=== PATIENT | male | born 1935 | race Caucasian/White ===

== ENCOUNTER 2016-07-05 09:30 | Inpatient (IN) | payer MEDICARE, OTHER ==
[~2016-07-05] VITALS: Ht 162.6 cm; Wt 71.4 kg
[~2016-07-05 09:30] MED LIST: ACET325T9 PO; ALBU2.5V5 NEB; ALLO300T PO; ASPI325T4 PO; BISA10SU2 RC; CARV3.12 PO; CHOL100017 PO; EZET10TA3 PO; FAMO-63 PO; FERR-26 PO; FINA5TAB4 PO; FURO20TA3 PO; GABA600T2 PO; HYDR-2666 PO; MAG360OR24 PO; MAGN2400 PO; MULT1TAB77 PO; OMEP40CA5 PO; PHEN14.52 MM; SENN1TAB21 PO; SENN8.6C2 PO; SPIR25TA3 PO; TAMS0.4C97 PO; THIA100T22 PO; TRAN1TBM4 PO; TRAZ50TA15 PO; WARF2TAB7 PO; WARF3TAB PO
--- NOTE | 2016-07-05 09:41 | PHYS DOC ---
Past Medical History Past Medical History: High Cholesterol, Hypertension, Other Additional Past Medical Histor: Cirrhosis, PAD Past Surgical History: Coronary Bypass Surgery, Other Additional Past Surgical Histo: stent placement Alcohol Use: Heavy Drug Use: None Adult General Chief Complaint Chief Complaint: lower extremity edema HPI HPI Patient is a 81 year old 81-year-old male who [facility] with worsening lower show any edema and pain. According to report has a history of congestive heart failure and is on Demadex and has bilateral heel ulcers and over the last several days his legs are becoming increasingly swollen. He denies any chest pain, shortness of breath, fevers chills nausea or vomiting. Review of Systems Review of Systems Constitutional: Denies fever or chills [] Eyes: Denies change in visual acuity, redness, or eye pain [] HENT: Denies nasal congestion or sore throat [] Respiratory: Denies cough or shortness of breath [] Cardiovascular: No additional information not addressed in HPI [] GI: Denies abdominal pain, nausea, vomiting, bloody stools or diarrhea [] : Denies dysuria or hematuria [] Musculoskeletal: Denies back pain or joint pain, complains of lower show any swelling in discomfort [] Integument: Denies rash or skin lesions [] Neurologic: Denies headache, focal weakness or sensory changes [] Endocrine: Denies polyuria or polydipsia [] Current Medications Current Medications Current Medications Medications (Trade) Dose Ordered Sig/Farhad Start Time Stop Time Status Last Admin Dose Admin Furosemide (Lasix) 40 mg 1X ONCE 07/05/16 13:15 07/05/16 13:16 DC 07/05/16 13:20 40 MG Morphine Sulfate 2 mg 1X ONCE 07/05/16 12:00 07/05/16 12:02 DC 07/05/16 12:08 2 MG Morphine Sulfate 2 mg 2 mg 1X ONCE 07/05/16 10:45 07/05/16 10:46 DC 07/05/16 10:38 2 MG Sodium Chloride (Iv Sodium Chloride 0.9% 1000ml Bag) 1,000 ml @ 250 mls/hr 1X ONCE 07/05/16 12:00 07/05/16 15:59 07/05/16 12:07 250 MLS/HR Allergies Allergies Allergies Coded Allergies Type Severity Reaction Last Updated Verified No Known Drug Allergies 7/9/14 No Physical Exam Physical Exam Constitutional: Well developed, well nourished, no acute distress, non-toxic appearance. [] HENT: Normocephalic, atraumatic, bilateral external ears normal, oropharynx moist, no oral exudates, nose normal. [] Eyes: PERRLA, EOMI, conjunctiva normal, no discharge. [] Neck: Normal range of motion, no tenderness, supple, no stridor. [] Cardiovascular:Heart rate regular rhythm, no murmur [] Lungs & Thorax: Bilateral breath sounds clear to auscultation [] Abdomen: Bowel sounds normal, soft, no tenderness, no masses, no pulsatile masses. [] Skin: Was on bilateral heels the left heel having a 1 cm with necrotic ulcer of appearance, right heel with black-appearing lesion, no erythema surrounding either wounds. [] Back: No tenderness, no CVA tenderness. [] Extremities: No tenderness, no cyanosis, no clubbing, 3+ bilateral lower extremity edema with bandages on right great toe and bilateral heels. [] Neurologic: Alert and oriented X 3, normal motor function, normal sensory function, no focal deficits noted. [] Psychologic: Affect normal, judgement normal, mood normal. [] Current Patient Data Vital Signs Vital Signs Date Time Temp Pulse Resp B/P Pulse Ox O2 Delivery O2 Flow Rate FiO2 07/05/16 12:08 26 99 Room Air 07/05/16 11:04 120 117/62 07/05/16 09:35 98 98.0 Lab Values Laboratory Tests Test 07/05/16 11:10 White Blood Count 10.8x10^3/uL (4.0-11.0) Red Blood Count 3.23x10^6/uL (4.30-5.70) L Hemoglobin 10.3g/dL (13.0-17.5) L Hematocrit 31.1% (39.0-53.0) L Mean Corpuscular Volume 96fL (79-100) Mean Corpuscular Hemoglobin 32pg (25-35) Mean Corpuscular Hemoglobin Concent 33g/dL (31-37) Red Cell Distribution Width 14.3% (11.5-14.5) Platelet Count 389x10^3/uL (140-400) Neutrophils (%) (Auto) 81% (31-73) H Lymphocytes (%) (Auto) 9% (24-48) L Monocytes (%) (Auto) 7% (0-9) Eosinophils (%) (Auto) 2% (0-3) Basophils (%) (Auto) 1% (0-3) Neutrophils # (Auto) 8.7x10^3uL (1.8-7.7) H Lymphocytes # (Auto) 1.0x10^3/uL (1.0-4.8) Monocytes # (Auto) 0.8x10^3/uL (0.0-1.1) Eosinophils # (Auto) 0.2x10^3/uL (0.0-0.7) Basophils # (Auto) 0.1x10^3/uL (0.0-0.2) Prothrombin Time 14.8SEC (11.7-14.0) H Prothrombin Time INR 1.2 (0.8-1.1) H Sodium Level 137mmol/L (136-145) Potassium Level 4.0mmol/L (3.5-5.1) Chloride Level 99mmol/L (98-107) Carbon Dioxide Level 27mmol/L (21-32) Anion Gap 11 (6-14) Blood Urea Nitrogen 46mg/dL (8-26) H Creatinine 2.3mg/dL (0.7-1.3) H Estimated GFR (Cockcroft-Gault) 27.4 Glucose Level 109mg/dL (70-99) H Lactic Acid Level 2.5mmol/L (0.4-2.0) H Calcium Level 9.0mg/dL (8.5-10.1) Magnesium Level 2.3mg/dL (1.8-2.4) Total Bilirubin 0.5mg/dL (0.2-1.0) Direct Bilirubin 0.1mg/dL (0.0-0.2) Aspartate Amino Transferase (AST) 28U/L (15-37) Alanine Aminotransferase (ALT) 25U/L (16-63) Alkaline Phosphatase 96U/L (46-116) Creatine Kinase 135U/L (39-308) Creatine Kinase MB (Mass) 1.8ng/mL (0.0-3.6) Creatine Kinase MB Relative Index 1.3% (0-4) Troponin I Quantitative 0.033ng/mL (0.000-0.055) JF-Vrn-U-Type Natriuretic Peptide 1107pg/mL (0-449) H Total Protein 7.0g/dL (6.4-8.2) Albumin 2.0g/dL (3.4-5.0) L Thyroid Stimulating Hormone (TSH) 1.711uIU/mL (0.358-3.74) Laboratory Tests 07/05/16 11:10 Laboratory Tests 07/05/16 11:10 EKG EKG EKG shows sinus tach with a rate of [address] elevations or T-wave inversions appreciated[] Radiology/Procedures Radiology/Procedures [facility] [address] [place] [address] IMAGING REPORT Signed PATIENT: ROGER PANG ACCOUNT: [id number] : 1935 LOCATION: ER AGE: 81 SEX: M EXAM STATUS: REG ER ORD. PHYSICIAN: SAMANTHA CHAO MD REASON: chf PROCEDURE: PORTABLE CHEST 1V EXAM: Chest, single view. HISTORY: Shortness of breath. COMPARISON: 05/25/2016. FINDINGS: A frontal view of the chest is obtained. There is stable peripheral predominant increased interstitial opacity throughout both lungs. There is no consolidation, effusion or pneumothorax. There is stable enlargement of the cardiac silhouette and evidence of prior CABG. IMPRESSION: 1. Stable peripheral predominant increased interstitial opacity likely due to chronic interstitial lung disease. There is suspected superimposed trace congestion. 2. Stable enlargement of the cardiac silhouette. DICTATED and SIGNED BY: ELEANOR FELIPE MD DATE: 07/05/16 1036 CC: SAMANTHA CHAO MD; DB REAL MD ~ Impressions: Congestive heart failure Lower extremity edema Chronic renal insufficiency Bilateral heel ulcers Course & Med Decision Making Course & Med Decision Making Pertinent Labs and Imaging studies reviewed. (See chart for details) Patient presented with worsening bilateral lower extremity edema and worsening renal insufficiency. Her to tell if he is dehydrated or volume overloaded by his appearance, He was tachycardic at 115 and was given 250 mL of normal saline , his heart rate increased to 120s. His heart rate is increased and has not decreased I ordered 40 mg IV Lasix and he will be admitted to the hospitalist with cardiology consultation. Patient family is agreeable plan in stable condition at this time. Dragon Disclaimer Dragon Disclaimer This electronic medical record was generated, in whole or in part, using a voice recognition dictation system. Departure Departure Referrals: DB REAL MD (PCP) SAMANTHA CHAO MD Jul 05, 2016 09:41
--- NOTE | 2016-07-05 10:39 | RAD ---
EXAM: Chest, single view. HISTORY: Shortness of breath. COMPARISON: 05/25/2016. FINDINGS: A frontal view of the chest is obtained. There is stable peripheral predominant increased interstitial opacity throughout both lungs. There is no consolidation, effusion or pneumothorax. There is stable enlargement of the cardiac silhouette and evidence of prior CABG. IMPRESSION: 1. Stable peripheral predominant increased interstitial opacity likely due to chronic interstitial lung disease. There is suspected superimposed trace congestion. 2. Stable enlargement of the cardiac silhouette.
[2016-07-05] MEDS ORDERED: MORPHINE SULFATE 2 MG/ML DISP.SYRIN. IM ONE (10:45)
[2016-07-05 11:27] LABS: BASO # 0.1 x10^3/uL (0.0-0.2); BASO % 1 % (0-3); EOS % 2 % (0-3); HEMATOCRIT 31.1 % (39.0-53.0); HEMOGLOBIN 10.3 g/dL (13.0-17.5); LYMPH % 9 % (24-48); MEAN CORPUSCULAR HEMOGLOBIN 32 pg (25-35); MEAN CORPUSCULAR HGB CONC 33 g/dL (31-37); MEAN CORPUSCULAR VOLUME 96 fL (79-100); MONO % 7 % (0-9); NEUT % 81 % (31-73); PLATELET COUNT 389 x10^3/uL (140-400); RED BLOOD COUNT 3.23 x10^6/uL (4.30-5.70); RED CELL DISTRIBUTION WIDTH 14.3 % (11.5-14.5); WHITE BLOOD COUNT 10.8 x10^3/uL (4.0-11.0)
[2016-07-05 11:37] LABS: INR 1.2 (0.8-1.1); PROTHROMBIN TIME PATIENT 14.8 SEC (11.7-14.0)
[2016-07-05 11:40] LABS: CREATININE 2.3 mg/dL (0.7-1.3); GFR 27.4
[2016-07-05 11:46] LABS: DIRECT BILIRUBIN 0.1 mg/dL (0.0-0.2); MAGNESIUM 2.3 mg/dL (1.8-2.4); TOTAL BILIRUBIN 0.5 mg/dL (0.2-1.0)
--- NOTE | 2016-07-05 11:51 | ACF ---
Admission Forms Criteria HEART FAILURE: COMMON COMPLICATIONS Clinical Indications for Inpatient Care (Place 'X' for any and all applicable criteria): Ongoing inpatient care may be indicated for heart failure with ANY ONE of the following (1)(2)(3)(4)(5): [ ]I. Ongoing need for care for primary condition requiring frequent therapy adjustments because of changes in cardiac function (eg, drug dosage changes for drugs that are renally metabolized) [ ]II. New-onset heart failure [ ]III. Heart failure with decreased urine output not responsive to attempts to optimize volume status [ ]IV. Acute cardiac ischemia causing or associated with failure [X]V. Complications of heart failure, including ANY ONE of the following: [ ]a) Pericardial effusion [ ]b) Symptomatic pleural effusion [ ]c) O2 saturation <90% or PO2 < 60 mm Hg (8.0 kPa) on room air or require baseline supplemental O2 [ ]d) Tachypnea [ ]e) Dyspnea [ ]f) Syncope [ ]g) Change in mental status [ ]h) Acute renal insufficiency that is severe (reduction of more than 50% in estimated glomerular filtration rate from baseline) or progressive reduction of more than 25% in estimated glomerular filtration rate from baseline, with creatinine continuing to rise) [X]i) Hemodynamic instability [ ]j) Anasarca [ ]k) Clinically significant metabolic abnormalities due to heart failure (eg, new-onset metabolic acidosis) Extended stay beyond goal length of stay for primary condition may be needed until ALL of the following are present(1)(3): [ ]a) Stable and effective diuretic regimen established (or patient on stable dialysis regimen if in chronic renal failure) [ ]b) Breathing comfortably at rest [ ]c) Saturation of arterial oxygen greater than 90% or at acceptable baseline [ ]d) Pulmonary edema absent or improved [ ]e) Hemodynamic stability [ ]f) Volume status acceptable on oral medication [ ]g) Peripheral or sacral edema absent or improved [ ]h) Renal function stable and manageable at a lower level of care [ ]i) Complications (eg, pleural effusion) resolved or manageable at a lower level of care [ ]j) Patient or caregiver has received written discharge instructions or educational material addressing activity level, diet, discharge medications, follow-up appointment, weight monitoring, and what to do if symptoms worsen The original [employer] content created by [employer] has been revised. The portions of the content which have been revised are identified through the use of italic text or in bold, and [facility] has neither reviewed nor approved the modified material.All other unmodified content is copyright [email or web address]. Please see references footnoted in the original [email or web address] edition 2016 Admission Criteria Met?: Yes YULISSA REYEZ Jul 05, 2016 11:51
[2016-07-05] MEDS ORDERED: IV NORMAL SALINE 1000ML BAG 1,000 ML IV ONE (12:00)
[2016-07-05] MEDS ORDERED: MORPHINE SULFATE 2 MG/ML DISP.SYRIN. IV ONE (12:00)
[2016-07-05 12:13] LABS: CKMB INDEX 1.3 % (0-4); CKMB MASS 1.8 ng/mL (0.0-3.6)
[2016-07-05] MEDS ORDERED: FUROSEMIDE 40 MG/4 ML VIAL IVP ONE (13:15)
--- NOTE | 2016-07-05 13:43 | EKG ---
[facility] [address] [place] [address] Test Date: 2016-07-05 Test Time: 09:48:04 Pat Name: ROGER PANG Department: Room: Gender: Space Operations: : 1935 Requested By: SAMANTHA CHAO Order Number: [id number] Reading MD: Jameel Zelaya Measurements Intervals [place] Rate: 115 P: 26 ID: 120 QRS: 8 QRSD: 102 T: -12 QT: 324 QTc: 450 Interpretive Statements SINUS TACHYCARDIA BASELINE ARTIFACT Electronically Signed On 07-10-2016 10:10:08 ENFORCEMENT SAFETY OFFICER by Jameel Zelaya
--- NOTE | 2016-07-05 15:16 | EKG ---
[facility] [address] [place] [address] Test Date: 2016-07-05 Test Time: 12:34:42 Pat Name: ROGER PANG Department: Room: 258 1 Gender: M Meat Hostess: : 1935 Requested By: DB REAL Order Number: [id number] Reading MD: Jameel Zelaya Measurements Intervals [place] Rate: 122 P: AK: QRS: -21 QRSD: 94 T: 47 QT: 320 QTc: 457 Interpretive Statements SINUS TACHYCARDIA Electronically Signed On 07-10-2016 10:15:52 GLUE JOINTER FEEDER by Jameel Zelaya
--- NOTE | 2016-07-05 15:30 | PDOC2 ---
CARDIAC CONSULT DATE OF CONSULT Date of Consult DATE: 07/05/16 TIME: 15:15 REASON FOR CONSULT Reason for Consult: CHF REFERRING PHYSICIAN Referring Physician: Dr. Deep Rodriguez SOURCE Source: Chart review, Patient (who is an unreliable historian and profoundly hard of hearing) HISTORY OF PRESENT ILLNESS HISTORY OF PRESENT ILLNESS 81 year old male reportedly from [facility] with LE edema that started this a.m. Denies associated chest pain, pressure, palpitations, or dyspnea. EKG with ST and no acute changes. NT-proBNP 1107. Reason for Visit: CHF PAST MEDICAL HISTORY Past Medical History Cardiovascular: CAD, HTN, Hyperlipidemia, CHF - ? Pulmonary: Pneumonia CENTRAL NERVOUS SYSTEM: Other (denies) GI: No pertinent hx Heme/Onc: No pertinent hx Hepatobiliary: Cirrhosis Psych: Addictions (alcoholism) Musculoskeletal: Osteoarthritis Rheumatologic: Gout Infectious disease: No pertinent hx ENT: No pertinent hx Renal/: Prostate Ca. (treated with radiation) Endocrine: No pertinent hx Dermatology: No pertinent hx PAST SURGICAL HISTORY Past Surgical History CABG (with aortic valve replacement (bioprosthetic), Hernia Repair (inguinal), Other (cardiac cath 2012, s/p bladder irrigation) FAMILY HISTORY Family History: Stroke (brother) SOCIAL HISTORY ALCOHOL: other (history of ETOH abuse) CURRENT MEDICATIONS CURRENT MEDICATIONS Current Medications Medications (Trade) Dose Ordered Sig/Farhad Route PRN Reason Start Time Stop Time Status Last Admin Dose Admin Morphine Sulfate 2 mg 2 mg 1X ONCE IM 07/05/16 10:45 07/05/16 10:46 DC 07/05/16 10:38 Sodium Chloride (Iv Sodium Chloride 0.9% 1000ml Bag) 1,000 ml @ 250 mls/hr 1X ONCE IV 07/05/16 12:00 07/05/16 15:59 07/05/16 12:07 Morphine Sulfate 2 mg 1X ONCE IV 07/05/16 12:00 07/05/16 12:02 DC 07/05/16 12:08 Furosemide (Lasix) 40 mg 1X ONCE IVP 07/05/16 13:15 07/05/16 13:16 DC 07/05/16 13:20 ALLERGIES ALLERGIES: Coded Allergies: No Known Drug Allergies (Unverified , 12/30/13) ROS Review of System see HPI; attempted 14 point review - pt profoundly heard of hearing PHYSICAL EXAM General: Alert, Cooperative, No acute distress HEENT: Atraumatic, PERRLA, Other (bilateral hearing aids) Lungs: Other (decreased in bases - ? crackles - pt talked through physical exam ) Heart: Regular rate, Normal S1, Normal S2, Other (tachycardic) Abdomen: Normal bowel sounds, Soft Extremities: Normal pulses, Other (2+ pedal edema) Neuro: Normal speech Psych/Mental Status: Mental status NL, Mood NL MUSCULOSKELETAL: Osteoarthritic changes both hands VITALS VITALS Vital Signs Date Time Temp Pulse Resp B/P Pulse Ox O2 Delivery O2 Flow Rate FiO2 07/05/16 12:08 26 99 Room Air 07/05/16 11:04 120 117/62 07/05/16 09:35 98 98.0 LABS Lab: Laboratory Tests Test 07/05/16 11:10 White Blood Count 10.8x10^3/uL (4.0-11.0) Red Blood Count 3.23x10^6/uL (4.30-5.70) Hemoglobin 10.3g/dL (13.0-17.5) Hematocrit 31.1% (39.0-53.0) Mean Corpuscular Volume 96fL (79-100) Mean Corpuscular Hemoglobin 32pg (25-35) Mean Corpuscular Hemoglobin Concent 33g/dL (31-37) Red Cell Distribution Width 14.3% (11.5-14.5) Platelet Count 389x10^3/uL (140-400) Neutrophils (%) (Auto) 81% (31-73) Lymphocytes (%) (Auto) 9% (24-48) Monocytes (%) (Auto) 7% (0-9) Eosinophils (%) (Auto) 2% (0-3) Basophils (%) (Auto) 1% (0-3) Neutrophils # (Auto) 8.7x10^3uL (1.8-7.7) Lymphocytes # (Auto) 1.0x10^3/uL (1.0-4.8) Monocytes # (Auto) 0.8x10^3/uL (0.0-1.1) Eosinophils # (Auto) 0.2x10^3/uL (0.0-0.7) Basophils # (Auto) 0.1x10^3/uL (0.0-0.2) Prothrombin Time 14.8SEC (11.7-14.0) Prothromb Time International Ratio 1.2 (0.8-1.1) Sodium Level 137mmol/L (136-145) Potassium Level 4.0mmol/L (3.5-5.1) Chloride Level 99mmol/L (98-107) Carbon Dioxide Level 27mmol/L (21-32) Anion Gap 11 (6-14) Blood Urea Nitrogen 46mg/dL (8-26) Creatinine 2.3mg/dL (0.7-1.3) Estimated GFR (Cockcroft-Gault) 27.4 Glucose Level 109mg/dL (70-99) Lactic Acid Level 2.5mmol/L (0.4-2.0) Calcium Level 9.0mg/dL (8.5-10.1) Magnesium Level 2.3mg/dL (1.8-2.4) Total Bilirubin 0.5mg/dL (0.2-1.0) Direct Bilirubin 0.1mg/dL (0.0-0.2) Aspartate Amino Transf (AST/SGOT) 28U/L (15-37) Alanine Aminotransferase (ALT/SGPT) 25U/L (16-63) Alkaline Phosphatase 96U/L (46-116) Creatine Kinase 135U/L (39-308) Creatine Kinase MB (Mass) 1.8ng/mL (0.0-3.6) Creatine Kinase MB Relative Index 1.3% (0-4) Troponin I Quantitative 0.033ng/mL (0.000-0.055) XC-Iuu-P-Type Natriuretic Peptide 1107pg/mL (0-449) Total Protein 7.0g/dL (6.4-8.2) Albumin 2.0g/dL (3.4-5.0) Thyroid Stimulating Hormone (TSH) 1.711uIU/mL (0.358-3.74) IMAGES IMAGES CXR: FINDINGS: A frontal view of the chest is obtained. There is stable peripheral predominant increased interstitial opacity throughout both lungs. There is no consolidation, effusion or pneumothorax. There is stable enlargement of the cardiac silhouette and evidence of prior CABG. IMPRESSION: 1. Stable peripheral predominant increased interstitial opacity likely due to chronic interstitial lung disease. There is suspected superimposed trace congestion. 2. Stable enlargement of the cardiac silhouette. EKG EKG ST; no acute changes ECHOCARDIOGRAM ECHOCARDIOGRAM 12/24/2013: EYAD: The left ventricle is normal size. The systolic function is moderately decreased. LV ejection fraction is 30-35%. The aortic valve is heavily calcified with decreased opening. There is severe valvular aortic stenosis. Doppler and Color-flow revealed mild to moderate mitral regurgitation. Doppler and Color Flow revealed trace to mild tricuspid regurgitation. 07/2014: TTE: Mild global left ventricle systolic dysfunction. The Ejection Fraction is estimated at 40-45%. Tissue Doppler imaging reveals abnormal left ventricular diastolic dysfunction. The left atrium is mildly dilated. Bioprosthetic aortic valve appears well seated with normal function. Doppler and Color-flow revealed mild mitral regurgitation. Doppler and Color Flow revealed mild tricuspid regurgitation. The PA pressure was estimated at 38 mmHg. There is no evidence of significant pericardial effusion. HEART CATH HEART CATH 11/2013: cardiac cath Left main. The left main had no lesions. Left anterior descending. The LAD had diffuse severe disease with mid lesions in the 80-90% range and a distal 80-85% lesion. Left Circumflex. The left circumflex is a moderate size vessel. It has a proximal 70% lesion and 2 mid lesions of 90% or greater. Right coronary artery. The right coronary was a large dominant vessel with a proximal 80% lesion and diffuse distal disease of 80%. ASSESSMENT/PLAN ASSESSMENT/PLAN 1. acute on chronic systolic and diastolic CHF concur with IV diuretics echo to evaluate LVEF 2. CAD with previous CABG and bioprosthetic AVR 3. HTN control 4. HLD check FLP Problems: LAKIA MANN APRN Jul 05, 2016 15:30
[2016-07-05] MEDS ORDERED: ALBUTEROL SULFATE 2.5 MG/3 ML NEBU. NEB PRN (16:30)
[2016-07-05] MEDS ORDERED: ACETAMINOPHEN 325 MG TABLET. PO PRN (16:30)
[2016-07-05] MEDS ORDERED: MAGNESIUM HYDROXIDE 2,400 MG/30 ML ORAL.SUSP. PO PRN (16:30)
[2016-07-05] MEDS: CARVEDILOL 3.125 MG TABLET PO SCH (17:31)
[2016-07-05] MEDS: FUROSEMIDE 20 MG/2 ML VIAL IVP SCH (17:32)
[2016-07-05] MEDS: ENOXAPARIN 30 MG/0.3 ML DISP.SYRIN. SQ SCH (17:32)
[2016-07-05] MEDS: PIPERACILLIN/TAZOBACTAM 2.25 GM in IV NORMAL SALINE 50ML 50 ML IV SCH (18:52)
[2016-07-05 19:33] VITALS: BP 110/52
[2016-07-05] MEDS: TAMSULOSIN 0.4 MG CAP.ER.24H. PO SCH (21:00)
[2016-07-05] MEDS ORDERED: CARVEDILOL 3.125 MG TABLET PO SCH (21:00)
[2016-07-05] MEDS: FAMOTIDINE 20 MG TABLET. PO SCH (21:00)
[2016-07-05] MEDS: HYDROCODONE/APAP 5/325MG TABLET. PO PRN (21:01)
[2016-07-05] MEDS: GABAPENTIN 300 MG CAPSULE. PO SCH (21:01)
[2016-07-05 23:04] VITALS: BP 91/49
[2016-07-06] VITALS (7 sets, daily range): BP systolic 88–127; BP diastolic 49–65
[2016-07-06] MEDS: PIPERACILLIN/TAZOBACTAM 2.25 GM in IV NORMAL SALINE 50ML 50 ML IV SCH ×5 (00:13→23:34)
[2016-07-06 03:46] LABS: CALCIUM 9.5 mg/dL (8.5-10.1); CREATININE 2.2 mg/dL (0.7-1.3); GFR 28.9
[2016-07-06 04:11] LABS: CHOLESTEROL/HDL RATIO 2.9
[2016-07-06 04:19] LABS: BASO # 0.1 x10^3/uL (0.0-0.2); BASO % 1 % (0-3); EOS % 2 % (0-3); HEMATOCRIT 31.9 % (39.0-53.0); HEMOGLOBIN 10.2 g/dL (13.0-17.5); LYMPH # 1.1 x10^3/uL (1.0-4.8); LYMPH % 10 % (24-48); MEAN CORPUSCULAR HEMOGLOBIN 31 pg (25-35); MEAN CORPUSCULAR HGB CONC 32 g/dL (31-37); MEAN CORPUSCULAR VOLUME 99 fL (79-100); MONO % 7 % (0-9); NEUT % 80 % (31-73); PLATELET COUNT 368 x10^3/uL (140-400); RED BLOOD COUNT 3.24 x10^6/uL (4.30-5.70); RED CELL DISTRIBUTION WIDTH 14.6 % (11.5-14.5); WHITE BLOOD COUNT 11.7 x10^3/uL (4.0-11.0)
[2016-07-06] MEDS ORDERED: FUROSEMIDE 20 MG TABLET PO SCH (09:00)
[2016-07-06] MEDS: SPIRONOLACTONE 25 MG TABLET PO SCH (09:04)
[2016-07-06] MEDS: FINASTERIDE 5 MG TABLET PO SCH (09:04)
[2016-07-06] MEDS: TAMSULOSIN 0.4 MG CAP.ER.24H. PO SCH ×2 (09:04→20:22)
[2016-07-06] MEDS: ALLOPURINOL 300 MG TABLET. PO SCH (09:04)
[2016-07-06] MEDS: CARVEDILOL 3.125 MG TABLET PO SCH ×2 (09:04→17:28)
[2016-07-06] MEDS: FUROSEMIDE 20 MG/2 ML VIAL IVP SCH ×2 (09:05→16:24)
--- NOTE | 2016-07-06 10:20 | PDOC ---
OBJECTIVE Vital Signs Vital Signs Date Time Temp Pulse Resp B/P Pulse Ox O2 Delivery O2 Flow Rate FiO2 07/06/16 09:04 114 105/60 07/06/16 07:00 98.5 114 18 105/60 100 Room Air 98.5 07/06/16 03:16 98.3 104 18 103/62 98 Room Air 98.3 07/06/16 01:17 127/65 07/05/16 23:04 97.3 20 91/49 96 Room Air 97.3 07/05/16 21:01 18 07/05/16 20:00 Room Air 07/05/16 19:33 98.7 101 18 110/52 97 Room Air 98.7 07/05/16 17:31 128 07/05/16 16:56 Room Air 07/05/16 15:34 126 32 112/61 97 Room Air 07/05/16 14:34 126 30 130/60 Room Air 07/05/16 14:04 118 16 119/56 97 Room Air 07/05/16 13:34 126 30 113/58 Room Air 07/05/16 13:04 122 27 120/63 97 Room Air 07/05/16 12:34 124 33 142/77 97 Room Air 07/05/16 12:08 26 99 Room Air 07/05/16 12:04 124 31 144/71 85 Room Air 07/05/16 11:34 126 26 107/74 98 Room Air 07/05/16 11:10 24 96 Room Air 07/05/16 11:04 120 24 117/62 96 07/05/16 10:53 112 119/58 07/05/16 10:38 24 95 Room Air 07/05/16 10:34 126 36 146/63 93 Room Air I & O Intake and Output 07/06/16 07:00 Intake Total 300 ml Output Total 900 ml Balance -600 ml Intake Oral 50 ml IV Total 250 ml Output Urine Total 900 ml # Voids 3 ASSESSMENT/PLAN Assessment/Plan 193956 H&P dictated Problems: COMMENT Lab Laboratory Tests Test 07/05/16 11:10 07/05/16 17:29 07/05/16 19:00 07/06/16 01:45 White Blood Count 10.8x10^3/uL (4.0-11.0) 11.7x10^3/uL (4.0-11.0) Red Blood Count 3.23x10^6/uL (4.30-5.70) 3.24x10^6/uL (4.30-5.70) Hemoglobin 10.3g/dL (13.0-17.5) 10.2g/dL (13.0-17.5) Hematocrit 31.1% (39.0-53.0) 31.9% (39.0-53.0) Mean Corpuscular Volume 96fL (79-100) 99fL (79-100) Mean Corpuscular Hemoglobin 32pg (25-35) 31pg (25-35) Mean Corpuscular Hemoglobin Concent 33g/dL (31-37) 32g/dL (31-37) Red Cell Distribution Width 14.3% (11.5-14.5) 14.6% (11.5-14.5) Platelet Count 389x10^3/uL (140-400) 368x10^3/uL (140-400) Neutrophils (%) (Auto) 81% (31-73) 80% (31-73) Lymphocytes (%) (Auto) 9% (24-48) 10% (24-48) Monocytes (%) (Auto) 7% (0-9) 7% (0-9) Eosinophils (%) (Auto) 2% (0-3) 2% (0-3) Basophils (%) (Auto) 1% (0-3) 1% (0-3) Neutrophils # (Auto) 8.7x10^3uL (1.8-7.7) 9.4x10^3uL (1.8-7.7) Lymphocytes # (Auto) 1.0x10^3/uL (1.0-4.8) 1.1x10^3/uL (1.0-4.8) Monocytes # (Auto) 0.8x10^3/uL (0.0-1.1) 0.8x10^3/uL (0.0-1.1) Eosinophils # (Auto) 0.2x10^3/uL (0.0-0.7) 0.2x10^3/uL (0.0-0.7) Basophils # (Auto) 0.1x10^3/uL (0.0-0.2) 0.1x10^3/uL (0.0-0.2) Prothrombin Time 14.8SEC (11.7-14.0) Prothromb Time International Ratio 1.2 (0.8-1.1) Sodium Level 137mmol/L (136-145) 137mmol/L (136-145) Potassium Level 4.0mmol/L (3.5-5.1) 4.0mmol/L (3.5-5.1) Chloride Level 99mmol/L (98-107) 101mmol/L (98-107) Carbon Dioxide Level 27mmol/L (21-32) 21mmol/L (21-32) Anion Gap 11 (6-14) 15 (6-14) Blood Urea Nitrogen 46mg/dL (8-26) 49mg/dL (8-26) Creatinine 2.3mg/dL (0.7-1.3) 2.2mg/dL (0.7-1.3) Estimated GFR (Cockcroft-Gault) 27.4 28.9 Glucose Level 109mg/dL (70-99) 116mg/dL (70-99) Lactic Acid Level 2.5mmol/L (0.4-2.0) 1.9mmol/L (0.4-2.0) Calcium Level 9.0mg/dL (8.5-10.1) 9.5mg/dL (8.5-10.1) Magnesium Level 2.3mg/dL (1.8-2.4) Total Bilirubin 0.5mg/dL (0.2-1.0) Direct Bilirubin 0.1mg/dL (0.0-0.2) Aspartate Amino Transf (AST/SGOT) 28U/L (15-37) Alanine Aminotransferase (ALT/SGPT) 25U/L (16-63) Alkaline Phosphatase 96U/L (46-116) Creatine Kinase 135U/L (39-308) Creatine Kinase MB (Mass) 1.8ng/mL (0.0-3.6) Creatine Kinase MB Relative Index 1.3% (0-4) Troponin I Quantitative 0.033ng/mL (0.000-0.055) 0.033ng/mL (0.000-0.055) 0.029ng/mL (0.000-0.055) LD-Rsp-X-Type Natriuretic Peptide 1107pg/mL (0-449) Total Protein 7.0g/dL (6.4-8.2) Albumin 2.0g/dL (3.4-5.0) Thyroid Stimulating Hormone (TSH) 1.711uIU/mL (0.358-3.74) Nasal Screen MRSA (PCR) Negative (Negative) Test 07/06/16 02:00 Magnesium Level 2.5mg/dL (1.8-2.4) Triglycerides Level 81mg/dL (0-150) Cholesterol Level 171mg/dL (0-200) LDL Cholesterol, Calculated 96mg/dL (0-100) VLDL Cholesterol, Calculated 16mg/dL (0-40) HDL Cholesterol 59mg/dL (40-60) Cholesterol/HDL Ratio 2.9 DB REAL MD Jul 06, 2016 10:20
--- NOTE | 2016-07-06 11:01 | CARD ---
APPROVED REPORT EXAM: Two-dimensional and M-mode echocardiogram with Doppler and color Doppler. Other Information Quality : technically Difficult Technically limited study due to poor subcostal, and apical images. INDICATION Congestive Heart Failure AVR 2D DIMENSIONS RVDd2.8 (2.9-3.5cm)Left Atrium(2D)4.0 (1.6-4.0cm) IVSd1.0 (0.7-1.1cm)Aortic Root(2D)3.1 (2.0-3.7cm) LVDd4.3 (3.9-5.9cm)LVOT Diameter2.0 (1.8-2.4cm) PWd1.1 (0.7-1.1cm)LVDs2.7 (2.5-4.0cm) FS (%) 23.7 %SV57.1 ml LVEF(%)45.1 (>50%) Aortic Valve AoV Peak Samir.172.2cm/sAoV VTI36.3cm AO Peak GR.11.9mmHgLVOT VTI 23.15cm MARCIANO (VTI)2.00cm2 Mitral Valve MV E Mmjdjjhh920.7cm/sMV E Peak Gr.9mmHg MV DECEL [id number] A Luaaboym375.6cm/s MV E Mean Gr.4mmHgMV [id number] E/A Ratio0.8MV A Aqmcblup77es MVA (PHT)6.11cm2 TDI Lateral E' P. V11.97cm/sMedial E' P. V9.33cm/s E/Lateral E'9.5E/Medial E'12.2 Tricuspid Valve TR P. Rripjmgt373zd/sRAP [id number] TR Peak Gr.94fiUjPFFN32woDl LEFT VENTRICLE The left ventricle is normal size. There is borderline concentric left ventricular hypertrophy. Left ventricle systolic function is mildly impaired. The Ejection Fraction is 40-45%. The septal motion is consistent with postoperative state. Mild global hypokinesis. Transmitral Doppler flow pattern is Gr aicha I-abnormal relaxation pattern. RIGHT VENTRICLE The right ventricle is normal size. The right ventricular systolic function is normal. ATRIA The left atrium is borderline dilated. The right atrium size is normal. Interatrial septal thickening is noted. AORTIC VALVE Bioprosthetic Aortic Valve. Doppler and Color Flow revealed mild aortic regurgitation. There is no si gnificant aortic valvular stenosis. There are normal prosthetic aortic valve gradients. MITRAL VALVE The mitral valve is thickened and calcified and displays mild decreased opening. 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 There is no evidence of mitral valve prolapse. There is no mitral roselia ve stenosis. Doppler and Color Flow revealed mild mitral regurgitation. TRICUSPID VALVE The tricuspid valve is normal in structure. Doppler and Color Flow revealed mild tricuspid regurgitat ion. There is mild-moderate pulmonary hypertension. The PA pressure was estimated at 41 mmHg. There i s no tricuspid valve stenosis. PULMONIC VALVE The pulmonary valve is normal in structure and function. Doppler and Color Flow revealed mild pulmoni c valvular regurgitation. There is no pulmonic valvular stenosis. GREAT VESSELS The aortic root is normal in size. Due to poor image quality, the IVC could not be assessed. PERICARDIAL EFFUSION There is no evidence of significant pericardial effusion. Critical Notification Critical Value: No <Conclusion> Left ventricle systolic function is mildly impaired. The Ejection Fraction is 40-45%. The septal motion is consistent with postoperative state. Mild global hypokinesis. Doppler and Color Flow revealed mild aortic regurgitation. The mitral valve is thickened and calcified and displays mild decreased opening. 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 Doppler and Color Flow revealed mild mitral regurgitation. Doppler and Color Flow revealed mild tricuspid regurgitation. There is mild-moderate pulmonary hypert ension. The PA pressure was estimated at 41 mmHg.
[2016-07-06 11:29] LABS: BILIRUBIN,URINE NEGATIVE (NEG); GLUCOSE,URINE NEGATIVE (NEG); NITRITE,URINE NEGATIVE (NEG); PH,URINE 6.5; PROTEIN,URINE NEGATIVE (NEG-TRACE); UROBILINOGEN,URINE 0.2 mg/dL (0.2 mg/dL)
--- NOTE | 2016-07-06 11:30 | PDOC ---
CARDIO Progress Notes Date and Time Date of Service 07/06/16 Time of Evaluation 1129 Vitals Vitals Vital Signs Date Time Temp Pulse Resp B/P Pulse Ox O2 Delivery O2 Flow Rate FiO2 07/06/16 09:04 114 105/60 07/06/16 07:00 98.5 18 100 Room Air 98.5 Weight Weight [ ] Input and Output Intake and Output Intake and Output 07/06/16 07:00 Intake Total 300 ml Output Total 900 ml Balance -600 ml Intake Oral 50 ml IV Total 250 ml Output Urine Total 900 ml # Voids 3 Laboratory Labs Laboratory Tests Test 07/05/16 17:29 07/05/16 19:00 07/06/16 01:45 07/06/16 02:00 Nasal Screen MRSA (PCR) Negative (Negative) Lactic Acid Level 1.9mmol/L (0.4-2.0) Troponin I Quantitative 0.033ng/mL (0.000-0.055) 0.029ng/mL (0.000-0.055) White Blood Count 11.7x10^3/uL (4.0-11.0) Red Blood Count 3.24x10^6/uL (4.30-5.70) Hemoglobin 10.2g/dL (13.0-17.5) Hematocrit 31.9% (39.0-53.0) Mean Corpuscular Volume 99fL (79-100) Mean Corpuscular Hemoglobin 31pg (25-35) Mean Corpuscular Hemoglobin Concent 32g/dL (31-37) Red Cell Distribution Width 14.6% (11.5-14.5) Platelet Count 368x10^3/uL (140-400) Neutrophils (%) (Auto) 80% (31-73) Lymphocytes (%) (Auto) 10% (24-48) Monocytes (%) (Auto) 7% (0-9) Eosinophils (%) (Auto) 2% (0-3) Basophils (%) (Auto) 1% (0-3) Neutrophils # (Auto) 9.4x10^3uL (1.8-7.7) Lymphocytes # (Auto) 1.1x10^3/uL (1.0-4.8) Monocytes # (Auto) 0.8x10^3/uL (0.0-1.1) Eosinophils # (Auto) 0.2x10^3/uL (0.0-0.7) Basophils # (Auto) 0.1x10^3/uL (0.0-0.2) Sodium Level 137mmol/L (136-145) Potassium Level 4.0mmol/L (3.5-5.1) Chloride Level 101mmol/L (98-107) Carbon Dioxide Level 21mmol/L (21-32) Anion Gap 15 (6-14) Blood Urea Nitrogen 49mg/dL (8-26) Creatinine 2.2mg/dL (0.7-1.3) Estimated GFR (Cockcroft-Gault) 28.9 Glucose Level 116mg/dL (70-99) Calcium Level 9.5mg/dL (8.5-10.1) Magnesium Level 2.5mg/dL (1.8-2.4) Triglycerides Level 81mg/dL (0-150) Cholesterol Level 171mg/dL (0-200) LDL Cholesterol, Calculated 96mg/dL (0-100) VLDL Cholesterol, Calculated 16mg/dL (0-40) HDL Cholesterol 59mg/dL (40-60) Cholesterol/HDL Ratio 2.9 Physical Exam HEENT: Neck Supple W Full Motion Chest: Symmetric LUNGS: Other (decreased in bases - talked through physical exam) Abdomen: Other (obese abdomen) Extremities: Other (3+ LE edema) Neurology: alert, follow commands Diagnostic Tests Echocardiogram: Other (LVEf 40-45% with mild global hypokinesis; mild AR/MR/TR ; severe MAC; moderate pulm HTN with PA of 41 mm Hg) Assessment Assessment 1. acute on chronic systolic and diastolic CHF concur with IV diuretics echo with mildly depressed LV function and mild global hypokinesis also with moderate pulm HTN - PA = 41 mm hg 2. CAD with previous CABG and bioprosthetic AVR continue medical management - start aspirin 81 mg daily as anti-platelet 3. HTN BP controlled with meds 4. HLD LDLs = 96 CAD/CABG history - start statin therapy LAKIA MANN APRN Jul 06, 2016 11:30
[2016-07-06 11:46] LABS: BACTERIA,URINE FEW /HPF (0-FEW); RBC,URINE RARE /HPF (0-2); SQUAMOUS EPITHELIAL CELL,UR FEW /LPF; WBC,URINE RARE /HPF (0-4)
[2016-07-06] MEDS: HYDROCODONE/APAP 5/325MG TABLET. PO PRN ×2 (12:15→22:53)
[2016-07-06] MEDS: COLCHICINE 0.6 MG TABLET PO SCH ×2 (12:15→20:22)
[2016-07-06] MEDS: ENOXAPARIN 30 MG/0.3 ML DISP.SYRIN. SQ SCH (16:24)
--- NOTE | 2016-07-06 19:18 | PREOP HP ---
DATE OF SERVICE: HISTORY OF PRESENT ILLNESS: The patient is an 81-year-old gentleman who is currently at the [facility] for senior care facility after he had hospitalization due to severe pain in the lower extremities. At that time, he was diagnosed with neuropathy. He was evaluated by Neurology, also was evaluated by Vascular Surgery due to peripheral vascular disease. He is known to have gout as well and then has had a gout attack during his last admission. His gout is severe and persistent recurrent gout. He was advised long time ago to stay on Colcrys twice a day for a year due to the recurrent episodes of gout. He comes back to the Emergency Room again with worsening lower extremity pain. He also has been having more swelling in the lower extremities and some shortness of breath and a question of exacerbation of his congestive heart failure. He has denied any chest pain or fever, chills, nausea, or vomiting. Denied more dyspnea than usual. Denied orthopnea or PND. He does, however, have significant swelling in the lower extremities, significant pain in the lower extremities. He did have swelling and erythema basically more on his left knee and he had cracking in his skin and cellulitis in the lower extremities. PAST MEDICAL HISTORY: Significant for coronary artery disease, congestive heart failure, cardiomyopathy. He has had a CABG surgery in the past. He had a valve replacement in the past. He also has had stent placements in the past. He has hypertension, hyperlipidemia, previous history of pneumonia, prostate cancer status post radiation, history of prostate problems, inguinal hernia, hematuria after his prostate surgery and osteoarthritis, gouty arthritis. He does have history of using alcohol regularly. SOCIAL HISTORY: He quit smoking. He does normally live with his , but is currently to the [facility]. FAMILY HISTORY: Positive for hypertension, cardiac disease and cancer. REVIEW OF SYSTEMS: CONSTITUTIONAL: He denies fever or chills. He does look like he has lost some weight. EYES: Denies visual changes. HENT: Denies nasal congestion or sore throat. RESPIRATORY: He denies increasing shortness of breath, but he does have some baseline dyspnea on exertion. CARDIOVASCULAR: Denies current chest pain. He does have edema in the lower extremities. GASTROINTESTINAL: Denies abdominal pain, nausea, vomiting, bloody stool or diarrhea. GENITOURINARY: Denies dysuria or hematuria at present time. MUSCULOSKELETAL: He does have arthritis and mostly gouty arthritis with acute inflammation in joints that has affected his ankle, his knees and his hands in the past. He currently does have pain in his left knee that is also erythematous and looks inflamed. He also does have pain and swelling in the lower extremities. NEUROLOGY: Denies headache or focal weakness, but he does have significant neuropathic symptoms and neuropathic pain in the lower extremities. DERMATOLOGY: He does not have rash, but he does have a skin breakdown and ulcers on both his lower extremities associated with cellulitis more on the left lower extremity ALLERGIES: He has no known drug allergies. PHYSICAL EXAMINATION: GENERAL: He is alert and oriented at the time I saw him, cooperative. HEENT: Tympanic membranes clear. Pharynx clear. Mucous membranes are moist. NECK: Supple. HEART: Regular rate and rhythm. LUNGS: He had decreased breath sounds in the bases. ABDOMEN: Soft, nontender, no organomegaly, no masses, no bruits, no ascites. SKIN: He has bilateral heel ulcers about 1 cm each associated with cellulitis, dry skin, cracking of the skin. He does have also erythema in the left knee basically with inflammatory changes in the left knee. Clinically, he also does have evidence of mild cellulitis in both lower extremities. His edema is about upon his presentation bilaterally and slightly worse on the left side. NEUROLOGIC: He is alert and oriented and has no focal deficit. IMPRESSION: 1. Severe lower extremity edema. 2. Bilateral lower extremity ulcers and cellulitis, started on antibiotics. 3. Acute on chronic congestive heart failure. He is started on diuretic and Cardiology was consulted. 4. Chronic kidney disease stage 3 with acute kidney injury. 5. Anemia of chronic disease. 6. Coronary artery disease. 7. Hypertension, hypertensive cardiovascular disease. 8. Hyperlipidemia. 9. History of prostate cancer. 10. Gouty arthritis with evidence of acute gout in his left knee. He is restarted on Colcrys and recommendation is for him to stay on Colcrys for the next year. The patient has had recurrent multiple flareups of acute inflammatory gout. Physical Therapy was consulted as well. The patient's family has not been completely satisfied with his stay at the [facility] and would like for him to return home with home health if he was felt safe after this admission. DB REAL MD DR: JUAN/miguel JOB#: [id number] / [id number]
[2016-07-06] MEDS: GABAPENTIN 300 MG CAPSULE. PO SCH (20:22)
[2016-07-06] MEDS: ATORVASTATIN CALCIUM 10 MG TABLET. PO SCH (20:22)
[2016-07-06] MEDS: FAMOTIDINE 20 MG TABLET. PO SCH (20:22)
[2016-07-07] MEDS: HYDROCODONE/APAP 5/325MG TABLET. PO PRN ×3 (02:33→20:49)
[2016-07-07 02:40] VITALS: BP 135/61
[2016-07-07 05:27] LABS: HEMATOCRIT 26.5 % (39.0-53.0); HEMOGLOBIN 8.8 g/dL (13.0-17.5); RED BLOOD COUNT 2.72 x10^6/uL (4.30-5.70); WHITE BLOOD COUNT 10.6 x10^3/uL (4.0-11.0)
[2016-07-07] MEDS: PIPERACILLIN/TAZOBACTAM 2.25 GM in IV NORMAL SALINE 50ML 50 ML IV SCH ×3 (05:28→18:13)
[2016-07-07 05:43] LABS: INR 1.4 (0.8-1.1); PROTHROMBIN TIME PATIENT 16.4 SEC (11.7-14.0)
[2016-07-07 06:05] LABS: ALBUMIN 2.4 g/dL (3.4-5.0); ALBUMIN/GLOBULIN RATIO 0.6 (1.0-1.7); CREATININE 2.5 mg/dL (0.7-1.3); GFR 24.9; POTASSIUM 3.8 mmol/L (3.5-5.1); TOTAL BILIRUBIN 0.5 mg/dL (0.2-1.0); TOTAL PROTEIN 6.2 g/dL (6.4-8.2)
[2016-07-07 07:00] VITALS: BP 104/52
[2016-07-07] MEDS: COLCHICINE 0.6 MG TABLET PO SCH (08:59)
[2016-07-07] MEDS: ALLOPURINOL 300 MG TABLET. PO SCH (08:59)
[2016-07-07] MEDS: TAMSULOSIN 0.4 MG CAP.ER.24H. PO SCH ×2 (08:59→20:48)
[2016-07-07] MEDS: CARVEDILOL 3.125 MG TABLET PO SCH ×2 (08:59→17:00)
[2016-07-07] MEDS: SPIRONOLACTONE 25 MG TABLET PO SCH (08:59)
[2016-07-07] MEDS: FUROSEMIDE 20 MG/2 ML VIAL IVP SCH (09:00)
[2016-07-07] MEDS: FINASTERIDE 5 MG TABLET PO SCH (09:21)
[2016-07-07 10:47] VITALS: BP 102/58
--- NOTE | 2016-07-07 10:54 | PDOC ---
GENERAL General: vss and afebrile. complains bitterly of joint pain primarily in legs. denies significant sob. esr is 138 and with history of gout will start on prednisone and ask for rheumatology help. help consultants appreciated. O>I. continue diuresis. Problems: VITAL SIGNS Vital Signs: Vital Signs Date Time Temp Pulse Resp B/P Pulse Ox O2 Delivery O2 Flow Rate FiO2 07/07/16 10:47 97.5 90 20 102/58 100 Room Air 97.5 I & O I & O Intake and Output 07/07/16 07:00 Intake Total 900 ml Output Total 900 ml Balance 0 ml Intake Oral 900 ml Output Urine Total 900 ml ALLERGIES Allergies: Allergies Coded Allergies Type Severity Reaction Last Updated Verified No Known Drug Allergies 12/30/13 No MEDS Medications: Current Medications Medications (Trade) Dose Ordered Sig/Farhad Start Time Stop Time Status Last Admin Dose Admin Acetaminophen (Tylenol) 650 mg PRN Q4HRS PRN 07/05/16 16:30 Acetaminophen/ Hydrocodone Bitart (Lortab 5/325) 1 tab PRN Q4HRS PRN 07/05/16 16:30 07/07/16 02:33 1 TAB Albuterol Sulfate (Ventolin Neb Soln) 2.5 mg PRN Q4HRS PRN 07/05/16 16:30 Allopurinol (Zyloprim) 300 mg DAILY 07/06/16 09:00 07/07/16 08:59 300 MG Atorvastatin Calcium (Lipitor) 20 mg QHS 07/06/16 21:00 07/06/16 20:22 20 MG Carvedilol (Coreg) 3.125 mg BIDWMEALS 07/05/16 21:00 Cancel Carvedilol 3.125 mg 3.125 mg BIDWMEALS 07/05/16 17:00 07/07/16 08:59 3.125 MG Colchicine (Colcrys) 0.6 mg BID 07/06/16 11:00 07/07/16 08:59 0.6 MG Enoxaparin Sodium (Lovenox 30mg Syringe) 30 mg DAILY16 07/05/16 16:17 07/06/16 16:24 30 MG Famotidine (Pepcid) 20 mg HS 07/05/16 21:00 07/06/16 20:22 20 MG Finasteride (Proscar) 5 mg DAILY 07/06/16 09:00 07/07/16 09:21 5 MG Furosemide (Lasix) 20 mg DAILY 07/06/16 09:00 07/06/16 09:00 DC Gabapentin (Neurontin) 600 mg HS 07/05/16 21:00 07/06/16 20:22 600 MG Magnesium Hydroxide (Milk Of Magnesia) 2,400 mg PRN DAILY PRN 07/05/16 16:30 Morphine Sulfate 2 mg 1X ONCE 07/05/16 12:00 07/05/16 12:02 DC 07/05/16 12:08 2 MG Morphine Sulfate 2 mg 2 mg 1X ONCE 07/05/16 10:45 07/05/16 10:46 DC 07/05/16 10:38 2 MG Piperacillin Sod/ Tazobactam Sod/ Sodium Chloride (Zosyn/Iv Sodium Chloride 0.9% 50ml) 50 ml @ 100 mls/hr Q6HRS 07/05/16 18:00 07/07/16 05:28 100 MLS/HR Sodium Chloride (Iv Sodium Chloride 0.9% 1000ml Bag) 1,000 ml @ 250 mls/hr 1X ONCE 07/05/16 12:00 07/05/16 15:59 DC 07/05/16 12:07 250 MLS/HR Spironolactone (Aldactone) 25 mg DAILY 07/06/16 09:00 07/07/16 08:59 25 MG Tamsulosin HCl (Flomax) 0.4 mg BID 07/05/16 21:00 07/07/16 08:59 0.4 MG LAB Lab: Laboratory Tests Test 07/07/16 04:34 White Blood Count 10.6x10^3/uL (4.0-11.0) Red Blood Count 2.72x10^6/uL (4.30-5.70) Hemoglobin 8.8g/dL (13.0-17.5) Hematocrit 26.5% (39.0-53.0) Mean Corpuscular Volume 98fL (79-100) Mean Corpuscular Hemoglobin 32pg (25-35) Mean Corpuscular Hemoglobin Concent 33g/dL (31-37) Red Cell Distribution Width 14.0% (11.5-14.5) Platelet Count 368x10^3/uL (140-400) Erythrocyte Sedimentation Rate 138 (0-15) Prothrombin Time 16.4SEC (11.7-14.0) Prothromb Time International Ratio 1.4 (0.8-1.1) Sodium Level 142mmol/L (136-145) Potassium Level 3.8mmol/L (3.5-5.1) Chloride Level 102mmol/L (98-107) Carbon Dioxide Level 27mmol/L (21-32) Anion Gap 13 (6-14) Blood Urea Nitrogen 53mg/dL (8-26) Creatinine 2.5mg/dL (0.7-1.3) Estimated GFR (Cockcroft-Gault) 24.9 BUN/Creatinine Ratio 21 (6-20) Glucose Level 114mg/dL (70-99) Calcium Level 9.0mg/dL (8.5-10.1) Magnesium Level 2.2mg/dL (1.8-2.4) Total Bilirubin 0.5mg/dL (0.2-1.0) Aspartate Amino Transf (AST/SGOT) 19U/L (15-37) Alanine Aminotransferase (ALT/SGPT) 17U/L (16-63) Alkaline Phosphatase 72U/L (46-116) Total Protein 6.2g/dL (6.4-8.2) Albumin 2.4g/dL (3.4-5.0) Albumin/Globulin Ratio 0.6 (1.0-1.7) DOREEN CONTRERAS MD Jul 07, 2016 10:53
--- NOTE | 2016-07-07 11:36 | PDOC ---
CARDIOLOGY PROGRESS NOTE SUBJECTIVE: No acute events. Continues to suffer from joint pain. Denies any dyspnea. Laying flat in bed Overall, slow to respond. OBJECTIVE: Vital SIgns: Vital Signs Date Time Temp Pulse Resp B/P Pulse Ox O2 Delivery O2 Flow Rate FiO2 07/07/16 10:47 97.5 90 20 102/58 100 Room Air 97.5 I & O -600 ml Objective: a/o to self CVS: RRR, no m/r/g PULM: Mild decreased breath sounds at the bases. abd soft, joint pain bilaterally non-focal neuro exam. CURRENT MEDICATIONS: Current Medications Medications (Trade) Dose Ordered Sig/Farhad Start Time Stop Time Status Last Admin Dose Admin Acetaminophen (Tylenol) 650 mg PRN Q4HRS PRN 07/05/16 16:30 Acetaminophen/ Hydrocodone Bitart (Lortab 5/325) 1 tab PRN Q4HRS PRN 07/05/16 16:30 07/07/16 02:33 1 TAB Albuterol Sulfate (Ventolin Neb Soln) 2.5 mg PRN Q4HRS PRN 07/05/16 16:30 Allopurinol (Zyloprim) 300 mg DAILY 07/06/16 09:00 07/07/16 08:59 300 MG Atorvastatin Calcium (Lipitor) 20 mg QHS 07/06/16 21:00 07/06/16 20:22 20 MG Carvedilol (Coreg) 3.125 mg BIDWMEALS 07/05/16 21:00 Cancel Carvedilol 3.125 mg 3.125 mg BIDWMEALS 07/05/16 17:00 07/07/16 08:59 3.125 MG Colchicine (Colcrys) 0.6 mg DAILY 07/08/16 09:00 Enoxaparin Sodium (Lovenox 30mg Syringe) 30 mg DAILY16 07/05/16 16:17 07/06/16 16:24 30 MG Famotidine (Pepcid) 20 mg HS 07/05/16 21:00 07/06/16 20:22 20 MG Finasteride (Proscar) 5 mg DAILY 07/06/16 09:00 07/07/16 09:21 5 MG Furosemide (Lasix) 20 mg DAILY 07/06/16 09:00 07/06/16 09:00 DC Gabapentin (Neurontin) 600 mg HS 07/05/16 21:00 07/06/16 20:22 600 MG Magnesium Hydroxide (Milk Of Magnesia) 2,400 mg PRN DAILY PRN 07/05/16 16:30 Morphine Sulfate 2 mg 1X ONCE 07/05/16 12:00 07/05/16 12:02 DC 07/05/16 12:08 2 MG Morphine Sulfate 2 mg 2 mg 1X ONCE 07/05/16 10:45 07/05/16 10:46 DC 07/05/16 10:38 2 MG Piperacillin Sod/ Tazobactam Sod/ Sodium Chloride (Zosyn/Iv Sodium Chloride 0.9% 50ml) 50 ml @ 100 mls/hr Q6HRS 07/05/16 18:00 07/07/16 05:28 100 MLS/HR Prednisone (Prednisone) 20 mg DAILY 07/07/16 11:30 Sodium Chloride (Iv Sodium Chloride 0.9% 1000ml Bag) 1,000 ml @ 250 mls/hr 1X ONCE 07/05/16 12:00 07/05/16 15:59 DC 07/05/16 12:07 250 MLS/HR Spironolactone (Aldactone) 25 mg DAILY 07/06/16 09:00 07/07/16 08:59 25 MG Tamsulosin HCl (Flomax) 0.4 mg BID 07/05/16 21:00 07/07/16 08:59 0.4 MG DIAGNOSTIC TESTING: cr 2.5, anemic with hgb of 8 ASSESSMENT: 1. Chronic diastolic HF. 2. Anemia 3. Joint pain 4. suspect chronic interstitial lung disease. Problems: PLAN: 1. Do not suspect any significant HF at this time. His lung exam is consistent with interstitial disease rather than acute congestive HF. 2. Stop aggressive diuresis in light of no significant edema on CXR, w/o changes since last month. Start lasix 40mg daily. continue other meds. 3. monitor renal function closely 4. Treatment of joint pain per PCP. Will follow peripherally. ANDRE CLEMENS MD Jul 07, 2016 11:36
[2016-07-07] MEDS: PREDNISONE 20 MG TABLET PO SCH (12:07)
[2016-07-07 15:00] VITALS: BP 93/52
[2016-07-07] MEDS: ENOXAPARIN 30 MG/0.3 ML DISP.SYRIN. SQ SCH (16:37)
[2016-07-07 19:41] VITALS: BP 89/48
[2016-07-07] MEDS: ATORVASTATIN CALCIUM 10 MG TABLET. PO SCH (20:48)
[2016-07-07] MEDS: GABAPENTIN 300 MG CAPSULE. PO SCH (20:49)
[2016-07-07] MEDS: FAMOTIDINE 20 MG TABLET. PO SCH (20:49)
[2016-07-07 23:11] VITALS: BP 82/50
[2016-07-08] MEDS: PIPERACILLIN/TAZOBACTAM 2.25 GM in IV NORMAL SALINE 50ML 50 ML IV SCH ×4 (00:32→17:26)
[2016-07-08] MEDS: HYDROCODONE/APAP 5/325MG TABLET. PO PRN ×2 (02:05→21:28)
[2016-07-08 03:31] VITALS: BP 114/64
[2016-07-08 07:31] VITALS: BP 116/67
[2016-07-08] MEDS: CARVEDILOL 3.125 MG TABLET PO SCH ×2 (08:44→16:19)
[2016-07-08] MEDS: ALLOPURINOL 300 MG TABLET. PO SCH (08:44)
[2016-07-08] MEDS: COLCHICINE 0.6 MG TABLET PO SCH (08:44)
[2016-07-08] MEDS: TAMSULOSIN 0.4 MG CAP.ER.24H. PO SCH ×2 (08:44→21:27)
[2016-07-08] MEDS: PREDNISONE 20 MG TABLET PO SCH (08:45)
[2016-07-08] MEDS: FUROSEMIDE 40 MG TABLET PO SCH (08:45)
[2016-07-08] MEDS: SPIRONOLACTONE 25 MG TABLET PO SCH (08:45)
[2016-07-08] MEDS: FINASTERIDE 5 MG TABLET PO SCH (09:49)
[2016-07-08 10:47] VITALS: BP 109/57
[2016-07-08] MEDS: ASPIRIN 81 MG TAB.CHEW PO SCH (12:22)
--- NOTE | 2016-07-08 12:27 | PDOC ---
GENERAL General: vss and afebrile. awake and alert and legs feel best have in over one month likely due to prednisone. will check uric acid level this am and ask rheumatology for any thoughts they might have. can extend legs to almost full this and and looked like had flexion contractures yesterday. otherwise same. Problems: VITAL SIGNS Vital Signs: Vital Signs Date Time Temp Pulse Resp B/P Pulse Ox O2 Delivery O2 Flow Rate FiO2 07/08/16 10:47 97.4 92 18 109/57 100 Room Air 97.4 I & O I & O Intake and Output 07/08/16 07:00 Intake Total 1600 ml Output Total 500 ml Balance 1100 ml Intake Oral 1600 ml Output Urine Total 500 ml ALLERGIES Allergies: Allergies Coded Allergies Type Severity Reaction Last Updated Verified No Known Drug Allergies 12/30/13 No MEDS Medications: Current Medications Medications (Trade) Dose Ordered Sig/Farhad Start Time Stop Time Status Last Admin Dose Admin Acetaminophen (Tylenol) 650 mg PRN Q4HRS PRN 07/05/16 16:30 Acetaminophen/ Hydrocodone Bitart (Lortab 5/325) 1 tab PRN Q4HRS PRN 07/05/16 16:30 07/08/16 02:05 1 TAB Albuterol Sulfate (Ventolin Neb Soln) 2.5 mg PRN Q4HRS PRN 07/05/16 16:30 Allopurinol (Zyloprim) 300 mg DAILY 07/06/16 09:00 07/08/16 08:44 300 MG Aspirin (Children'S Aspirin) 81 mg [id number] 07/08/16 12:00 07/08/16 12:22 81 MG Atorvastatin Calcium (Lipitor) 20 mg QHS 07/06/16 21:00 07/07/16 20:48 20 MG Carvedilol (Coreg) 3.125 mg BIDWMEALS 07/05/16 21:00 Cancel Carvedilol 3.125 mg 3.125 mg BIDWMEALS 07/05/16 17:00 07/08/16 08:44 3.125 MG Colchicine (Colcrys) 0.6 mg DAILY 07/08/16 09:00 07/08/16 08:44 0.6 MG Enoxaparin Sodium (Lovenox 30mg Syringe) 30 mg DAILY16 07/05/16 16:17 07/07/16 16:37 30 MG Famotidine (Pepcid) 20 mg HS 07/05/16 21:00 07/07/16 20:49 20 MG Finasteride (Proscar) 5 mg DAILY 07/06/16 09:00 07/08/16 09:49 5 MG Furosemide (Lasix) 40 mg DAILY 07/08/16 09:00 07/08/16 08:45 40 MG Gabapentin (Neurontin) 600 mg HS 07/05/16 21:00 07/07/16 20:49 600 MG Magnesium Hydroxide (Milk Of Magnesia) 2,400 mg PRN DAILY PRN 07/05/16 16:30 Morphine Sulfate 2 mg 1X ONCE 07/05/16 12:00 07/05/16 12:02 DC 07/05/16 12:08 2 MG Morphine Sulfate 2 mg 2 mg 1X ONCE 07/05/16 10:45 07/05/16 10:46 DC 07/05/16 10:38 2 MG Piperacillin Sod/ Tazobactam Sod/ Sodium Chloride (Zosyn/Iv Sodium Chloride 0.9% 50ml) 50 ml @ 100 mls/hr Q6HRS 07/05/16 18:00 07/08/16 12:22 100 MLS/HR Prednisone (Prednisone) 20 mg DAILY 07/07/16 11:30 07/08/16 08:45 20 MG Sodium Chloride (Iv Sodium Chloride 0.9% 1000ml Bag) 1,000 ml @ 250 mls/hr 1X ONCE 07/05/16 12:00 07/05/16 15:59 DC 07/05/16 12:07 250 MLS/HR Spironolactone (Aldactone) 25 mg DAILY 07/06/16 09:00 07/08/16 08:45 25 MG Tamsulosin HCl (Flomax) 0.4 mg BID 07/05/16 21:00 07/08/16 08:44 0.4 MG DOREEN CONTRERAS MD Jul 08, 2016 12:27
[2016-07-08 15:38] VITALS: BP 97/58
[2016-07-08] MEDS: ENOXAPARIN 30 MG/0.3 ML DISP.SYRIN. SQ SCH (15:58)
[2016-07-08 19:20] VITALS: BP 94/57
[2016-07-08] MEDS: GABAPENTIN 300 MG CAPSULE. PO SCH (21:27)
[2016-07-08] MEDS: FAMOTIDINE 20 MG TABLET. PO SCH (21:27)
[2016-07-08] MEDS: ATORVASTATIN CALCIUM 10 MG TABLET. PO SCH (21:27)
[2016-07-08 22:55] VITALS: BP 100/57
[2016-07-09 02:57] VITALS: BP 98/62
[2016-07-09] MEDS: PIPERACILLIN/TAZOBACTAM 2.25 GM in IV NORMAL SALINE 50ML 50 ML IV SCH ×4 (04:43→23:14)
[2016-07-09 07:42] VITALS: BP 86/51
[2016-07-09] MEDS: ASPIRIN 81 MG TAB.CHEW PO SCH (10:18)
[2016-07-09] MEDS: FUROSEMIDE 40 MG TABLET PO SCH (10:19)
[2016-07-09] MEDS: PREDNISONE 20 MG TABLET PO SCH (10:19)
[2016-07-09] MEDS: FAMOTIDINE 20 MG TABLET. PO SCH (10:19)
[2016-07-09] MEDS: SPIRONOLACTONE 25 MG TABLET PO SCH (10:19)
[2016-07-09] MEDS: ALLOPURINOL 300 MG TABLET. PO SCH (10:19)
[2016-07-09] MEDS: TAMSULOSIN 0.4 MG CAP.ER.24H. PO SCH ×2 (10:20→20:48)
[2016-07-09] MEDS: FINASTERIDE 5 MG TABLET PO SCH (10:21)
[2016-07-09] MEDS: COLCHICINE 0.6 MG TABLET PO SCH (10:21)
[2016-07-09 11:30] VITALS: BP 120/58
--- NOTE | 2016-07-09 13:02 | PDOC ---
PROGRESS NOTES Subjective Subjective Pt awake and pleasant this am. States legs do feel better this am. Pt states he did ambulate to chair from bed with PT this am. Pt states he has been eating and drinking well with normal output. Objective Objective Pt awake and alert. NAD. VSS. Afebrile. Lungs CTA bilat. Resp even and unlabored. Pt on RA, maintaining sats greater than 90%. Heart with RRR. No murmurs. Pedal edema down to 1+ at ankles. Left knee with mild erythema. Pt with bilat heel stable eschar, surrounding tissue CDI. Vital Signs Date Time Temp Pulse Resp B/P Pulse Ox O2 Delivery O2 Flow Rate FiO2 07/09/16 11:30 97.8 90 20 120/58 98 Room Air 97.8 Intake and Output 07/09/16 07:00 Intake Total 150 ml Output Total 350 ml Balance -200 ml Intake Oral 150 ml Output Urine Total 350 ml # Voids 3 Assessment Assessment Problems Medical Problems: (1) CHF (congestive heart failure) Status: Acute (2) CHF (congestive heart failure) Status: Acute Plan Plan of Care 1. Bilat leg pain -Hx of gout, Colcrys Dc'd upon previous Dc from hospital, restarted. -Allopurinol -Prednisone started on 07/08, pt with increased ROM secondary to -Rheumatology consulted -PT eval and treat 2. CHF -Cardiology consulted -IV diuresis dc'd and PO Lasix initiated. 3. Cellulitis of Left knee -Pt on Zosyn 4. Anemia -Hgb 8.8 on 07/09 -Recheck CBC tomorrow am 5. ARF -Creat 2.3 on admission, 2.5 this am -Recheck BMP in am -Renal consulted Comment Review of Relevant I have reviewed the following items osiris (where applicable) has been applied. Labs Laboratory Tests Test 07/08/16 14:20 Uric Acid 4.3mg/dL (3.5-7.2) Laboratory Tests Test 07/08/16 14:20 Uric Acid 4.3mg/dL (3.5-7.2) Microbiology 07/05/16 Blood Culture - Preliminary, Resulted NO GROWTH AFTER 3 DAYS Medications Current Medications Morphine Sulfate 2 mg 2 mg 1X ONCE IM Last administered on 07/05/16t 10:38; Start 07/05/16 at 10:45; Stop 07/05/16 at 10:46; Status DC Sodium Chloride (Iv Sodium Chloride 0.9% 1000ml Bag) 1,000 ml @ 250 mls/hr 1X ONCE IV Last administered on 07/05/16 12:07; Start 07/05/16 at 12:00; Stop 06/09 at 15:59; Status DC Morphine Sulfate 2 mg 1X ONCE IV Last administered on 07/05/16 12:08; Start 07/05/16 at 12:00; Stop 07/05/16 at 12:02; Status DC Furosemide (Lasix) 40 mg 1X ONCE IVP Last administered on 07/05/16 13:20; Start 07/05/16 at 13:15; Stop 07/05/16 at 13:16; Status DC Furosemide (Lasix) 40 mg BID94 IVP Last administered on 07/07/16 09:00; Start 07/05/16 at 16:00; Stop 07/07/16 at 11:36; Status DC Carvedilol 3.125 mg 3.125 mg BIDWMEALS PO Last administered on 07/08/16 08:44 ; Start 07/05/16 at 17:00 Piperacillin Sod/ Tazobactam Sod/ Sodium Chloride (Zosyn/Iv Sodium Chloride 0.9 % 50ml) 50 ml @ 100 mls/hr Q6HRS IV Last administered on 07/09/16 04:43; Start 07/05/16 at 18:00 Enoxaparin Sodium (Lovenox 30mg Syringe) 30 mg DAILY16 SQ Last administered on 07/08/16 15:58; Start 07/05/16 at 16:17 Acetaminophen (Tylenol) 650 mg PRN Q4HRS PRN PO MILD PAIN / TEMP; Start at 16:30 Albuterol Sulfate (Ventolin Neb Soln) 2.5 mg PRN Q4HRS PRN NEB SHORTNESS OF BREATH; Start 07/05/16 at 16:30 Allopurinol (Zyloprim) 300 mg DAILY PO Last administered on 07/09/16 10:19; Start 07/06/16 at 09:00 Carvedilol (Coreg) 3.125 mg BIDWMEALS PO ; Start 07/05/16 at 21:00; Status Cancel Famotidine (Pepcid) 20 mg HS PO Last administered on 07/09/16 10:19; Start 06/09 at 21:00 Finasteride (Proscar) 5 mg DAILY PO Last administered on 07/09/16 10:21; Start 07/06/16 at 09:00 Furosemide (Lasix) 20 mg DAILY PO ; Start 07/06/16 at 09:00; Stop 07/06/16 at 09 :00; Status DC Acetaminophen/ Hydrocodone Bitart (Lortab 5/325) 1 tab PRN Q4HRS PRN PO PAIN Last administered on 07/08/16 21:28; Start 07/05/16 at 16:30 Spironolactone (Aldactone) 25 mg DAILY PO Last administered on 07/09/16 10:19 ; Start 07/06/16 at 09:00 Tamsulosin HCl (Flomax) 0.4 mg BID PO Last administered on 07/09/16 10:20; Start 07/05/16 at 21:00 Gabapentin (Neurontin) 600 mg HS PO Last administered on 07/08/16 21:27; Start 07/05/16 at 21:00 Magnesium Hydroxide (Milk Of Magnesia) 2,400 mg PRN DAILY PRN PO CONSTIPATION; Start 07/05/16 at 16:30 Colchicine (Colcrys) 0.6 mg BID PO Last administered on 07/07/16 08:59; Start 07/06/16 at 11:00; Stop 07/07/16 at 11:11; Status DC Atorvastatin Calcium (Lipitor) 20 mg QHS PO Last administered on 07/08/16 21: 27; Start 07/06/16 at 21:00 Prednisone (Prednisone) 20 mg DAILY PO Last administered on 07/09/16 10:19; Start 07/07/16 at 11:30 Colchicine (Colcrys) 0.6 mg DAILY PO Last administered on 07/09/16 10:21; Start 07/08/16 at 09:00 Furosemide (Lasix) 40 mg DAILY PO Last administered on 07/09/16 10:19; Start 07/08/16 at 09:00 Aspirin (Children'S Aspirin) 81 mg DAILYWBKFT PO Last administered on 10:18; Start 07/08/16 at 12:00 Active Scripts Active Reported Spironolactone 25 Mg Tablet 1 Tab PO DAILY Finasteride 5 Mg Tablet 1 Tab PO DAILY Furosemide 20 Mg Tablet 1 Tab PO DAILY Gabapentin 600 Mg Tablet 600 Mg PO HS Allopurinol 300 Mg Tablet 1 Tab PO DAILY Albuterol Sulfate Neb Soln (Albuterol Sulfate) 2.5 Mg/3 Ml Vial.neb 2.5 Mg NEB PRN Q4HRS PRN Tylenol (Acetaminophen) 325 Mg Tablet 650 Mg PO PRN Q4HRS PRN Pepcid (Famotidine) 20 Mg Tablet 20 Mg PO BID Milk Of Magnesia (Magnesium Hydroxide) 2,400 Mg/10 Ml Oral.susp 2,400 Mg PO PRN DAILY PRN Hydrocodone-Apap 5-325 (Hydrocodone Bit/Acetaminophen) 1 Each Tablet 1 Tab PO PRN Q4HRS PRN Flomax (Tamsulosin Hcl) 0.4 Mg Cap.er.24h 0.4 Mg PO BID Coreg (Carvedilol) 3.125 Mg Tablet 3.125 Mg PO BID Vitals/I & O Vital Sign - Last 24 Hours 07/08/16 07/08/16 07/08/16 07/08/16 15:38 19:20 20:00 22:55 Temp 97.7 97.9 97.9 97.7 97.9 97.9 Pulse 88 99 89 Resp 18 18 18 B/P 97/58 94/57 100/57 Pulse Ox 96 98 97 O2 Delivery Room Air Room Air Room Air Room Air 07/09/16 07/09/16 07/09/16 02:57 07:42 11:30 Temp 97.0 97.3 97.8 97.0 97.3 97.8 Pulse 86 97 90 Resp 18 20 20 B/P 98/62 86/51 120/58 Pulse Ox 99 99 98 O2 Delivery Room Air Room Air Room Air Intake and Output 07/08/16 07/08/16 07/09/16 15:00 23:00 07:00 Intake Total 150 ml Output Total 350 ml Balance -350 ml 150 ml DOREEN CONTRERAS MD Jul 09, 2016 13:02
[2016-07-09] MEDS: CARVEDILOL 3.125 MG TABLET PO SCH ×2 (13:03→17:13)
[2016-07-09] MEDS ORDERED: MAGNESIUM SULFATE 2GM 50 ML IV PRN (13:45)
--- NOTE | 2016-07-09 13:50 | PDOC2 ---
CONSULT Date of Consult Date of Consult DATE: 07/09/16 TIME: 13:42 Reason for Consult Reason for Consult: ^ Creat - CKD III as documented Referring Physician Referring Physician: Dr Haywood Identification/Chief Complaint Chief Complaint swelling in lower ext Problems: Source Source: Chart review, Patient History of Present Illness Reason for Visit: as dictated Past Medical History Cardiovascular: CAD, CHF, HTN, Aortic stenosis Pulmonary: Pneumonia CENTRAL NERVOUS SYSTEM: Other GI: No pertinent hx Heme/Onc: No pertinent hx Hepatobiliary: Cirrhosis Psych: Addictions Musculoskeletal: Osteoarthritis Rheumatologic: No pertinent hx Infectious disease: No pertinent hx Renal/: Chronic renal insuff, Prostate Ca. Endocrine: No pertinent hx Past Surgical History Past Surgical History: CABG, Hernia Repair, Other Family History Family History: Stroke (brother) Social History ALCOHOL: other (history of ETOH abuse) Drugs: None Lives: Retirement Domestic Violence: Neg Current Problem List Problem List Problems Medical Problems: (1) CHF (congestive heart failure) Status: Acute (2) CHF (congestive heart failure) Status: Acute Current Medications Current Medications Current Medications Morphine Sulfate 2 mg 2 mg 1X ONCE IM Last administered on 07/05/16 10:38; Start 07/05/16 at 10:45; Stop 07/05/16 at 10:46; Status DC Sodium Chloride (Iv Sodium Chloride 0.9% 1000ml Bag) 1,000 ml @ 250 mls/hr 1X ONCE IV Last administered on 07/05/16 12:07; Start 07/05/16 at 12:00; Stop 06/09 at 15:59; Status DC Morphine Sulfate 2 mg 1X ONCE IV Last administered on 07/05/16 12:08; Start 07/05/16 at 12:00; Stop 07/05/16 at 12:02; Status DC Furosemide (Lasix) 40 mg 1X ONCE IVP Last administered on 07/05/16 13:20; Start 07/05/16 at 13:15; Stop 07/05/16 at 13:16; Status DC Furosemide (Lasix) 40 mg BID94 IVP Last administered on 07/07/16 09:00; Start 07/05/16 at 16:00; Stop 07/07/16 at 11:36; Status DC Carvedilol 3.125 mg 3.125 mg BIDWMEALS PO Last administered on 07/09/16 13:03 ; Start 07/05/16 at 17:00 Piperacillin Sod/ Tazobactam Sod/ Sodium Chloride (Zosyn/Iv Sodium Chloride 0.9 % 50ml) 50 ml @ 100 mls/hr Q6HRS IV Last administered on 07/09/16 13:02; Start 07/05/16 at 18:00 Enoxaparin Sodium (Lovenox 30mg Syringe) 30 mg DAILY16 SQ Last administered on 07/08/16 15:58; Start 07/05/16 at 16:17 Acetaminophen (Tylenol) 650 mg PRN Q4HRS PRN PO MILD PAIN / TEMP; Start at 16:30 Albuterol Sulfate (Ventolin Neb Soln) 2.5 mg PRN Q4HRS PRN NEB SHORTNESS OF BREATH; Start 07/05/16 at 16:30 Allopurinol (Zyloprim) 300 mg DAILY PO Last administered on 07/09/16 10:19; Start 07/06/16 at 09:00 Carvedilol (Coreg) 3.125 mg BIDWMEALS PO ; Start 07/05/16 at 21:00; Status Cancel Famotidine (Pepcid) 20 mg HS PO Last administered on 07/09/16 10:19; Start 06/09 at 21:00 Finasteride (Proscar) 5 mg DAILY PO Last administered on 07/09/16 10:21; Start 07/06/16 at 09:00 Furosemide (Lasix) 20 mg DAILY PO ; Start 07/06/16 at 09:00; Stop 07/06/16 at 09 :00; Status DC Acetaminophen/ Hydrocodone Bitart (Lortab 5/325) 1 tab PRN Q4HRS PRN PO PAIN Last administered on 07/08/16 21:28; Start 07/05/16 at 16:30 Spironolactone (Aldactone) 25 mg DAILY PO Last administered on 07/09/16 10:19 ; Start 07/06/16 at 09:00 Tamsulosin HCl (Flomax) 0.4 mg BID PO Last administered on 07/09/16 10:20; Start 07/05/16 at 21:00 Gabapentin (Neurontin) 600 mg HS PO Last administered on 07/08/16 21:27; Start 07/05/16 at 21:00 Magnesium Hydroxide (Milk Of Magnesia) 2,400 mg PRN DAILY PRN PO CONSTIPATION; Start 07/05/16 at 16:30 Colchicine (Colcrys) 0.6 mg BID PO Last administered on 07/07/16 08:59; Start 07/06/16 at 11:00; Stop 07/07/16 at 11:11; Status DC Atorvastatin Calcium (Lipitor) 20 mg QHS PO Last administered on 07/08/16 21: 27; Start 07/06/16 at 21:00 Prednisone (Prednisone) 20 mg DAILY PO Last administered on 07/09/16 10:19; Start 07/07/16 at 11:30 Colchicine (Colcrys) 0.6 mg DAILY PO Last administered on 07/09/16 10:21; Start 07/08/16 at 09:00 Furosemide (Lasix) 40 mg DAILY PO Last administered on 07/09/16 10:19; Start 07/08/16 at 09:00 Aspirin (Children'S Aspirin) 81 mg DAILYWBKFT PO Last administered on 10:18; Start 07/08/16 at 12:00 Active Scripts Active Reported Spironolactone 25 Mg Tablet 1 Tab PO DAILY Finasteride 5 Mg Tablet 1 Tab PO DAILY Furosemide 20 Mg Tablet 1 Tab PO DAILY Gabapentin 600 Mg Tablet 600 Mg PO HS Allopurinol 300 Mg Tablet 1 Tab PO DAILY Albuterol Sulfate Neb Soln (Albuterol Sulfate) 2.5 Mg/3 Ml Vial.neb 2.5 Mg NEB PRN Q4HRS PRN Tylenol (Acetaminophen) 325 Mg Tablet 650 Mg PO PRN Q4HRS PRN Pepcid (Famotidine) 20 Mg Tablet 20 Mg PO BID Milk Of Magnesia (Magnesium Hydroxide) 2,400 Mg/10 Ml Oral.susp 2,400 Mg PO PRN DAILY PRN Hydrocodone-Apap 5-325 (Hydrocodone Bit/Acetaminophen) 1 Each Tablet 1 Tab PO PRN Q4HRS PRN Flomax (Tamsulosin Hcl) 0.4 Mg Cap.er.24h 0.4 Mg PO BID Coreg (Carvedilol) 3.125 Mg Tablet 3.125 Mg PO BID Allergies Allergies: Coded Allergies: No Known Drug Allergies (Unverified , 12/30/13) ROS Review of System GEN: no Fevers no Chills EYES: no new Visual Complaints ENT: no EN Drainage no new Hearing deficits CVS: no Orthopnea no CP + Edema RESP: no SOB no CARRILLO GI: no Nausea no Vomiting : no Dysuria no Urgency HEME: no easy bruising no Palp Ly Nodes NEURO no Focal Weakness no Sz PSYCH: no Suicidal Ideation no Depression SKIN: no Rashes ENDO: no Polyuria or Polydipsia no Hot/Cold Intolerance MU SK: occ Arthraigia no Myalgia Physical Exam Physical Exam General Appearance: Awake Alert Oriented x 3 In no Distress Eyes: VIsion Unchanged Conjunctiva Normal EN: No EN Drainage Mucous Memb. moist Hearing Aides aayush Neck: no JVD + JVP Supple no Thyromegaly CVS: S1 S2 + Murmur No Gallop No Rub + Edema Left Lwoer ext only Resp: rare basal Rales no Rhonchi no Acc. Muscle use GI: BS +ve NO Bruit Non Tender Non Distended : no CVA tenderness; no Suprapubic Tenderness SKIN: no visdible Rashes Breast Exam deferred Mu.Sk: Adequate ROM min age related Muscle Atrophy Heme: Unable to palpate Obvious LAD no palp Splenomegaly NEURO: Good Strength and Tone Cranial Nerves II - XII grossly intact x for hearing Psych: ? Depressed no Active hallucination Vital Signs Vital Signs Date Time Temp Pulse Resp B/P Pulse Ox O2 Delivery O2 Flow Rate FiO2 07/09/16 13:03 90 120/58 07/09/16 11:30 97.8 20 98 Room Air 97.8 Assessment & Plan CKD IV - suspect asso with HTNSvie /NS (ASVDz) - ? post Op from CABG and ? Liver associated.: Current FLuid and E-lyte status does not necessitate emergent need for Dialysis. Will re-evaluate for Dialysis in am - Doubt Ac Gouty Nephroaphty with Normal UAcid - ? Lillian o of ^^ ESR - UA is benign Anemia: w/up as ordered; may need Epogen; Transfuse as needed. HTN: Current BP meds reviewed. Occ Low BP noted. See orders for changes. Edema - ? due to Liver Dysfunction/ Low Alb or Cardiac - No proteinuria noted. CHF OA - now clinically better - ? Pulm Fibrosis on CXR Discussed Plan of Care and prognosis etc. at length with pt. Labs Labs Laboratory Tests Test 07/08/16 14:20 Uric Acid 4.3mg/dL (3.5-7.2) Laboratory Tests Test 07/08/16 14:20 Uric Acid 4.3mg/dL (3.5-7.2) CHANELL ALTMAN MD Jul 09, 2016 13:49
[2016-07-09 15:30] VITALS: BP 144/66
[2016-07-09 15:37] LABS: % SAT IRON 34 % (15-34); IRON,SERUM 54 ug/dL (65-175)
--- NOTE | 2016-07-09 16:22 | RAD ---
Renal ultrasound, 07/09/2016: History: Acute renal insufficiency, prostate cancer The right kidney measures 10.7 cm in length while the left kidney measures 11.7 cm. There is mild bilateral renal cortical scarring. There is no evidence of hydronephrosis. Several small left renal calcifications may be vascular. Limited views of urinary bladder are unremarkable. Post voiding views demonstrate a moderate volume of post voiding residual urine estimated at 190 cc. Incidental note is made of cholelithiasis. IMPRESSION: 1. Mild bilateral renal cortical scarring. 2. No evidence of renal obstruction. 3. Moderate volume of post voiding residual urine in the bladder. 4. Incidental note is made of cholelithiasis.
[2016-07-09] MEDS: ENOXAPARIN 30 MG/0.3 ML DISP.SYRIN. SQ SCH (17:10)
[2016-07-09 19:39] VITALS: BP 104/52
[2016-07-09] MEDS: GABAPENTIN 300 MG CAPSULE. PO SCH (20:49)
[2016-07-09] MEDS: ATORVASTATIN CALCIUM 10 MG TABLET. PO SCH (20:49)
[2016-07-09] MEDS: HYDROCODONE/APAP 5/325MG TABLET. PO PRN (20:54)
[2016-07-09 23:13] VITALS: BP 96/51
--- NOTE | 2016-07-09 23:58 | CONS ---
DATE OF CONSULTATION: 07/09/2016 PRIMARY CARE PHYSICIAN: Lauro Haywood MD REASON FOR CONSULTATION: Elevated creatinine. HISTORY OF PRESENT ILLNESS: The patient is an 81-year-old gentleman who was transferred from [facility] with suspected gouty arthropathy. He is also found to have CHF exacerbation and admitted to the hospital, whereby he has been diuresed and respiratory tinajero appears to be doing pretty well. His creatinine is about 2.5 from previous baseline at 2.2 and we were asked to see him for the same. Echocardiogram revealed EF of 40-45% with mild global hypokinesis, calcified mitral valve without significant insufficiency per se. UA done on admission was relatively benign. Current creatinine is about 2.5 today and we were asked to see him. Albumin remains low at 2.4. For rest of the details, please see electronic renal consult note. CHANELL ALTMAN MD DR: DHAVAL/miguel JOB#: [id number] / [id number]
--- NOTE | 2016-07-10 00:38 | CONS ---
DATE OF CONSULTATION: 07/09/2016 REFERRING PHYSICIAN: Dr. Sims. REASON FOR CONSULTATION: Gout and joint pain. HISTORY OF PRESENT ILLNESS: The patient is an 81-year-old male with gout, arthritis, residing at [facility], has been admitted to the hospital because of severe pain in both lower extremities from last few days. He complains the pain is achy, constant, exacerbates with activity and associated with swelling. The patient is a very poor historian. The patient is known to have gout, arthritis and he is not sure whether he is taking allopurinol regularly or not. The patient was admitted 3 days ago. Two days ago he was started on prednisone 20 mg every morning and today his pain is improving. He still has difficulty to walk because of the pain in the bottom of the feet, otherwise while sitting position the pain is almost resolved. So for further evaluation and management, rheumatology consultation has been requested. PAST MEDICAL HISTORY: Coronary artery disease, congestive heart failure, cardiomyopathy, pneumonia, hypertension, hyperlipidemia, prostate cancer, status post radiation treatment, hematuria, osteoarthritis, gout, arthritis and alcoholism. PAST SURGICAL HISTORY: CABG surgery, mitral valve replacement, inguinal hernia repair. SOCIAL HISTORY: He denies current active smoking. Currently, he is residing at the [facility]. FAMILY HISTORY: Negative for any autoimmune disease in the family. ALLERGIES: No known drug allergies. MEDICATIONS: I have reviewed the list of medication as per chart. REVIEW OF SYSTEMS: All other systems are reviewed and negative except HPI. PHYSICAL EXAMINATION: GENERAL: He is awake, alert and oriented, not in acute distress. VITAL SIGNS: Reveal temperature 97.8, pulse 90, respirations 20 and blood pressure 120/58. SKIN: He does not have any rash. HEENT: Normocephalic, atraumatic head. No oral ulcerations. NECK: Supple. CARDIOVASCULAR: S1, S2 regular. LUNGS: Clear to auscultation. EXTREMITIES: He has 3-4+ pitting edema on the dorsal aspect of both feet with only mild tenderness on the MTP area of the feet. He does not have any other joint tenderness or active synovitis. I have reviewed his laboratory test results: His sed rate is 138, hemoglobin is 8.8, creatinine is 2.5, uric acid is 4.3. ASSESSMENT: 1. Polyarthralgia. 2. Acute gout flare up of multiple joints of the feet. 3. 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 4. Chronic kidney disease stage IV. 5. Elevated sed rate. 6. Anemia. His current clinical presentation is quite suggestive of acute flareup of the gouty arthritis. He is already on prednisone and received for 2 days and he is already improving. So, I will recommend to continue prednisone for 2-3 more days. I also recommend to continue colchicine and continue his allopurinol. His uric acid is already less than 6, which is at target for the gouty arthritis, so I would not recommend to changing hypouricemia agent, but just to continue with allopurinol. He has frequent flare up of the gouty arthritis could be due to the poor noncompliance with the medications also. Continue the colchicine up until he becomes stable without any flare up of the gout arthritis. I am not making any changes in his medications or requesting any further tests at this time. His elevated sed rate could be due to acute flare up of gout plus the anemia and age. Thank you for allowing me to participate in his care. If you have any questions, please do not hesitate to contact me. GIBSON GOLDSTEIN MD DR: LAMINE/miguel JOB#: [id number] / [id number]
[2016-07-10 02:21] VITALS: BP 113/61
[2016-07-10] MEDS: PIPERACILLIN/TAZOBACTAM 2.25 GM in IV NORMAL SALINE 50ML 50 ML IV SCH ×3 (05:41→18:31)
[2016-07-10] MEDS: HYDROCODONE/APAP 5/325MG TABLET. PO PRN ×2 (05:44→21:56)
[2016-07-10 06:38] LABS: HEMOGLOBIN 8.3 g/dL (13.0-17.5); RED BLOOD COUNT 2.62 x10^6/uL (4.30-5.70); RED CELL DISTRIBUTION WIDTH 14.2 % (11.5-14.5)
[2016-07-10 07:00] VITALS: BP 86/50
[2016-07-10 07:02] LABS: ALBUMIN 2.2 g/dL (3.4-5.0); CALCIUM 8.8 mg/dL (8.5-10.1); CREATININE 2.4 mg/dL (0.7-1.3); GFR 26.1; MAGNESIUM 2.2 mg/dL (1.8-2.4); PHOSPHORUS 3.4 mg/dL (2.6-4.7); POTASSIUM 3.9 mmol/L (3.5-5.1)
[2016-07-10] MEDS: CARVEDILOL 3.125 MG TABLET PO SCH ×2 (08:00→18:30)
[2016-07-10] MEDS: ASPIRIN 81 MG TAB.CHEW PO SCH (08:56)
[2016-07-10] MEDS: PREDNISONE 20 MG TABLET PO SCH (08:56)
[2016-07-10] MEDS: FINASTERIDE 5 MG TABLET PO SCH (08:57)
[2016-07-10] MEDS: TAMSULOSIN 0.4 MG CAP.ER.24H. PO SCH (08:57)
[2016-07-10] MEDS: COLCHICINE 0.6 MG TABLET PO SCH (08:57)
[2016-07-10] MEDS: ALLOPURINOL 300 MG TABLET. PO SCH (08:57)
[2016-07-10] MEDS: SPIRONOLACTONE 25 MG TABLET PO SCH (09:00)
[2016-07-10] MEDS: FUROSEMIDE 40 MG TABLET PO SCH (09:00)
--- NOTE | 2016-07-10 09:10 | PDOC ---
SUBJECTIVE Subjective looks much better, feels better OBJECTIVE Objective Bp lower than desired will hold lasix and decrease flomax Vital Signs Vital Signs Date Time Temp Pulse Resp B/P Pulse Ox O2 Delivery O2 Flow Rate FiO2 07/10/16 07:00 97.8 90 18 86/50 96 Room Air 97.8 07/10/16 05:44 Room Air 07/10/16 02:21 97.0 85 18 113/61 99 Room Air 97.0 07/09/16 23:13 97.8 82 18 96/51 96 Room Air 97.8 07/09/16 20:54 Room Air 07/09/16 20:00 Room Air 07/09/16 19:39 97.8 93 20 104/52 95 Room Air 97.8 07/09/16 17:13 99 144/66 07/09/16 15:30 97.3 99 20 144/66 100 Room Air 97.3 07/09/16 13:03 90 120/58 07/09/16 11:30 97.8 90 20 120/58 98 Room Air 97.8 I & O Intake and Output 07/10/16 07:00 Intake Total 699.92 ml Output Total 2350 ml Balance -1650.08 ml Intake Oral 420 ml IV Total 279.92 ml Output Urine Total 2350 ml # Voids 3 # Bowel Movements 5 PHYSICAL EXAM Physical Exam lungs clear heart RRR abd soft ext decrease swelling and erythema much better ASSESSMENT/PLAN Assessment/Plan 1. Bilat leg pain improving, continue PT , colcrys and allupurinol 2. CHF -stable now slightly dry , hold lasix today 3. Cellulitis of Lower ext -much better 4. Anemia -likely due to CKD ? procrit 5. ARF -hold lasix today, Bp low also decrease flomax to once daily, continue to monitor kdney function 6- high sed rate due to gout flare up planning home with home health Problems: COMMENT Lab Laboratory Tests Test 07/09/16 15:00 07/10/16 06:10 Reticulocyte Count (auto) 1.7% (0.5-2.5) Iron Level 54ug/dL (65-175) Total Iron Binding Capacity 161ug/dL (250-450) Iron Saturation 34% (15-34) Ferritin 2290ng/mL (26-388) White Blood Count 13.0x10^3/uL (4.0-11.0) Red Blood Count 2.62x10^6/uL (4.30-5.70) Hemoglobin 8.3g/dL (13.0-17.5) Hematocrit 25.0% (39.0-53.0) Mean Corpuscular Volume 96fL (79-100) Mean Corpuscular Hemoglobin 32pg (25-35) Mean Corpuscular Hemoglobin Concent 33g/dL (31-37) Red Cell Distribution Width 14.2% (11.5-14.5) Platelet Count 372x10^3/uL (140-400) Sodium Level 141mmol/L (136-145) Potassium Level 3.9mmol/L (3.5-5.1) Chloride Level 105mmol/L (98-107) Carbon Dioxide Level 27mmol/L (21-32) Anion Gap 9 (6-14) Blood Urea Nitrogen 53mg/dL (8-26) Creatinine 2.4mg/dL (0.7-1.3) Estimated GFR (Cockcroft-Gault) 26.1 Glucose Level 108mg/dL (70-99) Calcium Level 8.8mg/dL (8.5-10.1) Phosphorus Level 3.4mg/dL (2.6-4.7) Magnesium Level 2.2mg/dL (1.8-2.4) Albumin 2.2g/dL (3.4-5.0) DB REAL MD Jul 10, 2016 09:10
[2016-07-10 11:00] VITALS: BP 130/58
--- NOTE | 2016-07-10 13:02 | PDOC2 ---
CONSULT Date of Consult Date of Consult DATE: 07/10/16 TIME: 12:46 Reason for Consult Reason for Consult: wounds right hallux status post I&D x 2 weeks and decubitus heel ulcers. Referring Physician Referring Physician: Dr. Haywood Identification/Chief Complaint Chief Complaint ulcer right hallux status post I&D/avulsion of hallux nail and decubitus ulcers bilateral heel Source Source: Caregiver, Patient History of Present Illness Reason for Visit: 81 year old Arabic male seen bedside with his present admitted to [facility] for exacerbation of congestive heart failure, history of gouty arthritis with contractures of bilateral lower extremity, bilateral decubitus heel ulcers and status post I&D/avulsion of right hallux nail x 2 week in my office. he had scheduled appointment today but was admitted in the interim. Patient relates he has surgical shoes for transfers and weightbearing but did not receive PRAFO offload boots and prescribed. I was consulted for evaluation of bilateral feet. He denies pain to feet at this time. Past Medical History Cardiovascular: CAD, CHF, HTN, Aortic stenosis Pulmonary: Pneumonia CENTRAL NERVOUS SYSTEM: Other GI: No pertinent hx Heme/Onc: No pertinent hx Hepatobiliary: Cirrhosis Psych: Addictions Musculoskeletal: Osteoarthritis, Stiffness, Other (Lower extremity contractions and gout arthritis) Rheumatologic: No pertinent hx Infectious disease: No pertinent hx Renal/: Chronic renal insuff, Prostate Ca. Endocrine: No pertinent hx Past Surgical History Past Surgical History: CABG, Hernia Repair, Other Family History Family History: Stroke (brother) Social History Quit ALCOHOL: other (history of ETOH abuse) Drugs: None Lives: Prison Domestic Violence: Neg Current Problem List Problem List Problems Medical Problems: (1) CHF (congestive heart failure) Status: Acute (2) CHF (congestive heart failure) Status: Acute Current Medications Current Medications Current Medications Morphine Sulfate 2 mg 2 mg 1X ONCE IM Last administered on 07/05/16 10:38; Start 07/05/16 at 10:45; Stop 07/05/16 at 10:46; Status DC Sodium Chloride (Iv Sodium Chloride 0.9% 1000ml Bag) 1,000 ml @ 250 mls/hr 1X ONCE IV Last administered on 07/05/16 12:07; Start 07/05/16 at 12:00; Stop 06/09 at 15:59; Status DC Morphine Sulfate 2 mg 1X ONCE IV Last administered on 07/05/16 12:08; Start 07/05/16 at 12:00; Stop 07/05/16 at 12:02; Status DC Furosemide (Lasix) 40 mg 1X ONCE IVP Last administered on 07/05/16 13:20; Start 07/05/16 at 13:15; Stop 07/05/16 at 13:16; Status DC Furosemide (Lasix) 40 mg BID94 IVP Last administered on 07/07/16 09:00; Start 07/05/16 at 16:00; Stop 07/07/16 at 11:36; Status DC Carvedilol 3.125 mg 3.125 mg BIDWMEALS PO Last administered on 07/09/16 17:13 ; Start 07/05/16 at 17:00 Piperacillin Sod/ Tazobactam Sod/ Sodium Chloride (Zosyn/Iv Sodium Chloride 0.9 % 50ml) 50 ml @ 100 mls/hr Q6HRS IV Last administered on 07/10/16 05:41; Start 07/05/16 at 18:00 Enoxaparin Sodium (Lovenox 30mg Syringe) 30 mg DAILY16 SQ Last administered on 07/09/16 17:10; Start 07/05/16 at 16:17 Acetaminophen (Tylenol) 650 mg PRN Q4HRS PRN PO MILD PAIN / TEMP; Start at 16:30 Albuterol Sulfate (Ventolin Neb Soln) 2.5 mg PRN Q4HRS PRN NEB SHORTNESS OF BREATH; Start 07/05/16 at 16:30 Allopurinol (Zyloprim) 300 mg DAILY PO Last administered on 07/10/16 08:57; Start 07/06/16 at 09:00 Carvedilol (Coreg) 3.125 mg BIDWMEALS PO ; Start 07/05/16 at 21:00; Status Cancel Famotidine (Pepcid) 20 mg HS PO Last administered on 07/09/16 10:19; Start 06/09 at 21:00 Finasteride (Proscar) 5 mg DAILY PO Last administered on 07/10/16 08:57; Start 07/06/16 at 09:00 Furosemide (Lasix) 20 mg DAILY PO ; Start 07/06/16 at 09:00; Stop 07/06/16 at 09 :00; Status DC Acetaminophen/ Hydrocodone Bitart (Lortab 5/325) 1 tab PRN Q4HRS PRN PO PAIN Last administered on 07/10/16 05:44; Start 07/05/16 at 16:30 Spironolactone (Aldactone) 25 mg DAILY PO Last administered on 07/09/16 10:19 ; Start 07/06/16 at 09:00 Tamsulosin HCl (Flomax) 0.4 mg BID PO Last administered on 07/10/16 08:57; Start 07/05/16 at 21:00; Stop 07/10/16 at 09:13; Status DC Gabapentin (Neurontin) 600 mg HS PO Last administered on 07/09/16 20:49; Start 07/05/16 at 21:00 Magnesium Hydroxide (Milk Of Magnesia) 2,400 mg PRN DAILY PRN PO CONSTIPATION; Start 07/05/16 at 16:30 Colchicine (Colcrys) 0.6 mg BID PO Last administered on 07/07/16 08:59; Start 07/06/16 at 11:00; Stop 07/07/16 at 11:11; Status DC Atorvastatin Calcium (Lipitor) 20 mg QHS PO Last administered on 07/09/16 20: 49; Start 07/06/16 at 21:00 Prednisone (Prednisone) 20 mg DAILY PO Last administered on 07/10/16 08:56; Start 07/07/16 at 11:30 Colchicine (Colcrys) 0.6 mg DAILY PO Last administered on 07/10/16 08:57; Start 07/08/16 at 09:00 Furosemide (Lasix) 40 mg DAILY PO Last administered on 07/09/16 10:19; Start 07/08/16 at 09:00; Stop 07/10/16 at 09:13; Status DC Aspirin 81 mg 81 mg [id number] PO Last administered on 07/10/16 08:56; Start 07/08/16 at 12:00 Magnesium Sulfate/ Dextrose (Magnesium Sulfate PREMIX 2GM) 50 ml @ 25 mls/hr PRN DAILY PRN IV for Mag < 1.7 on am labs; Start 07/09/16 at 13:45 Tamsulosin HCl (Flomax) 0.4 mg HS PO ; Start 07/10/16 at 21:00 Active Scripts Active Reported Spironolactone 25 Mg Tablet 1 Tab PO DAILY Finasteride 5 Mg Tablet 1 Tab PO DAILY Furosemide 20 Mg Tablet 1 Tab PO DAILY Gabapentin 600 Mg Tablet 600 Mg PO HS Allopurinol 300 Mg Tablet 1 Tab PO DAILY Albuterol Sulfate Neb Soln (Albuterol Sulfate) 2.5 Mg/3 Ml Vial.neb 2.5 Mg NEB PRN Q4HRS PRN Tylenol (Acetaminophen) 325 Mg Tablet 650 Mg PO PRN Q4HRS PRN Pepcid (Famotidine) 20 Mg Tablet 20 Mg PO BID Milk Of Magnesia (Magnesium Hydroxide) 2,400 Mg/10 Ml Oral.susp 2,400 Mg PO PRN DAILY PRN Hydrocodone-Apap 5-325 (Hydrocodone Bit/Acetaminophen) 1 Each Tablet 1 Tab PO PRN Q4HRS PRN Flomax (Tamsulosin Hcl) 0.4 Mg Cap.er.24h 0.4 Mg PO BID Coreg (Carvedilol) 3.125 Mg Tablet 3.125 Mg PO BID Allergies Allergies: Coded Allergies: No Known Drug Allergies (Unverified , 12/30/13) ROS General: No: Appetite, Chills, Fatigue, Malaise, Night Sweats, Other PSYCHOLOGICAL ROS: No: Anxiety, Behavioral Disorder, Concentration difficultie , Decreased libido, Depression, Disorientation, Hallucinations, Hostility, Irritablity, Memory difficulties, Mood Swings, Obsessive thoughts, Other, Physical abuse, Sexual abuse, Sleep disturbances, Suicidal ideation Eyes: No Blurry vision, No Decreased vision, No Double vision, No Dry eyes, No Excessive tearing, No Eye Pain, No Itchy Eyes, No Loss of vision, No Other, No Photophobia, No Scotomata, No Uses contacts, No Uses glasses HEENT: No: Epistaxis, Heacaches, Hearing change, Nasal congestion, Nasal discharge, Oral lesions, Other, Sinus pain, Sneezing, Snoring, Sore Throat, Tinnitus, Vertigo, Visual Changes, Vocal changes ALLERGY AND IMMUNOLOGY: No: Hives, Insect Bite Sensitivity, Itchy/Watery Eyes, Nasal Congestion, Other, Post Nasal Drip, Seasonal Allergies Hematological and Lymphatic: No: Bleeding Problems, Blood Clots, Blood Transfusions, Brusing, Night Sweats, Other, Pallor, Swollen Lymph Nodes ENDOCRINE: No: Breast Changes, Galactorrhea, Hair Pattern Changes, Hot Flashes , Malaise/lethargy, Mood Swings, Other, Palpitations, Polydipsia/polyuria, Skin Changes, Temperature Intolerance, Unexpected Weight Changes Respiratory: No: Cough, Hemoptysis, Orthopnea, Other, Pleuritic Pain, SOB with excertion, Shortness of breath, Sputum Changes, Stridor, Tachypnea, Wheezing Cardiovascular: No Chest Pain, No Edema, No Lt Headedness, No Orthopnea, No Other, No Palpitations, No Paroxysmal Noc. Dyspnea Gastrointestinal: No Abdominal Pain, No Constipation, No Diarrhea, No Hematochezia, No Melena, No Nausea, No Other, No Vomiting Musculoskeletal: Yes Gait Disturbance, Yes Joint Pain, Yes Joint Stiffness, Yes Joint Swelling Neurological: No Behavorial Changes, No Bowel/Bladder ControlChng, No Confusion , No Dizziness, No Gait Disturbance, No Headaches, No Impaired Coord/balance, No Memory Loss, No Numbness/Tingling, No Other, No Seizures, No Speech Problems , No Tremors, No Visual Changes, No Weakness Skin: Yes Dry Skin, Yes Other (decubitus ulcers heels) Physical Exam Physical Exam Lower extremity: Skin-Warm, xerotic, atrophic. nails well trimmed. status post right hallux nail avulsion with fibro granular base. note improved erythema and edema. Stable eschar to left heel with no fluctuance, no cellulitis, no signs of acute infection, Unstageable. No hair present to feet. Vascular-non palpable pedal pulses, +2 pitting edema to bilateral lower extremity. Neuro: Sensation diminished to sharp dull MSK: contractures of bilateral lower extremity at knee and hip unable to straighten legs. positive pain on palpation to right hallux and to left heel. non ambulatory. Able to transport with assistance. General: Alert, Oriented X3, mild distress Vitals VITALS Vital Signs Date Time Temp Pulse Resp B/P Pulse Ox O2 Delivery O2 Flow Rate FiO2 07/10/16 11:00 97.9 90 18 130/58 97 Room Air 97.9 Labs Labs Laboratory Tests Test 07/08/16 14:20 07/09/16 15:00 07/10/16 06:10 Uric Acid 4.3mg/dL (3.5-7.2) Reticulocyte Count (auto) 1.7% (0.5-2.5) Iron Level 54ug/dL (65-175) Total Iron Binding Capacity 161ug/dL (250-450) Iron Saturation 34% (15-34) Ferritin 2290ng/mL (26-388) White Blood Count 13.0x10^3/uL (4.0-11.0) Red Blood Count 2.62x10^6/uL (4.30-5.70) Hemoglobin 8.3g/dL (13.0-17.5) Hematocrit 25.0% (39.0-53.0) Mean Corpuscular Volume 96fL (79-100) Mean Corpuscular Hemoglobin 32pg (25-35) Mean Corpuscular Hemoglobin Concent 33g/dL (31-37) Red Cell Distribution Width 14.2% (11.5-14.5) Platelet Count 372x10^3/uL (140-400) Sodium Level 141mmol/L (136-145) Potassium Level 3.9mmol/L (3.5-5.1) Chloride Level 105mmol/L (98-107) Carbon Dioxide Level 27mmol/L (21-32) Anion Gap 9 (6-14) Blood Urea Nitrogen 53mg/dL (8-26) Creatinine 2.4mg/dL (0.7-1.3) Estimated GFR (Cockcroft-Gault) 26.1 Glucose Level 108mg/dL (70-99) Calcium Level 8.8mg/dL (8.5-10.1) Phosphorus Level 3.4mg/dL (2.6-4.7) Magnesium Level 2.2mg/dL (1.8-2.4) Albumin 2.2g/dL (3.4-5.0) Laboratory Tests Test 07/09/16 15:00 07/10/16 06:10 Reticulocyte Count (auto) 1.7% (0.5-2.5) Iron Level 54ug/dL (65-175) Total Iron Binding Capacity 161ug/dL (250-450) Iron Saturation 34% (15-34) Ferritin 2290ng/mL (26-388) White Blood Count 13.0x10^3/uL (4.0-11.0) Red Blood Count 2.62x10^6/uL (4.30-5.70) Hemoglobin 8.3g/dL (13.0-17.5) Hematocrit 25.0% (39.0-53.0) Mean Corpuscular Volume 96fL (79-100) Mean Corpuscular Hemoglobin 32pg (25-35) Mean Corpuscular Hemoglobin Concent 33g/dL (31-37) Red Cell Distribution Width 14.2% (11.5-14.5) Platelet Count 372x10^3/uL (140-400) Sodium Level 141mmol/L (136-145) Potassium Level 3.9mmol/L (3.5-5.1) Chloride Level 105mmol/L (98-107) Carbon Dioxide Level 27mmol/L (21-32) Anion Gap 9 (6-14) Blood Urea Nitrogen 53mg/dL (8-26) Creatinine 2.4mg/dL (0.7-1.3) Estimated GFR (Cockcroft-Gault) 26.1 Glucose Level 108mg/dL (70-99) Calcium Level 8.8mg/dL (8.5-10.1) Phosphorus Level 3.4mg/dL (2.6-4.7) Magnesium Level 2.2mg/dL (1.8-2.4) Albumin 2.2g/dL (3.4-5.0) Assessment/Plan Assessment/Plan 81 year old male with decubitus ulceration left heel unstageable but stable, ulceration right hallux status post I&D x 2 weeks, gouty arthritis, lower extremity contractures -Recommend dry heel dressing daily left and antibiotic ointment and bandaid right hallux daily -Dispense PRAFO offload boots to bilateral lower extremity for further offloading. Wear at all times when laying or sitting but may remove to transfer -Discussed risk of limb loss if infection/osteomyelitis. -Ordered xrays 3 views bilateral feet -Contractures to bilateral lower extremity: recommend discussion with family with physical therapy and orthopedics regarding realistic expectations of prognosis. -Recommend follow up in my office in 2-3 weeks for reevaluation. Thank you for consultation CARMNE ADAMSON DPM Jul 10, 2016 12:54
[2016-07-10 15:00] VITALS: BP 106/59
[2016-07-10] MEDS: ENOXAPARIN 30 MG/0.3 ML DISP.SYRIN. SQ SCH (18:30)
[2016-07-10 19:40] VITALS: BP 106/57
[2016-07-10] MEDS ORDERED: TAMSULOSIN 0.4 MG CAP.ER.24H. PO SCH (21:00)
[2016-07-10] MEDS: ATORVASTATIN CALCIUM 10 MG TABLET. PO SCH (21:55)
[2016-07-10] MEDS: GABAPENTIN 300 MG CAPSULE. PO SCH (21:55)
[2016-07-10] MEDS: FAMOTIDINE 20 MG TABLET. PO SCH (21:55)
[2016-07-10] MEDS: METRONIDAZOLE 500 MG TABLET. PO SCH (21:56)
[2016-07-10 23:20] VITALS: BP 126/60
[2016-07-11] VITALS (17 sets, daily range): BP systolic 98–155; BP diastolic 48–120
[2016-07-11 05:05] LABS: HEMATOCRIT 23.3 % (39.0-53.0); HEMOGLOBIN 7.8 g/dL (13.0-17.5); RED BLOOD COUNT 2.43 x10^6/uL (4.30-5.70); RED CELL DISTRIBUTION WIDTH 14.4 % (11.5-14.5); WHITE BLOOD COUNT 13.7 x10^3/uL (4.0-11.0)
[2016-07-11 05:31] LABS: ALBUMIN 2.2 g/dL (3.4-5.0); CALCIUM 8.7 mg/dL (8.5-10.1); CREATININE 2.6 mg/dL (0.7-1.3); GFR 23.8; PHOSPHORUS 3.3 mg/dL (2.6-4.7); POTASSIUM 3.9 mmol/L (3.5-5.1)
[2016-07-11] MEDS: METRONIDAZOLE 500 MG TABLET. PO SCH ×3 (06:32→21:09)
--- NOTE | 2016-07-11 07:28 | RAD ---
Bilateral feet, 6 views, 07/10/2016: History: Heel wounds There is patchy bony demineralization. No acute fracture or destructive bony lesion is seen. There are mild scattered degenerative changes. Extensive arterial calcifications are present. There is moderate soft tissue swelling and edema bilaterally. IMPRESSION: No acute bony abnormality is detected.
[2016-07-11] MEDS: CARVEDILOL 3.125 MG TABLET PO SCH ×2 (09:38→17:55)
[2016-07-11] MEDS: SPIRONOLACTONE 25 MG TABLET PO SCH (09:38)
[2016-07-11] MEDS: PREDNISONE 20 MG TABLET PO SCH (09:38)
[2016-07-11] MEDS: ALLOPURINOL 300 MG TABLET. PO SCH (09:38)
[2016-07-11] MEDS: COLCHICINE 0.6 MG TABLET PO SCH (09:38)
[2016-07-11] MEDS: ASPIRIN 81 MG TAB.CHEW PO SCH (09:38)
[2016-07-11] MEDS: FINASTERIDE 5 MG TABLET PO SCH (09:38)
[2016-07-11] MEDS ORDERED: DIPHENHYDRAMINE HCL 25 MG CAPSULE PO PRN (09:45)
[2016-07-11] MEDS ORDERED: DIPHENHYDRAMINE 50 MG/ML VIAL IV PRN (09:45)
[2016-07-11] MEDS ORDERED: ACETAMINOPHEN 325 MG TABLET. PO PRN (09:45)
[2016-07-11] MEDS: LOPERAMIDE 2 MG CAPSULE PO PRN (10:35)
[2016-07-11] MEDS: NEOMY/BACITR/POLYMYXIN OINT PACKET. TP SCH (10:36)
--- NOTE | 2016-07-11 13:21 | PDOC ---
PROGRESS NOTES Subjective Subjective Patient seen bedside sitting eating lunch. no acute over night events. Objective Objective Vital Signs Date Time Temp Pulse Resp B/P Pulse Ox O2 Delivery O2 Flow Rate FiO2 07/11/16 12:32 97.5 88 16 117/57 97.5 07/11/16 11:00 93 Room Air Intake and Output 07/11/16 07:00 Intake Total 1625 ml Output Total 925 ml Balance 700 ml Intake Oral 1575 ml IV Total 50 ml Output Urine Total 925 ml # Voids 2 # Bowel Movements 5 Physical Exam Physical Exam General: NAD, A&Ox3 Lower extremity: Skin is cool, xerotic, atrophic. Decreased turgor. Status post avulsion of right hallux nail with resolved cellulitis. Granular base. no pustular draiange. mild localized erythema. DP and PT non palpable. +2 pitting edema to bilateral lower extremity. Muscle strength 4/5. bilateral lower extremity contractures unchanged. Assessment Assessment Problems Medical Problems: (1) CHF (congestive heart failure) Status: Acute (2) CHF (congestive heart failure) Status: Acute Plan Plan of Care 81 year old male with peripheral vascular disease, decubitus ulceration left heel, status post nail avulsion right, Lower extremity contractures, gouty arthritis, lymphedema -Awaiting dispensing of PRAFO offload boots to bilateral lower extremity. -Continue daily dry dressing to left heel and antibiotic ointment with bandaid right hallux -Discussed with physical therapy patient's contractures. Recommend orthopedic consultation for further evaluation and prognosis for realistic expectations to patient -Elevate bilateral lower extremity and recommend LYN hose socks for lymphedema -Follow up in 2-3 weeks after discharge for reevaluation Comment Review of Relevant I have reviewed the following items osiris (where applicable) has been applied. Labs Laboratory Tests Test 07/09/16 15:00 07/10/16 06:10 07/11/16 04:20 Reticulocyte Count (auto) 1.7% (0.5-2.5) Iron Level 54ug/dL (65-175) Total Iron Binding Capacity 161ug/dL (250-450) Iron Saturation 34% (15-34) Ferritin 2290ng/mL (26-388) White Blood Count 13.0x10^3/uL (4.0-11.0) 13.7x10^3/uL (4.0-11.0) Red Blood Count 2.62x10^6/uL (4.30-5.70) 2.43x10^6/uL (4.30-5.70) Hemoglobin 8.3g/dL (13.0-17.5) 7.8g/dL (13.0-17.5) Hematocrit 25.0% (39.0-53.0) 23.3% (39.0-53.0) Mean Corpuscular Volume 96fL (79-100) 96fL (79-100) Mean Corpuscular Hemoglobin 32pg (25-35) 32pg (25-35) Mean Corpuscular Hemoglobin Concent 33g/dL (31-37) 33g/dL (31-37) Red Cell Distribution Width 14.2% (11.5-14.5) 14.4% (11.5-14.5) Platelet Count 372x10^3/uL (140-400) 347x10^3/uL (140-400) Sodium Level 141mmol/L (136-145) 141mmol/L (136-145) Potassium Level 3.9mmol/L (3.5-5.1) 3.9mmol/L (3.5-5.1) Chloride Level 105mmol/L (98-107) 106mmol/L (98-107) Carbon Dioxide Level 27mmol/L (21-32) 27mmol/L (21-32) Anion Gap 9 (6-14) 8 (6-14) Blood Urea Nitrogen 53mg/dL (8-26) 51mg/dL (8-26) Creatinine 2.4mg/dL (0.7-1.3) 2.6mg/dL (0.7-1.3) Estimated GFR (Cockcroft-Gault) 26.1 23.8 Glucose Level 108mg/dL (70-99) 116mg/dL (70-99) Calcium Level 8.8mg/dL (8.5-10.1) 8.7mg/dL (8.5-10.1) Phosphorus Level 3.4mg/dL (2.6-4.7) 3.3mg/dL (2.6-4.7) Magnesium Level 2.2mg/dL (1.8-2.4) 2.4mg/dL (1.8-2.4) Albumin 2.2g/dL (3.4-5.0) 2.2g/dL (3.4-5.0) Vitamin B12 Level 821pg/mL (211-946) Laboratory Tests Test 07/11/16 04:20 White Blood Count 13.7x10^3/uL (4.0-11.0) Red Blood Count 2.43x10^6/uL (4.30-5.70) Hemoglobin 7.8g/dL (13.0-17.5) Hematocrit 23.3% (39.0-53.0) Mean Corpuscular Volume 96fL (79-100) Mean Corpuscular Hemoglobin 32pg (25-35) Mean Corpuscular Hemoglobin Concent 33g/dL (31-37) Red Cell Distribution Width 14.4% (11.5-14.5) Platelet Count 347x10^3/uL (140-400) Sodium Level 141mmol/L (136-145) Potassium Level 3.9mmol/L (3.5-5.1) Chloride Level 106mmol/L (98-107) Carbon Dioxide Level 27mmol/L (21-32) Anion Gap 8 (6-14) Blood Urea Nitrogen 51mg/dL (8-26) Creatinine 2.6mg/dL (0.7-1.3) Estimated GFR (Cockcroft-Gault) 23.8 Glucose Level 116mg/dL (70-99) Calcium Level 8.7mg/dL (8.5-10.1) Phosphorus Level 3.3mg/dL (2.6-4.7) Magnesium Level 2.4mg/dL (1.8-2.4) Albumin 2.2g/dL (3.4-5.0) Microbiology 07/05/16 Blood Culture - Final, Complete NO GROWTH AFTER 5 DAYS Medications Current Medications Morphine Sulfate 2 mg 2 mg 1X ONCE IM Last administered on 07/05/16 10:38; Start 07/05/16 at 10:45; Stop 07/05/16 at 10:46; Status DC Sodium Chloride (Iv Sodium Chloride 0.9% 1000ml Bag) 1,000 ml @ 250 mls/hr 1X ONCE IV Last administered on 07/05/16 12:07; Start 07/05/16 at 12:00; Stop 06/09 at 15:59; Status DC Morphine Sulfate 2 mg 1X ONCE IV Last administered on 07/05/16 12:08; Start 07/05/16 at 12:00; Stop 07/05/16 at 12:02; Status DC Furosemide (Lasix) 40 mg 1X ONCE IVP Last administered on 07/05/16 13:20; Start 07/05/16 at 13:15; Stop 07/05/16 at 13:16; Status DC Furosemide (Lasix) 40 mg BID94 IVP Last administered on 07/07/16 09:00; Start 07/05/16 at 16:00; Stop 07/07/16 at 11:36; Status DC Carvedilol 3.125 mg 3.125 mg BIDWMEALS PO Last administered on 07/11/16 09:38 ; Start 07/05/16 at 17:00 Piperacillin Sod/ Tazobactam Sod/ Sodium Chloride (Zosyn/Iv Sodium Chloride 0.9 % 50ml) 50 ml @ 100 mls/hr Q6HRS IV Last administered on 07/10/16 18:31; Start 07/05/16 at 18:00; Stop 07/10/16 at 20:33; Status DC Enoxaparin Sodium (Lovenox 30mg Syringe) 30 mg DAILY16 SQ Last administered on 07/10/16 18:30; Start 07/05/16 at 16:17 Acetaminophen (Tylenol) 650 mg PRN Q4HRS PRN PO MILD PAIN / TEMP; Start at 16:30 Albuterol Sulfate (Ventolin Neb Soln) 2.5 mg PRN Q4HRS PRN NEB SHORTNESS OF BREATH; Start 07/05/16 at 16:30 Allopurinol (Zyloprim) 300 mg DAILY PO Last administered on 07/11/16 09:38; Start 07/06/16 at 09:00 Carvedilol (Coreg) 3.125 mg BIDWMEALS PO ; Start 07/05/16 at 21:00; Status Cancel Famotidine (Pepcid) 20 mg HS PO Last administered on 07/10/16 21:55; Start 06/09 at 21:00 Finasteride (Proscar) 5 mg DAILY PO Last administered on 07/11/16 09:38; Start 07/06/16 at 09:00 Furosemide (Lasix) 20 mg DAILY PO ; Start 07/06/16 at 09:00; Stop 07/06/16 at 09 :00; Status DC Acetaminophen/ Hydrocodone Bitart (Lortab 5/325) 1 tab PRN Q4HRS PRN PO PAIN Last administered on 07/10/16 21:56; Start 07/05/16 at 16:30 Spironolactone (Aldactone) 25 mg DAILY PO Last administered on 07/11/16 09:38 ; Start 07/06/16 at 09:00 Tamsulosin HCl (Flomax) 0.4 mg BID PO Last administered on 07/10/16 08:57; Start 07/05/16 at 21:00; Stop 07/10/16 at 09:13; Status DC Gabapentin (Neurontin) 600 mg HS PO Last administered on 07/10/16 21:55; Start 07/05/16 at 21:00 Magnesium Hydroxide (Milk Of Magnesia) 2,400 mg PRN DAILY PRN PO CONSTIPATION; Start 07/05/16 at 16:30 Colchicine (Colcrys) 0.6 mg BID PO Last administered on 07/07/16 08:59; Start 07/06/16 at 11:00; Stop 07/07/16 at 11:11; Status DC Atorvastatin Calcium (Lipitor) 20 mg QHS PO Last administered on 07/10/16 21: 55; Start 07/06/16 at 21:00 Prednisone (Prednisone) 20 mg DAILY PO Last administered on 07/11/16 09:38; Start 07/07/16 at 11:30 Colchicine (Colcrys) 0.6 mg DAILY PO Last administered on 07/11/16 09:38; Start 07/08/16 at 09:00 Furosemide (Lasix) 40 mg DAILY PO Last administered on 07/09/16 10:19; Start 07/08/16 at 09:00; Stop 07/10/16 at 09:13; Status DC Aspirin 81 mg 81 mg [id number] PO Last administered on 07/11/16 09:38; Start 07/08/16 at 12:00 Magnesium Sulfate/ Dextrose (Magnesium Sulfate PREMIX 2GM) 50 ml @ 25 mls/hr PRN DAILY PRN IV for Mag < 1.7 on am labs; Start 07/09/16 at 13:45 Tamsulosin HCl (Flomax) 0.4 mg HS PO Last administered on 07/10/16 21:55; Start 07/10/16 at 21:00 Metronidazole (Flagyl) 500 mg Q8HRS PO Last administered on 07/11/16 06:32; Start 07/10/16 at 22:00 Loperamide HCl (Imodium) 2 mg PRN Q4HRS PRN PO DIARRHEA Last administered on 10:35; Start 07/10/16 at 20:30 Acetaminophen (Tylenol) 650 mg PRN Q6HRS PRN PO MILD PAIN / TEMP; Start at 09:45 Diphenhydramine HCl (Benadryl) 25 mg 1X PRN PRN IV Prior to blood transfusion; Start 07/11/16 at 09:45; Stop 07/12/16 at 09:44 Diphenhydramine HCl (Benadryl) 25 mg 1X PRN PRN PO prior to blood transfusion; Start 07/11/16 at 09:45; Stop 07/12/16 at 09:44 Neomycin/ Polymyxin/ Bacitracin (Triple Antibiotic Ointment) 1 pkt DAILY TP ; Start 07/12/16 at 09:00; Stop 07/12/16 at 09:00; Status DC Neomycin/ Polymyxin/ Bacitracin (Triple Antibiotic Ointment) 1 pkt DAILY TP Last administered on 07/11/16t 10:36; Start 07/11/16 at 10:00 Active Scripts Active Reported Spironolactone 25 Mg Tablet 1 Tab PO DAILY Finasteride 5 Mg Tablet 1 Tab PO DAILY Furosemide 20 Mg Tablet 1 Tab PO DAILY Gabapentin 600 Mg Tablet 600 Mg PO HS Allopurinol 300 Mg Tablet 1 Tab PO DAILY Albuterol Sulfate Neb Soln (Albuterol Sulfate) 2.5 Mg/3 Ml Vial.neb 2.5 Mg NEB PRN Q4HRS PRN Tylenol (Acetaminophen) 325 Mg Tablet 650 Mg PO PRN Q4HRS PRN Pepcid (Famotidine) 20 Mg Tablet 20 Mg PO BID Milk Of Magnesia (Magnesium Hydroxide) 2,400 Mg/10 Ml Oral.susp 2,400 Mg PO PRN DAILY PRN Hydrocodone-Apap 5-325 (Hydrocodone Bit/Acetaminophen) 1 Each Tablet 1 Tab PO PRN Q4HRS PRN Flomax (Tamsulosin Hcl) 0.4 Mg Cap.er.24h 0.4 Mg PO BID Coreg (Carvedilol) 3.125 Mg Tablet 3.125 Mg PO BID Vitals/I & O Vital Sign - Last 24 Hours 07/10/16 07/10/16 07/10/16 07/10/16 15:00 18:30 19:40 20:40 Temp 98.1 97.6 98.1 97.6 Pulse 94 94 102 Resp 18 18 B/P 106/59 106/59 106/57 Pulse Ox 96 96 O2 Delivery Room Air Room Air Room Air 07/10/16 07/10/16 07/10/16 07/11/16 21:56 23:11 23:20 03:35 Temp 98.5 98.0 98.5 98.0 Pulse 97 93 Resp 18 18 30 24 B/P 126/60 113/48 Pulse Ox 96 94 O2 Delivery Room Air Room Air Room Air Room Air 07/11/16 07/11/16 07/11/16 07/11/16 07:00 08:00 09:38 11:00 Temp 97.7 98.0 97.7 98.0 Pulse 81 81 91 Resp 20 20 B/P 108/56 108/56 106/50 Pulse Ox 94 93 O2 Delivery Room Air Room Air Room Air 07/11/16 07/11/16 12:17 12:32 Temp 97.4 97.5 97.4 97.5 Pulse 89 88 Resp 16 16 B/P 125/57 117/57 Intake and Output 07/10/16 07/10/16 07/11/16 15:00 23:00 07:00 Intake Total 50 ml 875 ml 700 ml Output Total 325 ml 600 ml Balance 50 ml 550 ml 100 ml Images Bilateral feet, 6 views, 07/10/2016: History: Heel wounds There is patchy bony demineralization. No acute fracture or destructive bony lesion is seen. There are mild scattered degenerative changes. Extensive arterial calcifications are present. There is moderate soft tissue swelling and edema bilaterally. IMPRESSION: No acute bony abnormality is detected. DICTATED and SIGNED BY: GHASSAN BRAND MD DATE: 07/11/16 0724 CC: DB REAL MD; CARMEN ADAMSON DPM ~ CARMEN ADAMSON DPM Jul 11, 2016 13:21
[2016-07-11] MEDS: ENOXAPARIN 30 MG/0.3 ML DISP.SYRIN. SQ SCH (14:37)
--- NOTE | 2016-07-11 18:09 | PDOC ---
SUBJECTIVE Subjective Generally feels weak, his lower extremity pain is better, the swelling is better , his hemoglobin dropped today to 7.8, his anemia seems to be due to chronic disease probably due to chronic kidney disease, he had diarrhea yesterday and his stool was sent for C. difficile since he has been on antibiotic, he also was switched to by mouth Flagyl OBJECTIVE Objective Vital signs stable Vital Signs Vital Signs Date Time Temp Pulse Resp B/P Pulse Ox O2 Delivery O2 Flow Rate FiO2 07/11/16 17:55 95 120/58 07/11/16 17:47 97.4 89 16 141/68 97.4 07/11/16 16:49 97.6 95 14 120/58 97.6 07/11/16 16:32 97.6 94 14 120/63 97.6 07/11/16 15:30 98.1 81 14 108/54 98.1 07/11/16 15:00 97.6 87 16 98/52 97.6 07/11/16 15:00 97.6 93 17 111/59 94 Room Air 97.6 07/11/16 14:30 97.8 104 16 133/61 97.8 07/11/16 13:30 97.7 92 18 121/59 97.7 07/11/16 12:32 97.5 88 16 117/57 97.5 07/11/16 12:17 97.4 89 16 125/57 97.4 07/11/16 11:00 98.0 91 20 106/50 93 Room Air 98.0 07/11/16 09:38 81 108/56 07/11/16 08:00 Room Air 07/11/16 07:00 97.7 81 20 108/56 94 Room Air 97.7 07/11/16 03:35 98.0 93 24 113/48 94 Room Air 98.0 07/10/16 23:20 98.5 97 30 126/60 96 Room Air 98.5 07/10/16 23:11 18 Room Air 07/10/16 21:56 18 Room Air 07/10/16 20:40 Room Air 07/10/16 19:40 97.6 102 18 106/57 96 Room Air 97.6 07/10/16 18:30 94 106/59 I & O Intake and Output 07/11/16 07:00 Intake Total 1625 ml Output Total 925 ml Balance 700 ml Intake Oral 1575 ml IV Total 50 ml Output Urine Total 925 ml # Voids 2 # Bowel Movements 5 PHYSICAL EXAM Physical Exam Lungs fairly clear Heart regular rate and rhythm Abdomen soft and nontender Trace edema in the lower extremities, ulcers on the heel and toe improved, mild erythema in the left knee again was noted ASSESSMENT/PLAN Assessment/Plan Patient improved with his lower extremity complaints, he reported diarrhea yesterday and his stool C. difficile is pending, he is now on by mouth Flagyl, his hemoglobin dropped and he will be transfused today, there is no evidence of active bleeding, planned for discharge with home health in the morning Problems: COMMENT Lab Laboratory Tests Test 07/11/16 04:20 White Blood Count 13.7x10^3/uL (4.0-11.0) Red Blood Count 2.43x10^6/uL (4.30-5.70) Hemoglobin 7.8g/dL (13.0-17.5) Hematocrit 23.3% (39.0-53.0) Mean Corpuscular Volume 96fL (79-100) Mean Corpuscular Hemoglobin 32pg (25-35) Mean Corpuscular Hemoglobin Concent 33g/dL (31-37) Red Cell Distribution Width 14.4% (11.5-14.5) Platelet Count 347x10^3/uL (140-400) Sodium Level 141mmol/L (136-145) Potassium Level 3.9mmol/L (3.5-5.1) Chloride Level 106mmol/L (98-107) Carbon Dioxide Level 27mmol/L (21-32) Anion Gap 8 (6-14) Blood Urea Nitrogen 51mg/dL (8-26) Creatinine 2.6mg/dL (0.7-1.3) Estimated GFR (Cockcroft-Gault) 23.8 Glucose Level 116mg/dL (70-99) Calcium Level 8.7mg/dL (8.5-10.1) Phosphorus Level 3.3mg/dL (2.6-4.7) Magnesium Level 2.4mg/dL (1.8-2.4) Albumin 2.2g/dL (3.4-5.0) DB REAL MD Jul 11, 2016 18:09
--- NOTE | 2016-07-11 18:20 | PDOC3 ---
Discharge Summary* Date of Admission: Jul 05, 2016 Date of Discharge: Jul 12, 2016 Admitting Diagnosis Problems Medical Problems: (1) CHF (congestive heart failure) Status: Acute (2) CHF (congestive heart failure) Status: Acute Final Diagnosis 1. Bilat leg pain Multifactorial due to neuropathy of the lower extremities, osteoarthritis, gouty arthritis, cellulitis and pressure ulcers 2. CHF -Acute on chronic treated with diuretics 3. Cellulitis of Lower ext along with his pressure ulcers and avulsion of the toenail 4. Anemia of chronic disease due to chronic kidney disease Status post blood transfusion on this admission 5. ARF on chronic kidney disease stage IV 6- high sed rate due to gout flare up 7- JHOAN due to her urinary retention improved after Lake catheter Problems Medical Problems: (1) CHF (congestive heart failure) Status: Acute (2) CHF (congestive heart failure) Status: Acute CONSULTS Nephrology Dr. Quach Cardiology Dr. Merritt Podiatry Dr. Cintron Rheumatology Dr Darden Procedures CXR renal sono foot x ray Brief Hospital Course Mr. Mercado is a 81 old [sex] who presented with severe pain of the both lower extremities with cellulitis and ulcerations he also had a history of neuropathy he has had multiple episodes of gout in the past he was at rehabilitation and at the [facility] and his Colcrys has somewhat been discontinued was placed on that he was placed also on IV antibiotic for the cellulitis, he also had significant swelling the lower extremities and acute exacerbation of congestive heart failure and was treated with diuretic he does have underlying chronic kidney disease his swelling the lower extremities improved, he does have chronic kidney disease and has a baseline anemia that has worsened during this hospital stay he was given transfusion due to his weakness, podiatry and evaluated the patient do due to his pressure ulcers in the lower extremities, he had seen orthopedic and vascular surgery in the past admission and no further recommendations more than treating his gout for a prolonged period with the prevention medication (all to keep his uric acid less than 6 and was Colcrys daily for at least the next 6 months till he has not had any flareup of his gout, he also was evaluated by rheumatology during this admission, he reached the maximum benefit of the hospital stay family feel that they can handle him at home at this point he has been using the walker and able to move to the bathroom he will be discharged to follow-up as outpatient Disposition/Orders: D/C to Home w/ HH CONDITION AT DISCHARGE: Improved Diet: Renal, 2 gr sodium Scheduled Allopurinol (Allopurinol) 1 TAB PO DAILY (Reported) Aspirin (Children's Aspirin) 81 MG PO DAILYWBKFT Atorvastatin Calcium (Atorvastatin Calcium) 20 MG PO QHS Carvedilol (Coreg) 3.125 MG PO BID (Reported) Colchicine (Colcrys) 0.6 MG PO DAILY Famotidine (Pepcid) 20 MG PO BID (Reported) Finasteride (Finasteride) 1 TAB PO DAILY (Reported) Furosemide (Furosemide) 1 TAB PO DAILY (Reported) Gabapentin (Gabapentin) 600 MG PO HS (Reported) Prednisone (Prednisone) 10 MG PO UD Spironolactone (Spironolactone) 1 TAB PO DAILY (Reported) Tamsulosin Hcl (Flomax) 0.4 MG PO BID (Reported) Scheduled PRN Acetaminophen (Tylenol) 650 MG PO PRN Q4HRS PRN PRN PAIN / TEMP (Reported) Albuterol Sulfate (Albuterol Sulfate Neb Soln) 2.5 MG NEB PRN Q4HRS PRN PRN SHORTNESS OF BREATH (Reported) Hydrocodone Bit/Acetaminophen (Hydrocodone-Apap 5-325 ) 1 TAB PO PRN Q4HRS PRN PRN PAIN (Reported) Magnesium Hydroxide (Milk Of Magnesia) 2,400 MG PO PRN DAILY PRN PRN CONSTIPATION (Reported) FOLLOW UP APPOINTMENT: Dr. Real 2 weeks Time Spent Total time spent with patient [] minutes for coordination of care, counseling, and education. DB REAL MD Jul 11, 2016 18:19
[2016-07-11] MEDS ORDERED: ATOR10TA60 PO (18:26)
[2016-07-11] MEDS ORDERED: PRED-220 PO (18:26)
[2016-07-11] MEDS ORDERED: COLC0.6T34 PO (18:26)
[2016-07-11] MEDS ORDERED: ASPI81TA44 PO (18:26)
[2016-07-11] MEDS: GABAPENTIN 300 MG CAPSULE. PO SCH (21:09)
[2016-07-11] MEDS: ATORVASTATIN CALCIUM 10 MG TABLET. PO SCH (21:09)
[2016-07-11] MEDS: TAMSULOSIN 0.4 MG CAP.ER.24H. PO SCH (21:09)
[2016-07-11] MEDS: FAMOTIDINE 20 MG TABLET. PO SCH (21:10)
[2016-07-12 03:25] VITALS: BP 121/59
[2016-07-12] MEDS: METRONIDAZOLE 500 MG TABLET. PO SCH (05:05)
[2016-07-12] MEDS: HYDROCODONE/APAP 5/325MG TABLET. PO PRN (05:05)
[2016-07-12 07:00] VITALS: BP 96/69
[2016-07-12 07:16] LABS: HEMATOCRIT 31.1 % (39.0-53.0); HEMOGLOBIN 10.1 g/dL (13.0-17.5); RED BLOOD COUNT 3.27 x10^6/uL (4.30-5.70); RED CELL DISTRIBUTION WIDTH 15.7 % (11.5-14.5); WHITE BLOOD COUNT 15.6 x10^3/uL (4.0-11.0)
[2016-07-12 07:36] LABS: ALBUMIN 2.1 g/dL (3.4-5.0); CALCIUM 8.4 mg/dL (8.5-10.1); CREATININE 1.7 mg/dL (0.7-1.3); GFR 38.9; PHOSPHORUS 3.1 mg/dL (2.6-4.7); POTASSIUM 3.6 mmol/L (3.5-5.1)
[2016-07-12 07:50] LABS: INR 1.2 (0.8-1.1); PROTHROMBIN TIME PATIENT 14.8 SEC (11.7-14.0)
[2016-07-12] MEDS ORDERED: NEOMY/BACITR/POLYMYXIN OINT PACKET. TP SCH (09:00)
[2016-07-12] MEDS: COLCHICINE 0.6 MG TABLET PO SCH (09:27)
[2016-07-12] MEDS: SPIRONOLACTONE 25 MG TABLET PO SCH (09:27)
[2016-07-12] MEDS: LOPERAMIDE 2 MG CAPSULE PO PRN (09:27)
[2016-07-12] MEDS: ALLOPURINOL 300 MG TABLET. PO SCH (09:27)
[2016-07-12] MEDS: TAMSULOSIN 0.4 MG CAP.ER.24H. PO SCH (09:27)
[2016-07-12 09:28] VITALS: BP 96/69
[2016-07-12] MEDS: PREDNISONE 20 MG TABLET PO SCH (09:28)
[2016-07-12] MEDS: CARVEDILOL 3.125 MG TABLET PO SCH (09:28)
[2016-07-12] MEDS: ASPIRIN 81 MG TAB.CHEW PO SCH (09:28)
[2016-07-12] MEDS: FINASTERIDE 5 MG TABLET PO SCH (09:28)
[2016-07-12] MEDS: NEOMY/BACITR/POLYMYXIN OINT PACKET. TP SCH (09:28)
--- NOTE | 2016-07-12 09:30 | PDOC ---
SUBJECTIVE Subjective He is feeling better but he had problem was urination yesterday was the had a bladder scan and had high residual folic acid was placed and his Flomax was increased again to twice a day OBJECTIVE Vital Signs Vital Signs Date Time Temp Pulse Resp B/P Pulse Ox O2 Delivery O2 Flow Rate FiO2 07/12/16 09:28 90 96/69 07/12/16 07:00 98.4 90 18 96/69 95 Room Air 98.4 07/12/16 06:10 20 Room Air 07/12/16 05:05 18 Room Air 07/12/16 03:25 97.8 88 18 121/59 95 Room Air 97.8 07/11/16 23:25 98.6 89 20 124/55 98 Room Air 98.6 07/11/16 20:00 Room Air 07/11/16 20:00 100 138/68 07/11/16 19:30 98.0 98 26 144/120 97 Room Air 98.0 07/11/16 18:30 97.5 101 18 155/64 97.5 07/11/16 18:00 95 18 141/68 07/11/16 17:55 95 120/58 07/11/16 17:47 97.4 89 16 141/68 97.4 07/11/16 16:49 97.6 95 14 120/58 97.6 07/11/16 16:32 97.6 94 14 120/63 97.6 07/11/16 15:30 98.1 81 14 108/54 98.1 07/11/16 15:00 97.6 87 16 98/52 97.6 07/11/16 15:00 97.6 93 17 111/59 94 Room Air 97.6 07/11/16 14:30 97.8 104 16 133/61 97.8 07/11/16 13:30 97.7 92 18 121/59 97.7 07/11/16 12:32 97.5 88 16 117/57 97.5 07/11/16 12:17 97.4 89 16 125/57 97.4 07/11/16 11:00 98.0 91 20 106/50 93 Room Air 98.0 07/11/16 09:38 81 108/56 I & O Intake and Output 07/12/16 07:00 Intake Total 1543 ml Output Total 1350 ml Balance 193 ml Intake Oral 550 ml Blood Product IV Normal Saline Flush 993 ml Output Urine Total 1350 ml # Voids 3 # Bowel Movements 4 PHYSICAL EXAM Physical Exam His lower extremities continue to look better ASSESSMENT/PLAN Assessment/Plan We will allow discharge home today was home health plan to remove [place] catheter next Saturday in the office after he has been on Flomax a few days he was instructed to take Flomax twice a day Problems: COMMENT Lab Laboratory Tests Test 07/11/16 11:00 07/12/16 05:55 07/12/16 06:05 Clostridium difficile Toxin (PCR) Negative (Negative) White Blood Count 15.6x10^3/uL (4.0-11.0) Red Blood Count 3.27x10^6/uL (4.30-5.70) Hemoglobin 10.1g/dL (13.0-17.5) Hematocrit 31.1% (39.0-53.0) Mean Corpuscular Volume 95fL (79-100) Mean Corpuscular Hemoglobin 31pg (25-35) Mean Corpuscular Hemoglobin Concent 33g/dL (31-37) Red Cell Distribution Width 15.7% (11.5-14.5) Platelet Count 334x10^3/uL (140-400) Prothrombin Time 14.8SEC (11.7-14.0) Prothromb Time International Ratio 1.2 (0.8-1.1) Activated Partial Thromboplast Time 30SEC (24-38) Sodium Level 139mmol/L (136-145) Potassium Level 3.6mmol/L (3.5-5.1) Chloride Level 106mmol/L (98-107) Carbon Dioxide Level 22mmol/L (21-32) Anion Gap 11 (6-14) Blood Urea Nitrogen 47mg/dL (8-26) Creatinine 1.7mg/dL (0.7-1.3) Estimated GFR (Cockcroft-Gault) 38.9 Glucose Level 113mg/dL (70-99) Calcium Level 8.4mg/dL (8.5-10.1) Phosphorus Level 3.1mg/dL (2.6-4.7) Magnesium Level 2.2mg/dL (1.8-2.4) Albumin 2.1g/dL (3.4-5.0) MOUSSA,HALLA S MD Jul 12, 2016 09:30
--- NOTE | 2016-07-12 11:17 | PDOC ---
SUBJECTIVE ROS JHOAN/ CKD III doign well, ready to go home; had urinary retention overnite (600cc PVR) CVS: no Orthopnea, no CP RESP: no SOB, no CARRILLO GI: no Nausea, no Vomiting : no Dysuria, no Urgency - has guan in place OBJECTIVE Vital Signs Vital Signs Date Time Temp Pulse Resp B/P Pulse Ox O2 Delivery O2 Flow Rate FiO2 07/12/16 09:28 90 96/69 07/12/16 08:00 Room Air 07/12/16 07:00 98.4 18 95 98.4 I & 0 Intake and Output 07/12/16 07:00 Intake Total 1543 ml Output Total 1350 ml Balance 193 ml Intake Oral 550 ml Blood Product IV Normal Saline Flush 993 ml Output Urine Total 1350 ml # Voids 3 # Bowel Movements 4 PHYSICAL EXAM Physical Exam General Appearance: Awake Alert Oriented x 3 In no Distress Eyes: VIsion Unchanged Conjunctiva Normal EN: No EN Drainage Mucous Memb. moist Hearing Aides aayush Neck: no JVD + JVP Supple no Thyromegaly CVS: S1 S2 + Murmur No Gallop No Rub + Edema Left Lwoer ext only Resp: rare basal Rales no Rhonchi no Acc. Muscle use GI: BS +ve NO Bruit Non Tender Non Distended : no CVA tenderness; no Suprapubic Tenderness Assessment & Plan CKD III - suspect asso with HTNSvie /NS (ASVDz) - Creat is back to baseline JHOAN - due to Urinary retention - better with Guan Anemia: Iron is OK ; one time Epogen; Transfuse as needed. HTN: Current BP meds reviewed. Occ Low BP noted. See orders for changes. Edema - much imrpoved curretnly CHF OA - now clinically better - ? Pulm Fibrosis on CXR Discussed Plan of Care and prognosis etc. at length with pt. COMMENT/RELEVANT DATA Meds Current Medications Medications (Trade) Dose Ordered Sig/Farhad Start Time Stop Time Status Last Admin Dose Admin Acetaminophen (Tylenol) 650 mg PRN Q6HRS PRN 07/11/16 09:45 Acetaminophen/ Hydrocodone Bitart (Lortab 5/325) 1 tab PRN Q4HRS PRN 07/05/16 16:30 07/12/16 05:05 1 TAB Albuterol Sulfate (Ventolin Neb Soln) 2.5 mg PRN Q4HRS PRN 07/05/16 16:30 Allopurinol (Zyloprim) 300 mg DAILY 07/06/16 09:00 07/12/16 09:27 300 MG Aspirin 81 mg 81 mg DAILYWBKFT 07/08/16 12:00 07/12/16 09:28 81 MG Atorvastatin Calcium (Lipitor) 20 mg QHS 07/06/16 21:00 07/11/16 21:09 20 MG Carvedilol (Coreg) 3.125 mg BIDWMEALS 07/05/16 21:00 Cancel Carvedilol 3.125 mg 3.125 mg BIDWMEALS 07/05/16 17:00 07/12/16 09:28 3.125 MG Colchicine (Colcrys) 0.6 mg DAILY 07/08/16 09:00 07/12/16 09:27 0.6 MG Diphenhydramine HCl (Benadryl) 25 mg 1X PRN PRN 07/11/16 09:45 07/12/16 09:44 DC Enoxaparin Sodium (Lovenox 30mg Syringe) 30 mg DAILY16 07/05/16 16:17 07/10/16 18:30 30 MG Famotidine (Pepcid) 20 mg HS 07/05/16 21:00 07/11/16 21:10 20 MG Finasteride (Proscar) 5 mg DAILY 07/06/16 09:00 07/12/16 09:28 5 MG Furosemide (Lasix) 40 mg DAILY 07/08/16 09:00 07/10/16 09:13 DC 07/09/16 10:19 40 MG Gabapentin (Neurontin) 600 mg HS 07/05/16 21:00 07/11/16 21:09 600 MG Loperamide HCl (Imodium) 2 mg PRN Q4HRS PRN 07/10/16 20:30 07/12/16 09:27 2 MG Magnesium Hydroxide (Milk Of Magnesia) 2,400 mg PRN DAILY PRN 07/05/16 16:30 Magnesium Sulfate/ Dextrose (Magnesium Sulfate PREMIX 2GM) 50 ml @ 25 mls/hr PRN DAILY PRN 07/09/16 13:45 Metronidazole (Flagyl) 500 mg Q8HRS 07/10/16 22:00 07/12/16 05:05 500 MG Morphine Sulfate 2 mg 1X ONCE 07/05/16 12:00 07/05/16 12:02 DC 07/05/16 12:08 2 MG Morphine Sulfate 2 mg 2 mg 1X ONCE 07/05/16 10:45 07/05/16 10:46 DC 07/05/16 10:38 2 MG Neomycin/ Polymyxin/ Bacitracin (Triple Antibiotic Ointment) 1 pkt DAILY 07/11/16 10:00 07/12/16 09:28 1 PKT Piperacillin Sod/ Tazobactam Sod/ Sodium Chloride (Zosyn/Iv Sodium Chloride 0.9% 50ml) 50 ml @ 100 mls/hr Q6HRS 07/05/16 18:00 07/10/16 20:33 DC 07/10/16 18:31 100 MLS/HR Prednisone (Prednisone) 20 mg DAILY 07/07/16 11:30 07/12/16 09:28 20 MG Sodium Chloride (Iv Sodium Chloride 0.9% 1000ml Bag) 1,000 ml @ 250 mls/hr 1X ONCE 07/05/16 12:00 07/05/16 15:59 DC 07/05/16 12:07 250 MLS/HR Spironolactone (Aldactone) 25 mg DAILY 07/06/16 09:00 07/12/16 09:27 25 MG Tamsulosin HCl (Flomax) 0.4 mg BID 07/11/16 21:00 07/12/16 09:27 0.4 MG Lab Laboratory Tests Test 07/12/16 05:55 07/12/16 06:05 White Blood Count 15.6x10^3/uL (4.0-11.0) Red Blood Count 3.27x10^6/uL (4.30-5.70) Hemoglobin 10.1g/dL (13.0-17.5) Hematocrit 31.1% (39.0-53.0) Mean Corpuscular Volume 95fL (79-100) Mean Corpuscular Hemoglobin 31pg (25-35) Mean Corpuscular Hemoglobin Concent 33g/dL (31-37) Red Cell Distribution Width 15.7% (11.5-14.5) Platelet Count 334x10^3/uL (140-400) Prothrombin Time 14.8SEC (11.7-14.0) Prothromb Time International Ratio 1.2 (0.8-1.1) Activated Partial Thromboplast Time 30SEC (24-38) Sodium Level 139mmol/L (136-145) Potassium Level 3.6mmol/L (3.5-5.1) Chloride Level 106mmol/L (98-107) Carbon Dioxide Level 22mmol/L (21-32) Anion Gap 11 (6-14) Blood Urea Nitrogen 47mg/dL (8-26) Creatinine 1.7mg/dL (0.7-1.3) Estimated GFR (Cockcroft-Gault) 38.9 Glucose Level 113mg/dL (70-99) Calcium Level 8.4mg/dL (8.5-10.1) Phosphorus Level 3.1mg/dL (2.6-4.7) Magnesium Level 2.2mg/dL (1.8-2.4) Albumin 2.1g/dL (3.4-5.0) CHANELL ALTMAN MD Jul 12, 2016 11:17
[2016-07-12] MEDS ORDERED: DARBEPOETIN ALFA 60 MCG/0.3 ML DISP.SYRIN. SQ ONE (12:00)
== END 2016-07-12 14:00 | disposition home health service (06) | DRG 871 ==
LOC: ER 09:30 → 2 SOUTH 13:20
PROVIDERS: ADMIT Internal Medicine; ATTEND Internal Medicine
PROC: 30233N1 Transfusion of Nonautologous Red Blood Cells into Peripheral Vein, Percutaneous Approach (ICD-10-PCS; principal; 2016-07-11)
DX: A41.9 Sepsis, unspecified organism (principal); I50.43 Acute on chronic combined systolic (congestive) and diastolic (congestive) heart failure; N17.9 Acute kidney failure, unspecified; I13.0 Hypertensive heart and chronic kidney disease with heart failure and stage 1 through stage 4 chronic kidney disease, or unspecified chronic kidney disease; I42.9 Cardiomyopathy, unspecified; L03.116 Cellulitis of left lower limb; N18.4 Chronic kidney disease, stage 4 (severe); M10.9 Gout, unspecified; D63.1 Anemia in chronic kidney disease; E78.00 Pure hypercholesterolemia, unspecified; E78.5 Hyperlipidemia, unspecified; G62.9 Polyneuropathy, unspecified; I27.2 Other secondary pulmonary hypertension; I73.9 Peripheral vascular disease, unspecified; I25.10 Atherosclerotic heart disease of native coronary artery without angina pectoris; L89.90 Pressure ulcer of unspecified site, unspecified stage; M19.90 Unspecified osteoarthritis, unspecified site; Z82.3 Family history of stroke; Z82.49 Family history of ischemic heart disease and other diseases of the circulatory system; Z85.46 Personal history of malignant neoplasm of prostate; Z87.01 Personal history of pneumonia (recurrent); Z87.891 Personal history of nicotine dependence; Z92.3 Personal history of irradiation; Z95.1 Presence of aortocoronary bypass graft; Z95.2 Presence of prosthetic heart valve; Z95.3 Presence of xenogenic heart valve; R33.9 Retention of urine, unspecified
CPT/HCPCS: 36415; 71010; 73630; 76770; 80048; 80053; 80061; 80069; 80076; 81001; 82550; 82553; 82607; 82728; 83540; 83550; 83605; 83735; 83880; 84443; 84484; 84550; 85027; 85045; 85610; 85651; 85730; 86850; 86900; 86901; 86920; 87040; 87324; 87641; 93005; 93306; 94250; 96361; 96372; 96374; 96375; J0881; J1650; J1940; J2270; J2543; J7030; J7512; P9016; 97110; 97116; 97530; 99285-25

== ENCOUNTER → 2016-09-04 | Outpatient (CLI) | payer OTHER ==
[2016-08-30 09:25] VITALS: BP 128/82
[~2016-09-04] MED LIST changes: +ASPI81TA44 PO; +ATOR10TA60 PO; +COLC0.6T34 PO; +PRED-220 PO; +SILV20CR4 TP; +ZINC170P TP
--- NOTE | 2016-09-04 16:27 | RAD ---
Three-phase bone scan, 09/04/2016: History: Nonhealing wound left lateral heel Imaging of the feet was performed following IV injection of 25 mCi of technetium 99m MDP. The dynamic flow study demonstrates fairly symmetric foot activity. The blood pool image demonstrates mildly increased activity along the posterolateral margin of the left heel compared to the right. The delayed images also demonstrate mildly increased activity in this region, similar to that seen on the blood pool image. The findings are compatible with soft tissue infection. A component of early or mild osteomyelitis cannot be excluded. Correlation with current radiographic findings is suggested.
== END | disposition home or self-care (01) ==
LOC: NM 08:08
PROVIDERS: ATTEND Emergency Medicine Undersea and Hyperbaric Medicine
DX: L97.429 Non-pressure chronic ulcer of left heel and midfoot with unspecified severity (principal); I10 Essential (primary) hypertension; Z82.49 Family history of ischemic heart disease and other diseases of the circulatory system
CPT/HCPCS: 78315; 96374; A9503

== ENCOUNTER → 2016-09-06 | Outpatient (CLI) | payer OTHER ==
[2016-08-30 09:25] VITALS: BP 128/82
== END | disposition home or self-care (01) ==
LOC: PMGWOUND 08:57
PROVIDERS: ATTEND Emergency Medicine Undersea and Hyperbaric Medicine
DX: L89.624 Pressure ulcer of left heel, stage 4 (principal); S61.412D Laceration without foreign body of left hand, subsequent encounter; I73.9 Peripheral vascular disease, unspecified; N30.40 Irradiation cystitis without hematuria; I12.9 Hypertensive chronic kidney disease with stage 1 through stage 4 chronic kidney disease, or unspecified chronic kidney disease; N18.9 Chronic kidney disease, unspecified; E78.5 Hyperlipidemia, unspecified; Z95.1 Presence of aortocoronary bypass graft; Z85.46 Personal history of malignant neoplasm of prostate; Z87.891 Personal history of nicotine dependence; X58.XXXD Exposure to other specified factors, subsequent encounter
CPT/HCPCS: 11042

== ENCOUNTER → 2016-09-17 | Outpatient (CLI) | payer OTHER ==
[2016-08-30 09:25] VITALS: BP 128/82
== END | disposition home or self-care (01) ==
LOC: PMGWOUND 09:03
PROVIDERS: ATTEND Emergency Medicine Undersea and Hyperbaric Medicine
DX: L89.624 Pressure ulcer of left heel, stage 4 (principal); S61.412D Laceration without foreign body of left hand, subsequent encounter; I73.9 Peripheral vascular disease, unspecified; I12.9 Hypertensive chronic kidney disease with stage 1 through stage 4 chronic kidney disease, or unspecified chronic kidney disease; N18.9 Chronic kidney disease, unspecified; N30.40 Irradiation cystitis without hematuria; E78.5 Hyperlipidemia, unspecified; Z87.891 Personal history of nicotine dependence; Z95.1 Presence of aortocoronary bypass graft; Z85.46 Personal history of malignant neoplasm of prostate; X58.XXXD Exposure to other specified factors, subsequent encounter
CPT/HCPCS: 11042; 97605

== ENCOUNTER → 2016-10-01 | Outpatient (CLI) | payer OTHER ==
[2016-08-30 09:25] VITALS: BP 128/82
--- NOTE | 2016-10-01 15:51 | RAD ---
Left foot, 3 views, 10/01/2016: History: Nonhealing lateral foot ulcer No acute fracture or destructive bony lesion is seen. Moderate calcifications are present. There is moderate soft tissue swelling over the dorsum of the foot in the metatarsal region. IMPRESSION: No acute bony abnormality is detected.
== END | disposition home or self-care (01) ==
LOC: RAD 09:51
PROVIDERS: ATTEND Emergency Medicine Undersea and Hyperbaric Medicine
DX: S91.302D Unspecified open wound, left foot, subsequent encounter (principal); X58.XXXD Exposure to other specified factors, subsequent encounter
CPT/HCPCS: 73630

== ENCOUNTER → 2016-10-01 | Outpatient (CLI) | payer OTHER ==
[2016-08-30 09:25] VITALS: BP 128/82
== END | disposition home or self-care (01) ==
LOC: PMGWOUND 08:58
PROVIDERS: ATTEND Emergency Medicine Undersea and Hyperbaric Medicine
DX: L89.624 Pressure ulcer of left heel, stage 4 (principal); S61.412D Laceration without foreign body of left hand, subsequent encounter; I73.9 Peripheral vascular disease, unspecified; N18.9 Chronic kidney disease, unspecified; N30.40 Irradiation cystitis without hematuria; I10 Essential (primary) hypertension; E78.5 Hyperlipidemia, unspecified; I25.10 Atherosclerotic heart disease of native coronary artery without angina pectoris; Z85.46 Personal history of malignant neoplasm of prostate; Z87.891 Personal history of nicotine dependence; X58.XXXD Exposure to other specified factors, subsequent encounter
CPT/HCPCS: 99214

== ENCOUNTER → 2016-10-08 | Outpatient (CLI) | payer OTHER ==
[2016-08-30 09:25] VITALS: BP 128/82
== END | disposition home or self-care (01) ==
LOC: PMGWOUND 09:03
PROVIDERS: ATTEND Emergency Medicine Undersea and Hyperbaric Medicine
DX: L89.624 Pressure ulcer of left heel, stage 4 (principal); I73.9 Peripheral vascular disease, unspecified; N30.40 Irradiation cystitis without hematuria; I12.9 Hypertensive chronic kidney disease with stage 1 through stage 4 chronic kidney disease, or unspecified chronic kidney disease; E78.5 Hyperlipidemia, unspecified; N18.9 Chronic kidney disease, unspecified; Z85.46 Personal history of malignant neoplasm of prostate; Z87.891 Personal history of nicotine dependence; Z95.1 Presence of aortocoronary bypass graft
CPT/HCPCS: 11042; 97605

== ENCOUNTER 2016-10-16 08:21 | Outpatient (CLI) | payer OTHER ==
[~2016-10-16] VITALS: Ht 177.8 cm; Wt 75.7 kg
[2016-10-16] VITALS (9 sets, daily range): BP systolic 94–136; BP diastolic 48–80
[2016-10-16] MEDS ORDERED: HYDROCODONE/APAP 5/325MG TABLET. PO PRN (08:45)
[2016-10-16] MEDS ORDERED: ASPI81TA9 PO (08:48)
[2016-10-16] MEDS ORDERED: GABA-586 PO (08:48)
[2016-10-16] MEDS ORDERED: FOLI1TAB16 PO (08:48)
[2016-10-16] MEDS ORDERED: COLC0.6C3 PO (08:48)
[2016-10-16 08:52] LABS: HEMATOCRIT 33.6 % (39.0-53.0); HEMOGLOBIN 11.2 g/dL (13.0-17.5); RED BLOOD COUNT 3.68 x10^6/uL (4.30-5.70); RED CELL DISTRIBUTION WIDTH 17.3 % (11.5-14.5); WHITE BLOOD COUNT 5.6 x10^3/uL (4.0-11.0)
[2016-10-16] MEDS ORDERED: CARVEDILOL 3.125 MG TABLET. PO SCH (09:00)
[2016-10-16] MEDS ORDERED: FUROSEMIDE 20 MG TABLET PO SCH (09:00)
[2016-10-16] MEDS ORDERED: FAMOTIDINE 20 MG TABLET. PO SCH (09:00)
[2016-10-16] MEDS ORDERED: TAMSULOSIN 0.4 MG CAP.ER.24H. PO SCH (09:00)
[2016-10-16] MEDS ORDERED: FINASTERIDE 5 MG TABLET. PO SCH (09:00)
[2016-10-16] MEDS ORDERED: ALLOPURINOL 300 MG TABLET. PO SCH (09:00)
[2016-10-16 09:02] LABS: CALCIUM 9.4 mg/dL (8.5-10.1); GFR 32.2; INR 1.2 (0.8-1.1); POTASSIUM 3.4 mmol/L (3.5-5.1); PROTHROMBIN TIME PATIENT 14.2 SEC (11.7-14.0)
[2016-10-16] MEDS ORDERED: HEPARIN for ARTERIAL LINE 1,500 ML ONE (09:14)
[2016-10-16] MEDS ORDERED: LIDOCAINE 1% / SOD BICARB 8.4% 20 ML VIAL. IJ ONE ×2 (09:14→10:15)
[2016-10-16] MEDS ORDERED: IODIXANOL 320 MG/ML 100 ML VIAL. ONE (09:14)
[2016-10-16] MEDS ORDERED: FENTANYL PF 100 MCG/2 ML VIAL. ONE (09:41)
[2016-10-16] MEDS ORDERED: MIDAZOLAM HCL/PF 2 MG/2 ML VIAL. ONE (09:41)
[2016-10-16] MEDS ORDERED: HEPARIN for IV BOLUS 10,000 UNIT/10 ML VIAL. ONE (09:42)
[2016-10-16] MEDS ORDERED: IODIXANOL 320 MG/ML 100 ML VIAL. IART ONE (10:15)
[2016-10-16] MEDS ORDERED: FENTANYL PF 100 MCG/2 ML VIAL. IV ONE (10:15)
[2016-10-16] MEDS ORDERED: MIDAZOLAM HCL/PF 2 MG/2 ML VIAL. IV ONE (10:15)
--- NOTE | 2016-10-16 11:09 | PDOC ---
MODERATE SEDATION ASSESSMENT RISKS/ALTERNATIVES Risks/Alternatives Risks and alternatives of this type of sedation and procedure discussed with: RISK/ALTERNATIVES: Sig. Other () H & P ON CHART H & P H & P on chart and reviewed for co-morbid conditions and appropriate labs. H&P ON CHART: Yes STATUS PREG STATUS ASSESSED: N/A MEDS/ALLERGIES REVIEWED Meds/Allergies Reviewed Medications and Allergies including time and route of recently administered narcotics and sedatives. MEDS/ALLERGIES REVIEWED: Yes ASA RATING ASA RATING: III AIRWAY ASSESSMENT Airway Assessment Airway patency, oral function limitations, presence of caps, crowns, dentures, partials, and ability to extend neck assessed. AIRWAY ASSESSMENT: Yes MALLAMPATI SCORE MALLAMPATI SCORE: III PRE-SEDATION ASSESSMENT PRE-SEDATION ASSESSMENT: Yes RAKESH ROBERTS MD Oct 16, 2016 11:09
--- NOTE | 2016-10-16 11:10 | PDOC1 ---
History and Physical Date of Procedure Date of Admission 10/16/16 Procedure Procedure Abdominal aortogram with left lower extremity angio +/- intervention. Indication Indication 81 YO male with multiple CV risk factors and with CKD. He has severe PAD, with nonhealing lateral left hind foot wound. Diagnostic angio +/- intervention has been requested. Past Medical History Past Medical History See Nursing Pre procedure PMH Past Surgical History Past Surgical History See Nursing Pre procedure PSH Current Medications Current Medications Current Medications Allopurinol (Zyloprim) 300 mg DAILY PO ; Start 10/16/16 at 09:00; Stop 10/17/16 at 08:59; Status UNV Atorvastatin Calcium (Lipitor) 20 mg QHS PO ; Start 10/16/16 at 21:00; Stop at 20:59; Status UNV Carvedilol (Coreg) 3.125 mg BID PO ; Start 10/16/16 at 09:00; Stop 10/17/16 at 08:59; Status UNV Famotidine (Pepcid) 20 mg BID PO ; Start 10/16/16 at 09:00; Stop 10/17/16 at 08: 59; Status UNV Finasteride (Proscar) 5 mg DAILY PO ; Start 10/16/16 at 09:00; Stop 10/17/16 at 08:59; Status UNV Furosemide (Lasix) 20 mg DAILY PO ; Start 10/16/16 at 09:00; Stop 10/17/16 at 08 :59; Status UNV Acetaminophen/ Hydrocodone Bitart (Lortab 5/325) 1 tab PRN Q4HRS PRN PO PAIN; Start 10/16/16 at 08:45; Stop 10/17/16 at 08:44; Status UNV Tamsulosin HCl (Flomax) 0.4 mg BID PO ; Start 10/16/16 at 09:00; Stop 10/17/16 at 08:59; Status UNV Lidocaine/Sodium Bicarbonate 20 ml 20 ml STK-MED ONCE IJ ; Start 10/16/16 at 09: 14; Stop 10/16/16 at 09:15; Status DC Heparin Sodium/ Sodium Chloride 1,500 ml @ As Directed STK-MED ONCE .ROUTE ; Start 10/16/16 at 09:14; Stop 10/16/16 at 09:15; Status DC Iodixanol (Visipaque 320) 100 ml STK-MED ONCE .ROUTE ; Start 10/16/16 at 09:14; Stop 10/16/16 at 09:15; Status DC Fentanyl Citrate (Fentanyl 2ml Vial) 100 mcg STK-MED ONCE .ROUTE ; Start at 09:41; Stop 10/16/16 at 09:42; Status DC Midazolam HCl (Versed) 2 mg STK-MED ONCE .ROUTE ; Start 10/16/16 at 09:41; Stop 10/16/16 at 09:42; Status DC Heparin Sodium (Porcine) 75990 unit 10,000 unit STK-MED ONCE .ROUTE ; Start at 09:42; Stop 10/16/16 at 09:43; Status DC Heparin Sodium/ Sodium Chloride 500 ml @ As Directed STK-MED ONCE .ROUTE ; Start 10/16/16 at 09:57; Stop 10/16/16 at 09:58; Status DC Heparin Sodium/ Sodium Chloride 1,000 unit 1X ONCE IART Last administered on 10:54; Start 10/16/16 at 10:15; Stop 10/16/16 at 10:18; Status DC Lidocaine/Sodium Bicarbonate (Buffered Lidocaine 1%) 20 ml 1X ONCE IJ Last administered on 10/16/16 10:54; Start 10/16/16 at 10:15; Stop 10/16/16 at 10:18 ; Status DC Midazolam HCl (Versed) 2 mg 1X ONCE IV Last administered on 10/16/16 10:56; Start 10/16/16 at 10:15; Stop 10/16/16 at 10:18; Status DC Fentanyl Citrate (Fentanyl 2ml Vial) 100 mcg 1X ONCE IV Last administered on 10:55; Start 10/16/16 at 10:15; Stop 10/16/16 at 10:18; Status DC Iodixanol (Visipaque 320) 100 ml 1X ONCE IART Last administered on 10/16/16 10:15; Start 10/16/16 at 10:15; Stop 10/16/16 at 10:18; Status DC Active Scripts Active Atorvastatin Calcium 10 Mg Tablet 20 Mg PO QHS 30 Days Reported Gabapentin 300 Mg Capsule 900 Mg PO TID Colchicine 0.6 Mg Capsule 0.6 Mg PO DAILY Aspirin Ec (Aspirin) 81 Mg Tablet.dr 1 Tab PO DAILY Folic Acid 1 Mg Tablet 1 Tab PO DAILY Finasteride 5 Mg Tablet 1 Tab PO DAILY . Furosemide 20 Mg Tablet 1 Tab PO DAILY . Allopurinol 300 Mg Tablet 1 Tab PO DAILY Pepcid (Famotidine) 20 Mg Tablet 20 Mg PO BID . Hydrocodone-Apap 5-325 (Hydrocodone Bit/Acetaminophen) 1 Each Tablet 1 Tab PO PRN Q4HRS PRN . Flomax (Tamsulosin Hcl) 0.4 Mg Cap.er.24h 0.4 Mg PO BID Coreg (Carvedilol) 3.125 Mg Tablet 3.125 Mg PO BID Allergies Allergies: Coded Allergies: No Known Drug Allergies (Unverified , 12/30/13) Physical Exam Vital Signs Vital Signs Date Time Temp Pulse Resp B/P Pulse Ox O2 Delivery O2 Flow Rate FiO2 10/16/16 10:55 14 Nasal Cannula 3.0 10/16/16 10:44 93 100 10/16/16 09:16 97.5 119/65 97.5 Lungs: Other (Diminished breath sounds bilaterally) Heart: Regular rate Psych/Mental Status: Mental status NL Vascular 1+ FIELD HAND pulses. Nonpalpable left PT/DP pulses. Wound vac in place at lateral left foot wound. Diagnostic Data/Imaging Images No prior imaging available. Assessment Assessment 81 YO nondiabetic male with multiple CV risk factors, with severe PAD, with nonhealing left lateral foot wound, and with CKD. Problems: Plan Plan Diagnostic abdominal aortogram + left lower extremity arteriogram, with limited iodinated contrast material, +/- intervention. RAKESH ROBERTS MD Oct 16, 2016 11:10
--- NOTE | 2016-10-16 11:31 | PDOC ---
Exam Band Bias Machine Operator Band Bias Machine Operator Olvin Sawdust Drier Sawdust Drier Bo Michael Pre-Procedure Diagnosis Pre-Procedure Diagnosis 81 YO non diabetic male with multiple CV risk factors, with severe PAD, with nonhealing lateral left foot wound, and with CKD. Post-Procedure Diagnosis Post-Procedure Diagnosis Same. See radiology report. Preliminary report as follows: Small calcific AAA. Calcific iliac inflow vessels, without flow limiting stenosis bilaterally. Moderate calcific left profunda disease. Severe, diffuse SFA calcific long segment occlusion (could not be crossed). Above knee pop reconstituted, with severe calcific proximal segment disease. Mid-distal pop widely patent. TPT patent. Calcific single vessel peroneal r/o. Procedure Performed Procedure Performed Abdominal aortogram with selective left leg angio---no intervention. Type of Anesthesia Type of Anesthesia Local + Mod sedation. Estimated Blood Loss EBL: 50 cc Condition of Patient Condition of Patient Stable. No apparent complication. Disposition Disposition Home from [facility] with post recovery, if no problems. F/u with Dr Escobedo. Rx vascular surgery input. Full report to follow. RAKESH ROBERTS MD Oct 16, 2016 11:31
[2016-10-16] MEDS ORDERED: ATORVASTATIN CALCIUM 10 MG TABLET. PO SCH (21:00)
--- NOTE | 2016-10-17 07:46 | RAD ---
Abdominal aortogram with selective left lower extremity arteriogram Indication: 81-year-old male with PAD, nonpalpable left ankle/foot pulses, reduced ankle-brachial indices bilaterally, nonhealing lateral left foot wound, and chronic renal insufficiency. Diagnostic arteriogram, with possible intervention, has been requested. Fluoroscopy time: 12.7 minutes Kerma-area Product: 303 Gycm2 Contrast material: CO2. 58 cc Visipaque 320. Anesthesia: 53 minutes moderate sedation was provided utilizing a total of 1.5 mg Versed and 75 mcg fentanyl, IV. The patient was appropriately monitored by a qualified independent observer throughout the time of moderate sedation. Consent: The procedure was explained in its entirety to the patient and/or the patient's designated exhibit display representative by a member of the treatment team. This included a discussion of risks and benefits and commonly accepted alternatives to the procedure, as well as expected consequences of no treatment at all. Discussion of risks included, but was not limited to, those that are most frequent and those that are rare, but possibly severe or life-threatening, as well as the possibility of unforeseen complications. Sterility: All elements of maximal sterile barrier technique were utilized, including cap, mask, sterile gown, sterile gloves, large sterile sheet, appropriate hand hygiene, and 2% chlorhexidine for cutaneous antisepsis. Procedure: Informed consent was obtained from the patient. He was placed supine on the angiography table. Preliminary ultrasound examination of right groin revealed wide patency of right common femoral artery, which was documented with a single hard copy ultrasound image. Right groin was then prepped and draped in the usual sterile fashion, utilizing all elements of maximal sterile barrier technique, as described above. Moderate sedation was provided with IV Versed and fentanyl. Using aseptic technique, local anesthesia, direct ultrasound guidance, and the micropuncture system, a 5 Nepalese right common femoral artery sheath was successfully introduced. Abdominal aortogram: A 5 Nepalese Omni Flush catheter was advanced through the right groin sheath into suprarenal abdominal aorta. CO2 was injected and abdominal aortogram DSA images were obtained utilizing CO2 stacking technique. Findings: Images are significantly degraded by patient respiratory motion artifact. Infrarenal abdominal aorta is diffusely calcific, with a small saccular aneurysm, which approaches 3 cm in diameter. There is no flow-limiting aortic stricture. CHUCK is patent. Oblique pelvis injection: The Omni Flush catheter was then withdrawn into distal abdominal aorta, just above bifurcation. CO2 was again injected and DSA images were obtained over pelvis in the SUBRAMANIAN projection, utilizing CO2 stacking technique. Findings: Iliac vessels are diffusely calcific. However, no hemodynamically significant common iliac or external iliac artery stenosis was demonstrated, bilaterally. Hypogastric arteries are not well seen. Left lower extremity arteriogram: The Omni Flush catheter was advanced across aortic bifurcation over a Glidewire and was positioned within contralateral left common femoral artery. CO2 was injected and DSA images were obtained over left groin in the FILIPINO projection utilizing CO2 stacking technique. Several hand injections of dilute Visipaque were then performed and DSA images were obtained from left groin through foot/ankle. The Omni Flush catheter was removed over a [employer] advantage guidewire. The 5 Nepalese right groin sheath was exchanged for a 6 Nepalese Param 2 sheath, which was advanced over the advantage wire across aortic bifurcation into left common femoral artery. A Demetrius Cross catheter was then inserted through the Param sheath and was advanced into the calcific, chronically occluded proximal left SFA. However, despite multiple attempts, the calcific occlusion could not be successfully crossed. Findings: There is moderate calcific plaquing within the left common femoral artery and proximal left profunda. Diffusely calcific superficial femoral artery shows moderate origin stenosis, followed by long segment complete chronic calcific occlusion commencing approximately 6 cm distal to its origin. Diffusely calcific popliteal artery is reconstituted near abductor canal. Proximal segment of the reconstituted popliteal artery shows severe calcific narrowing. Mid and distal left popliteal artery are small in caliber, but appear widely patent. Left anterior tibial artery is occluded just distal to its origin. Tibioperoneal trunk is small in caliber, without focal significant stenosis. Very tiny posterior tibial artery is occluded at mid calf. Larger caliber peroneal artery is patent from origin through distal calf/ankle. Delayed images revealed eventual reconstitution of small caliber distal anterior tibial artery through dorsalis pedis artery at mid foot. Delayed images also revealed suboptimal, discontinuous collateral perfusion to small plantar distribution vessels at hindfoot. Patient tolerated the procedure well without apparent complication. Hemostasis was achieved at the right groin puncture site utilizing the Mynx closure system. Impression: 1. This study is somewhat limited by respiratory motion artifact, lower extremity contractures, and chronic renal insufficiency. 2. Small calcific infrarenal abdominal aortic aneurysm approaches 3 cm in diameter. Ultrasound or CT could be performed for further characterization. 3. Diffusely calcific iliac vessels, without significant inflow stenosis, bilaterally. 4. Moderate calcific plaquing within left common femoral artery and proximal profunda. 5. 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 This calcific occlusion could not be successfully crossed. 6. Reconstituted left popliteal artery shows severe proximal segment irregular calcific narrowing, but is otherwise small in caliber but widely patent. 7. Severe left tibial trifurcation occlusive disease, as described. Anterior tibial artery is occluded approximately. Tiny posterior tibial artery is occluded at mid calf. Peroneal artery is patent from origin through distal calf/ankle. 8. Delayed images over ankle/foot revealed eventual reconstitution of small caliber distal anterior tibial artery through dorsalis pedis artery at mid foot. Delayed images revealed suboptimal, discontinuous collateral perfusion to small plantar vessels at hindfoot. 9. Vascular surgery consultation is recommended. The patient may well benefit from left femoral-popliteal bypass graft to optimize inflow into left lower leg.
== END 2016-10-16 14:15 | disposition home or self-care (01) ==
LOC: INTRAD 08:21
PROVIDERS: ATTEND Emergency Medicine Undersea and Hyperbaric Medicine
DX: I73.9 Peripheral vascular disease, unspecified (principal); I13.0 Hypertensive heart and chronic kidney disease with heart failure and stage 1 through stage 4 chronic kidney disease, or unspecified chronic kidney disease; N18.9 Chronic kidney disease, unspecified; I50.40 Unspecified combined systolic (congestive) and diastolic (congestive) heart failure; T81.89XA Other complications of procedures, not elsewhere classified, initial encounter; M19.90 Unspecified osteoarthritis, unspecified site; E66.9 Obesity, unspecified; I25.10 Atherosclerotic heart disease of native coronary artery without angina pectoris; Z72.89 Other problems related to lifestyle; Z87.39 Personal history of other diseases of the musculoskeletal system and connective tissue
CPT/HCPCS: 36246; 36415; 75625; 75710; 75774; 80048; 85027; 85610; C1713; C1760; C1769; C1892; C1894; G0269; J2250; J3010; Q9967

== ENCOUNTER → 2016-10-18 | Outpatient (CLI) | payer OTHER ==
[2016-10-16 13:50] VITALS: BP 100/51
[~2016-10-18] MED LIST changes: +ASPI81TA9 PO; +COLC0.6C3 PO; +FOLI1TAB16 PO; +GABA-586 PO
== END | disposition home or self-care (01) ==
LOC: PMGWOUND 08:08
PROVIDERS: ATTEND Emergency Medicine Undersea and Hyperbaric Medicine
DX: L89.624 Pressure ulcer of left heel, stage 4 (principal); I73.9 Peripheral vascular disease, unspecified; N30.40 Irradiation cystitis without hematuria; I25.10 Atherosclerotic heart disease of native coronary artery without angina pectoris; I12.9 Hypertensive chronic kidney disease with stage 1 through stage 4 chronic kidney disease, or unspecified chronic kidney disease; N18.4 Chronic kidney disease, stage 4 (severe); E78.5 Hyperlipidemia, unspecified; E78.00 Pure hypercholesterolemia, unspecified; M19.90 Unspecified osteoarthritis, unspecified site; M10.9 Gout, unspecified; Z95.1 Presence of aortocoronary bypass graft; Z87.891 Personal history of nicotine dependence; Z85.46 Personal history of malignant neoplasm of prostate; Z72.89 Other problems related to lifestyle
CPT/HCPCS: 99214

== ENCOUNTER → 2016-10-29 | Outpatient (CLI) | payer OTHER ==
[2016-10-16 13:50] VITALS: BP 100/51
[~2016-10-29] MED LIST changes: -WARF3TAB PO; +WARF3TAB54 PO
== END | disposition home or self-care (01) ==
LOC: PMGWOUND 08:56
PROVIDERS: ATTEND Emergency Medicine Undersea and Hyperbaric Medicine
DX: L89.624 Pressure ulcer of left heel, stage 4 (principal); I73.9 Peripheral vascular disease, unspecified; N30.40 Irradiation cystitis without hematuria; I25.10 Atherosclerotic heart disease of native coronary artery without angina pectoris; I12.9 Hypertensive chronic kidney disease with stage 1 through stage 4 chronic kidney disease, or unspecified chronic kidney disease; N18.4 Chronic kidney disease, stage 4 (severe); E78.5 Hyperlipidemia, unspecified; E66.9 Obesity, unspecified; Z68.32 Body mass index [BMI] 32.0-32.9, adult; M19.90 Unspecified osteoarthritis, unspecified site; Z85.46 Personal history of malignant neoplasm of prostate; Z87.891 Personal history of nicotine dependence; Z95.1 Presence of aortocoronary bypass graft; Z87.01 Personal history of pneumonia (recurrent); Z72.89 Other problems related to lifestyle
CPT/HCPCS: 99214

== ENCOUNTER 2016-10-31 11:35 | Day surgery (SDC) | payer OTHER ==
[~2016-10-31] VITALS: Ht 157.5 cm; Wt 72.6 kg
[~2016-10-31 11:35] MED LIST changes: +HYDROmorphone 2 MG/ML VIAL IV PRN; +IV RINGERS,LACTATED 1000ML 1,000 ML IV SCH; +LIDOCAINE 1% 1 ML SYRINGE. ID PRN; +MORPHINE SULFATE 2 MG/ML DISP.SYRIN. IV PRN; +ONDANSETRON PF 4 MG/2 ML VIAL. IV PRN; +PROCHLORPERAZINE 10 MG/2 ML VIAL. IV PRN; +fentaNYL PF VIAL 100 MCG/2 ML VIAL IV PRN
--- NOTE | 2016-10-31 12:39 | PDOC ---
SURGICAL PROGRESS NOTE Subjective 81 yo M with left lateral ankle ulcer TO OR for excisional debridement R/B/A d/w pt and pt's family Office note H&P reviewed and unchanged Vital Signs Vital Signs Date Time Temp Pulse Resp B/P (MAP) Pulse Ox O2 Delivery O2 Flow Rate FiO2 10/31/16 12:00 97.9 84 20 130/66 96 Room Air 97.9 MOHSEN MOHAN MD October 31, 2016 12:38
[2016-10-31] MEDS ORDERED: LIDOCAINE 2% 100 MG/5 ML SYRINGE. ONE (13:24)
[2016-10-31] MEDS ORDERED: PROPOFOL 20 ML IV ONE (13:24)
[2016-10-31] MEDS ORDERED: DEXAMETHASONE SOD PHOS 20 MG/5 ML VIAL. ONE (13:29)
[2016-10-31] MEDS ORDERED: ONDANSETRON PF 4 MG/2 ML VIAL. ONE (13:29)
[2016-10-31] MEDS ORDERED: ePHEDrine PF IN SALINE 50 MG/5 ML DISP.SYRIN IV ONE (13:40)
[2016-10-31] MEDS ORDERED: fentaNYL PF VIAL 100 MCG/2 ML VIAL ONE (13:41)
[2016-10-31] MEDS ORDERED: SEVOFLURANE 31 TO 60 MINUTES. IH ONE (14:23)
--- NOTE | 2016-10-31 15:04 | PDOC ---
BRIEF OPERATIVE NOTE Pre-Op Diagnosis left heel ulcer Post-Op Diagnosis same, down to bone Procedure Performed Excisional debridement of heel ulcer down bone level Surgeon steven finley Anesthesia Type: General Blood Loss min Specimens Obtained wound debris Findings bony involvement Complications none Additional Remarks [id number] MOHSEN MOHAN MD October 31, 2016 15:04
[2016-10-31 15:45] VITALS: BP 129/66
--- NOTE | 2016-10-31 19:07 | OP ---
DATE OF SURGERY: 10/31/2016 REFERRING PHYSICIANS: Dr. Lauro Haywood and Dr. Escobedo in Wound Care. PREOPERATIVE DIAGNOSIS: Left heel decubitus ulcer. POSTOPERATIVE DIAGNOSES: Left heel decubitus ulcer. PROCEDURE: Excisional debridement of left heel decubitus ulcer. SURGEON: Francisco Richards MD INSTRUMENT REPAIR TECHNICIAN: Patti Escobedo D.O. ESTIMATED BLOOD LOSS: Minimal. COMPLICATIONS: None. INDICATIONS: An 81-year-old male with chronic left heel ulcer with concern for bony involvement. He has been on the wound care treatment for quite some time and Wound Care has requested excisional debridement and possible bony biopsy for demonstration of osteomyelitis and then also debridement and placement of PriMatrix. The patient and patient's family are informed of the risks, benefits, and alternatives to procedure, risks including, but not limited to bleeding, infection, or damage to surrounding structures, and risks of anesthesia. The patient and the patient's family appear to understand, their insightful questions were answered, and they agreed to proceed. DESCRIPTION OF PROCEDURE: After obtaining informed consent, the patient was taken to the operating room, induced under general endotracheal anesthetic. The patient was prepped and draped in the usual fashion of the left foot area. The left foot ulcer was identified in the posterior area of the heel, primarily on the left side. This was approximately 2 cm in diameter, and overall good granulation tissue, but especially on the lateral edge, there was a fair amount of exposed bone. This had components of very soft bone within it. A rongeur was used to remove the soft bone, and cultures and pathology were sent from this. Bleeding was noted from all wound edges and the PriMatrix was sewn in place in 3 layers using multiple interrupted 4-0 Monocryl. A bolster dressing was then placed over this, as well as compression dressing. The patient tolerated the procedure well and was discharged to recovery room in stable condition. All counts were correct. There were no immediate complications. FRANCISCO RICHARDS MD DR: DONNA/miguel JOB#: [id number] / [id number] PATTI Mccurdy HALLA MD
--- NOTE | 2016-11-05 15:08 | PATHOLOGY ---
PATHOLOGY REPORT * * * * * * * * FINAL DIAGNOSIS: "Left heel bone", debridement: - Fragments of ulcerated soft tissue with mild acute and chronic inflammation. - Fragments of bone with no significant inflammatory infiltrate. REPORT ELECTRONICALLY SIGNED BY: Simin Condon M.D. DATE/TIME: 11/05/2016 15:07 * * * * * * * * GROSS PATHOLOGY: The specimen is received in formalin, labeled "Garret Pang left heel bone." Received are multiple segments of light smith to red brown bone fragments admixed with soft tissue measuring 1.9 x 0.7 x 0.4 cm in aggregate dimensions. The specimen is submitted entirely in cassette A1, following decalcification. (KAH; 11/02/2016) INITIAL CPT CODE(S): A; 29844, 26958 Professional services performed by [employer], [address] [place] [address]. Technical services performed by [employer], [address] [place] [address], [address] [address]. SPECIMEN(S) RECEIVED: A.Left heel bone CLINICAL HISTORY: Left heel ulcer PATIENT: GARRET PANG I /AGE: 7 1935 (Age: 81) PATIENT #: [id number] ALT CASE #: SPECIMEN COLLECTION DATE: 10/31/2016 SPECIMEN RECEIVED DATE: 11/01/2016 [facility] [facility] - [facility] [place] [address] - PHONE: [phone] * * * END OF REPORT * * *
== END 2016-10-31 16:01 | disposition home or self-care (01) ==
LOC: SURG 11:35
PROVIDERS: ATTEND Surgery
DX: L89.629 Pressure ulcer of left heel, unspecified stage (principal); E70.0 Classical phenylketonuria; I10 Essential (primary) hypertension; E66.9 Obesity, unspecified; K21.9 Gastro-esophageal reflux disease without esophagitis; M19.90 Unspecified osteoarthritis, unspecified site; I25.10 Atherosclerotic heart disease of native coronary artery without angina pectoris; Z72.89 Other problems related to lifestyle; Z87.01 Personal history of pneumonia (recurrent); Z85.46 Personal history of malignant neoplasm of prostate
CPT/HCPCS: 11044; 82947; 87205; C1781; J0690; J1100; J2405; J2704; J3010; 87071; 87075; 88304; 88311; Q4110

== ENCOUNTER → 2016-11-02 | Outpatient (CLI) | payer OTHER ==
[2016-10-31 15:45] VITALS: BP 129/66
[~2016-11-02] MED LIST changes: +CLOP75TA PO; -HYDROmorphone 2 MG/ML VIAL IV PRN; -IV RINGERS,LACTATED 1000ML 1,000 ML IV SCH; -LIDOCAINE 1% 1 ML SYRINGE. ID PRN; +MAGN400T22 PO; +METO25TA4 PO; -MORPHINE SULFATE 2 MG/ML DISP.SYRIN. IV PRN; -ONDANSETRON PF 4 MG/2 ML VIAL. IV PRN; -PROCHLORPERAZINE 10 MG/2 ML VIAL. IV PRN; -fentaNYL PF VIAL 100 MCG/2 ML VIAL IV PRN
== END | disposition home or self-care (01) ==
LOC: PMGWOUND 11:51
PROVIDERS: ATTEND Preventive Medicine Undersea and Hyperbaric Medicine
DX: L89.624 Pressure ulcer of left heel, stage 4 (principal); I73.9 Peripheral vascular disease, unspecified; N30.40 Irradiation cystitis without hematuria; I25.10 Atherosclerotic heart disease of native coronary artery without angina pectoris; E78.5 Hyperlipidemia, unspecified; K21.9 Gastro-esophageal reflux disease without esophagitis; E66.9 Obesity, unspecified; E78.00 Pure hypercholesterolemia, unspecified; I13.0 Hypertensive heart and chronic kidney disease with heart failure and stage 1 through stage 4 chronic kidney disease, or unspecified chronic kidney disease; N18.4 Chronic kidney disease, stage 4 (severe); I50.9 Heart failure, unspecified; M19.90 Unspecified osteoarthritis, unspecified site; Z87.01 Personal history of pneumonia (recurrent); Z95.1 Presence of aortocoronary bypass graft; Z87.891 Personal history of nicotine dependence; Z85.46 Personal history of malignant neoplasm of prostate; Z72.89 Other problems related to lifestyle
CPT/HCPCS: 11042; 97605

== ENCOUNTER → 2016-11-06 | Outpatient (CLI) | payer OTHER ==
[2016-10-31 15:45] VITALS: BP 129/66
[~2016-11-06] MED LIST changes: -CLOP75TA PO; -MAGN400T22 PO; -METO25TA4 PO
== END | disposition home or self-care (01) ==
LOC: PMGWOUND 10:23
PROVIDERS: ATTEND Emergency Medicine Undersea and Hyperbaric Medicine
DX: L89.624 Pressure ulcer of left heel, stage 4 (principal); I73.9 Peripheral vascular disease, unspecified; N30.40 Irradiation cystitis without hematuria; I25.10 Atherosclerotic heart disease of native coronary artery without angina pectoris; E78.5 Hyperlipidemia, unspecified; I12.9 Hypertensive chronic kidney disease with stage 1 through stage 4 chronic kidney disease, or unspecified chronic kidney disease; N18.9 Chronic kidney disease, unspecified; Z85.46 Personal history of malignant neoplasm of prostate; Z87.891 Personal history of nicotine dependence; Z95.1 Presence of aortocoronary bypass graft
CPT/HCPCS: 11042; 97605

== ENCOUNTER → 2016-11-15 | Outpatient (CLI) | payer OTHER ==
[2016-10-31 15:45] VITALS: BP 129/66
--- NOTE | 2016-11-19 17:26 | HP ---
ADMIT DATE: 11/19/2016 ANTICIPATED DATE OF SURGERY: 11/21/2016. DIAGNOSIS: Left heel ulcer with vascular disease. HISTORY OF PRESENT ILLNESS: An 81-year-old male with a left heel ulcer and peripheral vascular disease. He had an arteriogram at [place], showed an occluded left superficial femoral artery reconstitution of popliteal below the knee with 1 vessel runoff peroneal. Prior to coronary artery bypass, he had vein mapping, which showed an adequate lesser saphenous vein on the left leg, maybe axillary or anterior saphenous vein and also good lesser saphenous vein on the left leg. He is admitted for left leg bypass. PAST MEDICAL HISTORY: ALLERGIES: None. MEDICATIONS: See his reconciliation list. He is supposed to be on an aspirin a day. ILLNESSES: Hypertension, hyperlipidemia, coronary artery disease, having had a bypass. PHYSICAL EXAMINATION: GENERAL: Pleasant male in no acute distress. He has got a 3 x 2.5 x 2 cm left heel ulcer. VITAL SIGNS: Regular heart rate, nonlabored respirations. NEUROLOGIC: Intact. EXTREMITIES: He has got left heel ulcer with bone in the wound. No popliteal or pedal pulses on the left leg, 2+ edema on the left leg. IMPRESSION: Limb threatening ischemia, left leg. PLAN: Left fem-pop bypass with greater saphenous vein or residual saphenous vein and debridement of the heel. The nature of that procedure and the risk has been explained and he is agreeable to proceed. DERIK FUNEZ MD DR: HOLLY/miguel JOB#: [id number] / [id number]
== END | disposition home or self-care (01) ==
LOC: PMGWOUND 08:13
PROVIDERS: ATTEND Emergency Medicine Undersea and Hyperbaric Medicine
DX: L89.624 Pressure ulcer of left heel, stage 4 (principal); I70.244 Atherosclerosis of native arteries of left leg with ulceration of heel and midfoot; L97.421 Non-pressure chronic ulcer of left heel and midfoot limited to breakdown of skin; M86.172 Other acute osteomyelitis, left ankle and foot; N30.40 Irradiation cystitis without hematuria; I12.9 Hypertensive chronic kidney disease with stage 1 through stage 4 chronic kidney disease, or unspecified chronic kidney disease; N18.9 Chronic kidney disease, unspecified; I25.10 Atherosclerotic heart disease of native coronary artery without angina pectoris; E78.5 Hyperlipidemia, unspecified; Z85.46 Personal history of malignant neoplasm of prostate; Z87.891 Personal history of nicotine dependence; Z95.1 Presence of aortocoronary bypass graft
CPT/HCPCS: 97597; 97605

== ENCOUNTER 2016-11-21 09:53 | Inpatient (IN) | payer OTHER ==
[~2016-11-21] VITALS: Ht 177.8 cm; Wt 813.3 kg
[~2016-11-21 09:53] MED LIST changes: +ASPI-612 PO; -ASPI325T4 PO; +ASPI325T8 PO; -ASPI81TA9 PO; +EZET10TA18 PO; -EZET10TA3 PO; +HEPARIN SODIUM 5,000 UNIT in IV NORMAL SALINE 500ML BAG 500 ML IRR ONE; -HYDR-2666 PO; +HYDR-2758 PO; +HYDROmorphone 2 MG/ML VIAL IV PRN; +IV RINGERS,LACTATED 1000ML 1,000 ML IV SCH; +LIDOCAINE 1% 1 ML SYRINGE. ID PRN; +MORPHINE SULFATE 2 MG/ML DISP.SYRIN. IV PRN; +ONDANSETRON PF 4 MG/2 ML VIAL. IV PRN; +PROCHLORPERAZINE 10 MG/2 ML VIAL. IV PRN; +SILV20CR14 TP; -SILV20CR4 TP
[2016-11-21 11:06] LABS: BASO # 0.1 x10^3/uL (0.0-0.2); BASO % 2 % (0-3); EOS % 3 % (0-3); HEMATOCRIT 32.4 % (39.0-53.0); HEMOGLOBIN 11.1 g/dL (13.0-17.5); LYMPH # 0.8 x10^3/uL (1.0-4.8); LYMPH % 15 % (24-48); MEAN CORPUSCULAR HEMOGLOBIN 31 pg (25-35); MEAN CORPUSCULAR HGB CONC 34 g/dL (31-37); MEAN CORPUSCULAR VOLUME 91 fL (79-100); MONO % 9 % (0-9); NEUT % 70 % (31-73); PLATELET COUNT 137 x10^3/uL (140-400); RED BLOOD COUNT 3.55 x10^6/uL (4.30-5.70); RED CELL DISTRIBUTION WIDTH 18.5 % (11.5-14.5); WHITE BLOOD COUNT 5.6 x10^3/uL (4.0-11.0)
[2016-11-21 11:10] LABS: CALCIUM 9.3 mg/dL (8.5-10.1); CREATININE 2.1 mg/dL (0.7-1.3); GFR 30.5; POTASSIUM 3.3 mmol/L (3.5-5.1)
[2016-11-21 11:17] LABS: INR 1.1 (0.8-1.1); PROTHROMBIN TIME PATIENT 13.2 SEC (11.7-14.0)
[2016-11-21] MEDS ORDERED: LIDOCAINE 2% PF Vial for OR 5 ML VIAL. ONE (11:28)
[2016-11-21] MEDS ORDERED: SEVOFLURANE > 120 MINUTES. IH ONE (11:28)
[2016-11-21] MEDS ORDERED: fentaNYL PF VIAL 250 MCG/5 ML VIAL ONE (11:28)
[2016-11-21] MEDS ORDERED: PROPOFOL 20 ML IV ONE (11:28)
[2016-11-21] MEDS ORDERED: ROCURONIUM 50 MG/5 ML VIAL. ONE (11:28)
[2016-11-21] MEDS ORDERED: ONDANSETRON PF 4 MG/2 ML VIAL. ONE (11:28)
[2016-11-21] MEDS: fentaNYL PF VIAL 100 MCG/2 ML VIAL IV PRN ×4 (11:35→17:45)
[2016-11-21] MEDS ORDERED: PHENYLEPHRINE in 0.9% NACL PF 1 MG/10 ML DISP.SYRIN. IV ONE (13:01)
[2016-11-21] MEDS ORDERED: ePHEDrine PF IN SALINE 50 MG/5 ML DISP.SYRIN IV ONE (13:14)
[2016-11-21] MEDS ORDERED: ACETAMINOPHEN 325 MG TABLET. PO PRN (13:15)
[2016-11-21] MEDS ORDERED: PROCHLORPERAZINE 10 MG/2 ML VIAL. IV PRN (13:15)
[2016-11-21] MEDS ORDERED: hydrALAZINE 20 MG/ML VIAL. IVP PRN (13:15)
[2016-11-21] MEDS ORDERED: 0.9 % SODIUM CHLORIDE 10 ML DISP.SYRIN. IV PRN (13:15)
[2016-11-21] MEDS ORDERED: NALOXONE 0.4 MG/ML VIAL. IV PRN (13:15)
[2016-11-21] MEDS ORDERED: oxyCODONE/APAP 5/325 1 TAB TABLET PO PRN (13:15)
[2016-11-21] MEDS ORDERED: ONDANSETRON PF 4 MG/2 ML VIAL. IV PRN (13:15)
[2016-11-21] MEDS ORDERED: PHENYLEPHRINE 10 MG/ML VIAL. ONE (13:35)
[2016-11-21] MEDS ORDERED: HEPARIN for IV BOLUS 10,000 UNIT/10 ML VIAL. ONE (13:43)
[2016-11-21] MEDS ORDERED: ROCURONIUM 100 MG/10 ML VIAL. ONE (15:02)
[2016-11-21] MEDS ORDERED: HEPARIN 25,000UTS/500ML PREMIX 500 ML IV PRN (15:15)
[2016-11-21] MEDS ORDERED: ALBUMIN HUMAN 5% 500 ML IV ONE (15:36)
[2016-11-21] MEDS ORDERED: PROTAMINE 50 MG/5 ML VIAL. IV ONE (15:43)
[2016-11-21] MEDS ORDERED: THROMBIN TOPICAL 20,000 UNIT SPRAY.SYRN KIT TP ONE (16:15)
[2016-11-21 16:20] LABS: HEMATOCRIT 27.3 % (39.0-53.0); HEMOGLOBIN 8.9 g/dL (13.0-17.5); WHITE BLOOD COUNT 7.2 x10^3/uL (4.0-11.0)
--- NOTE | 2016-11-21 16:24 | PDOC ---
BRIEF OPERATIVE NOTE Date: November 21, 2016 Pre-Op Diagnosis Peripheral vascular disease, heel ucler Post-Op Diagnosis same Procedure Performed Left femoral to popliteal bypass with 7mm gortex and greater saphenous vein heel debridement Surgeon Dr. Villegas Animated Cartoons Painter Eusebia Morgan Anesthesia Type: General Blood Loss see dictated note Findings palpable graft pulse Complications none EUSEBIA MORGAN NETBACKUP ADMIN November 21, 2016 16:23
[2016-11-21] MEDS ORDERED: SURGICEL FIBRILLAR 1X2 EACH. ONE ×2 (16:43→17:17)
[2016-11-21] MEDS ORDERED: DESFLURANE > 120 MINUTES IH ONE (16:52)
[2016-11-21] MEDS: oxyCODONE/APAP 5/325 1 TAB TABLET PO PRN (18:33)
[2016-11-21 19:20] VITALS: BP 118/63
[2016-11-21] MEDS: GABAPENTIN 300 MG CAPSULE. PO SCH (20:19)
[2016-11-21] MEDS: ALLOPURINOL 300 MG TABLET. PO SCH (20:19)
[2016-11-21] MEDS: MORPHINE SULFATE 2 MG/ML DISP.SYRIN. IV PRN ×2 (20:19→21:46)
[2016-11-21] MEDS: COLCHICINE 0.6 MG TABLET PO SCH (20:19)
[2016-11-21] MEDS: oxyCODONE IR 5 MG TABLET PO PRN (20:19)
[2016-11-21] MEDS: ATORVASTATIN CALCIUM 10 MG TABLET. PO SCH (20:21)
[2016-11-21] MEDS: IV NORMAL SALINE 1000ML BAG 1,000 ML IV SCH (20:21)
[2016-11-21] MEDS: FINASTERIDE 5 MG TABLET. PO SCH (20:30)
[2016-11-21] MEDS: FUROSEMIDE 20 MG TABLET PO SCH (20:30)
[2016-11-21] MEDS: FAMOTIDINE 20 MG TABLET. PO SCH (20:30)
[2016-11-21] MEDS: FOLIC ACID 1 MG TABLET. PO SCH (20:30)
--- NOTE | 2016-11-21 21:46 | OP ---
DATE OF SURGERY: 11/21/2016 PREOPERATIVE DIAGNOSIS: Nonhealing left heel ulcer with severe peripheral vascular disease. POSTOPERATIVE DIAGNOSIS: Nonhealing left heel ulcer with severe peripheral vascular disease. PROCEDURE PERFORMED: Left external iliac to profunda to below-knee popliteal bypass using a spliced segment of 4-7 [place]Adam graft to a residual anterior saphenous vein branch, a left external iliac and profunda femoral endarterectomy, and debridement of left heel ulcer, including necrotic subcutaneous tissue, fascia, and bone measuring 3.5 x 3.5 x 3 deep. SURGEON: Michele Villegas MD QA AUDITOR: Lea Forde APRN. ANESTHETIC: General. INDICATIONS: An 81-year-old male with a nonhealing ulcer on his left heel. Arteriogram showed SFA occlusion, reconstitution of the popliteal below the knee with a single peroneal runoff. VEIN MAPPING: He had a prior coronary artery bypass, and a vein mapping had suggested that there was some adequate vein. DESCRIPTION OF PROCEDURE: After general endotracheal anesthetic and prep and drape, a groin incision was made being controlled with cautery. He had had previous hernia repair and this had to be taken down to get it to the external iliac artery to a soft portion of the artery where it could be clamped. The external iliac artery was encircled with vessel loops. The circumflex iliacs were encircled with vessel loops. The profunda and SFA were encircled with vessel loops. He did have an anterior saphenous vein and this was traced down through the groin and then into the upper thigh through a separate incision, but then it divided into 2 small branches and we had to quit there. We explored the popliteal area. An incision was made, bleeding controlled with cautery. I could not find a saphenous vein there, but the popliteal artery was encircled with a vessel loop. Lastly, we looked at the ankle. He had severe edema there and I could not find the greater saphenous vein at the ankle level. He was given 8000 units of heparin IV. Clamps were placed across the external iliac. Vessel loops were tightened, the SFA was ligated, it was occluded from the orifice, and it was transected and then the arteriotomy made through that stump of SFA into the distal common femoral. Endarterectomy was then done of the profunda femoral artery using a [place] dissector, and we tried to blindly do the endarterectomy up to the iliac clamp, but there was too much severe disease, so the arteriotomy had to be carried up to above the circumflex iliac vessels which were controlled with Hemoclips and the endarterectomy was then done under direct vision to the level of the clamp. An end-to-end anastomosis was done between the end of 7-mm [place]-Adam graft and the end of the external iliac with an HS-7 Prolene stitch. Clamps were released and flow was allowed to that graft. The graft was flushed with heparin and clamped. A 4 x 4 was used to control bleeding. A slit was made in the side of the graft and a part of the common femoral artery containing the orifice of the profunda was re-implanted to the side of that [place]-Adam graft with an HS-7 Prolene stitch. The profunda clamp was released. There was good bleeding from the graft. The graft was then clamped below the profunda and blood was once more irrigated from the graft into the graft. The graft was then anastomosed to the segment of the saphenous vein so that the graft ended above the knee and saphenous vein branch traversed through the knee. Once that anastomosis was done, the graft was then tunneled subcutaneously into the popliteal incision, where anastomosis was done between the spatulated segment of vein and the side of the popliteal artery, which was severely diseased with a 6-0 Prolene stitch. Just prior to complete closure, forward bleeding was checked, anastomosis completed, clamps were released, and flow was allowed to the graft. Triphasic arterial flow was heard with Doppler. All wounds were irrigated. He was given 30 mg of protamine, later 20 more were given. He had a lot of oozing from the proximal suture lines. Everything else looked good. The ankle incision was closed with subcutaneous Vicryl and nylon. The mid-thigh incision was closed with subcutaneous Vicryl and rafaela, and then the popliteal incision was hemostatic, so some fibular Surgicel packed there and that was closed with subcutaneous Vicryl and rafaela. Some thrombin and fibular Surgicel was used and that eventually controlled bleeding from those suture lines after we had put one more stitch in each. Once hemostasis was obtained at the groin, the hernia was re-approximated with Vicryl and that was continued for the superficial subcutaneous layers and then the skin was closed with rafaela. Sterile dressings were applied. The patient tolerated the procedure well. EBL 600 mL and left the operating room in stable condition with a strong graft pulse. MICHELE VILLEGAS MD DR: HOLLY/miguel JOB#: [id number] / [id number]
[2016-11-21 23:42] VITALS: BP 109/55
[2016-11-22] VITALS (12 sets, daily range): BP systolic 76–93; BP diastolic 47–55
[2016-11-22] MEDS: DOCUSATE SODIUM 100 MG CAPSULE. PO SCH ×3 (00:45→20:20)
[2016-11-22] MEDS: CARVEDILOL 3.125 MG TABLET. PO SCH ×2 (00:46→08:00)
[2016-11-22] MEDS: TAMSULOSIN 0.4 MG CAP.ER.24H. PO SCH ×3 (00:46→20:20)
[2016-11-22] MEDS: IV NORMAL SALINE 1000ML BAG 1,000 ML IV SCH (02:16)
[2016-11-22 03:44] LABS: BASO % 0 % (0-3); EOS % 0 % (0-3); LYMPH # 0.3 x10^3/uL (1.0-4.8); LYMPH % 4 % (24-48); MEAN CORPUSCULAR HEMOGLOBIN 31 pg (25-35); MEAN CORPUSCULAR HGB CONC 33 g/dL (31-37); MEAN CORPUSCULAR VOLUME 93 fL (79-100); MONO % 7 % (0-9); NEUT % 89 % (31-73); PLATELET COUNT 98 x10^3/uL (140-400); RED BLOOD COUNT 2.24 x10^6/uL (4.30-5.70); RED CELL DISTRIBUTION WIDTH 18.3 % (11.5-14.5); WHITE BLOOD COUNT 7.2 x10^3/uL (4.0-11.0)
[2016-11-22 04:10] LABS: HEMATOCRIT 20.7 % (39.0-53.0); HEMOGLOBIN 6.9 g/dL (13.0-17.5)
[2016-11-22 04:24] LABS: CALCIUM 7.6 mg/dL (8.5-10.1); CREATININE 1.9 mg/dL (0.7-1.3); GFR 34.2; POTASSIUM 3.2 mmol/L (3.5-5.1)
[2016-11-22 06:15] LABS: ANISOCYTOSIS MOD; PLT ESTIMATE DECREASED (ADEQUATE); POIKILOCYTOSIS SLIGHT
[2016-11-22 06:19] LABS: MAGNESIUM 1.5 mg/dL (1.8-2.4); PHOSPHORUS 4.8 mg/dL (2.6-4.7)
[2016-11-22] MEDS: CLOPIDOGREL BISULFATE 75 MG TABLET PO SCH (08:00)
[2016-11-22] MEDS ORDERED: MAGNESIUM SULFATE 2GM 50 ML IV ONE (08:30)
[2016-11-22] MEDS: GABAPENTIN 300 MG CAPSULE. PO SCH ×2 (08:44→20:19)
[2016-11-22] MEDS: COLCHICINE 0.6 MG TABLET PO SCH (08:45)
[2016-11-22] MEDS: FOLIC ACID 1 MG TABLET. PO SCH (08:45)
[2016-11-22] MEDS: FAMOTIDINE 20 MG TABLET. PO SCH ×2 (08:46→08:52)
[2016-11-22] MEDS: ALLOPURINOL 300 MG TABLET. PO SCH (08:46)
[2016-11-22] MEDS: FUROSEMIDE 20 MG TABLET PO SCH (08:48)
[2016-11-22] MEDS: ASPIRIN ENTERIC COATED 81 MG TABLET.DR. PO SCH (08:48)
[2016-11-22] MEDS: FINASTERIDE 5 MG TABLET. PO SCH (08:52)
[2016-11-22] MEDS: ELECTROLYTE (NON-ICU) PROTOCOL MC SCH (09:00)
[2016-11-22] MEDS ORDERED: POTASSIUM CHLORIDE 20 MEQ TABLET.ER. PO ONE (09:30)
--- NOTE | 2016-11-22 09:38 | PDOC ---
OBJECTIVE Vital Signs Vital Signs Date Time Temp Pulse Resp B/P (MAP) Pulse Ox O2 Delivery O2 Flow Rate FiO2 11/22/16 08:45 Room Air 2.0 11/22/16 08:43 97.9 89 84/55 (65) 97.9 11/22/16 08:41 97.8 86 88/48 (61) 97.8 11/22/16 08:15 97.8 82 20 77/49 97.8 11/22/16 08:00 79 86/48 11/22/16 07:44 97.8 79 21 86/48 (61) 99 Nasal Cannula 97.8 11/22/16 06:10 97.6 61 16 80/47 97.6 11/22/16 05:52 97.9 65 16 76/50 97.9 11/22/16 00:46 108 109/55 11/21/16 23:42 97.8 108 20 109/55 (73) 94 Room Air 97.8 11/21/16 20:00 Room Air 2.0 11/21/16 19:20 112 22 118/63 (81) 99 Room Air 11/21/16 18:33 98 Nasal Cannula 2.0 11/21/16 17:55 98.1 92 18 101/55 95 Room Air 98.1 11/21/16 17:45 98 Nasal Cannula 2.0 11/21/16 17:40 92 18 114/57 95 Room Air 11/21/16 17:35 18 11/21/16 17:25 Nasal Cannula 2 11/21/16 17:25 98 18 92/66 96 Room Air 11/21/16 17:10 92 18 91/54 91 Room Air 11/21/16 16:55 Mask 10 11/21/16 16:55 97.4 87 18 86/54 98 Simple Mask 10 97.4 11/21/16 12:50 20 11/21/16 11:35 20 11/21/16 10:40 98.1 85 97 98.1 11/21/16 10:38 98.1 85 20 117/65 97 Room Air 98.1 I & O Intake and Output 11/22/16 06:59 Intake Total 2000 ml Output Total 2375 ml Balance -375 ml Intake Oral 500 ml IV Total 1400 ml Blood Product IV Normal Saline Flush 100 ml Output Urine Total 1775 ml Estimated Blood Loss 600 ml ASSESSMENT/PLAN Assessment/Plan 338113 H&P dictated Problems: COMMENT Lab Laboratory Tests Test 11/21/16 10:45 11/21/16 16:10 11/22/16 03:00 White Blood Count 5.6 x10^3/uL (4.0-11.0) 7.2 x10^3/uL (4.0-11.0) 7.2 x10^3/uL (4.0-11.0) Red Blood Count 3.55 x10^6/uL (4.30-5.70) 2.24 x10^6/uL (4.30-5.70) Hemoglobin 11.1 g/dL (13.0-17.5) 8.9 g/dL (13.0-17.5) 6.9 g/dL (13.0-17.5) Hematocrit 32.4 % (39.0-53.0) 27.3 % (39.0-53.0) 20.7 % (39.0-53.0) Mean Corpuscular Volume 91 fL (79-100) 93 fL (79-100) Mean Corpuscular Hemoglobin 31 pg (25-35) 31 pg (25-35) Mean Corpuscular Hemoglobin Concent 34 g/dL (31-37) 33 g/dL (31-37) Red Cell Distribution Width 18.5 % (11.5-14.5) 18.3 % (11.5-14.5) Platelet Count 137 x10^3/uL (140-400) 124 x10^3/uL (140-400) 98 x10^3/uL (140-400) Neutrophils (%) (Auto) 70 % (31-73) 89 % (31-73) Lymphocytes (%) (Auto) 15 % (24-48) 4 % (24-48) Monocytes (%) (Auto) 9 % (0-9) 7 % (0-9) Eosinophils (%) (Auto) 3 % (0-3) 0 % (0-3) Basophils (%) (Auto) 2 % (0-3) 0 % (0-3) Neutrophils # (Auto) 3.9 x10^3uL (1.8-7.7) 6.4 x10^3uL (1.8-7.7) Lymphocytes # (Auto) 0.8 x10^3/uL (1.0-4.8) 0.3 x10^3/uL (1.0-4.8) Monocytes # (Auto) 0.5 x10^3/uL (0.0-1.1) 0.5 x10^3/uL (0.0-1.1) Eosinophils # (Auto) 0.2 x10^3/uL (0.0-0.7) 0.0 x10^3/uL (0.0-0.7) Basophils # (Auto) 0.1 x10^3/uL (0.0-0.2) 0.0 x10^3/uL (0.0-0.2) Prothrombin Time 13.2 SEC (11.7-14.0) Prothromb Time International Ratio 1.1 (0.8-1.1) Activated Partial Thromboplast Time 37 SEC (24-38) > 150 SEC (24-38) Sodium Level 142 mmol/L (136-145) 141 mmol/L (136-145) Potassium Level 3.3 mmol/L (3.5-5.1) 3.2 mmol/L (3.5-5.1) Chloride Level 103 mmol/L (98-107) 105 mmol/L (98-107) Carbon Dioxide Level 29 mmol/L (21-32) 28 mmol/L (21-32) Anion Gap 10 (6-14) 8 (6-14) Blood Urea Nitrogen 29 mg/dL (8-26) 29 mg/dL (8-26) Creatinine 2.1 mg/dL (0.7-1.3) 1.9 mg/dL (0.7-1.3) Estimated GFR (Cockcroft-Gault) 30.5 34.2 Glucose Level 102 mg/dL (70-99) 149 mg/dL (70-99) Calcium Level 9.3 mg/dL (8.5-10.1) 7.6 mg/dL (8.5-10.1) Segmented Neutrophils % 95 % (35-66) Band Neutrophils % 1 % (0-9) Lymphocytes % 2 % (24-48) Monocytes % 2 % (0-10) Platelet Estimate Decreased (ADEQUATE) Poikilocytosis Slight Anisocytosis Mod Phosphorus Level 4.8 mg/dL (2.6-4.7) Magnesium Level 1.5 mg/dL (1.8-2.4) DB REAL MD Nov 22, 2016 09:38
[2016-11-22] MEDS: MAGNESIUM OXIDE 400 MG TABLET PO SCH ×2 (10:05→20:20)
[2016-11-22] MEDS: POTASSIUM CHLORIDE 30 MEQ in IV NORMAL SALINE 1000ML BAG 1,000 ML IV SCH (10:10)
--- NOTE | 2016-11-22 10:19 | PDOC ---
PROGRESS NOTES Subjective Subjective Patient with c/o incisional pain and leg swelling Nurse in room with patient Objective Objective Vital Signs Date Time Temp Pulse Resp B/P (MAP) Pulse Ox O2 Delivery O2 Flow Rate FiO2 11/22/16 08:45 Room Air 2.0 11/22/16 08:43 97.9 89 84/55 (65) 97.9 11/22/16 08:15 20 11/22/16 07:44 99 Intake and Output 11/22/16 06:59 Intake Total 3000 ml Output Total 2375 ml Balance 625 ml Intake Oral 500 ml IV Total 2400 ml Blood Product IV Normal Saline Flush 100 ml Output Urine Total 1775 ml Estimated Blood Loss 600 ml Physical Exam Abdomen: Soft, No tenderness Heart: Regular rate Extremities: Other (dressings removed left leg, no active bleeding, some drainage on dressing, moderate swelling in thigh, soft, incisions all intact, moderate to severe swelling in foot, dressing dry to heel, palpable graft pulse and doppler distal pulses) Assessment Assessment PVD with non-healing heel ulcer POD #1 Left leg femoral to popliteal bypass with femoral endarterectomy, bypass 7mm gortex with greater saphenous vein extension across knee joint, heel debridement Post op Anemia, Hgb 6.9, transfusing Plan Plan of Care Patient currently appears to be stable, will continue to monitor for any active bleeding Continue to elevate leg on pillows Continue to hold heparin Monitor left thigh for swelling Hold on wound vac until later today Repeat CBC, BMP, Mag in am Repeat H&H in 6 hours Appreciate HIMS input and medical management Comment Review of Relevant I have reviewed the following items osiris (where applicable) has been applied. Labs Laboratory Tests Test 11/21/16 10:45 11/21/16 16:10 11/22/16 03:00 White Blood Count 5.6 x10^3/uL (4.0-11.0) 7.2 x10^3/uL (4.0-11.0) 7.2 x10^3/uL (4.0-11.0) Red Blood Count 3.55 x10^6/uL (4.30-5.70) 2.24 x10^6/uL (4.30-5.70) Hemoglobin 11.1 g/dL (13.0-17.5) 8.9 g/dL (13.0-17.5) 6.9 g/dL (13.0-17.5) Hematocrit 32.4 % (39.0-53.0) 27.3 % (39.0-53.0) 20.7 % (39.0-53.0) Mean Corpuscular Volume 91 fL (79-100) 93 fL (79-100) Mean Corpuscular Hemoglobin 31 pg (25-35) 31 pg (25-35) Mean Corpuscular Hemoglobin Concent 34 g/dL (31-37) 33 g/dL (31-37) Red Cell Distribution Width 18.5 % (11.5-14.5) 18.3 % (11.5-14.5) Platelet Count 137 x10^3/uL (140-400) 124 x10^3/uL (140-400) 98 x10^3/uL (140-400) Neutrophils (%) (Auto) 70 % (31-73) 89 % (31-73) Lymphocytes (%) (Auto) 15 % (24-48) 4 % (24-48) Monocytes (%) (Auto) 9 % (0-9) 7 % (0-9) Eosinophils (%) (Auto) 3 % (0-3) 0 % (0-3) Basophils (%) (Auto) 2 % (0-3) 0 % (0-3) Neutrophils # (Auto) 3.9 x10^3uL (1.8-7.7) 6.4 x10^3uL (1.8-7.7) Lymphocytes # (Auto) 0.8 x10^3/uL (1.0-4.8) 0.3 x10^3/uL (1.0-4.8) Monocytes # (Auto) 0.5 x10^3/uL (0.0-1.1) 0.5 x10^3/uL (0.0-1.1) Eosinophils # (Auto) 0.2 x10^3/uL (0.0-0.7) 0.0 x10^3/uL (0.0-0.7) Basophils # (Auto) 0.1 x10^3/uL (0.0-0.2) 0.0 x10^3/uL (0.0-0.2) Prothrombin Time 13.2 SEC (11.7-14.0) Prothromb Time International Ratio 1.1 (0.8-1.1) Activated Partial Thromboplast Time 37 SEC (24-38) > 150 SEC (24-38) Sodium Level 142 mmol/L (136-145) 141 mmol/L (136-145) Potassium Level 3.3 mmol/L (3.5-5.1) 3.2 mmol/L (3.5-5.1) Chloride Level 103 mmol/L (98-107) 105 mmol/L (98-107) Carbon Dioxide Level 29 mmol/L (21-32) 28 mmol/L (21-32) Anion Gap 10 (6-14) 8 (6-14) Blood Urea Nitrogen 29 mg/dL (8-26) 29 mg/dL (8-26) Creatinine 2.1 mg/dL (0.7-1.3) 1.9 mg/dL (0.7-1.3) Estimated GFR (Cockcroft-Gault) 30.5 34.2 Glucose Level 102 mg/dL (70-99) 149 mg/dL (70-99) Calcium Level 9.3 mg/dL (8.5-10.1) 7.6 mg/dL (8.5-10.1) Segmented Neutrophils % 95 % (35-66) Band Neutrophils % 1 % (0-9) Lymphocytes % 2 % (24-48) Monocytes % 2 % (0-10) Platelet Estimate Decreased (ADEQUATE) Poikilocytosis Slight Anisocytosis Mod Phosphorus Level 4.8 mg/dL (2.6-4.7) Magnesium Level 1.5 mg/dL (1.8-2.4) Laboratory Tests Test 11/21/16 10:45 11/21/16 16:10 11/22/16 03:00 White Blood Count 5.6 x10^3/uL (4.0-11.0) 7.2 x10^3/uL (4.0-11.0) 7.2 x10^3/uL (4.0-11.0) Red Blood Count 3.55 x10^6/uL (4.30-5.70) 2.24 x10^6/uL (4.30-5.70) Hemoglobin 11.1 g/dL (13.0-17.5) 8.9 g/dL (13.0-17.5) 6.9 g/dL (13.0-17.5) Hematocrit 32.4 % (39.0-53.0) 27.3 % (39.0-53.0) 20.7 % (39.0-53.0) Mean Corpuscular Volume 91 fL (79-100) 93 fL (79-100) Mean Corpuscular Hemoglobin 31 pg (25-35) 31 pg (25-35) Mean Corpuscular Hemoglobin Concent 34 g/dL (31-37) 33 g/dL (31-37) Red Cell Distribution Width 18.5 % (11.5-14.5) 18.3 % (11.5-14.5) Platelet Count 137 x10^3/uL (140-400) 124 x10^3/uL (140-400) 98 x10^3/uL (140-400) Neutrophils (%) (Auto) 70 % (31-73) 89 % (31-73) Lymphocytes (%) (Auto) 15 % (24-48) 4 % (24-48) Monocytes (%) (Auto) 9 % (0-9) 7 % (0-9) Eosinophils (%) (Auto) 3 % (0-3) 0 % (0-3) Basophils (%) (Auto) 2 % (0-3) 0 % (0-3) Neutrophils # (Auto) 3.9 x10^3uL (1.8-7.7) 6.4 x10^3uL (1.8-7.7) Lymphocytes # (Auto) 0.8 x10^3/uL (1.0-4.8) 0.3 x10^3/uL (1.0-4.8) Monocytes # (Auto) 0.5 x10^3/uL (0.0-1.1) 0.5 x10^3/uL (0.0-1.1) Eosinophils # (Auto) 0.2 x10^3/uL (0.0-0.7) 0.0 x10^3/uL (0.0-0.7) Basophils # (Auto) 0.1 x10^3/uL (0.0-0.2) 0.0 x10^3/uL (0.0-0.2) Prothrombin Time 13.2 SEC (11.7-14.0) Prothromb Time International Ratio 1.1 (0.8-1.1) Activated Partial Thromboplast Time 37 SEC (24-38) > 150 SEC (24-38) Sodium Level 142 mmol/L (136-145) 141 mmol/L (136-145) Potassium Level 3.3 mmol/L (3.5-5.1) 3.2 mmol/L (3.5-5.1) Chloride Level 103 mmol/L (98-107) 105 mmol/L (98-107) Carbon Dioxide Level 29 mmol/L (21-32) 28 mmol/L (21-32) Anion Gap 10 (6-14) 8 (6-14) Blood Urea Nitrogen 29 mg/dL (8-26) 29 mg/dL (8-26) Creatinine 2.1 mg/dL (0.7-1.3) 1.9 mg/dL (0.7-1.3) Estimated GFR (Cockcroft-Gault) 30.5 34.2 Glucose Level 102 mg/dL (70-99) 149 mg/dL (70-99) Calcium Level 9.3 mg/dL (8.5-10.1) 7.6 mg/dL (8.5-10.1) Segmented Neutrophils % 95 % (35-66) Band Neutrophils % 1 % (0-9) Lymphocytes % 2 % (24-48) Monocytes % 2 % (0-10) Platelet Estimate Decreased (ADEQUATE) Poikilocytosis Slight Anisocytosis Mod Phosphorus Level 4.8 mg/dL (2.6-4.7) Magnesium Level 1.5 mg/dL (1.8-2.4) Medications Current Medications Heparin Sodium (Porcine) 5000 unit/Sodium Chloride 505 ml @ 505 mls/hr 1X PERIOP ONCE IRR Last administered on 11/21/16 15:51; Start 11/21/16 at 06:00 ; Stop 11/21/16 at 07:00; Status DC Cefazolin Sodium 1 gm/Sodium Chloride 500 ml @ 500 mls/hr 1X PERIOP ONCE IRR Last administered on 11/21/16 13:05; Start 11/21/16 at 06:00; Stop 11/21/16 at 07:00; Status DC Cefazolin Sodium/ Dextrose 50 ml @ 100 mls/hr 1X PREOP PRN IV PRIOR TO PROCEDURE Last administered on 11/21/16 13:05; Start 11/21/16 at 06:00; Stop at 18:00; Status DC Ondansetron HCl (Zofran) 4 mg PRN Q6HRS PRN IV NAUSEA/VOMITING; Start 11/21/16 at 06:45; Stop 11/22/16 at 06:44; Status DC Fentanyl Citrate (Fentanyl 2ml Vial) 25 mcg PRN Q5MIN PRN IV MILD PAIN Last administered on 11/21/16 12:50; Start 11/21/16 at 06:45; Stop 11/22/16 at 06:44 ; Status DC Fentanyl Citrate (Fentanyl 2ml Vial) 50 mcg PRN Q5MIN PRN IV MODERATE PAIN Last administered on 11/21/16 17:45; Start 11/21/16 at 06:45; Stop 11/22/16 at 06:44; Status DC Morphine Sulfate 1 mg PRN Q10MIN PRN IV SEVERE PAIN; Start 11/21/16 at 06:45; Stop 11/22/16 at 06:44; Status DC Ringer's Solution 1,000 ml @ 30 mls/hr Q24H IV Last administered on 11/21/16 10:53; Start 11/21/16 at 06:38; Stop 11/21/16 at 18:37; Status DC Lidocaine HCl 2 ml PRN 1X PRN ID PRIOR TO IV START; Start 11/21/16 at 06:45; Stop 11/22/16 at 06:44; Status DC Hydromorphone HCl (Dilaudid) 0.5 mg PRN Q10MIN PRN IV SEV PAIN, Second choice; Start 11/21/16 at 06:45; Stop 11/22/16 at 06:44; Status DC Prochlorperazine Edisylate (Compazine) 5 mg PACU PRN PRN IV NAUSEA, MRX1; Start 11/21/16 at 06:45; Stop 11/22/16 at 06:44; Status DC Fentanyl Citrate (Fentanyl 5ml Vial) 250 mcg STK-MED ONCE .ROUTE ; Start at 11:28; Stop 11/21/16 at 11:29; Status DC Rocuronium [place] (Zemuron) 50 mg STK-MED ONCE .ROUTE ; Start 11/21/16 at 11:28 ; Stop 11/21/16 at 11:29; Status DC Sevoflurane (Ultane) 90 ml STK-MED ONCE IH ; Start 11/21/16 at 11:28; Stop 11/21 at 11:29; Status DC Lidocaine HCl (Lidocaine Pf 2% Vial) 5 ml STK-MED ONCE .ROUTE ; Start 11/21/16 at 11:28; Stop 11/21/16 at 11:29; Status DC Propofol 20 ml @ As Directed STK-MED ONCE IV ; Start 11/21/16 at 11:28; Stop at 11:29; Status DC Ondansetron HCl (Zofran) 4 mg STK-MED ONCE .ROUTE ; Start 11/21/16 at 11:28; Stop 11/21/16 at 11:29; Status DC Phenylephrine HCl 1 mg STK-MED ONCE IV ; Start 11/21/16 at 13:01; Stop 11/21/16 at 13:02; Status DC Allopurinol (Zyloprim) 300 mg DAILY PO Last administered on 11/22/16 08:46; Start 11/21/16 at 15:00 Aspirin (Ecotrin) 81 mg DAILY PO ; Start 11/22/16 at 09:00 Atorvastatin Calcium (Lipitor) 20 mg QHS PO Last administered on 11/21/16 20: 21; Start 11/21/16 at 21:00 Carvedilol (Coreg) 3.125 mg BIDWMEALS PO Last administered on 11/22/16 00:46; Start 11/21/16 at 21:00; Stop 11/22/16 at 09:15; Status DC Famotidine (Pepcid) 20 mg BID PO Last administered on 11/22/16 08:52; Start at 15:00 Finasteride (Proscar) 5 mg DAILY PO Last administered on 11/22/16 08:52; Start 11/21/16 at 15:00 Folic Acid (Folic Acid) 1 mg DAILY PO Last administered on 11/22/16 08:45; Start 11/21/16 at 15:00 Furosemide (Lasix) 20 mg DAILY PO ; Start 11/21/16 at 15:00; Stop 11/22/16 at 09: 16; Status DC Tamsulosin HCl (Flomax) 0.4 mg BID PO Last administered on 11/22/16 08:44; Start 11/21/16 at 21:00 Colchicine (Colcrys) 0.6 mg DAILY PO Last administered on 11/22/16 08:45; Start 11/21/16 at 15:00 Gabapentin (Neurontin) 900 mg TID PO Last administered on 11/22/16 08:44; Start 11/21/16 at 14:00 Ephedrine Sulfate 50 mg STK-MED ONCE IV ; Start 11/21/16 at 13:14; Stop at 13:15; Status DC Oxycodone HCl (Roxicodone) 5 mg PRN Q3HRS PRN PO PAIN Last administered on 11/21 20:19; Start 11/21/16 at 13:15 Info 1 ea DAILY MC ; Start 11/22/16 at 09:00 Naloxone HCl (Narcan) 0.1 mg PRN Q2MIN PRN IV ADMIN; Start 11/21/16 at 13:15 Sodium Chloride (Normal Saline Flush) 3 ml QSHIFT PRN IV AFTER MEDS AND BLOOD DRAWS; Start 11/21/16 at 13:15 Sodium Chloride 1,000 ml @ 100 mls/hr Q10H IV Last administered on 11/22/16 02 :16; Start 11/21/16 at 13:14; Stop 11/22/16 at 09:11; Status DC Oxycodone/ Acetaminophen (Percocet 5/325) 1 tab PRN Q4HRS PRN PO MILD PAIN, 1ST CHOICE Last administered on 11/21/16 18:33; Start 11/21/16 at 13:15 Oxycodone/ Acetaminophen (Percocet 5/325) 2 tab PRN Q4HRS PRN PO MODERATE PAIN , SEVERE PAIN; Start 11/21/16 at 13:15 Acetaminophen (Tylenol) 650 mg PRN Q6HRS PRN PO Headaches, Temp > 101.5F; Start 11/21/16 at 13:15 Morphine Sulfate 2 mg PRN Q1HR PRN IV PAIN Last administered on 5/31/17at 21:46 ; Start 11/21/16 at 13:15 Docusate Sodium (Colace) 100 mg BID PO Last administered on 11/22/16 08:43; Start 11/21/16 at 21:00 Ondansetron HCl (Zofran) 4 mg PRN Q6HRS PRN IV NAUESA, 1ST CHOICE; Start at 13:15 Prochlorperazine Edisylate (Compazine) 5 mg PRN Q6HRS PRN IV N/V, 2nd Choice, MR X1; Start 11/21/16 at 13:15 Cefazolin Sodium 1 gm/Sodium Chloride 50 ml @ 100 mls/hr Q6H IV Last administered on 11/22/16t 06:14; Start 11/21/16 at 19:00; Stop 11/22/16 at 07:29; Status DC Hydralazine HCl (Apresoline) 10 mg PRN Q4HRS PRN IVP ELEVATED BP, SEE COMMENTS ; Start 11/21/16 at 13:15 Clopidogrel Bisulfate (Plavix) 75 mg DAILYWBKFT PO ; Start 11/22/16 at 08:00 Phenylephrine HCl (Laith-Synephrine Inj) 10 mg STK-MED ONCE .ROUTE ; Start at 13:35; Stop 11/21/16 at 13:36; Status DC Heparin Sodium (Porcine) (Heparin Sodium) 10,000 unit STK-MED ONCE .ROUTE ; Start 11/21/16 at 13:43; Stop 11/21/16 at 13:44; Status DC Heparin Sodium/ Dextrose 500 ml @ 10 mls/hr CONT PRN IV SEE I/O RECORD Last administered on 11/21/16t 20:33; Start 11/21/16 at 15:15 Rocuronium [place] (Zemuron) 100 mg STK-MED ONCE .ROUTE ; Start 11/21/16 at 15: 02; Stop 11/21/16 at 15:03; Status DC Albumin Human 500 ml @ As Directed STK-MED ONCE IV ; Start 11/21/16 at 15:36; Stop 11/21/16 at 15:37; Status DC Protamine Sulfate 50 mg STK-MED ONCE IV ; Start 11/21/16 at 15:43; Stop at 15:44; Status DC Thrombin 20,000 unit STK-MED ONCE TP Last administered on 11/21/16 16:26; Start 11/21/16 at 16:15; Stop 11/21/16 at 16:16; Status DC Cellulose 1 each STK-MED ONCE .ROUTE Last administered on 11/21/16t 17:07; Start 11/21/16 at 16:43; Stop 11/21/16 at 16:44; Status DC Desflurane (Suprane) 90 ml STK-MED ONCE IH ; Start 11/21/16 at 16:52; Stop 11/21 at 16:53; Status DC Cellulose 1 each STK-MED ONCE .ROUTE ; Start 11/21/16 at 17:17; Stop 11/21/16 at 17:18; Status DC Magnesium Sulfate/ Dextrose 50 ml @ 25 mls/hr 1X ONCE IV ; Start 11/22/16 at 08: 30; Stop 11/22/16 at 10:29 Potassium Chloride (Klor-Con) 40 meq 1X ONCE PO ; Start 11/22/16 at 09:30; Stop 11/22/16 at 09:31; Status DC Magnesium Oxide (Magnesium Oxide) 400 mg BID PO ; Start 11/22/16 at 10:00 Potassium Chloride 30 meq/ Sodium Chloride 1,015 ml @ 75 mls/hr [id number] IV ; Start 11/22/16 at 09:30 Active Scripts Active Atorvastatin Calcium 10 Mg Tablet 20 Mg PO QHS 30 Days Reported Gabapentin 300 Mg Capsule 900 Mg PO TID Colchicine 0.6 Mg Capsule 0.6 Mg PO DAILY Aspirin Ec (Aspirin) 81 Mg Tablet.dr 1 Tab PO DAILY Folic Acid 1 Mg Tablet 1 Tab PO DAILY Finasteride 5 Mg Tablet 1 Tab PO DAILY . Furosemide 20 Mg Tablet 1 Tab PO DAILY . Allopurinol 300 Mg Tablet 1 Tab PO DAILY Pepcid (Famotidine) 20 Mg Tablet 20 Mg PO BID . Hydrocodone-Apap 5-325 (Hydrocodone Bit/Acetaminophen) 1 Each Tablet 1 Tab PO PRN Q4HRS PRN . Flomax (Tamsulosin Hcl) 0.4 Mg Cap.er.24h 0.4 Mg PO BID Coreg (Carvedilol) 3.125 Mg Tablet 3.125 Mg PO BID Vitals/I & O Vital Sign - Last 24 Hours 11/21/16 11/21/16 11/21/16 5/31/17 10:38 10:40 11:35 12:50 Temp 98.1 98.1 98.1 98.1 Pulse 85 85 Resp 20 20 20 B/P (MAP) 117/65 Pulse Ox 97 97 O2 Delivery Room Air 11/21/16 11/21/16 11/21/16 11/21/16 16:55 16:55 17:10 17:25 Temp 97.4 97.4 Pulse 87 92 98 Resp 18 18 18 B/P (MAP) 86/54 91/54 92/66 Pulse Ox 98 91 96 O2 Delivery Simple Mask Mask Room Air Room Air O2 Flow Rate 10 10 11/21/16 11/21/16 11/21/16 11/21/16 17:25 17:35 17:40 17:45 Pulse 92 Resp 18 18 B/P (MAP) 114/57 Pulse Ox 95 98 O2 Delivery Nasal Cannula Room Air Nasal Cannula O2 Flow Rate 2 2.0 11/21/16 11/21/16 11/21/16 11/21/16 17:55 18:33 19:20 20:00 Temp 98.1 98.1 Pulse 92 112 Resp 18 22 B/P (MAP) 101/55 118/63 (81) Pulse Ox 95 98 99 O2 Delivery Room Air Nasal Cannula Room Air Room Air O2 Flow Rate 2.0 2.0 11/21/16 11/22/16 11/22/16 11/22/16 23:42 00:46 05:52 06:10 Temp 97.8 97.9 97.6 97.8 97.9 97.6 Pulse 108 108 65 61 Resp 20 16 16 B/P (MAP) 109/55 (73) 109/55 76/50 80/47 Pulse Ox 94 O2 Delivery Room Air 11/22/16 11/22/16 11/22/16 11/22/16 07:44 08:00 08:15 08:41 Temp 97.8 97.8 97.8 97.8 97.8 97.8 Pulse 79 79 82 86 Resp 21 20 B/P (MAP) 86/48 (61) 86/48 77/49 88/48 (61) Pulse Ox 99 O2 Delivery Nasal Cannula 11/22/16 11/22/16 08:43 08:45 Temp 97.9 97.9 Pulse 89 B/P (MAP) 84/55 (65) O2 Delivery Room Air O2 Flow Rate 2.0 Intake and Output 11/21/16 11/21/16 11/22/16 14:59 22:59 06:59 Intake Total 50 ml 1350 ml 1600 ml Output Total 1925 ml 450 ml Balance 50 ml -575 ml 1150 ml EUSEBIA MORGAN APRN Nov 22, 2016 10:19
--- NOTE | 2016-11-22 10:48 | PDOC2 ---
CARDIAC CONSULT DATE OF CONSULT Date of Consult DATE: 11/22/16 TIME: 10:36 REASON FOR CONSULT Reason for Consult: v-tach REFERRING PHYSICIAN Referring Physician: Dr. Haywood SOURCE Source: Chart review, Patient HISTORY OF PRESENT ILLNESS HISTORY OF PRESENT ILLNESS This is a 81 yo male, with a history of PVD, who presented electively for a left femoral to popliteal bypass 11/21. Patient tolerated procedure well. Overnight, patient had a significant sustained run of v-tach noted on the student officer. Patient was asymptomatic resting in bed. Patient converted without intervention. Hgb 6.6 post-operatively with PRBC's infusing. Mg noted at 1.5 this morning and is presently being replaced. Patient denies any chest pain, palpitations, dizziness, diaphoresis, SOA, or nausea/vomiting. PAST MEDICAL HISTORY Cardiovascular: CAD, CHF, HTN, NE, Hyperlipidemia, Valve insufficiency (aortic ), Other (PVD) CENTRAL NERVOUS SYSTEM: Periperal neuropathy GI: GERD Hepatobiliary: Cirrhosis Musculoskeletal: Osteoarthritis Rheumatologic: Gout Infectious disease: No pertinent hx ENT: No pertinent hx Renal/: Acute renal failure, Benign prostatic enlarg., Prostate Ca. Endocrine: No pertinent hx PAST SURGICAL HISTORY Past Surgical History: CABG (2013 with BHARDWAJ to LAD, SVG to RCA, and SVG to OM. ), Hernia Repair, Other (bioprosthetic aortic valve) FAMILY HISTORY Family History: Coronary Artery Disease, Hypertension SOCIAL HISTORY Smoke: No ALCOHOL: heavy (h/o- quit 06/08. ) Drugs: None Lives: with Family CURRENT MEDICATIONS CURRENT MEDICATIONS Current Medications Medications (Trade) Dose Ordered Sig/Farhad Route PRN Reason Start Time Stop Time Status Last Admin Dose Admin Allopurinol (Zyloprim) 300 mg DAILY PO 11/21/16 15:00 11/22/16 08:46 Atorvastatin Calcium (Lipitor) 20 mg QHS PO 11/21/16 21:00 11/21/16 20:21 Carvedilol (Coreg) 3.125 mg BIDWMEALS PO 11/21/16 21:00 11/22/16 09:15 DC 11/22/16 00:46 Famotidine (Pepcid) 20 mg BID PO 11/21/16 15:00 11/22/16 08:52 Finasteride (Proscar) 5 mg DAILY PO 11/21/16 15:00 11/22/16 08:52 Folic Acid (Folic Acid) 1 mg DAILY PO 11/21/16 15:00 11/22/16 08:45 Tamsulosin HCl (Flomax) 0.4 mg BID PO 11/21/16 21:00 11/22/16 08:44 Colchicine (Colcrys) 0.6 mg DAILY PO 11/21/16 15:00 11/22/16 08:45 Gabapentin (Neurontin) 900 mg TID PO 11/21/16 14:00 11/22/16 08:44 Oxycodone HCl (Roxicodone) 5 mg PRN Q3HRS PRN PO PAIN 11/21/16 13:15 11/21/16 20:19 Sodium Chloride 1,000 ml @ 100 mls/hr Q10H IV 11/21/16 13:14 11/22/16 09:11 DC 11/22/16 02:16 Oxycodone/ Acetaminophen (Percocet 5/325) 1 tab PRN Q4HRS PRN PO MILD PAIN, 1ST CHOICE 11/21/16 13:15 11/21/16 18:33 Morphine Sulfate 2 mg PRN Q1HR PRN IV PAIN 11/21/16 13:15 11/21/16 21:46 Docusate Sodium (Colace) 100 mg BID PO 11/21/16 21:00 11/22/16 08:43 Cefazolin Sodium 1 gm/Sodium Chloride 50 ml @ 100 mls/hr Q6H IV 11/21/16 19:00 11/22/16 07:29 DC 11/22/16 06:14 Heparin Sodium/ Dextrose 500 ml @ 10 mls/hr CONT PRN IV SEE I/O RECORD 11/21/16 15:15 11/21/16 20:33 Thrombin 20,000 unit STK-MED ONCE TP 11/21/16 16:15 11/21/16 16:16 DC 11/21/16 16:26 Cellulose 1 each STK-MED ONCE .ROUTE 11/21/16 16:43 11/21/16 16:44 DC 11/21/16 17:07 Magnesium Sulfate/ Dextrose 50 ml @ 25 mls/hr 1X ONCE IV 11/22/16 08:30 11/22/16 10:29 DC 11/22/16 10:09 Potassium Chloride (Klor-Con) 40 meq 1X ONCE PO 11/22/16 09:30 11/22/16 09:31 DC 11/22/16 10:07 Magnesium Oxide (Magnesium Oxide) 400 mg BID PO 11/22/16 10:00 11/22/16 10:05 Potassium Chloride 30 meq/ Sodium Chloride 1,015 ml @ 75 mls/hr [id number] IV 11/22/16 09:30 11/22/16 10:10 ALLERGIES ALLERGIES: Coded Allergies: I S O L A T I O N *CONTACT* (Verified Allergy, Unknown, 11/21/16) vre No Known Medication Allergies (Verified Allergy, Unknown, 11/21/16) ROS Review of System 14 point ROS conducted with pertinent positives noted above in HPI. PHYSICAL EXAM General: Alert, Oriented X3, Cooperative HEENT: Atraumatic, Mucous membr. moist/pink Lungs: Clear to auscultation, Normal air movement Heart: Regular rate, Normal S1, Normal S2 Abdomen: Soft, No tenderness Extremities: Normal pulses, Other (2+ bilateral LE edema. DP pulses palpable bilaterally. LEs warm to touch) Skin: Other (DRSG intact to LLE) Neuro: Normal speech, Sensation intact, Other Psych/Mental Status: Mental status NL, Mood NL MUSCULOSKELETAL: Osteoarthritic changes both hands VITALS VITALS Vital Signs Date Time Temp Pulse Resp B/P (MAP) Pulse Ox O2 Delivery O2 Flow Rate FiO2 11/22/16 10:23 97.6 83 17 83/55 (64) 96 Room Air 97.6 11/22/16 08:45 2.0 LABS Lab: Laboratory Tests Test 11/21/16 10:45 11/21/16 16:10 11/22/16 03:00 White Blood Count 5.6 x10^3/uL (4.0-11.0) 7.2 x10^3/uL (4.0-11.0) 7.2 x10^3/uL (4.0-11.0) Red Blood Count 3.55 x10^6/uL (4.30-5.70) 2.24 x10^6/uL (4.30-5.70) Hemoglobin 11.1 g/dL (13.0-17.5) 8.9 g/dL (13.0-17.5) 6.9 g/dL (13.0-17.5) Hematocrit 32.4 % (39.0-53.0) 27.3 % (39.0-53.0) 20.7 % (39.0-53.0) Mean Corpuscular Volume 91 fL (79-100) 93 fL (79-100) Mean Corpuscular Hemoglobin 31 pg (25-35) 31 pg (25-35) Mean Corpuscular Hemoglobin Concent 34 g/dL (31-37) 33 g/dL (31-37) Red Cell Distribution Width 18.5 % (11.5-14.5) 18.3 % (11.5-14.5) Platelet Count 137 x10^3/uL (140-400) 124 x10^3/uL (140-400) 98 x10^3/uL (140-400) Neutrophils (%) (Auto) 70 % (31-73) 89 % (31-73) Lymphocytes (%) (Auto) 15 % (24-48) 4 % (24-48) Monocytes (%) (Auto) 9 % (0-9) 7 % (0-9) Eosinophils (%) (Auto) 3 % (0-3) 0 % (0-3) Basophils (%) (Auto) 2 % (0-3) 0 % (0-3) Neutrophils # (Auto) 3.9 x10^3uL (1.8-7.7) 6.4 x10^3uL (1.8-7.7) Lymphocytes # (Auto) 0.8 x10^3/uL (1.0-4.8) 0.3 x10^3/uL (1.0-4.8) Monocytes # (Auto) 0.5 x10^3/uL (0.0-1.1) 0.5 x10^3/uL (0.0-1.1) Eosinophils # (Auto) 0.2 x10^3/uL (0.0-0.7) 0.0 x10^3/uL (0.0-0.7) Basophils # (Auto) 0.1 x10^3/uL (0.0-0.2) 0.0 x10^3/uL (0.0-0.2) Prothrombin Time 13.2 SEC (11.7-14.0) Prothromb Time International Ratio 1.1 (0.8-1.1) Activated Partial Thromboplast Time 37 SEC (24-38) > 150 SEC (24-38) Sodium Level 142 mmol/L (136-145) 141 mmol/L (136-145) Potassium Level 3.3 mmol/L (3.5-5.1) 3.2 mmol/L (3.5-5.1) Chloride Level 103 mmol/L (98-107) 105 mmol/L (98-107) Carbon Dioxide Level 29 mmol/L (21-32) 28 mmol/L (21-32) Anion Gap 10 (6-14) 8 (6-14) Blood Urea Nitrogen 29 mg/dL (8-26) 29 mg/dL (8-26) Creatinine 2.1 mg/dL (0.7-1.3) 1.9 mg/dL (0.7-1.3) Estimated GFR (Cockcroft-Gault) 30.5 34.2 Glucose Level 102 mg/dL (70-99) 149 mg/dL (70-99) Calcium Level 9.3 mg/dL (8.5-10.1) 7.6 mg/dL (8.5-10.1) Segmented Neutrophils % 95 % (35-66) Band Neutrophils % 1 % (0-9) Lymphocytes % 2 % (24-48) Monocytes % 2 % (0-10) Platelet Estimate Decreased (ADEQUATE) Poikilocytosis Slight Anisocytosis Mod Phosphorus Level 4.8 mg/dL (2.6-4.7) Magnesium Level 1.5 mg/dL (1.8-2.4) ECHOCARDIOGRAM ECHOCARDIOGRAM <Conclusion> Left ventricle systolic function is mildly impaired. The Ejection Fraction is 40 -45%. The septal motion is consistent with postoperative state. Mild global hypokinesis. Doppler and Color Flow revealed mild aortic regurgitation. The mitral valve is thickened and calcified and displays mild decreased opening. Mitral annular calcification is moderate to severe. Doppler and Color Flow revealed mild mitral regurgitation. Doppler and Color Flow revealed mild tricuspid regurgitation. There is mild- moderate pulmonary hypertension. The PA pressure was estimated at 41 mmHg. DATE: 07/06/16 1100 ASSESSMENT/PLAN ASSESSMENT/PLAN 1. Ventricular arrhythmia, sustained asymptomatic. converted to SR without intervention Mg 1.5- replacing. limited echo to assess LV function Maintain K >4.0 and Mg >2.0 plan for LifeVest at discharge 2. PVD s/p left fem pop; POD #1 management per vasc sx team 3. Post-op anemia PRBC's infusing 4. CAD s/p CABG x3 in 2013 stable. CP free continue secondary prevention measures 5. Chronic systolic heart failure with ICM echo 07/10 with an EF of 40-45% presently compensated continue optimization therapy as BP allows 6. Aortic stenosis; s/p bioprosthetic valve replacement echo earlier this year with normal function 7. Hypertension presently hypotensive volume replacement ongoing hold antiHTN therapy as warranted 8. Hyperlipidemia LDL= 96 statin therapy 9. Hypokalemia/Hypomagnesemia replace and monitor as above 10. JHOAN with CKD hydration ongoing No ELIZABETH/ARB with [place] Problems: CRISTIN DIAS APRN Nov 22, 2016 10:48
--- NOTE | 2016-11-22 12:38 | CARD ---
APPROVED REPORT EXAM: Two-dimensional echocardiogram limited. Other Information Quality : Technically Limited Rhythm : NSRTechnically limited study due to poor apical windows. INDICATION Arrhythmia LEFT VENTRICLE The left ventricle is normal size. There is normal left ventricular wall thickness. Left ventricle sy stolic function is low normal. The Ejection Fraction is 40-45%. Septal motion consistent with post-op erative state/conduction defect. RIGHT VENTRICLE The right ventricle is normal size. The right ventricular systolic function is normal. ATRIA The left atrium size is normal. The right atrium size is normal. GREAT VESSELS The aortic root is normal in size. PERICARDIAL EFFUSION There is no evidence of significant pericardial effusion. Critical Notification Critical Value: No <Conclusion> Left ventricle systolic function is low normal. The Ejection Fraction is 40-45%. Septal motion consistent with post-operative state/conduction defect. Limited echo only. No significant change in EF compared to prior echo.
--- NOTE | 2016-11-22 15:11 | HP ---
ADMIT DATE: LOCATION: He is in room 206. HISTORY OF PRESENT ILLNESS: The patient is an 81-year-old gentleman who has known peripheral vascular disease that had developed an ulcer on his left heel. This has not been healing appropriately, even though [facility] has [facility] and working on that. He was admitted at this time for a femoral popliteal bypass for improving the circulation in the leg and improve the healing of his left heel ulcer. Before his admission, his complaint was having swelling in the lower extremities partly due to dependent edema and venous insufficiency. He denies chest pain or shortness of breath. Denies cough, fever or chills. He has been very fatigued in general and has not been able to get out of his wheelchair. PAST MEDICAL HISTORY: Significant for coronary artery disease, congestive heart failure, diastolic cardiomyopathy, peripheral vascular disease, previous history of CABG in 2013, history of aortic valve replacement, history of hyperlipidemia, hypertension, pneumonia, gastroesophageal reflux disease, obesity, prostate cancer treated with radiation and benign prostate hypertrophy. He also has a history of gout, osteoarthritis and gouty arthritis that he had severe attacks in the past. He does have neuropathy in his lower extremity. He is hard of hearing and does wear glasses. He does have a history of alcoholism, but has not been drinking lately. SOCIAL HISTORY: Like I said he used to be alcoholic, but with his recent illness and weakness and him not being able to get out of the wheelchair, he has not been drinking at all. He also used to smoke, but has quit smoking in 1984. He did smoke heavily for 20 years. FAMILY HISTORY: Positive for hypertension, coronary artery disease. REVIEW OF SYSTEMS: CONSTITUTIONAL: Denies fever or chills. He does have weakness in general. EYES: Denies visual changes. RESPIRATORY: Denies congestion or cough or shortness of breath. CARDIAC: Denies chest pain. GASTROINTESTINAL: Denies abdominal pain, diarrhea or constipation. NEUROLOGY: Denies focal deficit or headache. PHYSICAL EXAMINATION: GENERAL: He is alert, oriented, cooperative. HEENT: Tympanic membranes clear. Pharynx clear. No sinus tenderness. Mucous membranes slightly dry. NECK: Supple. LUNGS: Fairly clear anteriorly in the upper lobes. HEART: Regular rate and rhythm. ABDOMEN: Soft, nontender, no organomegaly, no masses, no bruits, no ascites. EXTREMITIES: His left lower extremity is still swelling. He is postop. He does have good pulse. His right lower extremity which was the swelling yesterday when he was seen in the office is not swelling today. IMPRESSION: 1. Peripheral vascular disease status post femoral popliteal bypass surgery. 2. Anemia postoperative, expected, the patient is getting transfusion. 3. Nonsustained ventricular tachycardia due to hypokalemia and hypomagnesemia. This is being replaced. 4. Chronic kidney disease. We will continue hydration. 5. Chronic diastolic congestive heart failure. We will continue to monitor closely. 6. Peripheral neuropathy. 7. History of alcoholism. 8. Previous history of hypertension and hyperlipidemia. Currently, he is hypotensive due to the blood loss. We will continue hydration and hold his blood pressure medications. DB REAL MD DR: JUAN/miguel JOB#: [id number] / [id number]
[2016-11-22 16:06] LABS: HEMATOCRIT 28.8 % (39.0-53.0); HEMOGLOBIN 9.6 g/dL (13.0-17.5)
[2016-11-22] MEDS ORDERED: MAGNESIUM SULFATE 2GM 50 ML IV PRN (16:15)
[2016-11-22] MEDS: oxyCODONE IR 5 MG TABLET PO PRN (20:19)
[2016-11-22] MEDS: ATORVASTATIN CALCIUM 10 MG TABLET. PO SCH (20:20)
--- NOTE | 2016-11-22 21:08 | PDOC ---
Provider Note Provider Note VASCULAR no complaints 2+ graft pulse dressings intact no significant hematoma JIA BOURNE MD Nov 22, 2016 21:08
[2016-11-23] VITALS (13 sets, daily range): BP systolic 72–103; BP diastolic 46–60
[2016-11-23 02:50] LABS: BASO % 0 % (0-3); EOS % 0 % (0-3); HEMATOCRIT 24.8 % (39.0-53.0); HEMOGLOBIN 8.3 g/dL (13.0-17.5); LYMPH # 0.4 x10^3/uL (1.0-4.8); LYMPH % 5 % (24-48); MEAN CORPUSCULAR HEMOGLOBIN 31 pg (25-35); MEAN CORPUSCULAR HGB CONC 34 g/dL (31-37); MEAN CORPUSCULAR VOLUME 91 fL (79-100); MONO % 11 % (0-9); NEUT % 84 % (31-73); PLATELET COUNT 93 x10^3/uL (140-400); RED BLOOD COUNT 2.71 x10^6/uL (4.30-5.70); RED CELL DISTRIBUTION WIDTH 16.7 % (11.5-14.5); WHITE BLOOD COUNT 8.7 x10^3/uL (4.0-11.0)
[2016-11-23 02:59] LABS: CALCIUM 7.8 mg/dL (8.5-10.1); CREATININE 2.1 mg/dL (0.7-1.3); GFR 30.5; POTASSIUM 4.5 mmol/L (3.5-5.1)
[2016-11-23 03:13] LABS: ALBUMIN 2.2 g/dL (3.4-5.0); ALBUMIN/GLOBULIN RATIO 0.8 (1.0-1.7); TOTAL BILIRUBIN 0.6 mg/dL (0.2-1.0); TOTAL PROTEIN 4.8 g/dL (6.4-8.2)
[2016-11-23] MEDS: POTASSIUM CHLORIDE 30 MEQ in IV NORMAL SALINE 1000ML BAG 1,000 ML IV SCH (03:30)
[2016-11-23 08:18] LABS: HEMATOCRIT 24.5 % (39.0-53.0); HEMOGLOBIN 8.3 g/dL (13.0-17.5); RED BLOOD COUNT 2.67 x10^6/uL (4.30-5.70); RED CELL DISTRIBUTION WIDTH 17.2 % (11.5-14.5); WHITE BLOOD COUNT 8.2 x10^3/uL (4.0-11.0)
[2016-11-23 08:29] LABS: INR 1.2 (0.8-1.1); PROTHROMBIN TIME PATIENT 14.9 SEC (11.7-14.0)
[2016-11-23 08:31] LABS: CALCIUM 7.7 mg/dL (8.5-10.1); CREATININE 2.2 mg/dL (0.7-1.3); GFR 28.9; POTASSIUM 4.5 mmol/L (3.5-5.1)
[2016-11-23 08:37] LABS: ALBUMIN 2.1 g/dL (3.4-5.0); ALBUMIN/GLOBULIN RATIO 0.8 (1.0-1.7); TOTAL BILIRUBIN 0.6 mg/dL (0.2-1.0); TOTAL PROTEIN 4.8 g/dL (6.4-8.2)
[2016-11-23] MEDS: CLOPIDOGREL BISULFATE 75 MG TABLET PO SCH (08:38)
[2016-11-23] MEDS: DOCUSATE SODIUM 100 MG CAPSULE. PO SCH ×2 (08:38→21:15)
[2016-11-23] MEDS: COLCHICINE 0.6 MG TABLET PO SCH (08:38)
[2016-11-23] MEDS: TAMSULOSIN 0.4 MG CAP.ER.24H. PO SCH ×2 (08:38→21:15)
[2016-11-23] MEDS: ASPIRIN ENTERIC COATED 81 MG TABLET.DR. PO SCH (08:38)
[2016-11-23] MEDS: ALLOPURINOL 300 MG TABLET. PO SCH (08:39)
[2016-11-23] MEDS: FAMOTIDINE 20 MG TABLET. PO SCH (08:39)
[2016-11-23] MEDS: MAGNESIUM OXIDE 400 MG TABLET PO SCH ×2 (08:39→21:15)
[2016-11-23] MEDS: GABAPENTIN 300 MG CAPSULE. PO SCH ×2 (08:39→21:14)
[2016-11-23] MEDS: FOLIC ACID 1 MG TABLET. PO SCH (08:39)
[2016-11-23] MEDS: oxyCODONE IR 5 MG TABLET PO PRN (08:40)
[2016-11-23] MEDS: FINASTERIDE 5 MG TABLET. PO SCH (08:40)
[2016-11-23] MEDS: ELECTROLYTE (NON-ICU) PROTOCOL MC SCH (09:00)
[2016-11-23] MEDS ORDERED: MAGNESIUM SULFATE 2GM 50 ML IV PRN (09:00)
--- NOTE | 2016-11-23 09:41 | PDOC ---
SUBJECTIVE Subjective feels ok , no cp, wound with mild drainage serosanguous OBJECTIVE Objective Bp better today continue to monitor Vital Signs Vital Signs Date Time Temp Pulse Resp B/P (MAP) Pulse Ox O2 Delivery O2 Flow Rate FiO2 11/23/16 08:40 20 97 Nasal Cannula 2.0 11/23/16 08:05 Nasal Cannula 2.0 11/23/16 07:00 97.8 71 18 100/49 (66) 100 Nasal Cannula 2.0 97.8 11/23/16 03:09 98.1 96 16 95/60 (72) 92 Room Air 98.1 11/22/16 23:47 99.8 99 18 89/48 (62) 94 Room Air 99.8 11/22/16 20:00 Room Air 2.0 11/22/16 19:57 99.2 96 16 93/47 (62) 92 Room Air 99.2 11/22/16 15:01 97.9 102 16 90/49 (63) 96 Nasal Cannula 2.0 97.9 11/22/16 10:23 97.6 83 17 83/55 (64) 96 Room Air 97.6 11/22/16 10:22 97.6 82 16 91/49 97.6 11/22/16 10:00 97.8 80 91/48 97.8 I & O Intake and Output 11/23/16 06:59 Intake Total 2050 ml Output Total 625 ml Balance 1425 ml Intake Oral 250 ml IV Total 650 ml Blood Product IV Normal Saline Flush 1150 ml Output Urine Total 625 ml PHYSICAL EXAM Physical Exam lungs clear anteriorly heart mild tachy RRR abd soft not tender ext more edema on RLE pulse present bilaterally, Left leg wound with milde drainage , no wound vac yet ASSESSMENT/PLAN Assessment/Plan 1. Peripheral vascular disease status post femoral popliteal bypass surgery. 2. Anemia postoperative, expected, Hb stabalized continue to monitor 3. Nonsustained ventricular tachycardia due to hypokalemia and hypomagnesemia. replaced , plans for life vest upon discharge 4. acute on Chronic kidney disease. hydrating, might need to stop IVF tomorrow due to increase swelling, continue to monitor 5. Chronic diastolic and systolic congestive heart failure. We will continue to monitor closely. 6. Peripheral neuropathy. 7. History of alcoholism. 8. Previous history of hypertension and hyperlipidemia. Currently, he is hypotensive due to the blood loss. We will continue hydration and hold his blood pressure medications. Dr. Frazier is covering this weekend Problems: COMMENT Lab Laboratory Tests Test 11/22/16 15:55 11/22/16 17:30 11/23/16 02:00 11/23/16 02:15 Hemoglobin 9.6 g/dL (13.0-17.5) 8.3 g/dL (13.0-17.5) Hematocrit 28.8 % (39.0-53.0) 24.8 % (39.0-53.0) Magnesium Level 2.1 mg/dL (1.8-2.4) 2.2 mg/dL (1.8-2.4) White Blood Count 8.7 x10^3/uL (4.0-11.0) Red Blood Count 2.71 x10^6/uL (4.30-5.70) Mean Corpuscular Volume 91 fL (79-100) Mean Corpuscular Hemoglobin 31 pg (25-35) Mean Corpuscular Hemoglobin Concent 34 g/dL (31-37) Red Cell Distribution Width 16.7 % (11.5-14.5) Platelet Count 93 x10^3/uL (140-400) Neutrophils (%) (Auto) 84 % (31-73) Lymphocytes (%) (Auto) 5 % (24-48) Monocytes (%) (Auto) 11 % (0-9) Eosinophils (%) (Auto) 0 % (0-3) Basophils (%) (Auto) 0 % (0-3) Neutrophils # (Auto) 7.4 x10^3uL (1.8-7.7) Lymphocytes # (Auto) 0.4 x10^3/uL (1.0-4.8) Monocytes # (Auto) 0.9 x10^3/uL (0.0-1.1) Eosinophils # (Auto) 0.0 x10^3/uL (0.0-0.7) Basophils # (Auto) 0.0 x10^3/uL (0.0-0.2) Sodium Level 141 mmol/L (136-145) Potassium Level 4.5 mmol/L (3.5-5.1) Chloride Level 107 mmol/L (98-107) Carbon Dioxide Level 26 mmol/L (21-32) Anion Gap 8 (6-14) Blood Urea Nitrogen 41 mg/dL (8-26) Creatinine 2.1 mg/dL (0.7-1.3) Estimated GFR (Cockcroft-Gault) 30.5 BUN/Creatinine Ratio 20 (6-20) Glucose Level 139 mg/dL (70-99) Calcium Level 7.8 mg/dL (8.5-10.1) Total Bilirubin 0.6 mg/dL (0.2-1.0) Aspartate Amino Transf (AST/SGOT) 18 U/L (15-37) Alanine Aminotransferase (ALT/SGPT) 9 U/L (16-63) Alkaline Phosphatase 86 U/L (46-116) Total Protein 4.8 g/dL (6.4-8.2) Albumin 2.2 g/dL (3.4-5.0) Albumin/Globulin Ratio 0.8 (1.0-1.7) Test 11/23/16 08:10 White Blood Count 8.2 x10^3/uL (4.0-11.0) Red Blood Count 2.67 x10^6/uL (4.30-5.70) Hemoglobin 8.3 g/dL (13.0-17.5) Hematocrit 24.5 % (39.0-53.0) Mean Corpuscular Volume 92 fL (79-100) Mean Corpuscular Hemoglobin 31 pg (25-35) Mean Corpuscular Hemoglobin Concent 34 g/dL (31-37) Red Cell Distribution Width 17.2 % (11.5-14.5) Platelet Count 91 x10^3/uL (140-400) Prothrombin Time 14.9 SEC (11.7-14.0) Prothromb Time International Ratio 1.2 (0.8-1.1) Activated Partial Thromboplast Time 35 SEC (24-38) Sodium Level 143 mmol/L (136-145) Potassium Level 4.5 mmol/L (3.5-5.1) Chloride Level 109 mmol/L (98-107) Carbon Dioxide Level 25 mmol/L (21-32) Anion Gap 9 (6-14) Blood Urea Nitrogen 43 mg/dL (8-26) Creatinine 2.2 mg/dL (0.7-1.3) Estimated GFR (Cockcroft-Gault) 28.9 BUN/Creatinine Ratio 20 (6-20) Glucose Level 115 mg/dL (70-99) Calcium Level 7.7 mg/dL (8.5-10.1) Magnesium Level 2.0 mg/dL (1.8-2.4) Total Bilirubin 0.6 mg/dL (0.2-1.0) Aspartate Amino Transf (AST/SGOT) 21 U/L (15-37) Alanine Aminotransferase (ALT/SGPT) 8 U/L (16-63) Alkaline Phosphatase 83 U/L (46-116) Total Protein 4.8 g/dL (6.4-8.2) Albumin 2.1 g/dL (3.4-5.0) Albumin/Globulin Ratio 0.8 (1.0-1.7) DB REAL MD Nov 23, 2016 09:41
--- NOTE | 2016-11-23 11:11 | PDOC ---
PROGRESS NOTES Subjective Subjective Patient resting in bed. Objective Objective Vital Signs Date Time Temp Pulse Resp B/P (MAP) Pulse Ox O2 Delivery O2 Flow Rate FiO2 11/23/16 09:40 18 97 Nasal Cannula 2.0 11/23/16 07:00 97.8 71 100/49 (66) 97.8 Intake and Output 11/23/16 07:00 Intake Total 2050 ml Output Total 625 ml Balance 1425 ml Intake Oral 250 ml IV Total 650 ml Blood Product IV Normal Saline Flush 1150 ml Output Urine Total 625 ml Physical Exam General: Alert, Oriented X3 Lungs: Other (Coarse BS, +wheezing) COMMENT left leg: incisions intact, at the groin +hematoma (skin intact), palpable graft pulse, foot with dressing intact Assessment Assessment POD #2 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 Continue aspirin / plavix - Hold heparin - Hgb stable after transfusion of 2 units - IVF decreased to 50 cc/hr - guan in place, remove when getting OOB - continue dressing to left foot, monitor L groin for hematoma - OOB/PT Comment Review of Relevant I have reviewed the following items osiris (where applicable) has been applied. Labs Laboratory Tests Test 11/21/16 16:10 11/22/16 03:00 11/22/16 15:55 11/22/16 17:30 White Blood Count 7.2 x10^3/uL (4.0-11.0) 7.2 x10^3/uL (4.0-11.0) Hemoglobin 8.9 g/dL (13.0-17.5) 6.9 g/dL (13.0-17.5) 9.6 g/dL (13.0-17.5) Hematocrit 27.3 % (39.0-53.0) 20.7 % (39.0-53.0) 28.8 % (39.0-53.0) Platelet Count 124 x10^3/uL (140-400) 98 x10^3/uL (140-400) Red Blood Count 2.24 x10^6/uL (4.30-5.70) Mean Corpuscular Volume 93 fL (79-100) Mean Corpuscular Hemoglobin 31 pg (25-35) Mean Corpuscular Hemoglobin Concent 33 g/dL (31-37) Red Cell Distribution Width 18.3 % (11.5-14.5) Neutrophils (%) (Auto) 89 % (31-73) Lymphocytes (%) (Auto) 4 % (24-48) Monocytes (%) (Auto) 7 % (0-9) Eosinophils (%) (Auto) 0 % (0-3) Basophils (%) (Auto) 0 % (0-3) Neutrophils # (Auto) 6.4 x10^3uL (1.8-7.7) Lymphocytes # (Auto) 0.3 x10^3/uL (1.0-4.8) Monocytes # (Auto) 0.5 x10^3/uL (0.0-1.1) Eosinophils # (Auto) 0.0 x10^3/uL (0.0-0.7) Basophils # (Auto) 0.0 x10^3/uL (0.0-0.2) Segmented Neutrophils % 95 % (35-66) Band Neutrophils % 1 % (0-9) Lymphocytes % 2 % (24-48) Monocytes % 2 % (0-10) Platelet Estimate Decreased (ADEQUATE) Poikilocytosis Slight Anisocytosis Mod Activated Partial Thromboplast Time > 150 SEC (24-38) Sodium Level 141 mmol/L (136-145) Potassium Level 3.2 mmol/L (3.5-5.1) Chloride Level 105 mmol/L (98-107) Carbon Dioxide Level 28 mmol/L (21-32) Anion Gap 8 (6-14) Blood Urea Nitrogen 29 mg/dL (8-26) Creatinine 1.9 mg/dL (0.7-1.3) Estimated GFR (Cockcroft-Gault) 34.2 Glucose Level 149 mg/dL (70-99) Calcium Level 7.6 mg/dL (8.5-10.1) Phosphorus Level 4.8 mg/dL (2.6-4.7) Magnesium Level 1.5 mg/dL (1.8-2.4) 2.1 mg/dL (1.8-2.4) Test 11/23/16 02:00 11/23/16 02:15 11/23/16 08:10 White Blood Count 8.7 x10^3/uL (4.0-11.0) 8.2 x10^3/uL (4.0-11.0) Red Blood Count 2.71 x10^6/uL (4.30-5.70) 2.67 x10^6/uL (4.30-5.70) Hemoglobin 8.3 g/dL (13.0-17.5) 8.3 g/dL (13.0-17.5) Hematocrit 24.8 % (39.0-53.0) 24.5 % (39.0-53.0) Mean Corpuscular Volume 91 fL (79-100) 92 fL (79-100) Mean Corpuscular Hemoglobin 31 pg (25-35) 31 pg (25-35) Mean Corpuscular Hemoglobin Concent 34 g/dL (31-37) 34 g/dL (31-37) Red Cell Distribution Width 16.7 % (11.5-14.5) 17.2 % (11.5-14.5) Platelet Count 93 x10^3/uL (140-400) 91 x10^3/uL (140-400) Neutrophils (%) (Auto) 84 % (31-73) Lymphocytes (%) (Auto) 5 % (24-48) Monocytes (%) (Auto) 11 % (0-9) Eosinophils (%) (Auto) 0 % (0-3) Basophils (%) (Auto) 0 % (0-3) Neutrophils # (Auto) 7.4 x10^3uL (1.8-7.7) Lymphocytes # (Auto) 0.4 x10^3/uL (1.0-4.8) Monocytes # (Auto) 0.9 x10^3/uL (0.0-1.1) Eosinophils # (Auto) 0.0 x10^3/uL (0.0-0.7) Basophils # (Auto) 0.0 x10^3/uL (0.0-0.2) Magnesium Level 2.2 mg/dL (1.8-2.4) 2.0 mg/dL (1.8-2.4) Sodium Level 141 mmol/L (136-145) 143 mmol/L (136-145) Potassium Level 4.5 mmol/L (3.5-5.1) 4.5 mmol/L (3.5-5.1) Chloride Level 107 mmol/L (98-107) 109 mmol/L (98-107) Carbon Dioxide Level 26 mmol/L (21-32) 25 mmol/L (21-32) Anion Gap 8 (6-14) 9 (6-14) Blood Urea Nitrogen 41 mg/dL (8-26) 43 mg/dL (8-26) Creatinine 2.1 mg/dL (0.7-1.3) 2.2 mg/dL (0.7-1.3) Estimated GFR (Cockcroft-Gault) 30.5 28.9 BUN/Creatinine Ratio 20 (6-20) 20 (6-20) Glucose Level 139 mg/dL (70-99) 115 mg/dL (70-99) Calcium Level 7.8 mg/dL (8.5-10.1) 7.7 mg/dL (8.5-10.1) Total Bilirubin 0.6 mg/dL (0.2-1.0) 0.6 mg/dL (0.2-1.0) Aspartate Amino Transf (AST/SGOT) 18 U/L (15-37) 21 U/L (15-37) Alanine Aminotransferase (ALT/SGPT) 9 U/L (16-63) 8 U/L (16-63) Alkaline Phosphatase 86 U/L (46-116) 83 U/L (46-116) Total Protein 4.8 g/dL (6.4-8.2) 4.8 g/dL (6.4-8.2) Albumin 2.2 g/dL (3.4-5.0) 2.1 g/dL (3.4-5.0) Albumin/Globulin Ratio 0.8 (1.0-1.7) 0.8 (1.0-1.7) Prothrombin Time 14.9 SEC (11.7-14.0) Prothromb Time International Ratio 1.2 (0.8-1.1) Activated Partial Thromboplast Time 35 SEC (24-38) Laboratory Tests Test 11/22/16 15:55 11/22/16 17:30 11/23/16 02:00 11/23/16 02:15 Hemoglobin 9.6 g/dL (13.0-17.5) 8.3 g/dL (13.0-17.5) Hematocrit 28.8 % (39.0-53.0) 24.8 % (39.0-53.0) Magnesium Level 2.1 mg/dL (1.8-2.4) 2.2 mg/dL (1.8-2.4) White Blood Count 8.7 x10^3/uL (4.0-11.0) Red Blood Count 2.71 x10^6/uL (4.30-5.70) Mean Corpuscular Volume 91 fL (79-100) Mean Corpuscular Hemoglobin 31 pg (25-35) Mean Corpuscular Hemoglobin Concent 34 g/dL (31-37) Red Cell Distribution Width 16.7 % (11.5-14.5) Platelet Count 93 x10^3/uL (140-400) Neutrophils (%) (Auto) 84 % (31-73) Lymphocytes (%) (Auto) 5 % (24-48) Monocytes (%) (Auto) 11 % (0-9) Eosinophils (%) (Auto) 0 % (0-3) Basophils (%) (Auto) 0 % (0-3) Neutrophils # (Auto) 7.4 x10^3uL (1.8-7.7) Lymphocytes # (Auto) 0.4 x10^3/uL (1.0-4.8) Monocytes # (Auto) 0.9 x10^3/uL (0.0-1.1) Eosinophils # (Auto) 0.0 x10^3/uL (0.0-0.7) Basophils # (Auto) 0.0 x10^3/uL (0.0-0.2) Sodium Level 141 mmol/L (136-145) Potassium Level 4.5 mmol/L (3.5-5.1) Chloride Level 107 mmol/L (98-107) Carbon Dioxide Level 26 mmol/L (21-32) Anion Gap 8 (6-14) Blood Urea Nitrogen 41 mg/dL (8-26) Creatinine 2.1 mg/dL (0.7-1.3) Estimated GFR (Cockcroft-Gault) 30.5 BUN/Creatinine Ratio 20 (6-20) Glucose Level 139 mg/dL (70-99) Calcium Level 7.8 mg/dL (8.5-10.1) Total Bilirubin 0.6 mg/dL (0.2-1.0) Aspartate Amino Transf (AST/SGOT) 18 U/L (15-37) Alanine Aminotransferase (ALT/SGPT) 9 U/L (16-63) Alkaline Phosphatase 86 U/L (46-116) Total Protein 4.8 g/dL (6.4-8.2) Albumin 2.2 g/dL (3.4-5.0) Albumin/Globulin Ratio 0.8 (1.0-1.7) Test 11/23/16 08:10 White Blood Count 8.2 x10^3/uL (4.0-11.0) Red Blood Count 2.67 x10^6/uL (4.30-5.70) Hemoglobin 8.3 g/dL (13.0-17.5) Hematocrit 24.5 % (39.0-53.0) Mean Corpuscular Volume 92 fL (79-100) Mean Corpuscular Hemoglobin 31 pg (25-35) Mean Corpuscular Hemoglobin Concent 34 g/dL (31-37) Red Cell Distribution Width 17.2 % (11.5-14.5) Platelet Count 91 x10^3/uL (140-400) Prothrombin Time 14.9 SEC (11.7-14.0) Prothromb Time International Ratio 1.2 (0.8-1.1) Activated Partial Thromboplast Time 35 SEC (24-38) Sodium Level 143 mmol/L (136-145) Potassium Level 4.5 mmol/L (3.5-5.1) Chloride Level 109 mmol/L (98-107) Carbon Dioxide Level 25 mmol/L (21-32) Anion Gap 9 (6-14) Blood Urea Nitrogen 43 mg/dL (8-26) Creatinine 2.2 mg/dL (0.7-1.3) Estimated GFR (Cockcroft-Gault) 28.9 BUN/Creatinine Ratio 20 (6-20) Glucose Level 115 mg/dL (70-99) Calcium Level 7.7 mg/dL (8.5-10.1) Magnesium Level 2.0 mg/dL (1.8-2.4) Total Bilirubin 0.6 mg/dL (0.2-1.0) Aspartate Amino Transf (AST/SGOT) 21 U/L (15-37) Alanine Aminotransferase (ALT/SGPT) 8 U/L (16-63) Alkaline Phosphatase 83 U/L (46-116) Total Protein 4.8 g/dL (6.4-8.2) Albumin 2.1 g/dL (3.4-5.0) Albumin/Globulin Ratio 0.8 (1.0-1.7) Medications Current Medications Heparin Sodium (Porcine) 5000 unit/Sodium Chloride 505 ml @ 505 mls/hr 1X PERIOP ONCE IRR Last administered on 11/21/16 15:51; Start 11/21/16 at 06:00 ; Stop 11/21/16 at 07:00; Status DC Cefazolin Sodium 1 gm/Sodium Chloride 500 ml @ 500 mls/hr 1X PERIOP ONCE IRR Last administered on 11/21/16 13:05; Start 11/21/16 at 06:00; Stop 11/21/16 at 07:00; Status DC Cefazolin Sodium/ Dextrose 50 ml @ 100 mls/hr 1X PREOP PRN IV PRIOR TO PROCEDURE Last administered on 11/21/16 13:05; Start 11/21/16 at 06:00; Stop at 18:00; Status DC Ondansetron HCl (Zofran) 4 mg PRN Q6HRS PRN IV NAUSEA/VOMITING; Start 11/21/16 at 06:45; Stop 11/22/16 at 06:44; Status DC Fentanyl Citrate (Fentanyl 2ml Vial) 25 mcg PRN Q5MIN PRN IV MILD PAIN Last administered on 11/21/16 12:50; Start 11/21/16 at 06:45; Stop 11/22/16 at 06:44 ; Status DC Fentanyl Citrate (Fentanyl 2ml Vial) 50 mcg PRN Q5MIN PRN IV MODERATE PAIN Last administered on 11/21/16 17:45; Start 11/21/16 at 06:45; Stop 11/22/16 at 06:44; Status DC Morphine Sulfate 1 mg PRN Q10MIN PRN IV SEVERE PAIN; Start 11/21/16 at 06:45; Stop 11/22/16 at 06:44; Status DC Ringer's Solution 1,000 ml @ 30 mls/hr Q24H IV Last administered on 11/21/16t 10:53; Start 11/21/16 at 06:38; Stop 11/21/16 at 18:37; Status DC Lidocaine HCl 2 ml PRN 1X PRN ID PRIOR TO IV START; Start 11/21/16 at 06:45; Stop 11/22/16 at 06:44; Status DC Hydromorphone HCl (Dilaudid) 0.5 mg PRN Q10MIN PRN IV SEV PAIN, Second choice; Start 11/21/16 at 06:45; Stop 11/22/16 at 06:44; Status DC Prochlorperazine Edisylate (Compazine) 5 mg PACU PRN PRN IV NAUSEA, MRX1; Start 11/21/16 at 06:45; Stop 11/22/16 at 06:44; Status DC Fentanyl Citrate (Fentanyl 5ml Vial) 250 mcg STK-MED ONCE .ROUTE ; Start at 11:28; Stop 11/21/16 at 11:29; Status DC Rocuronium [place] (Zemuron) 50 mg STK-MED ONCE .ROUTE ; Start 11/21/16 at 11:28 ; Stop 11/21/16 at 11:29; Status DC Sevoflurane (Ultane) 90 ml STK-MED ONCE IH ; Start 11/21/16 at 11:28; Stop 11/21 at 11:29; Status DC Lidocaine HCl (Lidocaine Pf 2% Vial) 5 ml STK-MED ONCE .ROUTE ; Start 11/21/16 at 11:28; Stop 11/21/16 at 11:29; Status DC Propofol 20 ml @ As Directed STK-MED ONCE IV ; Start 11/21/16 at 11:28; Stop at 11:29; Status DC Ondansetron HCl (Zofran) 4 mg STK-MED ONCE .ROUTE ; Start 11/21/16 at 11:28; Stop 11/21/16 at 11:29; Status DC Phenylephrine HCl 1 mg STK-MED ONCE IV ; Start 11/21/16 at 13:01; Stop 11/21/16 at 13:02; Status DC Allopurinol (Zyloprim) 300 mg DAILY PO Last administered on 11/23/16 08:39; Start 11/21/16 at 15:00 Aspirin (Ecotrin) 81 mg DAILY PO Last administered on 11/23/16 08:38; Start 11/22/16 at 09:00 Atorvastatin Calcium (Lipitor) 20 mg QHS PO Last administered on 11/22/16 20:20 ; Start 11/21/16 at 21:00 Carvedilol (Coreg) 3.125 mg BIDWMEALS PO Last administered on 11/22/16 00:46; Start 11/21/16 at 21:00; Stop 11/22/16 at 09:15; Status DC Famotidine (Pepcid) 20 mg BID PO Last administered on 11/22/16 08:52; Start at 15:00; Stop 11/22/16 at 11:03; Status DC Finasteride (Proscar) 5 mg DAILY PO Last administered on 11/23/16 08:40; Start 11/21/16 at 15:00 Folic Acid (Folic Acid) 1 mg DAILY PO Last administered on 11/23/16 08:39; Start 11/21/16 at 15:00 Furosemide (Lasix) 20 mg DAILY PO ; Start 11/21/16 at 15:00; Stop 11/22/16 at 09: 16; Status DC Tamsulosin HCl (Flomax) 0.4 mg BID PO Last administered on 11/23/16 08:38; Start 11/21/16 at 21:00 Colchicine (Colcrys) 0.6 mg DAILY PO Last administered on 11/23/16 08:38; Start 11/21/16 at 15:00 Gabapentin (Neurontin) 900 mg TID PO Last administered on 11/22/16 08:44; Start 11/21/16 at 14:00; Stop 11/22/16 at 11:04; Status DC Ephedrine Sulfate 50 mg STK-MED ONCE IV ; Start 11/21/16 at 13:14; Stop at 13:15; Status DC Oxycodone HCl (Roxicodone) 5 mg PRN Q3HRS PRN PO PAIN Last administered on 08:40; Start 11/21/16 at 13:15 Info 1 ea DAILY MC ; Start 11/22/16 at 09:00 Naloxone HCl (Narcan) 0.1 mg PRN Q2MIN PRN IV ADMIN; Start 11/21/16 at 13:15 Sodium Chloride (Normal Saline Flush) 3 ml QSHIFT PRN IV AFTER MEDS AND BLOOD DRAWS; Start 11/21/16 at 13:15 Sodium Chloride 1,000 ml @ 100 mls/hr Q10H IV Last administered on 11/22/16 02 :16; Start 11/21/16 at 13:14; Stop 11/22/16 at 09:11; Status DC Oxycodone/ Acetaminophen (Percocet 5/325) 1 tab PRN Q4HRS PRN PO MILD PAIN, 1ST CHOICE Last administered on 11/21/16 18:33; Start 11/21/16 at 13:15 Oxycodone/ Acetaminophen (Percocet 5/325) 2 tab PRN Q4HRS PRN PO MODERATE PAIN , SEVERE PAIN; Start 11/21/16 at 13:15 Acetaminophen (Tylenol) 650 mg PRN Q6HRS PRN PO Headaches, Temp > 101.5F; Start 11/21/16 at 13:15 Morphine Sulfate 2 mg PRN Q1HR PRN IV PAIN Last administered on 11/21/16 21:46 ; Start 11/21/16 at 13:15 Docusate Sodium (Colace) 100 mg BID PO Last administered on 11/23/16 08:38; Start 11/21/16 at 21:00 Ondansetron HCl (Zofran) 4 mg PRN Q6HRS PRN IV NAUESA, 1ST CHOICE; Start at 13:15 Prochlorperazine Edisylate (Compazine) 5 mg PRN Q6HRS PRN IV N/V, 2nd Choice, MR X1; Start 11/21/16 at 13:15 Cefazolin Sodium 1 gm/Sodium Chloride 50 ml @ 100 mls/hr Q6H IV Last administered on 11/22/16 06:14; Start 11/21/16 at 19:00; Stop 11/22/16 at 07:29; Status DC Hydralazine HCl (Apresoline) 10 mg PRN Q4HRS PRN IVP ELEVATED BP, SEE COMMENTS ; Start 11/21/16 at 13:15 Clopidogrel Bisulfate (Plavix) 75 mg DAILYWBKFT PO Last administered on 08:38; Start 11/22/16 at 08:00 Phenylephrine HCl (Laith-Synephrine Inj) 10 mg STK-MED ONCE .ROUTE ; Start at 13:35; Stop 11/21/16 at 13:36; Status DC Heparin Sodium (Porcine) (Heparin Sodium) 10,000 unit STK-MED ONCE .ROUTE ; Start 11/21/16 at 13:43; Stop 11/21/16 at 13:44; Status DC Heparin Sodium/ Dextrose 500 ml @ 10 mls/hr CONT PRN IV SEE I/O RECORD Last administered on 11/21/16 20:33; Start 11/21/16 at 15:15 Rocuronium [place] (Zemuron) 100 mg STK-MED ONCE .ROUTE ; Start 11/21/16 at 15: 02; Stop 11/21/16 at 15:03; Status DC Albumin Human 500 ml @ As Directed STK-MED ONCE IV ; Start 11/21/16 at 15:36; Stop 11/21/16 at 15:37; Status DC Protamine Sulfate 50 mg STK-MED ONCE IV ; Start 11/21/16 at 15:43; Stop at 15:44; Status DC Thrombin 20,000 unit STK-MED ONCE TP Last administered on 11/21/16 16:26; Start 11/21/16 at 16:15; Stop 11/21/16 at 16:16; Status DC Cellulose 1 each STK-MED ONCE .ROUTE Last administered on 11/21/16 17:07; Start 11/21/16 at 16:43; Stop 11/21/16 at 16:44; Status DC Desflurane (Suprane) 90 ml STK-MED ONCE IH ; Start 11/21/16 at 16:52; Stop 11/21 at 16:53; Status DC Cellulose 1 each STK-MED ONCE .ROUTE ; Start 11/21/16 at 17:17; Stop 11/21/16 at 17:18; Status DC Magnesium Sulfate/ Dextrose 50 ml @ 25 mls/hr 1X ONCE IV Last administered on 11/22/16 10:09; Start 11/22/16 at 08:30; Stop 11/22/16 at 10:29; Status DC Potassium Chloride (Klor-Con) 40 meq 1X ONCE PO Last administered on 11/22/16 10:07; Start 11/22/16 at 09:30; Stop 11/22/16 at 09:31; Status DC Magnesium Oxide (Magnesium Oxide) 400 mg BID PO Last administered on 11/23/16 08:39; Start 11/22/16 at 10:00 Potassium Chloride 30 meq/ Sodium Chloride 1,015 ml @ 75 mls/hr [id number] IV Last administered on 11/23/16 03:30; Start 11/22/16 at 09:30 Famotidine (Pepcid) 20 mg DAILY PO Last administered on 11/23/16 08:39; Start 11/23/16 at 09:00 Gabapentin (Neurontin) 900 mg BID PO Last administered on 11/23/16 08:39; Start 11/22/16 at 21:00 Magnesium Sulfate/ Dextrose 50 ml @ 25 mls/hr PRN 1X PRN IV PER PROTOCOL; Start 11/22/16 at 16:15 Magnesium Sulfate/ Dextrose 50 ml @ 25 mls/hr PRN DAILY PRN IV FOR MAG<1.7; Start 11/23/16 at 09:00 Active Scripts Active Atorvastatin Calcium 10 Mg Tablet 20 Mg PO QHS 30 Days Reported Gabapentin 300 Mg Capsule 900 Mg PO TID Colchicine 0.6 Mg Capsule 0.6 Mg PO DAILY Aspirin Ec (Aspirin) 81 Mg Tablet.dr 1 Tab PO DAILY Folic Acid 1 Mg Tablet 1 Tab PO DAILY Finasteride 5 Mg Tablet 1 Tab PO DAILY . Furosemide 20 Mg Tablet 1 Tab PO DAILY . Allopurinol 300 Mg Tablet 1 Tab PO DAILY Pepcid (Famotidine) 20 Mg Tablet 20 Mg PO BID . Hydrocodone-Apap 5-325 (Hydrocodone Bit/Acetaminophen) 1 Each Tablet 1 Tab PO PRN Q4HRS PRN . Flomax (Tamsulosin Hcl) 0.4 Mg Cap.er.24h 0.4 Mg PO BID Coreg (Carvedilol) 3.125 Mg Tablet 3.125 Mg PO BID Vitals/I & O Vital Sign - Last 24 Hours 11/22/16 11/22/16 11/22/16 11/22/16 15:01 19:57 20:00 23:47 Temp 97.9 99.2 99.8 97.9 99.2 99.8 Pulse 102 96 99 Resp 16 16 18 B/P (MAP) 90/49 (63) 93/47 (62) 89/48 (62) Pulse Ox 96 92 94 O2 Delivery Nasal Cannula Room Air Room Air Room Air O2 Flow Rate 2.0 2.0 11/23/16 11/23/16 11/23/16 11/23/16 03:09 07:00 08:05 08:40 Temp 98.1 97.8 98.1 97.8 Pulse 96 71 Resp 16 18 20 B/P (MAP) 95/60 (72) 100/49 (66) Pulse Ox 92 100 97 O2 Delivery Room Air Nasal Cannula Nasal Cannula Nasal Cannula O2 Flow Rate 2.0 2.0 2.0 11/23/16 09:40 Resp 18 Pulse Ox 97 O2 Delivery Nasal Cannula O2 Flow Rate 2.0 Intake and Output 11/22/16 11/22/16 11/23/16 15:00 23:00 07:00 Intake Total 1200 ml 600 ml 250 ml Output Total 300 ml 325 ml Balance 1200 ml 300 ml -75 ml ARMAND BARTHOLOMEW MD Nov 23, 2016 11:11
[2016-11-23] MEDS ORDERED: ANTI-COAG MONITOR BY PHARMACY. MC PRN (12:45)
--- NOTE | 2016-11-23 13:05 | PDOC ---
C[facility] Progress Notes Date and Time Date of Service 11/23/16 Time of Evaluation 1250 Subjective Subjective: No Chest Pain, No shortness of breath, No Palpitations, Other ( mild LLE pain) Comments: no further significant ectopy overnight Vitals Vitals Vital Signs Date Time Temp Pulse Resp B/P (MAP) Pulse Ox O2 Delivery O2 Flow Rate FiO2 11/23/16 11:00 97.8 88 16 82/53 (63) 96 97.8 11/23/16 09:40 Nasal Cannula 2.0 Weight Weight [ ] Input and Output Intake and Output Intake and Output 11/23/16 06:59 Intake Total 2050 ml Output Total 625 ml Balance 1425 ml Intake Oral 250 ml IV Total 650 ml Blood Product IV Normal Saline Flush 1150 ml Output Urine Total 625 ml Laboratory Labs Laboratory Tests Test 11/22/16 15:55 11/22/16 17:30 11/23/16 02:00 11/23/16 02:15 Hemoglobin 9.6 g/dL (13.0-17.5) 8.3 g/dL (13.0-17.5) Hematocrit 28.8 % (39.0-53.0) 24.8 % (39.0-53.0) Magnesium Level 2.1 mg/dL (1.8-2.4) 2.2 mg/dL (1.8-2.4) White Blood Count 8.7 x10^3/uL (4.0-11.0) Red Blood Count 2.71 x10^6/uL (4.30-5.70) Mean Corpuscular Volume 91 fL (79-100) Mean Corpuscular Hemoglobin 31 pg (25-35) Mean Corpuscular Hemoglobin Concent 34 g/dL (31-37) Red Cell Distribution Width 16.7 % (11.5-14.5) Platelet Count 93 x10^3/uL (140-400) Neutrophils (%) (Auto) 84 % (31-73) Lymphocytes (%) (Auto) 5 % (24-48) Monocytes (%) (Auto) 11 % (0-9) Eosinophils (%) (Auto) 0 % (0-3) Basophils (%) (Auto) 0 % (0-3) Neutrophils # (Auto) 7.4 x10^3uL (1.8-7.7) Lymphocytes # (Auto) 0.4 x10^3/uL (1.0-4.8) Monocytes # (Auto) 0.9 x10^3/uL (0.0-1.1) Eosinophils # (Auto) 0.0 x10^3/uL (0.0-0.7) Basophils # (Auto) 0.0 x10^3/uL (0.0-0.2) Sodium Level 141 mmol/L (136-145) Potassium Level 4.5 mmol/L (3.5-5.1) Chloride Level 107 mmol/L (98-107) Carbon Dioxide Level 26 mmol/L (21-32) Anion Gap 8 (6-14) Blood Urea Nitrogen 41 mg/dL (8-26) Creatinine 2.1 mg/dL (0.7-1.3) Estimated GFR (Cockcroft-Gault) 30.5 BUN/Creatinine Ratio 20 (6-20) Glucose Level 139 mg/dL (70-99) Calcium Level 7.8 mg/dL (8.5-10.1) Total Bilirubin 0.6 mg/dL (0.2-1.0) Aspartate Amino Transf (AST/SGOT) 18 U/L (15-37) Alanine Aminotransferase (ALT/SGPT) 9 U/L (16-63) Alkaline Phosphatase 86 U/L (46-116) Total Protein 4.8 g/dL (6.4-8.2) Albumin 2.2 g/dL (3.4-5.0) Albumin/Globulin Ratio 0.8 (1.0-1.7) Test 11/23/16 08:10 White Blood Count 8.2 x10^3/uL (4.0-11.0) Red Blood Count 2.67 x10^6/uL (4.30-5.70) Hemoglobin 8.3 g/dL (13.0-17.5) Hematocrit 24.5 % (39.0-53.0) Mean Corpuscular Volume 92 fL (79-100) Mean Corpuscular Hemoglobin 31 pg (25-35) Mean Corpuscular Hemoglobin Concent 34 g/dL (31-37) Red Cell Distribution Width 17.2 % (11.5-14.5) Platelet Count 91 x10^3/uL (140-400) Prothrombin Time 14.9 SEC (11.7-14.0) Prothromb Time International Ratio 1.2 (0.8-1.1) Activated Partial Thromboplast Time 35 SEC (24-38) Sodium Level 143 mmol/L (136-145) Potassium Level 4.5 mmol/L (3.5-5.1) Chloride Level 109 mmol/L (98-107) Carbon Dioxide Level 25 mmol/L (21-32) Anion Gap 9 (6-14) Blood Urea Nitrogen 43 mg/dL (8-26) Creatinine 2.2 mg/dL (0.7-1.3) Estimated GFR (Cockcroft-Gault) 28.9 BUN/Creatinine Ratio 20 (6-20) Glucose Level 115 mg/dL (70-99) Calcium Level 7.7 mg/dL (8.5-10.1) Magnesium Level 2.0 mg/dL (1.8-2.4) Total Bilirubin 0.6 mg/dL (0.2-1.0) Aspartate Amino Transf (AST/SGOT) 21 U/L (15-37) Alanine Aminotransferase (ALT/SGPT) 8 U/L (16-63) Alkaline Phosphatase 83 U/L (46-116) Total Protein 4.8 g/dL (6.4-8.2) Albumin 2.1 g/dL (3.4-5.0) Albumin/Globulin Ratio 0.8 (1.0-1.7) Physical Exam HEENT: Neck Supple W Full Motion Chest: Symmetric LUNGS: Other (crackles bibasilar ) Heart: S1S2, no murmurs, other (tele: ST) Abdomen: Soft N/T Extremities: Other (2+ bilateral LE edema. DP pulses palpable bilaterally. LEs warm to touch. DRSG intact to LLE) Neurology: alert, oriented, follow commands Assessment Assessment 1. Ventricular arrhythmia, sustained >30 seconds in duration 2. Suspected mild acute on chronic systolic heart failure with ICM 3. PVD s/p left fem pop; POD #2 4. CAD s/p CABG x3 in 2013 5. Post-op anemia 6. Aortic stenosis; s/p bioprosthetic valve replacement 7. Hypertension 8. Hyperlipidemia 9. Hypokalemia/Hypomagnesemia; resolved. 10. JHOAN with CKD Recommendations Echo without change from previous study; LVEF 40-45% Maintain K >4.0 and Mg >2.0 LifeVest upon discharge; process initiated. If recurrent, will consider for AICD for primary prevention of SCD, on an outpatient basis Decompensated HF secondary to ongoing IVF replacement along with transfusions. D /c IVFs. Will obtain CXR. If evidence of vascular congestion/CHF, will give IV albumin followed by does of IV Lasix as patient is hypotensive. No ELIZABETH/ARB with [place] CRISTIN DIAS APRN Nov 23, 2016 13:05
--- NOTE | 2016-11-23 14:12 | RAD ---
Indication shortness of air. A single view of the chest was obtained and is compared to an examination July 05, 2016. Postoperative changes are noted. There is cardiomegaly which is similar to slightly worse than previously. There are probable changes of mild congestive heart failure. There are interstitial changes in the lungs similar to the previous exam likely reflecting a chronic process. There are bilateral pleural effusions which appear new compared to the previous exam. IMPRESSION: Cardiomegaly stable to slightly worse. Several chronic changes in the lungs as outlined above. New bilateral pleural effusions Suspect mild pulmonary vascular congestion
[2016-11-23] MEDS ORDERED: ALBUMIN HUMAN 25% 50 ML IV ONE (14:30)
[2016-11-23] MEDS ORDERED: FUROSEMIDE 40 MG/4 ML VIAL. IVP ONE (14:30)
[2016-11-23] MEDS ORDERED: NOREPINEPHRIN PREMIX 250 ML IV PRN (15:45)
[2016-11-23] MEDS: oxyCODONE/APAP 5/325 1 TAB TABLET PO PRN (19:27)
[2016-11-23] MEDS: ATORVASTATIN CALCIUM 10 MG TABLET. PO SCH (21:15)
[2016-11-24] VITALS (24 sets, daily range): BP systolic 75–115; BP diastolic 46–61
[2016-11-24 05:35] LABS: HEMATOCRIT 23.1 % (39.0-53.0); RED BLOOD COUNT 2.53 x10^6/uL (4.30-5.70); RED CELL DISTRIBUTION WIDTH 17.2 % (11.5-14.5); WHITE BLOOD COUNT 7.2 x10^3/uL (4.0-11.0)
[2016-11-24 06:01] LABS: CALCIUM 8.1 mg/dL (8.5-10.1); CREATININE 2.3 mg/dL (0.7-1.3); GFR 27.4; POTASSIUM 4.2 mmol/L (3.5-5.1)
[2016-11-24] MEDS: oxyCODONE/APAP 5/325 1 TAB TABLET PO PRN ×2 (06:08→08:05)
[2016-11-24] MEDS ORDERED: FUROSEMIDE 40 MG/4 ML VIAL. IVP ONE (08:00)
--- NOTE | 2016-11-24 08:00 | PDOC ---
CARDIOLOGY PROGRESS NOTE SUBJECTIVE: Reports LLE pain this morning from surgery. No chest pain. OBJECTIVE: Vital SIgns: Vital Signs Date Time Temp Pulse Resp B/P (MAP) Pulse Ox O2 Delivery O2 Flow Rate FiO2 11/24/16 06:08 20 94 Room Air 11/24/16 06:00 98 108/59 (75) 11/24/16 04:00 98.7 98.7 11/23/16 09:40 2.0 I & O - 1L Objective: Gen: A/O x 3. NAD CVS: RRR PULM: Bibasilar rales ABD: Soft,NT/ND EXT: Warm to touch. LLE wrapped. Surgical sites not viewed. NEURO: Non-focal exam. CURRENT MEDICATIONS: ASA 81mg daily Plavix 75mg daily Atorvastatin 20mg daily Lasix 40mg IVP x 1 (Given yesterday and today). DIAGNOSTIC TESTING: Hgb 8.0 Plt 99 Cr 2.3 ASSESSMENT: 1. CAD s/p CABG 2. Ischemic CMP. 3. PAD s/p Fem-pop bypass. 4. NSVT (none overnight) Problems: PLAN: 1. Give Lasix 40mg IVP now. 2. Continue above meds. 3. No need for vasopressors, BP stable. 4. No further VT. 5. Monitor Hgb. Will follow. ANDRE CLEMENS MD Nov 24, 2016 08:00
[2016-11-24] MEDS: ELECTROLYTE (NON-ICU) PROTOCOL MC SCH (09:00)
[2016-11-24] MEDS: CLOPIDOGREL BISULFATE 75 MG TABLET PO SCH (09:04)
[2016-11-24] MEDS: FINASTERIDE 5 MG TABLET. PO SCH (09:05)
[2016-11-24] MEDS: ASPIRIN ENTERIC COATED 81 MG TABLET.DR. PO SCH (09:05)
[2016-11-24] MEDS: FAMOTIDINE 20 MG TABLET. PO SCH (09:05)
[2016-11-24] MEDS: DOCUSATE SODIUM 100 MG CAPSULE. PO SCH ×2 (09:05→21:13)
[2016-11-24] MEDS: TAMSULOSIN 0.4 MG CAP.ER.24H. PO SCH ×2 (09:05→21:13)
[2016-11-24] MEDS: MAGNESIUM OXIDE 400 MG TABLET PO SCH ×2 (09:05→21:13)
[2016-11-24] MEDS: GABAPENTIN 300 MG CAPSULE. PO SCH ×2 (09:05→21:13)
[2016-11-24] MEDS: ALLOPURINOL 300 MG TABLET. PO SCH (09:39)
[2016-11-24] MEDS: FOLIC ACID 1 MG TABLET. PO SCH (09:39)
[2016-11-24] MEDS: COLCHICINE 0.6 MG TABLET PO SCH (09:39)
--- NOTE | 2016-11-24 11:21 | PDOC ---
GENERAL General: seen/examined. family at bedside. patient sleepy. left foot warm and bandaged. blood pressure remain low side and no further v-tach. Hb 8.0. and creatinine 2.0. some new pleural effusion and vascular congestion in chest and on lasix for same. continue present care. Problems: VITAL SIGNS Vital Signs: Vital Signs Date Time Temp Pulse Resp B/P (MAP) Pulse Ox O2 Delivery O2 Flow Rate FiO2 11/24/16 10:00 95 21 93/56 (68) 98 Nasal Cannula 2.0 11/24/16 08:00 98.3 98.3 I & O I & O Intake and Output 11/24/16 07:00 Intake Total 750 ml Output Total 1855 ml Balance -1105 ml Intake Oral 750 ml Output Urine Total 1855 ml ALLERGIES Allergies: Allergies Coded Allergies Type Severity Reaction Last Updated Verified I S O L A T I O N *CONTACT* Allergy Unknown 11/21/16 Yes No Known Medication Allergies Allergy Unknown 11/21/16 Yes MEDS Medications: Current Medications Medications (Trade) Dose Ordered Sig/Farhad Start Time Stop Time Status Last Admin Dose Admin Acetaminophen (Tylenol) 650 mg PRN Q6HRS PRN 11/21/16 13:15 Albumin Human 50 ml @ 50 mls/hr 1X ONCE 11/23/16 14:30 11/23/16 15:29 DC 11/23/16 14:29 50 MLS/HR Allopurinol (Zyloprim) 300 mg DAILY 11/21/16 15:00 11/24/16 09:39 300 MG Aspirin (Ecotrin) 81 mg DAILY 11/22/16 09:00 11/24/16 09:05 81 MG Atorvastatin Calcium (Lipitor) 20 mg QHS 11/21/16 21:00 11/23/16 21:15 20 MG Carvedilol (Coreg) 3.125 mg BIDWMEALS 11/21/16 21:00 11/22/16 09:15 DC 11/22/16 00:46 3.125 MG Cefazolin Sodium 1 gm/Sodium Chloride 50 ml @ 100 mls/hr Q6H 11/21/16 19:00 11/22/16 07:29 DC 11/22/16 06:14 100 MLS/HR Cefazolin Sodium/ Dextrose 50 ml @ 100 mls/hr 1X PREOP PRN 11/21/16 06:00 11/21/16 18:00 DC 11/21/16 13:05 100 MLS/HR Cellulose 1 each STK-MED ONCE 11/21/16 17:17 11/21/16 17:18 DC Clopidogrel Bisulfate (Plavix) 75 mg DAILYWBKFT 11/22/16 08:00 11/24/16 09:04 75 MG Colchicine (Colcrys) 0.6 mg DAILY 11/21/16 15:00 11/24/16 09:39 0.6 MG Desflurane (Suprane) 90 ml STK-MED ONCE 11/21/16 16:52 11/21/16 16:53 DC Docusate Sodium (Colace) 100 mg BID 11/21/16 21:00 11/24/16 09:05 100 MG Ephedrine Sulfate 50 mg STK-MED ONCE 11/21/16 13:14 11/21/16 13:15 DC Famotidine (Pepcid) 20 mg DAILY 11/23/16 09:00 11/24/16 09:05 20 MG Fentanyl Citrate (Fentanyl 2ml Vial) 50 mcg PRN Q5MIN PRN 11/21/16 06:45 11/22/16 06:44 DC 11/21/16 17:45 50 MCG Fentanyl Citrate (Fentanyl 5ml Vial) 250 mcg STK-MED ONCE 11/21/16 11:28 11/21/16 11:29 DC Finasteride (Proscar) 5 mg DAILY 11/21/16 15:00 11/24/16 09:05 5 MG Folic Acid (Folic Acid) 1 mg DAILY 11/21/16 15:00 11/24/16 09:39 1 MG Furosemide (Lasix) 40 mg 1X ONCE 11/24/16 08:00 11/24/16 08:03 DC 11/24/16 08:26 40 MG Gabapentin (Neurontin) 900 mg BID 11/22/16 21:00 11/24/16 09:05 900 MG Heparin Sodium (Porcine) (Heparin Sodium) 10,000 unit STK-MED ONCE 11/21/16 13:43 11/21/16 13:44 DC Heparin Sodium (Porcine) 5000 unit/Sodium Chloride 505 ml @ 505 mls/hr 1X PERIOP ONCE 11/21/16 06:00 11/21/16 07:00 DC 11/21/16 15:51 Heparin Sodium/ Dextrose 500 ml @ 10 mls/hr CONT PRN 11/21/16 15:15 11/21/16 20:33 10 MLS/HR Hydralazine HCl (Apresoline) 10 mg PRN Q4HRS PRN 11/21/16 13:15 Hydromorphone HCl (Dilaudid) 0.5 mg PRN Q10MIN PRN 11/21/16 06:45 11/22/16 06:44 DC Info (Anti-Coagulation Monitoring By Pharmacy) 1 each PRN DAILY PRN 11/23/16 12:45 Lidocaine HCl (Lidocaine Pf 2% Vial) 5 ml STK-MED ONCE 11/21/16 11:28 11/21/16 11:29 DC Magnesium Oxide (Magnesium Oxide) 400 mg BID 11/22/16 10:00 11/24/16 09:05 400 MG Magnesium Sulfate/ Dextrose 50 ml @ 25 mls/hr PRN DAILY PRN 11/23/16 09:00 Morphine Sulfate 2 mg PRN Q1HR PRN 11/21/16 13:15 11/21/16 21:46 2 MG Naloxone HCl (Narcan) 0.1 mg PRN Q2MIN PRN 11/21/16 13:15 Norepinephrine Bitartrate 250 ml @ 0 mls/hr CONT PRN 11/23/16 15:45 Ondansetron HCl (Zofran) 4 mg PRN Q6HRS PRN 11/21/16 13:15 Oxycodone HCl (Roxicodone) 5 mg PRN Q3HRS PRN 11/21/16 13:15 11/23/16 08:40 5 MG Oxycodone/ Acetaminophen (Percocet 5/325) 2 tab PRN Q4HRS PRN 11/21/16 13:15 Phenylephrine HCl (Laith-Synephrine Inj) 10 mg STK-MED ONCE 11/21/16 13:35 11/21/16 13:36 DC Potassium Chloride 30 meq/ Sodium Chloride 1,015 ml @ 75 mls/hr [id number] 11/22/16 09:30 11/23/16 13:48 DC 11/23/16 03:30 75 MLS/HR Potassium Chloride (Klor-Con) 40 meq 1X ONCE 11/22/16 09:30 11/22/16 09:31 DC 11/22/16 10:07 40 MEQ Prochlorperazine Edisylate (Compazine) 5 mg PRN Q6HRS PRN 11/21/16 13:15 Propofol 20 ml @ As Directed STK-MED ONCE 11/21/16 11:28 11/21/16 11:29 DC Protamine Sulfate 50 mg STK-MED ONCE 11/21/16 15:43 11/21/16 15:44 DC Ringer's Solution 1,000 ml @ 30 mls/hr Q24H 11/21/16 06:38 11/21/16 18:37 DC 11/21/16 10:53 30 MLS/HR Rocuronium [place] (Zemuron) 100 mg STK-MED ONCE 11/21/16 15:02 11/21/16 15:03 DC Sevoflurane (Ultane) 90 ml STK-MED ONCE 11/21/16 11:28 11/21/16 11:29 DC Sodium Chloride 1,000 ml @ 100 mls/hr Q10H 11/21/16 13:14 11/22/16 09:11 DC 11/22/16 02:16 100 MLS/HR Sodium Chloride (Normal Saline Flush) 3 ml QSHIFT PRN 11/21/16 13:15 Tamsulosin HCl (Flomax) 0.4 mg BID 11/21/16 21:00 11/24/16 09:05 0.4 MG Thrombin 20,000 unit STK-MED ONCE 11/21/16 16:15 11/21/16 16:16 DC 11/21/16 16:26 20,000 UNIT LAB Lab: Laboratory Tests Test 11/24/16 04:46 White Blood Count 7.2 x10^3/uL (4.0-11.0) Red Blood Count 2.53 x10^6/uL (4.30-5.70) Hemoglobin 8.0 g/dL (13.0-17.5) Hematocrit 23.1 % (39.0-53.0) Mean Corpuscular Volume 91 fL (79-100) Mean Corpuscular Hemoglobin 32 pg (25-35) Mean Corpuscular Hemoglobin Concent 35 g/dL (31-37) Red Cell Distribution Width 17.2 % (11.5-14.5) Platelet Count 99 x10^3/uL (140-400) Sodium Level 142 mmol/L (136-145) Potassium Level 4.2 mmol/L (3.5-5.1) Chloride Level 108 mmol/L (98-107) Carbon Dioxide Level 28 mmol/L (21-32) Anion Gap 6 (6-14) Blood Urea Nitrogen 49 mg/dL (8-26) Creatinine 2.3 mg/dL (0.7-1.3) Estimated GFR (Cockcroft-Gault) 27.4 Glucose Level 106 mg/dL (70-99) Calcium Level 8.1 mg/dL (8.5-10.1) DOREEN CONTERRAS MD Nov 24, 2016 11:20
--- NOTE | 2016-11-24 17:01 | PDOC ---
SURGICAL PROGRESS NOTE Subjective complains of left leg incisional pain Vital Signs Vital Signs Date Time Temp Pulse Resp B/P (MAP) Pulse Ox O2 Delivery O2 Flow Rate FiO2 11/24/16 15:00 98 12 96/53 (67) Room Air 11/24/16 13:00 97 11/24/16 12:00 97.6 2.0 97.6 I&O Intake and Output 11/24/16 07:00 Intake Total 750 ml Output Total 1855 ml Balance -1105 ml Intake Oral 750 ml Output Urine Total 1855 ml Extremities: Other (dressings left leg dry; 2+ graft pulse where marked.; foot warm) Labs Laboratory Tests Test 11/22/16 17:30 11/23/16 02:00 11/23/16 02:15 11/23/16 08:10 Magnesium Level 2.1 mg/dL (1.8-2.4) 2.2 mg/dL (1.8-2.4) 2.0 mg/dL (1.8-2.4) White Blood Count 8.7 x10^3/uL (4.0-11.0) 8.2 x10^3/uL (4.0-11.0) Red Blood Count 2.71 x10^6/uL (4.30-5.70) 2.67 x10^6/uL (4.30-5.70) Hemoglobin 8.3 g/dL (13.0-17.5) 8.3 g/dL (13.0-17.5) Hematocrit 24.8 % (39.0-53.0) 24.5 % (39.0-53.0) Mean Corpuscular Volume 91 fL (79-100) 92 fL (79-100) Mean Corpuscular Hemoglobin 31 pg (25-35) 31 pg (25-35) Mean Corpuscular Hemoglobin Concent 34 g/dL (31-37) 34 g/dL (31-37) Red Cell Distribution Width 16.7 % (11.5-14.5) 17.2 % (11.5-14.5) Platelet Count 93 x10^3/uL (140-400) 91 x10^3/uL (140-400) Neutrophils (%) (Auto) 84 % (31-73) Lymphocytes (%) (Auto) 5 % (24-48) Monocytes (%) (Auto) 11 % (0-9) Eosinophils (%) (Auto) 0 % (0-3) Basophils (%) (Auto) 0 % (0-3) Neutrophils # (Auto) 7.4 x10^3uL (1.8-7.7) Lymphocytes # (Auto) 0.4 x10^3/uL (1.0-4.8) Monocytes # (Auto) 0.9 x10^3/uL (0.0-1.1) Eosinophils # (Auto) 0.0 x10^3/uL (0.0-0.7) Basophils # (Auto) 0.0 x10^3/uL (0.0-0.2) Sodium Level 141 mmol/L (136-145) 143 mmol/L (136-145) Potassium Level 4.5 mmol/L (3.5-5.1) 4.5 mmol/L (3.5-5.1) Chloride Level 107 mmol/L (98-107) 109 mmol/L (98-107) Carbon Dioxide Level 26 mmol/L (21-32) 25 mmol/L (21-32) Anion Gap 8 (6-14) 9 (6-14) Blood Urea Nitrogen 41 mg/dL (8-26) 43 mg/dL (8-26) Creatinine 2.1 mg/dL (0.7-1.3) 2.2 mg/dL (0.7-1.3) Estimated GFR (Cockcroft-Gault) 30.5 28.9 BUN/Creatinine Ratio 20 (6-20) 20 (6-20) Glucose Level 139 mg/dL (70-99) 115 mg/dL (70-99) Calcium Level 7.8 mg/dL (8.5-10.1) 7.7 mg/dL (8.5-10.1) Total Bilirubin 0.6 mg/dL (0.2-1.0) 0.6 mg/dL (0.2-1.0) Aspartate Amino Transf (AST/SGOT) 18 U/L (15-37) 21 U/L (15-37) Alanine Aminotransferase (ALT/SGPT) 9 U/L (16-63) 8 U/L (16-63) Alkaline Phosphatase 86 U/L (46-116) 83 U/L (46-116) Total Protein 4.8 g/dL (6.4-8.2) 4.8 g/dL (6.4-8.2) Albumin 2.2 g/dL (3.4-5.0) 2.1 g/dL (3.4-5.0) Albumin/Globulin Ratio 0.8 (1.0-1.7) 0.8 (1.0-1.7) Prothrombin Time 14.9 SEC (11.7-14.0) Prothromb Time International Ratio 1.2 (0.8-1.1) Activated Partial Thromboplast Time 35 SEC (24-38) Test 11/24/16 04:46 White Blood Count 7.2 x10^3/uL (4.0-11.0) Red Blood Count 2.53 x10^6/uL (4.30-5.70) Hemoglobin 8.0 g/dL (13.0-17.5) Hematocrit 23.1 % (39.0-53.0) Mean Corpuscular Volume 91 fL (79-100) Mean Corpuscular Hemoglobin 32 pg (25-35) Mean Corpuscular Hemoglobin Concent 35 g/dL (31-37) Red Cell Distribution Width 17.2 % (11.5-14.5) Platelet Count 99 x10^3/uL (140-400) Sodium Level 142 mmol/L (136-145) Potassium Level 4.2 mmol/L (3.5-5.1) Chloride Level 108 mmol/L (98-107) Carbon Dioxide Level 28 mmol/L (21-32) Anion Gap 6 (6-14) Blood Urea Nitrogen 49 mg/dL (8-26) Creatinine 2.3 mg/dL (0.7-1.3) Estimated GFR (Cockcroft-Gault) 27.4 Glucose Level 106 mg/dL (70-99) Calcium Level 8.1 mg/dL (8.5-10.1) Laboratory Tests Test 11/24/16 04:46 White Blood Count 7.2 x10^3/uL (4.0-11.0) Red Blood Count 2.53 x10^6/uL (4.30-5.70) Hemoglobin 8.0 g/dL (13.0-17.5) Hematocrit 23.1 % (39.0-53.0) Mean Corpuscular Volume 91 fL (79-100) Mean Corpuscular Hemoglobin 32 pg (25-35) Mean Corpuscular Hemoglobin Concent 35 g/dL (31-37) Red Cell Distribution Width 17.2 % (11.5-14.5) Platelet Count 99 x10^3/uL (140-400) Sodium Level 142 mmol/L (136-145) Potassium Level 4.2 mmol/L (3.5-5.1) Chloride Level 108 mmol/L (98-107) Carbon Dioxide Level 28 mmol/L (21-32) Anion Gap 6 (6-14) Blood Urea Nitrogen 49 mg/dL (8-26) Creatinine 2.3 mg/dL (0.7-1.3) Estimated GFR (Cockcroft-Gault) 27.4 Glucose Level 106 mg/dL (70-99) Calcium Level 8.1 mg/dL (8.5-10.1) Problem List Imp: 1. 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 stable hypotension, no evidence of bleeding, Hgb 8.0 3. fluid overload. Receiving diuretic Plan: 1. cont. icu monitoring per cardiology 2. cont asa and plavix Problems: YEFRI LAI II, MD Nov 24, 2016 17:01
[2016-11-24 18:12] LABS: CALCIUM 8.3 mg/dL (8.5-10.1); CREATININE 2.4 mg/dL (0.7-1.3); GFR 26.1; POTASSIUM 4.3 mmol/L (3.5-5.1)
[2016-11-24] MEDS: ATORVASTATIN CALCIUM 10 MG TABLET. PO SCH (21:13)
[2016-11-25] VITALS (19 sets, daily range): BP systolic 82–114; BP diastolic 44–65
--- NOTE | 2016-11-25 06:48 | PDOC ---
CARDIOLOGY PROGRESS NOTE SUBJECTIVE: This morning he is confused. Does not want to be here. "Wants to be left alone forever" OBJECTIVE: Vital SIgns: Vital Signs Date Time Temp Pulse Resp B/P (MAP) Pulse Ox O2 Delivery O2 Flow Rate FiO2 11/25/16 06:00 97.8 111 16 106/52 (70) 96 Room Air 97.8 11/24/16 12:00 2.0 I & O Intake and Output 11/25/16 07:00 Intake Total 750 ml Output Total 1155 ml Balance -405 ml Intake Oral 750 ml Output Urine Total 1155 ml Objective: Gen: not oriented to place and time. RRR No edema. Less rales soft abdomen. CURRENT MEDICATIONS: Current Medications Medications (Trade) Dose Ordered Sig/Farhad Start Time Stop Time Status Last Admin Dose Admin Acetaminophen (Tylenol) 650 mg PRN Q6HRS PRN 11/21/16 13:15 Albumin Human 50 ml @ 50 mls/hr 1X ONCE 11/23/16 14:30 11/23/16 15:29 DC 11/23/16 14:29 50 MLS/HR Allopurinol (Zyloprim) 300 mg DAILY 11/21/16 15:00 11/24/16 09:39 300 MG Aspirin (Ecotrin) 81 mg DAILY 11/22/16 09:00 11/24/16 09:05 81 MG Atorvastatin Calcium (Lipitor) 20 mg QHS 11/21/16 21:00 11/24/16 21:13 20 MG Carvedilol (Coreg) 3.125 mg BIDWMEALS 11/21/16 21:00 11/22/16 09:15 DC 11/22/16 00:46 3.125 MG Cefazolin Sodium 1 gm/Sodium Chloride 50 ml @ 100 mls/hr Q6H 11/21/16 19:00 11/22/16 07:29 DC 11/22/16 06:14 100 MLS/HR Cefazolin Sodium/ Dextrose 50 ml @ 100 mls/hr 1X PREOP PRN 11/21/16 06:00 11/21/16 18:00 DC 11/21/16 13:05 100 MLS/HR Cellulose 1 each STK-MED ONCE 11/21/16 17:17 11/21/16 17:18 DC Clopidogrel Bisulfate (Plavix) 75 mg DAILYWBKFT 11/22/16 08:00 11/24/16 09:04 75 MG Colchicine (Colcrys) 0.6 mg DAILY 11/21/16 15:00 11/24/16 09:39 0.6 MG Desflurane (Suprane) 90 ml STK-MED ONCE 11/21/16 16:52 11/21/16 16:53 DC Docusate Sodium (Colace) 100 mg BID 11/21/16 21:00 11/24/16 21:13 100 MG Ephedrine Sulfate 50 mg STK-MED ONCE 11/21/16 13:14 11/21/16 13:15 DC Famotidine (Pepcid) 20 mg DAILY 11/23/16 09:00 11/24/16 09:05 20 MG Fentanyl Citrate (Fentanyl 2ml Vial) 50 mcg PRN Q5MIN PRN 11/21/16 06:45 11/22/16 06:44 DC 11/21/16 17:45 50 MCG Fentanyl Citrate (Fentanyl 5ml Vial) 250 mcg STK-MED ONCE 11/21/16 11:28 11/21/16 11:29 DC Finasteride (Proscar) 5 mg DAILY 11/21/16 15:00 11/24/16 09:05 5 MG Folic Acid (Folic Acid) 1 mg DAILY 11/21/16 15:00 11/24/16 09:39 1 MG Furosemide (Lasix) 40 mg 1X ONCE 11/24/16 08:00 11/24/16 08:03 DC 11/24/16 08:26 40 MG Gabapentin (Neurontin) 900 mg BID 11/22/16 21:00 11/24/16 21:13 900 MG Heparin Sodium (Porcine) (Heparin Sodium) 10,000 unit STK-MED ONCE 11/21/16 13:43 11/21/16 13:44 DC Heparin Sodium (Porcine) 5000 unit/Sodium Chloride 505 ml @ 505 mls/hr 1X PERIOP ONCE 11/21/16 06:00 11/21/16 07:00 DC 11/21/16 15:51 Heparin Sodium/ Dextrose 500 ml @ 10 mls/hr CONT PRN 11/21/16 15:15 11/21/16 20:33 10 MLS/HR Hydralazine HCl (Apresoline) 10 mg PRN Q4HRS PRN 11/21/16 13:15 Hydromorphone HCl (Dilaudid) 0.5 mg PRN Q10MIN PRN 11/21/16 06:45 11/22/16 06:44 DC Info (Anti-Coagulation Monitoring By Pharmacy) 1 each PRN DAILY PRN 11/23/16 12:45 Lidocaine HCl (Lidocaine Pf 2% Vial) 5 ml STK-MED ONCE 11/21/16 11:28 11/21/16 11:29 DC Magnesium Oxide (Magnesium Oxide) 400 mg BID 11/22/16 10:00 11/24/16 21:13 400 MG Magnesium Sulfate/ Dextrose 50 ml @ 25 mls/hr PRN DAILY PRN 11/23/16 09:00 Morphine Sulfate 2 mg PRN Q1HR PRN 11/21/16 13:15 11/21/16 21:46 2 MG Naloxone HCl (Narcan) 0.1 mg PRN Q2MIN PRN 11/21/16 13:15 Norepinephrine Bitartrate 250 ml @ 0 mls/hr CONT PRN 11/23/16 15:45 Ondansetron HCl (Zofran) 4 mg PRN Q6HRS PRN 11/21/16 13:15 Oxycodone HCl (Roxicodone) 5 mg PRN Q3HRS PRN 11/21/16 13:15 11/23/16 08:40 5 MG Oxycodone/ Acetaminophen (Percocet 5/325) 2 tab PRN Q4HRS PRN 11/21/16 13:15 Phenylephrine HCl (Laith-Synephrine Inj) 10 mg STK-MED ONCE 11/21/16 13:35 11/21/16 13:36 DC Potassium Chloride 30 meq/ Sodium Chloride 1,015 ml @ 75 mls/hr [id number] 11/22/16 09:30 11/23/16 13:48 DC 11/23/16 03:30 75 MLS/HR Potassium Chloride (Klor-Con) 40 meq 1X ONCE 11/22/16 09:30 11/22/16 09:31 DC 11/22/16 10:07 40 MEQ Prochlorperazine Edisylate (Compazine) 5 mg PRN Q6HRS PRN 11/21/16 13:15 Propofol 20 ml @ As Directed STK-MED ONCE 11/21/16 11:28 11/21/16 11:29 DC Protamine Sulfate 50 mg STK-MED ONCE 11/21/16 15:43 11/21/16 15:44 DC Ringer's Solution 1,000 ml @ 30 mls/hr Q24H 11/21/16 06:38 11/21/16 18:37 DC 11/21/16 10:53 30 MLS/HR Rocuronium [place] (Zemuron) 100 mg STK-MED ONCE 11/21/16 15:02 11/21/16 15:03 DC Sevoflurane (Ultane) 90 ml STK-MED ONCE 11/21/16 11:28 11/21/16 11:29 DC Sodium Chloride 1,000 ml @ 100 mls/hr Q10H 11/21/16 13:14 11/22/16 09:11 DC 11/22/16 02:16 100 MLS/HR Sodium Chloride (Normal Saline Flush) 3 ml QSHIFT PRN 11/21/16 13:15 Tamsulosin HCl (Flomax) 0.4 mg BID 11/21/16 21:00 11/24/16 21:13 0.4 MG Thrombin 20,000 unit STK-MED ONCE 11/21/16 16:15 11/21/16 16:16 DC 11/21/16 16:26 20,000 UNIT DIAGNOSTIC TESTING: Cr 2.4 ASSESSMENT: 1. Acute on chronic diastolic HF 2. CAD 3. PAD s/p fem pop LLE 4. JHOAN on CKD. 5. Mental status changes. Problems: PLAN: -Hold diuretics given worsening renal insufficiency. -I/O are even since 11/22. -Will follow along. -Low dose metoprolol to start if BP allows. -W/u of mental status changes per primary team. Will follow peripherally. Poor prognosis. ANDRE CLEMESN MD Nov 25, 2016 06:48
[2016-11-25 07:50] LABS: BASO # 0.1 x10^3/uL (0.0-0.2); BASO % 1 % (0-3); EOS % 3 % (0-3); HEMATOCRIT 24.6 % (39.0-53.0); HEMOGLOBIN 8.1 g/dL (13.0-17.5); LYMPH # 0.7 x10^3/uL (1.0-4.8); LYMPH % 11 % (24-48); MEAN CORPUSCULAR HEMOGLOBIN 31 pg (25-35); MEAN CORPUSCULAR HGB CONC 33 g/dL (31-37); MEAN CORPUSCULAR VOLUME 93 fL (79-100); MONO % 14 % (0-9); NEUT % 72 % (31-73); PLATELET COUNT 121 x10^3/uL (140-400); RED BLOOD COUNT 2.65 x10^6/uL (4.30-5.70); RED CELL DISTRIBUTION WIDTH 16.7 % (11.5-14.5); WHITE BLOOD COUNT 6.3 x10^3/uL (4.0-11.0)
[2016-11-25 07:57] LABS: CALCIUM 8.6 mg/dL (8.5-10.1); CREATININE 2.6 mg/dL (0.7-1.3); GFR 23.8; POTASSIUM 4.2 mmol/L (3.5-5.1)
[2016-11-25] MEDS: ELECTROLYTE (NON-ICU) PROTOCOL MC SCH (09:00)
[2016-11-25] MEDS: CLOPIDOGREL BISULFATE 75 MG TABLET PO SCH (09:41)
[2016-11-25] MEDS: FINASTERIDE 5 MG TABLET. PO SCH (09:41)
[2016-11-25] MEDS: COLCHICINE 0.6 MG TABLET PO SCH (09:41)
[2016-11-25] MEDS: FOLIC ACID 1 MG TABLET. PO SCH (09:42)
[2016-11-25] MEDS: MAGNESIUM OXIDE 400 MG TABLET PO SCH ×2 (09:42→22:14)
[2016-11-25] MEDS: FAMOTIDINE 20 MG TABLET. PO SCH (09:42)
[2016-11-25] MEDS: METOPROLOL TART IMMED RELEASE 25 MG TABLET. PO SCH ×2 (09:42→19:43)
[2016-11-25] MEDS: TAMSULOSIN 0.4 MG CAP.ER.24H. PO SCH ×2 (09:42→19:43)
[2016-11-25] MEDS: ALLOPURINOL 300 MG TABLET. PO SCH (09:42)
[2016-11-25] MEDS: ASPIRIN ENTERIC COATED 81 MG TABLET.DR. PO SCH (09:42)
[2016-11-25] MEDS: GABAPENTIN 300 MG CAPSULE. PO SCH ×2 (09:43→22:14)
[2016-11-25] MEDS: DOCUSATE SODIUM 100 MG CAPSULE. PO SCH ×2 (09:44→19:43)
--- NOTE | 2016-11-25 12:31 | PDOC ---
GENERAL General: vss and afebrile. blood pressure consistently around 100 systolic. BUN and creatinine increased to 60/2.6 this am likely related to diuresis. will recheck in am with no diuresis planned today. Hb stable at 8.1. agitated and confused overnight with mits needed. better this am but sleepy but did eat breakfast. chest clear and heart ok. left foot warm and dressed. otherwise same. Problems: VITAL SIGNS Vital Signs: Vital Signs Date Time Temp Pulse Resp B/P (MAP) Pulse Ox O2 Delivery O2 Flow Rate FiO2 11/25/16 12:00 99.1 100 17 97/47 (64) 100 Room Air 99.1 11/24/16 12:00 2.0 I & O I & O Intake and Output 11/25/16 07:00 Intake Total 850 ml Output Total 1530 ml Balance -680 ml Intake Oral 850 ml Output Urine Total 1530 ml ALLERGIES Allergies: Allergies Coded Allergies Type Severity Reaction Last Updated Verified I S O L A T I O N *CONTACT* Allergy Unknown 11/21/16 Yes No Known Medication Allergies Allergy Unknown 11/21/16 Yes MEDS Medications: Current Medications Medications (Trade) Dose Ordered Sig/Farhad Start Time Stop Time Status Last Admin Dose Admin Acetaminophen (Tylenol) 650 mg PRN Q6HRS PRN 11/21/16 13:15 Albumin Human 50 ml @ 50 mls/hr 1X ONCE 11/23/16 14:30 11/23/16 15:29 DC 11/23/16 14:29 50 MLS/HR Allopurinol (Zyloprim) 300 mg DAILY 11/21/16 15:00 11/25/16 09:42 300 MG Aspirin (Ecotrin) 81 mg DAILY 11/22/16 09:00 11/25/16 09:42 81 MG Atorvastatin Calcium (Lipitor) 20 mg QHS 11/25/16 21:00 Carvedilol (Coreg) 3.125 mg BIDWMEALS 11/21/16 21:00 11/22/16 09:15 DC 11/22/16 00:46 3.125 MG Cefazolin Sodium 1 gm/Sodium Chloride 50 ml @ 100 mls/hr Q6H 11/21/16 19:00 11/22/16 07:29 DC 11/22/16 06:14 100 MLS/HR Cefazolin Sodium/ Dextrose 50 ml @ 100 mls/hr 1X PREOP PRN 11/21/16 06:00 11/21/16 18:00 DC 11/21/16 13:05 100 MLS/HR Cellulose 1 each STK-MED ONCE 11/21/16 17:17 11/21/16 17:18 DC Clopidogrel Bisulfate (Plavix) 75 mg DAILYWBKFT 11/22/16 08:00 11/25/16 09:41 75 MG Colchicine (Colcrys) 0.6 mg DAILY 11/21/16 15:00 11/25/16 09:41 0.6 MG Desflurane (Suprane) 90 ml STK-MED ONCE 11/21/16 16:52 11/21/16 16:53 DC Docusate Sodium (Colace) 100 mg BID 11/21/16 21:00 11/25/16 09:44 100 MG Ephedrine Sulfate 50 mg STK-MED ONCE 11/21/16 13:14 11/21/16 13:15 DC Famotidine (Pepcid) 20 mg DAILY 11/23/16 09:00 11/25/16 09:42 20 MG Fentanyl Citrate (Fentanyl 2ml Vial) 50 mcg PRN Q5MIN PRN 11/21/16 06:45 11/22/16 06:44 DC 11/21/16 17:45 50 MCG Fentanyl Citrate (Fentanyl 5ml Vial) 250 mcg STK-MED ONCE 11/21/16 11:28 11/21/16 11:29 DC Finasteride (Proscar) 5 mg DAILY 11/21/16 15:00 11/25/16 09:41 5 MG Folic Acid (Folic Acid) 1 mg DAILY 11/21/16 15:00 11/25/16 09:42 1 MG Furosemide (Lasix) 40 mg 1X ONCE 11/24/16 08:00 11/24/16 08:03 DC 11/24/16 08:26 40 MG Gabapentin (Neurontin) 900 mg BID 11/22/16 21:00 11/25/16 09:43 900 MG Heparin Sodium (Porcine) (Heparin Sodium) 10,000 unit STK-MED ONCE 11/21/16 13:43 11/21/16 13:44 DC Heparin Sodium (Porcine) 5000 unit/Sodium Chloride 505 ml @ 505 mls/hr 1X PERIOP ONCE 11/21/16 06:00 11/21/16 07:00 DC 11/21/16 15:51 Heparin Sodium/ Dextrose 500 ml @ 10 mls/hr CONT PRN 11/21/16 15:15 11/21/16 20:33 10 MLS/HR Hydralazine HCl (Apresoline) 10 mg PRN Q4HRS PRN 11/21/16 13:15 Hydromorphone HCl (Dilaudid) 0.5 mg PRN Q10MIN PRN 11/21/16 06:45 11/22/16 06:44 DC Info (Anti-Coagulation Monitoring By Pharmacy) 1 each PRN DAILY PRN 11/23/16 12:45 Lidocaine HCl (Lidocaine Pf 2% Vial) 5 ml STK-MED ONCE 11/21/16 11:28 11/21/16 11:29 DC Magnesium Oxide (Magnesium Oxide) 400 mg BID 11/22/16 10:00 11/25/16 09:42 400 MG Magnesium Sulfate/ Dextrose 50 ml @ 25 mls/hr PRN DAILY PRN 11/23/16 09:00 Metoprolol Tartrate (Lopressor) 25 mg BID 11/25/16 09:00 11/25/16 09:42 25 MG Morphine Sulfate 2 mg PRN Q1HR PRN 11/21/16 13:15 11/21/16 21:46 2 MG Naloxone HCl (Narcan) 0.1 mg PRN Q2MIN PRN 11/21/16 13:15 Norepinephrine Bitartrate 250 ml @ 0 mls/hr CONT PRN 11/23/16 15:45 Ondansetron HCl (Zofran) 4 mg PRN Q6HRS PRN 11/21/16 13:15 Oxycodone HCl (Roxicodone) 5 mg PRN Q3HRS PRN 11/21/16 13:15 11/23/16 08:40 5 MG Oxycodone/ Acetaminophen (Percocet 5/325) 2 tab PRN Q4HRS PRN 11/21/16 13:15 11/24/16 17:05 2 TAB Phenylephrine HCl (Laith-Synephrine Inj) 10 mg STK-MED ONCE 11/21/16 13:35 11/21/16 13:36 DC Potassium Chloride 30 meq/ Sodium Chloride 1,015 ml @ 75 mls/hr [id number] 11/22/16 09:30 11/23/16 13:48 DC 11/23/16 03:30 75 MLS/HR Potassium Chloride (Klor-Con) 40 meq 1X ONCE 11/22/16 09:30 11/22/16 09:31 DC 11/22/16 10:07 40 MEQ Prochlorperazine Edisylate (Compazine) 5 mg PRN Q6HRS PRN 11/21/16 13:15 Propofol 20 ml @ As Directed STK-MED ONCE 11/21/16 11:28 11/21/16 11:29 DC Protamine Sulfate 50 mg STK-MED ONCE 11/21/16 15:43 11/21/16 15:44 DC Ringer's Solution 1,000 ml @ 30 mls/hr Q24H 11/21/16 06:38 11/21/16 18:37 DC 11/21/16 10:53 30 MLS/HR Rocuronium [place] (Zemuron) 100 mg STK-MED ONCE 11/21/16 15:02 11/21/16 15:03 DC Sevoflurane (Ultane) 90 ml STK-MED ONCE 11/21/16 11:28 11/21/16 11:29 DC Sodium Chloride 1,000 ml @ 100 mls/hr Q10H 11/21/16 13:14 11/22/16 09:11 DC 11/22/16 02:16 100 MLS/HR Sodium Chloride (Normal Saline Flush) 3 ml QSHIFT PRN 11/21/16 13:15 Tamsulosin HCl (Flomax) 0.4 mg BID 11/21/16 21:00 11/25/16 09:42 0.4 MG Thrombin 20,000 unit STK-MED ONCE 11/21/16 16:15 11/21/16 16:16 DC 11/21/16 16:26 20,000 UNIT LAB Lab: Laboratory Tests Test 11/24/16 17:45 11/25/16 07:35 Sodium Level 139 mmol/L (136-145) 140 mmol/L (136-145) Potassium Level 4.3 mmol/L (3.5-5.1) 4.2 mmol/L (3.5-5.1) Chloride Level 105 mmol/L (98-107) 105 mmol/L (98-107) Carbon Dioxide Level 26 mmol/L (21-32) 28 mmol/L (21-32) Anion Gap 8 (6-14) 7 (6-14) Blood Urea Nitrogen 52 mg/dL (8-26) 60 mg/dL (8-26) Creatinine 2.4 mg/dL (0.7-1.3) 2.6 mg/dL (0.7-1.3) Estimated GFR (Cockcroft-Gault) 26.1 23.8 Glucose Level 106 mg/dL (70-99) 99 mg/dL (70-99) Calcium Level 8.3 mg/dL (8.5-10.1) 8.6 mg/dL (8.5-10.1) White Blood Count 6.3 x10^3/uL (4.0-11.0) Red Blood Count 2.65 x10^6/uL (4.30-5.70) Hemoglobin 8.1 g/dL (13.0-17.5) Hematocrit 24.6 % (39.0-53.0) Mean Corpuscular Volume 93 fL (79-100) Mean Corpuscular Hemoglobin 31 pg (25-35) Mean Corpuscular Hemoglobin Concent 33 g/dL (31-37) Red Cell Distribution Width 16.7 % (11.5-14.5) Platelet Count 121 x10^3/uL (140-400) Neutrophils (%) (Auto) 72 % (31-73) Lymphocytes (%) (Auto) 11 % (24-48) Monocytes (%) (Auto) 14 % (0-9) Eosinophils (%) (Auto) 3 % (0-3) Basophils (%) (Auto) 1 % (0-3) Neutrophils # (Auto) 4.5 x10^3uL (1.8-7.7) Lymphocytes # (Auto) 0.7 x10^3/uL (1.0-4.8) Monocytes # (Auto) 0.9 x10^3/uL (0.0-1.1) Eosinophils # (Auto) 0.2 x10^3/uL (0.0-0.7) Basophils # (Auto) 0.1 x10^3/uL (0.0-0.2) DOREEN CONTRERAS MD Nov 25, 2016 12:31
--- NOTE | 2016-11-25 14:36 | PDOC ---
SURGICAL PROGRESS NOTE Subjective confused today. Vital Signs Vital Signs Date Time Temp Pulse Resp B/P (MAP) Pulse Ox O2 Delivery O2 Flow Rate FiO2 11/25/16 12:00 99.1 100 17 97/47 (64) 100 Room Air 99.1 11/24/16 12:00 2.0 I&O Intake and Output 11/25/16 07:00 Intake Total 850 ml Output Total 1530 ml Balance -680 ml Intake Oral 850 ml Output Urine Total 1530 ml PATIENT HAS A QURESHI: Yes Extremities: Other (2+ graft pulse left distal medial thigh; dressings dry) Labs Laboratory Tests Test 11/24/16 04:46 11/24/16 17:45 11/25/16 07:35 White Blood Count 7.2 x10^3/uL (4.0-11.0) 6.3 x10^3/uL (4.0-11.0) Red Blood Count 2.53 x10^6/uL (4.30-5.70) 2.65 x10^6/uL (4.30-5.70) Hemoglobin 8.0 g/dL (13.0-17.5) 8.1 g/dL (13.0-17.5) Hematocrit 23.1 % (39.0-53.0) 24.6 % (39.0-53.0) Mean Corpuscular Volume 91 fL (79-100) 93 fL (79-100) Mean Corpuscular Hemoglobin 32 pg (25-35) 31 pg (25-35) Mean Corpuscular Hemoglobin Concent 35 g/dL (31-37) 33 g/dL (31-37) Red Cell Distribution Width 17.2 % (11.5-14.5) 16.7 % (11.5-14.5) Platelet Count 99 x10^3/uL (140-400) 121 x10^3/uL (140-400) Sodium Level 142 mmol/L (136-145) 139 mmol/L (136-145) 140 mmol/L (136-145) Potassium Level 4.2 mmol/L (3.5-5.1) 4.3 mmol/L (3.5-5.1) 4.2 mmol/L (3.5-5.1) Chloride Level 108 mmol/L (98-107) 105 mmol/L (98-107) 105 mmol/L (98-107) Carbon Dioxide Level 28 mmol/L (21-32) 26 mmol/L (21-32) 28 mmol/L (21-32) Anion Gap 6 (6-14) 8 (6-14) 7 (6-14) Blood Urea Nitrogen 49 mg/dL (8-26) 52 mg/dL (8-26) 60 mg/dL (8-26) Creatinine 2.3 mg/dL (0.7-1.3) 2.4 mg/dL (0.7-1.3) 2.6 mg/dL (0.7-1.3) Estimated GFR (Cockcroft-Gault) 27.4 26.1 23.8 Glucose Level 106 mg/dL (70-99) 106 mg/dL (70-99) 99 mg/dL (70-99) Calcium Level 8.1 mg/dL (8.5-10.1) 8.3 mg/dL (8.5-10.1) 8.6 mg/dL (8.5-10.1) Neutrophils (%) (Auto) 72 % (31-73) Lymphocytes (%) (Auto) 11 % (24-48) Monocytes (%) (Auto) 14 % (0-9) Eosinophils (%) (Auto) 3 % (0-3) Basophils (%) (Auto) 1 % (0-3) Neutrophils # (Auto) 4.5 x10^3uL (1.8-7.7) Lymphocytes # (Auto) 0.7 x10^3/uL (1.0-4.8) Monocytes # (Auto) 0.9 x10^3/uL (0.0-1.1) Eosinophils # (Auto) 0.2 x10^3/uL (0.0-0.7) Basophils # (Auto) 0.1 x10^3/uL (0.0-0.2) Laboratory Tests Test 11/24/16 17:45 11/25/16 07:35 Sodium Level 139 mmol/L (136-145) 140 mmol/L (136-145) Potassium Level 4.3 mmol/L (3.5-5.1) 4.2 mmol/L (3.5-5.1) Chloride Level 105 mmol/L (98-107) 105 mmol/L (98-107) Carbon Dioxide Level 26 mmol/L (21-32) 28 mmol/L (21-32) Anion Gap 8 (6-14) 7 (6-14) Blood Urea Nitrogen 52 mg/dL (8-26) 60 mg/dL (8-26) Creatinine 2.4 mg/dL (0.7-1.3) 2.6 mg/dL (0.7-1.3) Estimated GFR (Cockcroft-Gault) 26.1 23.8 Glucose Level 106 mg/dL (70-99) 99 mg/dL (70-99) Calcium Level 8.3 mg/dL (8.5-10.1) 8.6 mg/dL (8.5-10.1) White Blood Count 6.3 x10^3/uL (4.0-11.0) Red Blood Count 2.65 x10^6/uL (4.30-5.70) Hemoglobin 8.1 g/dL (13.0-17.5) Hematocrit 24.6 % (39.0-53.0) Mean Corpuscular Volume 93 fL (79-100) Mean Corpuscular Hemoglobin 31 pg (25-35) Mean Corpuscular Hemoglobin Concent 33 g/dL (31-37) Red Cell Distribution Width 16.7 % (11.5-14.5) Platelet Count 121 x10^3/uL (140-400) Neutrophils (%) (Auto) 72 % (31-73) Lymphocytes (%) (Auto) 11 % (24-48) Monocytes (%) (Auto) 14 % (0-9) Eosinophils (%) (Auto) 3 % (0-3) Basophils (%) (Auto) 1 % (0-3) Neutrophils # (Auto) 4.5 x10^3uL (1.8-7.7) Lymphocytes # (Auto) 0.7 x10^3/uL (1.0-4.8) Monocytes # (Auto) 0.9 x10^3/uL (0.0-1.1) Eosinophils # (Auto) 0.2 x10^3/uL (0.0-0.7) Basophils # (Auto) 0.1 x10^3/uL (0.0-0.2) Assessment/Plan Imp: 1. patent bypass graft left leg 2. worsening renal function. Cr up to 2.9. Good diuresis yesterday 3. hgb stable Plan: 1. cont. icu monitoring 2. cont. asa/plavix. Problems: YEFRI LAI II, MD Nov 25, 2016 14:36
[2016-11-25] MEDS: ATORVASTATIN CALCIUM 20 MG TABLET PO SCH (19:43)
[2016-11-25] MEDS: oxyCODONE/APAP 5/325 1 TAB TABLET PO PRN (19:46)
[2016-11-26 03:05] VITALS: BP 105/54
[2016-11-26 05:12] LABS: CALCIUM 8.5 mg/dL (8.5-10.1); CREATININE 2.4 mg/dL (0.7-1.3); GFR 26.1; POTASSIUM 4.3 mmol/L (3.5-5.1)
[2016-11-26 06:32] VITALS: BP 94/56
[2016-11-26] MEDS: DOCUSATE SODIUM 100 MG CAPSULE. PO SCH ×2 (08:36→21:26)
[2016-11-26] MEDS: ALLOPURINOL 300 MG TABLET. PO SCH (08:36)
[2016-11-26] MEDS: COLCHICINE 0.6 MG TABLET PO SCH (08:36)
[2016-11-26] MEDS: GABAPENTIN 300 MG CAPSULE. PO SCH ×2 (08:38→21:26)
[2016-11-26] MEDS: CLOPIDOGREL BISULFATE 75 MG TABLET PO SCH (08:38)
[2016-11-26] MEDS: FAMOTIDINE 20 MG TABLET. PO SCH (08:38)
[2016-11-26] MEDS: FINASTERIDE 5 MG TABLET. PO SCH (08:38)
[2016-11-26] MEDS: FOLIC ACID 1 MG TABLET. PO SCH (08:38)
[2016-11-26] MEDS: ASPIRIN ENTERIC COATED 81 MG TABLET.DR. PO SCH (08:38)
[2016-11-26] MEDS: TAMSULOSIN 0.4 MG CAP.ER.24H. PO SCH ×2 (08:38→21:26)
[2016-11-26] MEDS: MAGNESIUM OXIDE 400 MG TABLET PO SCH ×2 (08:38→21:26)
[2016-11-26] MEDS: METOPROLOL TART IMMED RELEASE 25 MG TABLET. PO SCH ×2 (09:00→21:25)
[2016-11-26] MEDS: ELECTROLYTE (NON-ICU) PROTOCOL MC SCH (09:00)
[2016-11-26] MEDS ORDERED: methylPREDNISolone ACETATE 40 MG/ML VIAL. IM ONE ×2 (10:30)
[2016-11-26] MEDS ORDERED: BUPIVACAINE MPF 0.25% 10 ML VIAL. IJ ONE (10:30)
--- NOTE | 2016-11-26 10:34 | PDOC ---
CARDIO Progress Notes Date and Time Date of Service 11/26/2016 Time of Evaluation 1034 Subjective Subjective: No Chest Pain, No shortness of breath, No Palpitations Comments: up in chair Vitals Vitals Vital Signs Date Time Temp Pulse Resp B/P (MAP) Pulse Ox O2 Delivery O2 Flow Rate FiO2 11/26/16 06:32 99.0 92 18 94/56 (69) 94 Room Air 99.0 11/25/16 21:00 2.0 Weight Weight [ ] Input and Output Intake and Output Intake and Output 11/26/16 06:59 Intake Total 1520 ml Output Total 1275 ml Balance 245 ml Intake Oral 1520 ml Output Urine Total 1275 ml Laboratory Labs Laboratory Tests Test 11/26/16 04:45 Sodium Level 140 mmol/L (136-145) Potassium Level 4.3 mmol/L (3.5-5.1) Chloride Level 105 mmol/L (98-107) Carbon Dioxide Level 28 mmol/L (21-32) Anion Gap 7 (6-14) Blood Urea Nitrogen 60 mg/dL (8-26) Creatinine 2.4 mg/dL (0.7-1.3) Estimated GFR (Cockcroft-Gault) 26.1 Glucose Level 105 mg/dL (70-99) Calcium Level 8.5 mg/dL (8.5-10.1) Physical Exam HEENT: Neck Supple W Full Motion Chest: Symmetric LUNGS: Other (crackles bibasilar ) Heart: S1S2, no murmurs, other (tele: SR) Abdomen: Soft N/T Extremities: Other (1+ LE edema; dressing on LLE) Neurology: alert, oriented, follow commands Assessment Assessment 1. Acute on chronic diastolic HF diuretics on hold due to renal insufficiency continue BB no ACEI due to renal function LVEF depressed to 40-45% 2. CAD no anginal symptoms continue secondary preventio 3. PAD s/p fem pop LLE per vasc surgery 4. JHOAN on CKD 5. Mental status changes improved today 6. NSVT LifeVest pending due to history of VT; if transfer to SNF - will need to determine that SNF willing to take with LifeVest and staff has been inserviced no further NSVT - occurred in setting of anemia and hypomagnesemia LAKIA MANN APRN Nov 26, 2016 10:34
--- NOTE | 2016-11-26 11:08 | PDOC ---
SUBJECTIVE Subjective just got back in bed , has been in chair most of AM, feels better OBJECTIVE Vital Signs Vital Signs Date Time Temp Pulse Resp B/P (MAP) Pulse Ox O2 Delivery O2 Flow Rate FiO2 11/26/16 06:32 99.0 92 18 94/56 (69) 94 Room Air 99.0 11/26/16 03:05 98.6 83 16 105/54 (71) 96 Room Air 98.6 11/25/16 23:14 98.2 85 20 112/56 (74) 98 Room Air 98.2 11/25/16 21:00 20 94 Room Air 2.0 11/25/16 20:00 Room Air 11/25/16 19:46 22 94 Room Air 2.0 11/25/16 19:43 103 125/56 11/25/16 18:36 99.3 96 20 90/51 (64) 94 Room Air 99.3 11/25/16 16:30 99.5 98 21 82/50 (61) 93 Room Air 99.5 11/25/16 15:00 87/45 (59) 96 Room Air 11/25/16 14:00 82 18 86/51 (63) 96 Room Air 11/25/16 13:00 80 19 86/44 (58) 96 Room Air 11/25/16 12:00 99.1 100 17 97/47 (64) 100 Room Air 99.1 11/25/16 12:00 Room Air I & O Intake and Output 11/26/16 07:00 Intake Total 1520 ml Output Total 900 ml Balance 620 ml Intake Oral 1520 ml Output Urine Total 900 ml PHYSICAL EXAM Physical Exam lungs clear heart RRR abd soft ext significat decrease in edema ASSESSMENT/PLAN Assessment/Plan 1. Peripheral vascular disease status post femoral popliteal bypass surgery. 2. Anemia postoperative, expected, Hb stabalized continue to monitor 3. Nonsustained ventricular tachycardia due to hypokalemia and hypomagnesemia. replaced , plans for life vest upon discharge 4. Chronic kidney disease stage 4 lasix on hold for now 5. Chronic diastolic and systolic congestive heart failure. 6. Peripheral neuropathy. 7. History of alcoholism. 8. Previous history of hypertension and hyperlipidemia. currently low Bp, held metoprolol this AM 9. malnutrition modarate to severe discussed with dr. Mcintyre might get knee injections, continue PT, looking for SNU placement Problems: COMMENT Lab Laboratory Tests Test 11/26/16 04:45 Sodium Level 140 mmol/L (136-145) Potassium Level 4.3 mmol/L (3.5-5.1) Chloride Level 105 mmol/L (98-107) Carbon Dioxide Level 28 mmol/L (21-32) Anion Gap 7 (6-14) Blood Urea Nitrogen 60 mg/dL (8-26) Creatinine 2.4 mg/dL (0.7-1.3) Estimated GFR (Cockcroft-Gault) 26.1 Glucose Level 105 mg/dL (70-99) Calcium Level 8.5 mg/dL (8.5-10.1) DB REAL MD Nov 26, 2016 11:08
[2016-11-26 11:12] VITALS: BP 93/45
--- NOTE | 2016-11-26 12:15 | RAD ---
Pelvis with both hips, 3 views, 11/26/2016: History: Stiffness No fracture or dislocation is identified. There are mild degenerative changes at both hip joints. There are surgical clips projected over the left groin level. Extensive arterial calcification is noted. IMPRESSION: 1. Mild degenerative change at both hip joints. 2. No acute bony abnormality is detected.
--- NOTE | 2016-11-26 12:23 | RAD ---
Bilateral knees, 4 views, 11/26/2016: History: Knee stiffness and pain The AP views of the knees are suboptimal due to difficulties in patient positioning. There is moderate patchy bony demineralization. There are mild degenerative changes at the knee joints and at the patellofemoral articulations. No acute fracture or dislocation is identified on this limited exam. Extensive arterial calcifications are present. Surgical clips are present in the soft tissues medially on the left.
[2016-11-26 14:25] VITALS: BP 85/58
--- NOTE | 2016-11-26 17:58 | PDOC4 ---
PROCEDURE Procedure At his request,I have injected both knees under aseptic skin technique,with marcaine and depomedrol solution and he tolerated the procedures satisfactorily without any side effects. ABDOULAYE LEW MD Nov 26, 2016 17:58
[2016-11-26 19:50] VITALS: BP 112/57
[2016-11-26] MEDS: ATORVASTATIN CALCIUM 20 MG TABLET PO SCH (21:25)
[2016-11-26 22:40] VITALS: BP 105/57
[2016-11-27] VITALS (7 sets, daily range): BP systolic 98–179; BP diastolic 50–88
--- NOTE | 2016-11-27 01:34 | CONS ---
DATE OF CONSULTATION: 11/26/2016 LOCATION: He is in room 201. ATTENDING PHYSICIAN: Dr. Haywood. The patient was seen at the request of Dr. Haywood for evaluation of both his knee stiffness. HISTORY OF PRESENT ILLNESS: This is an 81-year-old right-handed male admitted on 11/22/2016, for left femoral to popliteal artery bypass graft done on 11/21/2016. He was admitted on 11/21/2016. The patient complains of stiffness of his knees. The patient was hospitalized in 05/2016 at this medical center. At that time, he developed heel ulcers, ____. He is being followed by pain clinic for nonhealing left heel ulcer. The patient had vascular studies and he underwent vascular bypass surgery done. The patient since May developed contractures of his knees and he was not able to walk. He gets around in a wheelchair transfers by himself. He had a ramp built. His helps with self-care. Basically, he is independent at wheelchair level. The patient does not speak much Armenian. His interprets for him. The patient had chronic constipation and since surgery, he had an indwelling [place] catheter placed. The patient also with known coronary artery disease, congestive heart failure, diastolic cardiomyopathy, peripheral vascular disease, coronary artery bypass graft in 2013, aortic valve replacement, hyperlipidemia, hypertension, pneumonia, gastroesophageal reflux disease, obesity, carcinoma of prostate, status post radiation treatment, also benign prostatic hypertrophy, gouty arthritis, degenerative joint disease, and had several attacks of gouty arthritis in the past, neuropathy in his lower extremities, decreased acuity of hearing, history of alcoholism. SOCIAL HISTORY: The patient quit smoking in 1984, but he apparently smoked for about 20 years. FAMILY HISTORY: Positive for hypertension, coronary artery disease. PHYSICAL EXAMINATION: Today revealed an elderly male. He is alert, oriented to time, place, person and circumstance and follows commands appropriately, moves all 4 extremities voluntarily where he had 4+/5 grade muscle strength with relatively increased weakness in dorsiflexor of left foot. He had edema of both feet. He had rafaela to postop site left leg and left thigh. He had dressing to his left heel ulcer. 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 The patient had absent knee and ankle jerks. He has slightly decreased touch and pinprick sensation in a sock and glove distribution. I have examined him while he is sitting in bedside chair, had an indwelling [place] catheter in place. I have not tested his mobility skills at present time. 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 RECOMMENDATION: To obtain x-rays of his hips and knees, to proceed with knee joint injection. He apparently tried some knee braces, but returned them back as they did not help him much. He probably might have [place] boots, but he does not like to wear. Dr. Haywood, I appreciate asking me to participate in the care of this interesting patient to consider transfer to shelter care unit for continued care and to discontinue indwelling [place] catheter and to work on his constipation. ABDOULAYE LEW MD DR: SARA/miguel JOB#: [id number] / [id number]
[2016-11-27 06:05] LABS: CALCIUM 8.5 mg/dL (8.5-10.1); CREATININE 2.1 mg/dL (0.7-1.3); GFR 30.5
[2016-11-27 06:10] LABS: HEMATOCRIT 24.9 % (39.0-53.0); HEMOGLOBIN 8.3 g/dL (13.0-17.5); RED BLOOD COUNT 2.66 x10^6/uL (4.30-5.70); RED CELL DISTRIBUTION WIDTH 16.6 % (11.5-14.5); WHITE BLOOD COUNT 6.1 x10^3/uL (4.0-11.0)
[2016-11-27] MEDS: CLOPIDOGREL BISULFATE 75 MG TABLET PO SCH (08:51)
[2016-11-27] MEDS: DOCUSATE SODIUM 100 MG CAPSULE. PO SCH ×2 (08:51→21:35)
[2016-11-27] MEDS: TAMSULOSIN 0.4 MG CAP.ER.24H. PO SCH ×2 (08:51→21:35)
[2016-11-27] MEDS: FAMOTIDINE 20 MG TABLET. PO SCH (08:51)
[2016-11-27] MEDS: FOLIC ACID 1 MG TABLET. PO SCH (08:51)
[2016-11-27] MEDS: ASPIRIN ENTERIC COATED 81 MG TABLET.DR. PO SCH (08:51)
[2016-11-27] MEDS: COLCHICINE 0.6 MG TABLET PO SCH (08:51)
[2016-11-27] MEDS: FINASTERIDE 5 MG TABLET. PO SCH (08:51)
[2016-11-27] MEDS: GABAPENTIN 300 MG CAPSULE. PO SCH ×2 (08:52→21:34)
[2016-11-27] MEDS: MAGNESIUM OXIDE 400 MG TABLET PO SCH ×2 (08:52→21:34)
[2016-11-27] MEDS: ELECTROLYTE (NON-ICU) PROTOCOL MC SCH (09:00)
[2016-11-27] MEDS: METOPROLOL TART IMMED RELEASE 25 MG TABLET. PO SCH ×2 (09:00→21:35)
[2016-11-27] MEDS: ALLOPURINOL 300 MG TABLET. PO SCH (09:00)
--- NOTE | 2016-11-27 09:44 | PDOC ---
PROGRESS NOTES Subjective Subjective He admits somewhat better. Objective Objective Vital Signs Date Time Temp Pulse Resp B/P (MAP) Pulse Ox O2 Delivery O2 Flow Rate FiO2 11/27/16 08:13 Room Air 11/27/16 07:30 97.5 75 18 103/52 (69) 91 97.5 11/25/16 21:00 2.0 Intake and Output 11/27/16 07:00 Intake Total 1120 ml Output Total 1450 ml Balance -330 ml Intake Oral 1120 ml Output Urine Total 1450 ml # Voids 1 # Bowel Movements 1 Physical Exam Physical Exam He is awake and I saw him moving his lower extremities more actively this AM.I spoke to nursing ,his family and physical therapy and [employer]. Plan Plan of Care To get him ROM knee braces to help with his knee joint stiffness. Comment Review of Relevant I have reviewed the following items osiris (where applicable) has been applied. Labs Laboratory Tests Test 11/26/16 04:45 11/27/16 05:40 Sodium Level 140 mmol/L (136-145) 142 mmol/L (136-145) Potassium Level 4.3 mmol/L (3.5-5.1) 5.0 mmol/L (3.5-5.1) Chloride Level 105 mmol/L (98-107) 106 mmol/L (98-107) Carbon Dioxide Level 28 mmol/L (21-32) 28 mmol/L (21-32) Anion Gap 7 (6-14) 8 (6-14) Blood Urea Nitrogen 60 mg/dL (8-26) 59 mg/dL (8-26) Creatinine 2.4 mg/dL (0.7-1.3) 2.1 mg/dL (0.7-1.3) Estimated GFR (Cockcroft-Gault) 26.1 30.5 Glucose Level 105 mg/dL (70-99) 145 mg/dL (70-99) Calcium Level 8.5 mg/dL (8.5-10.1) 8.5 mg/dL (8.5-10.1) White Blood Count 6.1 x10^3/uL (4.0-11.0) Red Blood Count 2.66 x10^6/uL (4.30-5.70) Hemoglobin 8.3 g/dL (13.0-17.5) Hematocrit 24.9 % (39.0-53.0) Mean Corpuscular Volume 93 fL (79-100) Mean Corpuscular Hemoglobin 31 pg (25-35) Mean Corpuscular Hemoglobin Concent 33 g/dL (31-37) Red Cell Distribution Width 16.6 % (11.5-14.5) Platelet Count 152 x10^3/uL (140-400) Laboratory Tests Test 11/27/16 05:40 White Blood Count 6.1 x10^3/uL (4.0-11.0) Red Blood Count 2.66 x10^6/uL (4.30-5.70) Hemoglobin 8.3 g/dL (13.0-17.5) Hematocrit 24.9 % (39.0-53.0) Mean Corpuscular Volume 93 fL (79-100) Mean Corpuscular Hemoglobin 31 pg (25-35) Mean Corpuscular Hemoglobin Concent 33 g/dL (31-37) Red Cell Distribution Width 16.6 % (11.5-14.5) Platelet Count 152 x10^3/uL (140-400) Sodium Level 142 mmol/L (136-145) Potassium Level 5.0 mmol/L (3.5-5.1) Chloride Level 106 mmol/L (98-107) Carbon Dioxide Level 28 mmol/L (21-32) Anion Gap 8 (6-14) Blood Urea Nitrogen 59 mg/dL (8-26) Creatinine 2.1 mg/dL (0.7-1.3) Estimated GFR (Cockcroft-Gault) 30.5 Glucose Level 145 mg/dL (70-99) Calcium Level 8.5 mg/dL (8.5-10.1) Medications Current Medications Heparin Sodium (Porcine) 5000 unit/Sodium Chloride 505 ml @ 505 mls/hr 1X PERIOP ONCE IRR Last administered on 11/21/16 15:51; Start 11/21/16 at 06:00 ; Stop 11/21/16 at 07:00; Status DC Cefazolin Sodium 1 gm/Sodium Chloride 500 ml @ 500 mls/hr 1X PERIOP ONCE IRR Last administered on 11/21/16t 13:05; Start 11/21/16 at 06:00; Stop 11/21/16 at 07:00; Status DC Cefazolin Sodium/ Dextrose 50 ml @ 100 mls/hr 1X PREOP PRN IV PRIOR TO PROCEDURE Last administered on 11/21/16 13:05; Start 11/21/16 at 06:00; Stop at 18:00; Status DC Ondansetron HCl (Zofran) 4 mg PRN Q6HRS PRN IV NAUSEA/VOMITING; Start 11/21/16 at 06:45; Stop 11/22/16 at 06:44; Status DC Fentanyl Citrate (Fentanyl 2ml Vial) 25 mcg PRN Q5MIN PRN IV MILD PAIN Last administered on 11/21/16 12:50; Start 11/21/16 at 06:45; Stop 11/22/16 at 06:44 ; Status DC Fentanyl Citrate (Fentanyl 2ml Vial) 50 mcg PRN Q5MIN PRN IV MODERATE PAIN Last administered on 11/21/16 17:45; Start 11/21/16 at 06:45; Stop 11/22/16 at 06:44; Status DC Morphine Sulfate 1 mg PRN Q10MIN PRN IV SEVERE PAIN; Start 11/21/16 at 06:45; Stop 11/22/16 at 06:44; Status DC Ringer's Solution 1,000 ml @ 30 mls/hr Q24H IV Last administered on 11/21/16 10:53; Start 11/21/16 at 06:38; Stop 11/21/16 at 18:37; Status DC Lidocaine HCl 2 ml PRN 1X PRN ID PRIOR TO IV START; Start 11/21/16 at 06:45; Stop 11/22/16 at 06:44; Status DC Hydromorphone HCl (Dilaudid) 0.5 mg PRN Q10MIN PRN IV SEV PAIN, Second choice; Start 11/21/16 at 06:45; Stop 11/22/16 at 06:44; Status DC Prochlorperazine Edisylate (Compazine) 5 mg PACU PRN PRN IV NAUSEA, MRX1; Start 11/21/16 at 06:45; Stop 11/22/16 at 06:44; Status DC Fentanyl Citrate (Fentanyl 5ml Vial) 250 mcg STK-MED ONCE .ROUTE ; Start at 11:28; Stop 11/21/16 at 11:29; Status DC Rocuronium [place] (Zemuron) 50 mg STK-MED ONCE .ROUTE ; Start 11/21/16 at 11:28 ; Stop 11/21/16 at 11:29; Status DC Sevoflurane (Ultane) 90 ml STK-MED ONCE IH ; Start 11/21/16 at 11:28; Stop 11/21 at 11:29; Status DC Lidocaine HCl (Lidocaine Pf 2% Vial) 5 ml STK-MED ONCE .ROUTE ; Start 11/21/16 at 11:28; Stop 11/21/16 at 11:29; Status DC Propofol 20 ml @ As Directed STK-MED ONCE IV ; Start 11/21/16 at 11:28; Stop at 11:29; Status DC Ondansetron HCl (Zofran) 4 mg STK-MED ONCE .ROUTE ; Start 11/21/16 at 11:28; Stop 11/21/16 at 11:29; Status DC Phenylephrine HCl 1 mg STK-MED ONCE IV ; Start 11/21/16 at 13:01; Stop 11/21/16 at 13:02; Status DC Allopurinol (Zyloprim) 300 mg DAILY PO Last administered on 11/27/16 09:00; Start 11/21/16 at 15:00 Aspirin (Ecotrin) 81 mg DAILY PO Last administered on 11/27/16 08:51; Start 11/22/16 at 09:00 Atorvastatin Calcium (Lipitor) 20 mg QHS PO Last administered on 11/24/16 21:13 ; Start 11/21/16 at 21:00; Stop 11/25/16 at 10:50; Status DC Carvedilol (Coreg) 3.125 mg BIDWMEALS PO Last administered on 11/22/16 00:46; Start 11/21/16 at 21:00; Stop 11/22/16 at 09:15; Status DC Famotidine (Pepcid) 20 mg BID PO Last administered on 11/22/16 08:52; Start at 15:00; Stop 11/22/16 at 11:03; Status DC Finasteride (Proscar) 5 mg DAILY PO Last administered on 11/27/16 08:51; Start 11/21/16 at 15:00 Folic Acid (Folic Acid) 1 mg DAILY PO Last administered on 11/27/16 08:51; Start 11/21/16 at 15:00 Furosemide (Lasix) 20 mg DAILY PO ; Start 11/21/16 at 15:00; Stop 11/22/16 at 09: 16; Status DC Tamsulosin HCl (Flomax) 0.4 mg BID PO Last administered on 11/27/16 08:51; Start 11/21/16 at 21:00 Colchicine (Colcrys) 0.6 mg DAILY PO Last administered on 11/27/16 08:51; Start 11/21/16 at 15:00 Gabapentin (Neurontin) 900 mg TID PO Last administered on 11/22/16 08:44; Start 11/21/16 at 14:00; Stop 11/22/16 at 11:04; Status DC Ephedrine Sulfate 50 mg STK-MED ONCE IV ; Start 11/21/16 at 13:14; Stop at 13:15; Status DC Oxycodone HCl (Roxicodone) 5 mg PRN Q3HRS PRN PO PAIN Last administered on 08:40; Start 11/21/16 at 13:15 Info 1 ea DAILY MC ; Start 11/22/16 at 09:00 Naloxone HCl (Narcan) 0.1 mg PRN Q2MIN PRN IV ADMIN; Start 11/21/16 at 13:15 Sodium Chloride (Normal Saline Flush) 3 ml QSHIFT PRN IV AFTER MEDS AND BLOOD DRAWS; Start 11/21/16 at 13:15 Sodium Chloride 1,000 ml @ 100 mls/hr Q10H IV Last administered on 11/22/16 02 :16; Start 11/21/16 at 13:14; Stop 11/22/16 at 09:11; Status DC Oxycodone/ Acetaminophen (Percocet 5/325) 1 tab PRN Q4HRS PRN PO MILD PAIN, 1ST CHOICE Last administered on 11/25/16 19:46; Start 11/21/16 at 13:15 Oxycodone/ Acetaminophen (Percocet 5/325) 2 tab PRN Q4HRS PRN PO MODERATE PAIN , SEVERE PAIN Last administered on 11/24/16 17:05; Start 11/21/16 at 13:15 Acetaminophen (Tylenol) 650 mg PRN Q6HRS PRN PO Headaches, Temp > 101.5F; Start 11/21/16 at 13:15 Morphine Sulfate 2 mg PRN Q1HR PRN IV PAIN Last administered on 11/21/16 21:46 ; Start 11/21/16 at 13:15 Docusate Sodium (Colace) 100 mg BID PO Last administered on 11/27/16 08:51; Start 11/21/16 at 21:00 Ondansetron HCl (Zofran) 4 mg PRN Q6HRS PRN IV NAUESA, 1ST CHOICE; Start at 13:15 Prochlorperazine Edisylate (Compazine) 5 mg PRN Q6HRS PRN IV N/V, 2nd Choice, MR X1; Start 11/21/16 at 13:15 Cefazolin Sodium 1 gm/Sodium Chloride 50 ml @ 100 mls/hr Q6H IV Last administered on 11/22/16 06:14; Start 11/21/16 at 19:00; Stop 11/22/16 at 07:29; Status DC Hydralazine HCl (Apresoline) 10 mg PRN Q4HRS PRN IVP ELEVATED BP, SEE COMMENTS ; Start 11/21/16 at 13:15 Clopidogrel Bisulfate (Plavix) 75 mg DAILYWBKFT PO Last administered on 08:51; Start 11/22/16 at 08:00 Phenylephrine HCl (Laith-Synephrine Inj) 10 mg STK-MED ONCE .ROUTE ; Start at 13:35; Stop 11/21/16 at 13:36; Status DC Heparin Sodium (Porcine) (Heparin Sodium) 10,000 unit STK-MED ONCE .ROUTE ; Start 11/21/16 at 13:43; Stop 11/21/16 at 13:44; Status DC Heparin Sodium/ Dextrose 500 ml @ 10 mls/hr CONT PRN IV SEE I/O RECORD Last administered on 11/21/16 20:33; Start 11/21/16 at 15:15; Stop 11/25/16 at 14:22 ; Status DC Rocuronium [place] (Zemuron) 100 mg STK-MED ONCE .ROUTE ; Start 11/21/16 at 15: 02; Stop 11/21/16 at 15:03; Status DC Albumin Human 500 ml @ As Directed STK-MED ONCE IV ; Start 11/21/16 at 15:36; Stop 11/21/16 at 15:37; Status DC Protamine Sulfate 50 mg STK-MED ONCE IV ; Start 11/21/16 at 15:43; Stop at 15:44; Status DC Thrombin 20,000 unit STK-MED ONCE TP Last administered on 11/21/16 16:26; Start 11/21/16 at 16:15; Stop 11/21/16 at 16:16; Status DC Cellulose 1 each STK-MED ONCE .ROUTE Last administered on 11/21/16 17:07; Start 11/21/16 at 16:43; Stop 11/21/16 at 16:44; Status DC Desflurane (Suprane) 90 ml STK-MED ONCE IH ; Start 11/21/16 at 16:52; Stop 11/21 at 16:53; Status DC Cellulose 1 each STK-MED ONCE .ROUTE ; Start 11/21/16 at 17:17; Stop 11/21/16 at 17:18; Status DC Magnesium Sulfate/ Dextrose 50 ml @ 25 mls/hr 1X ONCE IV Last administered on 11/22/16 10:09; Start 11/22/16 at 08:30; Stop 11/22/16 at 10:29; Status DC Potassium Chloride (Klor-Con) 40 meq 1X ONCE PO Last administered on 11/22/16 10:07; Start 11/22/16 at 09:30; Stop 11/22/16 at 09:31; Status DC Magnesium Oxide (Magnesium Oxide) 400 mg BID PO Last administered on 11/27/16 08:52; Start 11/22/16 at 10:00 Potassium Chloride 30 meq/ Sodium Chloride 1,015 ml @ 75 mls/hr [id number] IV Last administered on 11/23/16 03:30; Start 11/22/16 at 09:30; Stop 11/23/16 at 13: 48; Status DC Famotidine (Pepcid) 20 mg DAILY PO Last administered on 11/27/16 08:51; Start 11/23/16 at 09:00 Gabapentin (Neurontin) 900 mg BID PO Last administered on 11/27/16 08:52; Start 11/22/16 at 21:00 Magnesium Sulfate/ Dextrose 50 ml @ 25 mls/hr PRN 1X PRN IV PER PROTOCOL; Start 11/22/16 at 16:15; Status Cancel Magnesium Sulfate/ Dextrose 50 ml @ 25 mls/hr PRN DAILY PRN IV FOR MAG<1.7; Start 11/23/16 at 09:00 Info (Anti-Coagulation Monitoring By Pharmacy) 1 each PRN DAILY PRN MC SEE COMMENTS; Start 11/23/16 at 12:45; Stop 11/26/16 at 07:55; Status DC Furosemide (Lasix) 40 mg 1X ONCE IVP Last administered on 11/23/16 15:48; Start 11/23/16 at 14:30; Stop 11/23/16 at 14:31; Status DC Albumin Human 50 ml @ 50 mls/hr 1X ONCE IV Last administered on 11/23/16 14:29 ; Start 11/23/16 at 14:30; Stop 11/23/16 at 15:29; Status DC Norepinephrine Bitartrate 250 ml @ 0 mls/hr CONT PRN IV SEE I/O RECORD; Start 11/23/16 at 15:45 Furosemide (Lasix) 40 mg 1X ONCE IVP Last administered on 11/24/16 08:26; Start 11/24/16 at 08:00; Stop 11/24/16 at 08:03; Status DC Atorvastatin Calcium (Lipitor) 20 mg QHS PO Last administered on 11/26/16 21:25 ; Start 11/25/16 at 21:00 Metoprolol Tartrate (Lopressor) 25 mg BID PO Last administered on 11/26/16 21: 25; Start 11/25/16 at 09:00 Methylprednisolone Acetate (DEPO-Medrol 40MG VIAL) 40 mg 1X ONCE IM Last administered on 11/26/16 10:30; Start 11/26/16 at 10:30; Stop 11/26/16 at 10:31; Status DC Methylprednisolone Acetate (DEPO-Medrol 40MG VIAL) 40 mg 1X ONCE IM Last administered on 11/26/16 10:30; Start 11/26/16 at 10:30; Stop 11/26/16 at 10:31; Status DC Bupivacaine HCl (Sensorcaine-Mpf 0.25%) 10 ml 1X ONCE IJ Last administered on 11/26/16t 10:30; Start 11/26/16 at 10:30; Stop 11/26/16 at 10:31; Status DC Active Scripts Active Atorvastatin Calcium 10 Mg Tablet 20 Mg PO QHS 30 Days Reported Gabapentin 300 Mg Capsule 900 Mg PO TID Colchicine 0.6 Mg Capsule 0.6 Mg PO DAILY Aspirin Ec (Aspirin) 81 Mg Tablet.dr 1 Tab PO DAILY Folic Acid 1 Mg Tablet 1 Tab PO DAILY Finasteride 5 Mg Tablet 1 Tab PO DAILY . Furosemide 20 Mg Tablet 1 Tab PO DAILY . Allopurinol 300 Mg Tablet 1 Tab PO DAILY Pepcid (Famotidine) 20 Mg Tablet 20 Mg PO BID . Hydrocodone-Apap 5-325 (Hydrocodone Bit/Acetaminophen) 1 Each Tablet 1 Tab PO PRN Q4HRS PRN . Flomax (Tamsulosin Hcl) 0.4 Mg Cap.er.24h 0.4 Mg PO BID Coreg (Carvedilol) 3.125 Mg Tablet 3.125 Mg PO BID Vitals/I & O Vital Sign - Last 24 Hours 11/26/16 11/26/16 11/26/16 11/26/16 11:12 14:25 19:50 20:22 Temp 98.1 99.1 98.1 99.1 Pulse 93 101 Resp 19 18 18 B/P (MAP) 93/45 (61) 85/58 (67) 112/57 (75) Pulse Ox 95 96 97 O2 Delivery Room Air Room Air Room Air Room Air 11/26/16 11/26/16 11/27/16 11/27/16 21:25 22:40 03:20 07:30 Temp 98.5 98.7 97.5 98.5 98.7 97.5 Pulse 107 80 82 75 Resp 20 18 18 B/P (MAP) 112/57 105/57 (73) 102/57 (72) 103/52 (69) Pulse Ox 97 96 91 O2 Delivery Room Air Room Air Room Air 11/27/16 08:13 O2 Delivery Room Air Intake and Output 11/26/16 11/26/16 11/27/16 15:00 23:00 07:00 Intake Total 240 ml 880 ml Output Total 450 ml 1000 ml Balance -210 ml 880 ml -1000 ml ABDOULAYE LEW MD Nov 27, 2016 09:44
--- NOTE | 2016-11-27 10:26 | PDOC ---
SUBJECTIVE Subjective feels better working with PT this AM, had knee injections bilateral OBJECTIVE Vital Signs Vital Signs Date Time Temp Pulse Resp B/P (MAP) Pulse Ox O2 Delivery O2 Flow Rate FiO2 11/27/16 08:13 Room Air 11/27/16 07:30 97.5 75 18 103/52 (69) 91 Room Air 97.5 11/27/16 03:20 98.7 82 18 102/57 (72) 96 Room Air 98.7 11/26/16 22:40 98.5 80 20 105/57 (73) 97 Room Air 98.5 11/26/16 21:25 107 112/57 11/26/16 20:22 Room Air 11/26/16 19:50 99.1 101 18 112/57 (75) 97 Room Air 99.1 11/26/16 14:25 98.1 18 85/58 (67) 96 Room Air 98.1 11/26/16 11:12 93 19 93/45 (61) 95 Room Air I & O Intake and Output 11/27/16 07:00 Intake Total 1120 ml Output Total 1450 ml Balance -330 ml Intake Oral 1120 ml Output Urine Total 1450 ml # Voids 1 # Bowel Movements 1 PHYSICAL EXAM Physical Exam decrease edema LE, Left heel still some bloody discharge, pulse ok ASSESSMENT/PLAN Assessment/Plan 1. Peripheral vascular disease status post femoral popliteal bypass surgery. 2. Anemia postoperative, expected, Hb stabalized continue to monitor 3. Nonsustained ventricular tachycardia due to hypokalemia and hypomagnesemia. replaced , plans for life vest upon discharge 4. Chronic kidney disease stage 4 lasix on hold for now 5. Chronic diastolic and systolic congestive heart failure. 6. Peripheral neuropathy. 7. History of alcoholism. 8. Previous history of hypertension and hyperlipidemia. currently low Bp, Bp better 9. malnutrition modarate to severe discussed with dr. Mcintyre had knee injection today , Dr. Mcintyre ordered knee braces when available plan transfer to SNU , continue PT Problems: COMMENT Lab Laboratory Tests Test 11/27/16 05:40 White Blood Count 6.1 x10^3/uL (4.0-11.0) Red Blood Count 2.66 x10^6/uL (4.30-5.70) Hemoglobin 8.3 g/dL (13.0-17.5) Hematocrit 24.9 % (39.0-53.0) Mean Corpuscular Volume 93 fL (79-100) Mean Corpuscular Hemoglobin 31 pg (25-35) Mean Corpuscular Hemoglobin Concent 33 g/dL (31-37) Red Cell Distribution Width 16.6 % (11.5-14.5) Platelet Count 152 x10^3/uL (140-400) Sodium Level 142 mmol/L (136-145) Potassium Level 5.0 mmol/L (3.5-5.1) Chloride Level 106 mmol/L (98-107) Carbon Dioxide Level 28 mmol/L (21-32) Anion Gap 8 (6-14) Blood Urea Nitrogen 59 mg/dL (8-26) Creatinine 2.1 mg/dL (0.7-1.3) Estimated GFR (Cockcroft-Gault) 30.5 Glucose Level 145 mg/dL (70-99) Calcium Level 8.5 mg/dL (8.5-10.1) DB REAL MD Nov 27, 2016 10:25
[2016-11-27] MEDS: oxyCODONE/APAP 5/325 1 TAB TABLET PO PRN ×2 (13:32→21:35)
--- NOTE | 2016-11-27 15:01 | PDOC ---
Provider Note Provider Note AF VSS awake and alert left leg incisions intact with no erythema/drainage, palpable graft pulse, foot dressing dry A/P s/p left leg iliofem and fem-pop bypass - continue PT/OT - dressing care to the left foot - awaiting placement LANDON HERNANDEZ MD Nov 27, 2016 15:01
[2016-11-27] MEDS: ATORVASTATIN CALCIUM 20 MG TABLET PO SCH (21:34)
[2016-11-28 03:00] VITALS: BP 102/54
[2016-11-28 07:00] VITALS: BP 111/57
[2016-11-28] MEDS: ELECTROLYTE (NON-ICU) PROTOCOL MC SCH (09:00)
--- NOTE | 2016-11-28 09:57 | PDOC ---
PROGRESS NOTES Subjective Subjective No new complaints. Objective Objective Vital Signs Date Time Temp Pulse Resp B/P (MAP) Pulse Ox O2 Delivery O2 Flow Rate FiO2 11/28/16 08:18 Room Air 11/28/16 07:00 98.5 89 20 111/57 (75) 94 98.5 11/25/16 21:00 2.0 Intake and Output 11/28/16 07:00 Intake Total 240 ml Output Total 850 ml Balance -610 ml Intake Oral 240 ml Output Urine Total 850 ml # Bowel Movements 1 Physical Exam Physical Exam He received his ROM knee braces and they were done loosely by nursing.He likes them. Plan Plan of Care I have gone over with his and nursing staff how to put them on properly.To SNF when medically stable. Comment Review of Relevant I have reviewed the following items osiris (where applicable) has been applied. Labs Laboratory Tests Test 11/27/16 05:40 White Blood Count 6.1 x10^3/uL (4.0-11.0) Red Blood Count 2.66 x10^6/uL (4.30-5.70) Hemoglobin 8.3 g/dL (13.0-17.5) Hematocrit 24.9 % (39.0-53.0) Mean Corpuscular Volume 93 fL (79-100) Mean Corpuscular Hemoglobin 31 pg (25-35) Mean Corpuscular Hemoglobin Concent 33 g/dL (31-37) Red Cell Distribution Width 16.6 % (11.5-14.5) Platelet Count 152 x10^3/uL (140-400) Sodium Level 142 mmol/L (136-145) Potassium Level 5.0 mmol/L (3.5-5.1) Chloride Level 106 mmol/L (98-107) Carbon Dioxide Level 28 mmol/L (21-32) Anion Gap 8 (6-14) Blood Urea Nitrogen 59 mg/dL (8-26) Creatinine 2.1 mg/dL (0.7-1.3) Estimated GFR (Cockcroft-Gault) 30.5 Glucose Level 145 mg/dL (70-99) Calcium Level 8.5 mg/dL (8.5-10.1) Medications Current Medications Heparin Sodium (Porcine) 5000 unit/Sodium Chloride 505 ml @ 505 mls/hr 1X PERIOP ONCE IRR Last administered on 11/21/16t 15:51; Start 5/31/17 at 06:00 ; Stop 11/21/16 at 07:00; Status DC Cefazolin Sodium 1 gm/Sodium Chloride 500 ml @ 500 mls/hr 1X PERIOP ONCE IRR Last administered on 11/21/16 13:05; Start 11/21/16 at 06:00; Stop 11/21/16 at 07:00; Status DC Cefazolin Sodium/ Dextrose 50 ml @ 100 mls/hr 1X PREOP PRN IV PRIOR TO PROCEDURE Last administered on 11/21/16 13:05; Start 11/21/16 at 06:00; Stop at 18:00; Status DC Ondansetron HCl (Zofran) 4 mg PRN Q6HRS PRN IV NAUSEA/VOMITING; Start 11/21/16 at 06:45; Stop 11/22/16 at 06:44; Status DC Fentanyl Citrate (Fentanyl 2ml Vial) 25 mcg PRN Q5MIN PRN IV MILD PAIN Last administered on 11/21/16 12:50; Start 11/21/16 at 06:45; Stop 11/22/16 at 06:44 ; Status DC Fentanyl Citrate (Fentanyl 2ml Vial) 50 mcg PRN Q5MIN PRN IV MODERATE PAIN Last administered on 11/21/16 17:45; Start 11/21/16 at 06:45; Stop 11/22/16 at 06:44; Status DC Morphine Sulfate 1 mg PRN Q10MIN PRN IV SEVERE PAIN; Start 11/21/16 at 06:45; Stop 11/22/16 at 06:44; Status DC Ringer's Solution 1,000 ml @ 30 mls/hr Q24H IV Last administered on 11/21/16 10:53; Start 11/21/16 at 06:38; Stop 11/21/16 at 18:37; Status DC Lidocaine HCl 2 ml PRN 1X PRN ID PRIOR TO IV START; Start 11/21/16 at 06:45; Stop 11/22/16 at 06:44; Status DC Hydromorphone HCl (Dilaudid) 0.5 mg PRN Q10MIN PRN IV SEV PAIN, Second choice; Start 11/21/16 at 06:45; Stop 11/22/16 at 06:44; Status DC Prochlorperazine Edisylate (Compazine) 5 mg PACU PRN PRN IV NAUSEA, MRX1; Start 11/21/16 at 06:45; Stop 11/22/16 at 06:44; Status DC Fentanyl Citrate (Fentanyl 5ml Vial) 250 mcg STK-MED ONCE .ROUTE ; Start at 11:28; Stop 11/21/16 at 11:29; Status DC Rocuronium Landers (Zemuron) 50 mg STK-MED ONCE .ROUTE ; Start 11/21/16 at 11:28 ; Stop 11/21/16 at 11:29; Status DC Sevoflurane (Ultane) 90 ml STK-MED ONCE IH ; Start 11/21/16 at 11:28; Stop 11/21 at 11:29; Status DC Lidocaine HCl (Lidocaine Pf 2% Vial) 5 ml STK-MED ONCE .ROUTE ; Start 11/21/16 at 11:28; Stop 11/21/16 at 11:29; Status DC Propofol 20 ml @ As Directed STK-MED ONCE IV ; Start 11/21/16 at 11:28; Stop at 11:29; Status DC Ondansetron HCl (Zofran) 4 mg STK-MED ONCE .ROUTE ; Start 11/21/16 at 11:28; Stop 11/21/16 at 11:29; Status DC Phenylephrine HCl 1 mg STK-MED ONCE IV ; Start 11/21/16 at 13:01; Stop 11/21/16 at 13:02; Status DC Allopurinol (Zyloprim) 300 mg DAILY PO Last administered on 11/27/16 09:00; Start 11/21/16 at 15:00 Aspirin (Ecotrin) 81 mg DAILY PO Last administered on 11/27/16 08:51; Start 11/22/16 at 09:00 Atorvastatin Calcium (Lipitor) 20 mg QHS PO Last administered on 11/24/16 21:13 ; Start 11/21/16 at 21:00; Stop 11/25/16 at 10:50; Status DC Carvedilol (Coreg) 3.125 mg BIDWMEALS PO Last administered on 11/22/16 00:46; Start 11/21/16 at 21:00; Stop 11/22/16 at 09:15; Status DC Famotidine (Pepcid) 20 mg BID PO Last administered on 11/22/16 08:52; Start at 15:00; Stop 11/22/16 at 11:03; Status DC Finasteride (Proscar) 5 mg DAILY PO Last administered on 11/27/16 08:51; Start 11/21/16 at 15:00 Folic Acid (Folic Acid) 1 mg DAILY PO Last administered on 11/27/16 08:51; Start 11/21/16 at 15:00 Furosemide (Lasix) 20 mg DAILY PO ; Start 11/21/16 at 15:00; Stop 11/22/16 at 09: 16; Status DC Tamsulosin HCl (Flomax) 0.4 mg BID PO Last administered on 11/27/16 21:35; Start 11/21/16 at 21:00 Colchicine (Colcrys) 0.6 mg DAILY PO Last administered on 11/27/16 08:51; Start 11/21/16 at 15:00 Gabapentin (Neurontin) 900 mg TID PO Last administered on 11/22/16 08:44; Start 11/21/16 at 14:00; Stop 11/22/16 at 11:04; Status DC Ephedrine Sulfate 50 mg STK-MED ONCE IV ; Start 11/21/16 at 13:14; Stop at 13:15; Status DC Oxycodone HCl (Roxicodone) 5 mg PRN Q3HRS PRN PO PAIN Last administered on 08:40; Start 11/21/16 at 13:15 Info 1 ea DAILY MC ; Start 11/22/16 at 09:00 Naloxone HCl (Narcan) 0.1 mg PRN Q2MIN PRN IV ADMIN; Start 11/21/16 at 13:15 Sodium Chloride (Normal Saline Flush) 3 ml QSHIFT PRN IV AFTER MEDS AND BLOOD DRAWS; Start 11/21/16 at 13:15 Sodium Chloride 1,000 ml @ 100 mls/hr Q10H IV Last administered on 11/22/16 02 :16; Start 11/21/16 at 13:14; Stop 11/22/16 at 09:11; Status DC Oxycodone/ Acetaminophen (Percocet 5/325) 1 tab PRN Q4HRS PRN PO MILD PAIN, 1ST CHOICE Last administered on 11/27/16 21:35; Start 11/21/16 at 13:15 Oxycodone/ Acetaminophen (Percocet 5/325) 2 tab PRN Q4HRS PRN PO MODERATE PAIN , SEVERE PAIN Last administered on 11/24/16 17:05; Start 11/21/16 at 13:15 Acetaminophen (Tylenol) 650 mg PRN Q6HRS PRN PO Headaches, Temp > 101.5F; Start 11/21/16 at 13:15 Morphine Sulfate 2 mg PRN Q1HR PRN IV PAIN Last administered on 11/21/16 21:46 ; Start 11/21/16 at 13:15 Docusate Sodium (Colace) 100 mg BID PO Last administered on 11/27/16 21:35; Start 11/21/16 at 21:00 Ondansetron HCl (Zofran) 4 mg PRN Q6HRS PRN IV NAUESA, 1ST CHOICE; Start at 13:15 Prochlorperazine Edisylate (Compazine) 5 mg PRN Q6HRS PRN IV N/V, 2nd Choice, MR X1; Start 11/21/16 at 13:15 Cefazolin Sodium 1 gm/Sodium Chloride 50 ml @ 100 mls/hr Q6H IV Last administered on 11/22/16 06:14; Start 11/21/16 at 19:00; Stop 11/22/16 at 07:29; Status DC Hydralazine HCl (Apresoline) 10 mg PRN Q4HRS PRN IVP ELEVATED BP, SEE COMMENTS ; Start 11/21/16 at 13:15 Clopidogrel Bisulfate (Plavix) 75 mg DAILYWBKFT PO Last administered on 08:51; Start 11/22/16 at 08:00 Phenylephrine HCl (Laith-Synephrine Inj) 10 mg STK-MED ONCE .ROUTE ; Start at 13:35; Stop 11/21/16 at 13:36; Status DC Heparin Sodium (Porcine) (Heparin Sodium) 10,000 unit STK-MED ONCE .ROUTE ; Start 11/21/16 at 13:43; Stop 11/21/16 at 13:44; Status DC Heparin Sodium/ Dextrose 500 ml @ 10 mls/hr CONT PRN IV SEE I/O RECORD Last administered on 11/21/16 20:33; Start 11/21/16 at 15:15; Stop 11/25/16 at 14:22 ; Status DC Rocuronium Landers (Zemuron) 100 mg STK-MED ONCE .ROUTE ; Start 11/21/16 at 15: 02; Stop 11/21/16 at 15:03; Status DC Albumin Human 500 ml @ As Directed STK-MED ONCE IV ; Start 11/21/16 at 15:36; Stop 11/21/16 at 15:37; Status DC Protamine Sulfate 50 mg STK-MED ONCE IV ; Start 11/21/16 at 15:43; Stop at 15:44; Status DC Thrombin 20,000 unit STK-MED ONCE TP Last administered on 11/21/16 16:26; Start 11/21/16 at 16:15; Stop 11/21/16 at 16:16; Status DC Cellulose 1 each STK-MED ONCE .ROUTE Last administered on 11/21/16 17:07; Start 11/21/16 at 16:43; Stop 11/21/16 at 16:44; Status DC Desflurane (Suprane) 90 ml STK-MED ONCE IH ; Start 11/21/16 at 16:52; Stop 11/21 at 16:53; Status DC Cellulose 1 each STK-MED ONCE .ROUTE ; Start 11/21/16 at 17:17; Stop 11/21/16 at 17:18; Status DC Magnesium Sulfate/ Dextrose 50 ml @ 25 mls/hr 1X ONCE IV Last administered on 11/22/16 10:09; Start 11/22/16 at 08:30; Stop 11/22/16 at 10:29; Status DC Potassium Chloride (Klor-Con) 40 meq 1X ONCE PO Last administered on 11/22/16 10:07; Start 11/22/16 at 09:30; Stop 11/22/16 at 09:31; Status DC Magnesium Oxide (Magnesium Oxide) 400 mg BID PO Last administered on 11/27/16 21:34; Start 11/22/16 at 10:00 Potassium Chloride 30 meq/ Sodium Chloride 1,015 ml @ 75 mls/hr [id number] IV Last administered on 11/23/16 03:30; Start 11/22/16 at 09:30; Stop 11/23/16 at 13: 48; Status DC Famotidine (Pepcid) 20 mg DAILY PO Last administered on 11/27/16 08:51; Start 11/23/16 at 09:00 Gabapentin (Neurontin) 900 mg BID PO Last administered on 11/27/16 21:34; Start 11/22/16 at 21:00 Magnesium Sulfate/ Dextrose 50 ml @ 25 mls/hr PRN 1X PRN IV PER PROTOCOL; Start 11/22/16 at 16:15; Status Cancel Magnesium Sulfate/ Dextrose 50 ml @ 25 mls/hr PRN DAILY PRN IV FOR MAG<1.7; Start 11/23/16 at 09:00 Info (Anti-Coagulation Monitoring By Pharmacy) 1 each PRN DAILY PRN [facility] SEE COMMENTS; Start 11/23/16 at 12:45; Stop 11/26/16 at 07:55; Status DC Furosemide (Lasix) 40 mg 1X ONCE IVP Last administered on 11/23/16 15:48; Start 11/23/16 at 14:30; Stop 11/23/16 at 14:31; Status DC Albumin Human 50 ml @ 50 mls/hr 1X ONCE IV Last administered on 11/23/16 14:29 ; Start 11/23/16 at 14:30; Stop 11/23/16 at 15:29; Status DC Norepinephrine Bitartrate 250 ml @ 0 mls/hr CONT PRN IV SEE I/O RECORD; Start 11/23/16 at 15:45; Stop 11/28/16 at 08:19; Status DC Furosemide (Lasix) 40 mg 1X ONCE IVP Last administered on 11/24/16 08:26; Start 11/24/16 at 08:00; Stop 11/24/16 at 08:03; Status DC Atorvastatin Calcium (Lipitor) 20 mg QHS PO Last administered on 11/27/16 21:34 ; Start 11/25/16 at 21:00 Metoprolol Tartrate (Lopressor) 25 mg BID PO Last administered on 11/27/16 21: 35; Start 11/25/16 at 09:00 Methylprednisolone Acetate (DEPO-Medrol 40MG VIAL) 40 mg 1X ONCE IM Last administered on 11/26/16 10:30; Start 11/26/16 at 10:30; Stop 11/26/16 at 10:31; Status DC Methylprednisolone Acetate (DEPO-Medrol 40MG VIAL) 40 mg 1X ONCE IM Last administered on 11/26/16 10:30; Start 11/26/16 at 10:30; Stop 11/26/16 at 10:31; Status DC Bupivacaine HCl (Sensorcaine-Mpf 0.25%) 10 ml 1X ONCE IJ Last administered on 11/26/16 10:30; Start 11/26/16 at 10:30; Stop 11/26/16 at 10:31; Status DC Active Scripts Active Atorvastatin Calcium 10 Mg Tablet 20 Mg PO QHS 30 Days Reported Gabapentin 300 Mg Capsule 900 Mg PO TID Colchicine 0.6 Mg Capsule 0.6 Mg PO DAILY Aspirin Ec (Aspirin) 81 Mg Tablet.dr 1 Tab PO DAILY Folic Acid 1 Mg Tablet 1 Tab PO DAILY Finasteride 5 Mg Tablet 1 Tab PO DAILY . Furosemide 20 Mg Tablet 1 Tab PO DAILY . Allopurinol 300 Mg Tablet 1 Tab PO DAILY Pepcid (Famotidine) 20 Mg Tablet 20 Mg PO BID . Hydrocodone-Apap 5-325 (Hydrocodone Bit/Acetaminophen) 1 Each Tablet 1 Tab PO PRN Q4HRS PRN . Flomax (Tamsulosin Hcl) 0.4 Mg Cap.er.24h 0.4 Mg PO BID Coreg (Carvedilol) 3.125 Mg Tablet 3.125 Mg PO BID Vitals/I & O Vital Sign - Last 24 Hours 11/27/16 11/27/16 11/27/16 11/27/16 10:28 13:32 14:51 19:00 Temp 96.5 97.4 97.8 96.5 97.4 97.8 Pulse 91 90 68 Resp 18 18 16 16 B/P (MAP) 108/50 (69) 116/58 (77) 179/88 (118) Pulse Ox 93 95 96 O2 Delivery Room Air Room Air Room Air Room Air 11/27/16 11/27/16 11/27/16 11/27/16 19:30 19:50 21:35 21:35 Temp 98.4 98.4 Pulse 93 90 Resp 20 16 B/P (MAP) 111/59 (76) 111/59 Pulse Ox 97 97 O2 Delivery Room Air Room Air Room Air 11/27/16 11/27/16 11/28/16 11/28/16 22:32 23:00 03:00 07:00 Temp 98.9 98.3 98.5 98.9 98.3 98.5 Pulse 87 78 89 Resp 16 16 16 20 B/P (MAP) 98/52 (67) 102/54 (70) 111/57 (75) Pulse Ox 97 95 97 94 O2 Delivery Room Air Room Air Room Air Room Air 11/28/16 08:18 O2 Delivery Room Air Intake and Output 11/27/16 11/27/16 11/28/16 15:00 23:00 07:00 Intake Total 240 ml Output Total 450 ml 400 ml Balance 240 ml -450 ml -400 ml ABDOULAYE LEW MD Nov 28, 2016 09:57
[2016-11-28] MEDS ORDERED: MAGN400T22 PO (10:03)
[2016-11-28] MEDS ORDERED: FURO20TA3 PO (10:03)
[2016-11-28] MEDS ORDERED: METO25TA4 PO (10:03)
[2016-11-28] MEDS ORDERED: CLOP75TA PO (10:03)
[2016-11-28] MEDS ORDERED: HYDR-2758 PO (10:04)
--- NOTE | 2016-11-28 10:05 | PDOC ---
SUBJECTIVE Subjective feels better today, feels stronger , got braces feels he can walk again OBJECTIVE Vital Signs Vital Signs Date Time Temp Pulse Resp B/P (MAP) Pulse Ox O2 Delivery O2 Flow Rate FiO2 11/28/16 08:18 Room Air 11/28/16 07:00 98.5 89 20 111/57 (75) 94 Room Air 98.5 11/28/16 03:00 98.3 78 16 102/54 (70) 97 Room Air 98.3 11/27/16 23:00 98.9 87 16 98/52 (67) 95 Room Air 98.9 11/27/16 22:32 16 97 Room Air 11/27/16 21:35 90 111/59 11/27/16 21:35 16 97 Room Air 11/27/16 19:50 Room Air 11/27/16 19:30 98.4 93 20 111/59 (76) 97 Room Air 98.4 11/27/16 19:00 97.8 68 16 179/88 (118) 96 Room Air 97.8 11/27/16 14:51 97.4 90 16 116/58 (77) 95 Room Air 97.4 11/27/16 13:32 18 Room Air 11/27/16 10:28 96.5 91 18 108/50 (69) 93 Room Air 96.5 I & O Intake and Output 11/28/16 06:59 Intake Total 240 ml Output Total 850 ml Balance -610 ml Intake Oral 240 ml Output Urine Total 850 ml # Bowel Movements 1 PHYSICAL EXAM Physical Exam not much change but feels better ASSESSMENT/PLAN Assessment/Plan discharge to SNU today , see discharge summary, will do lasix twice weekly, continue Mg++ and monitor electrolytes Problems: DB REAL MD Nov 28, 2016 10:05
--- NOTE | 2016-11-28 10:06 | PDOC3 ---
Discharge Summary* Date of Admission: November 21, 2016 Date of Discharge: Nov 28, 2016 Final Diagnosis 1. Peripheral vascular disease status post ileofemoral and femoral popliteal bypass surgery. 2. Anemia postoperative, expected, Hb stabalized required transfusion 2 units RBC's 3. Nonsustained ventricular tachycardia due to hypokalemia and hypomagnesemia. replaced , plans for life vest upon discharge 4. Chronic kidney disease stage 4 , 5. Chronic diastolic and systolic congestive heart failure. 6. Peripheral neuropathy. 7. History of alcoholism. 8. Previous history of hypertension and hyperlipidemia. 9. malnutrition modarate to sever10. pressure left heel ulcer , started to heel after surgery CONSULTS vascular surgery, wound care ,urology due to retention, cardiology due to nonsustained V tach Procedures ileofemoral and femoral popliteal bypass, blood transfusion, debridement ulcer , bilateral knee injections, xray knnes and hip, and chest Brief Hospital Course Mr. Mercado is a 81 old [sex] who presented with [ ] Disposition/Orders: D/C to Another Facility CONDITION AT DISCHARGE: Improved Diet: Cardiac Scheduled Allopurinol (Allopurinol), 1 TAB PO DAILY, (Reported) Aspirin (Aspirin Ec), 1 TAB PO DAILY, (Reported) Atorvastatin Calcium (Atorvastatin Calcium), 20 MG PO QHS Carvedilol (Coreg), 3.125 MG PO BID, (Reported) Clopidogrel Bisulfate (Clopidogrel), 75 MG PO DAILYWBKFT Colchicine (Colchicine), 0.6 MG PO DAILY, (Reported) Famotidine (Pepcid), 20 MG PO BID, (Reported) Finasteride (Finasteride), 1 TAB PO DAILY, (Reported) Folic Acid (Folic Acid), 1 TAB PO DAILY, (Reported) Furosemide (Furosemide), 1 TAB PO TWICE WEEKLY Gabapentin (Gabapentin), 900 MG PO TID, (Reported) Magnesium Oxide (Mag-Oxide), 400 MG PO BID Metoprolol Tartrate (Metoprolol Tartrate), 25 MG PO BID Tamsulosin Hcl (Flomax), 0.4 MG PO BID, (Reported) Scheduled PRN Hydrocodone Bit/Acetaminophen (Hydrocodone-Apap 5-325 ), 1 TAB PO PRN Q4HRS PRN for PAIN FOLLOW UP APPOINTMENT: keep guan cath follow with urology, follow wound care, Dr. Real when out of SNU Time Spent Total time spent with patient [] minutes for coordination of care, counseling, and education. DB REAL MD Nov 28, 2016 10:06
[2016-11-28] MEDS: FAMOTIDINE 20 MG TABLET. PO SCH (10:22)
[2016-11-28] MEDS: ASPIRIN ENTERIC COATED 81 MG TABLET.DR. PO SCH (10:22)
[2016-11-28] MEDS: ALLOPURINOL 300 MG TABLET. PO SCH (10:22)
[2016-11-28] MEDS: FOLIC ACID 1 MG TABLET. PO SCH (10:22)
[2016-11-28] MEDS: CLOPIDOGREL BISULFATE 75 MG TABLET PO SCH (10:22)
[2016-11-28] MEDS: MAGNESIUM OXIDE 400 MG TABLET PO SCH (10:22)
[2016-11-28] MEDS: COLCHICINE 0.6 MG TABLET PO SCH (10:22)
[2016-11-28] MEDS: FINASTERIDE 5 MG TABLET. PO SCH (10:22)
[2016-11-28] MEDS: TAMSULOSIN 0.4 MG CAP.ER.24H. PO SCH (10:22)
[2016-11-28 10:23] VITALS: BP 111/57
[2016-11-28] MEDS: DOCUSATE SODIUM 100 MG CAPSULE. PO SCH (10:23)
[2016-11-28] MEDS: METOPROLOL TART IMMED RELEASE 25 MG TABLET. PO SCH (10:23)
[2016-11-28] MEDS: GABAPENTIN 300 MG CAPSULE. PO SCH (10:23)
== END 2016-11-28 15:49 | DRG 270 ==
LOC: OPSVCIP 09:53 → 2 NORTH 18:07 → 1 WEST ICU 11-23 15:49 → 2 NORTH 11-25 17:03
PROVIDERS: ADMIT Internal Medicine; ATTEND Internal Medicine
PROC: 04CJ0ZZ Extirpation of Matter from Left External Iliac Artery, Open Approach (ICD-10-PCS; principal; 2016-11-21 12:00)
PROC: 04UJ0JZ Supplement Left External Iliac Artery with Synthetic Substitute, Open Approach (ICD-10-PCS; 2016-11-21 12:00)
PROC: 30233N1 Transfusion of Nonautologous Red Blood Cells into Peripheral Vein, Percutaneous Approach (ICD-10-PCS; 2016-11-22)
PROC: 3E0U33Z Introduction of Anti-inflammatory into Joints, Percutaneous Approach (ICD-10-PCS; 2016-11-26)
PROC: 3E0U3BZ Introduction of Anesthetic Agent into Joints, Percutaneous Approach (ICD-10-PCS; 2016-11-26)
DX: I73.9 Peripheral vascular disease, unspecified (principal); I50.43 Acute on chronic combined systolic (congestive) and diastolic (congestive) heart failure; E43 Unspecified severe protein-calorie malnutrition; N17.9 Acute kidney failure, unspecified; I13.0 Hypertensive heart and chronic kidney disease with heart failure and stage 1 through stage 4 chronic kidney disease, or unspecified chronic kidney disease; I47.2 Ventricular tachycardia; L97.429 Non-pressure chronic ulcer of left heel and midfoot with unspecified severity; Z68.45 Body mass index [BMI] 70 or greater, adult; N18.5 Chronic kidney disease, stage 5; E78.5 Hyperlipidemia, unspecified; I25.10 Atherosclerotic heart disease of native coronary artery without angina pectoris; H91.90 Unspecified hearing loss, unspecified ear; M24.562 Contracture, left knee; M24.561 Contracture, right knee; L89.629 Pressure ulcer of left heel, unspecified stage; I87.2 Venous insufficiency (chronic) (peripheral); E83.42 Hypomagnesemia; E87.6 Hypokalemia; G62.9 Polyneuropathy, unspecified; I35.0 Nonrheumatic aortic (valve) stenosis; D64.9 Anemia, unspecified; E66.9 Obesity, unspecified; I25.5 Ischemic cardiomyopathy; K21.9 Gastro-esophageal reflux disease without esophagitis; K59.09 Other constipation; K74.60 Unspecified cirrhosis of liver; M10.00 Idiopathic gout, unspecified site; M19.90 Unspecified osteoarthritis, unspecified site; N40.0 Benign prostatic hyperplasia without lower urinary tract symptoms; Z82.49 Family history of ischemic heart disease and other diseases of the circulatory system; Z85.46 Personal history of malignant neoplasm of prostate; Z87.891 Personal history of nicotine dependence; Z92.3 Personal history of irradiation; Z95.1 Presence of aortocoronary bypass graft; Z95.2 Presence of prosthetic heart valve; Z95.3 Presence of xenogenic heart valve; Z87.01 Personal history of pneumonia (recurrent)
CPT/HCPCS: 36415; 71010; 73521; 73560; 80048; 80053; 83735; 84100; 85007; 85014; 85018; 85027; 85610; 85730; 86850; 86900; 86901; 86920; 93308; C1768; C1769; J0690; J1030; J1940; J2270; J2370; J2405; J2704; J3010; J3490; J7030; J7040; J7060; J7120; P9016; P9045; P9046; 97110; 97530; 97535

== ENCOUNTER → 2016-12-03 | Outpatient (CLI) | payer OTHER ==
[2016-11-28 10:23] VITALS: BP 111/57
[~2016-12-03] MED LIST changes: +CLOP75TA PO; -HEPARIN SODIUM 5,000 UNIT in IV NORMAL SALINE 500ML BAG 500 ML IRR ONE; -HYDROmorphone 2 MG/ML VIAL IV PRN; -IV RINGERS,LACTATED 1000ML 1,000 ML IV SCH; -LIDOCAINE 1% 1 ML SYRINGE. ID PRN; +MAGN400T22 PO; +METO25TA4 PO; -MORPHINE SULFATE 2 MG/ML DISP.SYRIN. IV PRN; -ONDANSETRON PF 4 MG/2 ML VIAL. IV PRN; -PROCHLORPERAZINE 10 MG/2 ML VIAL. IV PRN
== END | disposition home or self-care (01) ==
LOC: PMGWOUND 12:51
PROVIDERS: ATTEND Emergency Medicine Undersea and Hyperbaric Medicine
DX: L89.624 Pressure ulcer of left heel, stage 4 (principal); N30.40 Irradiation cystitis without hematuria; M86.172 Other acute osteomyelitis, left ankle and foot; K21.9 Gastro-esophageal reflux disease without esophagitis; E78.5 Hyperlipidemia, unspecified; I13.0 Hypertensive heart and chronic kidney disease with heart failure and stage 1 through stage 4 chronic kidney disease, or unspecified chronic kidney disease; N18.4 Chronic kidney disease, stage 4 (severe); I50.40 Unspecified combined systolic (congestive) and diastolic (congestive) heart failure; K74.60 Unspecified cirrhosis of liver; E78.00 Pure hypercholesterolemia, unspecified; M19.90 Unspecified osteoarthritis, unspecified site; E66.9 Obesity, unspecified; Z68.32 Body mass index [BMI] 32.0-32.9, adult; I73.9 Peripheral vascular disease, unspecified; G62.9 Polyneuropathy, unspecified; Z87.891 Personal history of nicotine dependence; Z85.46 Personal history of malignant neoplasm of prostate; Z95.1 Presence of aortocoronary bypass graft; Z87.01 Personal history of pneumonia (recurrent); Z72.89 Other problems related to lifestyle
CPT/HCPCS: 97597; 97598; 97605

== ENCOUNTER 2016-12-06 09:38 | Inpatient (IN) | payer OTHER ==
[~2016-12-06] VITALS: Ht 157.5 cm; Wt 98.9 kg
--- NOTE | 2016-12-06 10:09 | EKG ---
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
--- NOTE | 2016-12-06 10:44 | RAD ---
AP portable chest radiograph 12/06/2016 Clinical History: Shortness of breath. An AP portable erect digital radiograph of the chest was obtained. Comparison study is dated 11/23/2016. Surgical changes are seen consistent with CABG procedure. The cardiac silhouette is mildly enlarged. The thoracic aorta is tortuous. Prominence of pulmonary vasculature is seen involving both lungs consistent with CHF. The small bilateral pleural effusions seen on the previous examination have decreased in size. No pneumothorax is noted. The osseous structures are unchanged. Impression: CHF.
[2016-12-06 10:48] LABS: BASO # 0.1 x10^3/uL (0.0-0.2); BASO % 1 % (0-3); EOS % 1 % (0-3); HEMATOCRIT 25.6 % (39.0-53.0); HEMOGLOBIN 8.3 g/dL (13.0-17.5); LYMPH # 0.6 x10^3/uL (1.0-4.8); LYMPH % 4 % (24-48); MEAN CORPUSCULAR HEMOGLOBIN 31 pg (25-35); MEAN CORPUSCULAR HGB CONC 32 g/dL (31-37); MEAN CORPUSCULAR VOLUME 95 fL (79-100); MONO % 9 % (0-9); NEUT % 86 % (31-73); PLATELET COUNT 242 x10^3/uL (140-400); RED CELL DISTRIBUTION WIDTH 17.5 % (11.5-14.5)
[2016-12-06 10:50] LABS: CALCIUM 8.3 mg/dL (8.5-10.1); CREATININE 2.2 mg/dL (0.7-1.3); GFR 28.9; POTASSIUM 4.9 mmol/L (3.5-5.1)
[2016-12-06 11:02] LABS: ALBUMIN 2.8 g/dL (3.4-5.0); ALBUMIN/GLOBULIN RATIO 0.9 (1.0-1.7); TOTAL BILIRUBIN 0.8 mg/dL (0.2-1.0); TOTAL PROTEIN 5.8 g/dL (6.4-8.2)
[2016-12-06 11:13] LABS: CKMB MASS 3.2 ng/mL (0.0-3.6)
--- NOTE | 2016-12-06 11:38 | PHYS DOC ---
Past Medical History Past Medical History: Arthritis, CAD, Cancer, CHF, Constipation, High Cholesterol, Hypertension, [place], Renal Disease, UTI, Other Additional Past Medical Histor: Cirrhosis, PAD, gout, pressure ulcers, [place] Past Surgical History: Coronary Bypass Surgery, Other Additional Past Surgical Histo: stent placement Alcohol Use: Heavy Drug Use: None Adult General Chief Complaint Chief Complaint: DYSPNEA/RESPIRATOY DISTRESS HPI HPI Patient is a 81 year old male sent by ambulance from [facility] with the complaint of shortness of air and oxygen sat low. Patient has been having some wound problems and is at [facility] for that, also has some problems with his legs which are both in braces. He was sent by EMS with the complaint of shortness of air, reportedly his O2 sat was 87% on room air when EMS arrived. They put him on oxygen and he did improve. Patient states he has had a little cough, nothing much. He did have some chest pain last night but hasn't had any today. He actually did not complain of shortness of air to me, just stated he didn't feel very well. Records show a history of CHF, coronary artery disease, CABG, but no history that I see of DVT or PE. Patient is not a very good historian, he is vague. PCP Dr. Real Review of Systems Review of Systems Constitutional: Denies fever or chills [] Eyes: Denies change in visual acuity, redness, or eye pain [] HENT: Denies nasal congestion or sore throat [] Respiratory: As in history of present illness Cardiovascular: As in history of present illness GI: Denies abdominal pain, nausea, vomiting, bloody stools or diarrhea , patient says he hasn't been eating very well because he doesn't have much appetite : Denies dysuria or hematuria [] Musculoskeletal: Denies back pain or joint pain [] Integument: Denies rash or skin lesions [] Neurologic: Denies headache, focal weakness or sensory changes [] Current Medications Current Medications Allergies Allergies Allergies Coded Allergies Type Severity Reaction Last Updated Verified I S O L A T I O N *CONTACT* Allergy Unknown 11/21/16 Yes No Known Medication Allergies Allergy Unknown 11/21/16 Yes Physical Exam Physical Exam Constitutional: Well developed, well nourished, no acute distress, non-toxic appearance. Alert, appears to be mentating normally, no dyspnea. HENT: Normocephalic, atraumatic, bilateral external ears normal, nose normal. [] Eyes: conjunctiva normal, no discharge. [] Neck: Normal range of motion, no stridor. [] Cardiovascular:Heart rate regular rhythm, no murmur [] Lungs & Thorax: Bilateral breath sounds clear to auscultation , no wheezes or rales Abdomen: Bowel sounds normal, soft, no tenderness, no masses, no pulsatile masses. [] Skin: Warm, dry, no erythema, no rash. [] Extremities: No tenderness, no cyanosis, no clubbing, ROM intact, no edema. Patient wearing some type of braces on both legs. Neurologic: Alert and oriented X 3, normal motor function, normal sensory function, no focal deficits noted. [] Current Patient Data Vital Signs Vital Signs Date Time Temp Pulse Resp B/P (MAP) Pulse Ox O2 Delivery O2 Flow Rate FiO2 12/06/16 10:38 91 20 110/58 (75) 98 Room Air 12/06/16 09:39 98.4 2.0 98.4 Lab Values Laboratory Tests Test 12/06/16 10:25 White Blood Count 13.0 x10^3/uL (4.0-11.0) H Red Blood Count 2.70 x10^6/uL (4.30-5.70) L Hemoglobin 8.3 g/dL (13.0-17.5) L Hematocrit 25.6 % (39.0-53.0) L Mean Corpuscular Volume 95 fL (79-100) Mean Corpuscular Hemoglobin 31 pg (25-35) Mean Corpuscular Hemoglobin Concent 32 g/dL (31-37) Red Cell Distribution Width 17.5 % (11.5-14.5) H Platelet Count 242 x10^3/uL (140-400) Neutrophils (%) (Auto) 86 % (31-73) H Lymphocytes (%) (Auto) 4 % (24-48) L Monocytes (%) (Auto) 9 % (0-9) Eosinophils (%) (Auto) 1 % (0-3) Basophils (%) (Auto) 1 % (0-3) Neutrophils # (Auto) 11.2 x10^3uL (1.8-7.7) H Lymphocytes # (Auto) 0.6 x10^3/uL (1.0-4.8) L Monocytes # (Auto) 1.1 x10^3/uL (0.0-1.1) Eosinophils # (Auto) 0.1 x10^3/uL (0.0-0.7) Basophils # (Auto) 0.1 x10^3/uL (0.0-0.2) Segmented Neutrophils % 87 % (35-66) H Band Neutrophils % 1 % (0-9) Lymphocytes % 4 % (24-48) L Monocytes % 8 % (0-10) Platelet Estimate Adequate (ADEQUATE) D-Dimer (Yoanna) 3.45 ug/mlFEU (0.00-0.50) H Sodium Level 142 mmol/L (136-145) Potassium Level 4.9 mmol/L (3.5-5.1) Chloride Level 105 mmol/L (98-107) Carbon Dioxide Level 28 mmol/L (21-32) Anion Gap 9 (6-14) Blood Urea Nitrogen 56 mg/dL (8-26) H Creatinine 2.2 mg/dL (0.7-1.3) H Estimated GFR (Cockcroft-Gault) 28.9 BUN/Creatinine Ratio 25 (6-20) H Glucose Level 149 mg/dL (70-99) H Calcium Level 8.3 mg/dL (8.5-10.1) L Magnesium Level 2.5 mg/dL (1.8-2.4) H Total Bilirubin 0.8 mg/dL (0.2-1.0) Aspartate Amino Transferase (AST) 23 U/L (15-37) Alanine Aminotransferase (ALT) 21 U/L (16-63) Alkaline Phosphatase 111 U/L (46-116) Creatine Kinase 81 U/L (39-308) Creatine Kinase MB (Mass) 3.2 ng/mL (0.0-3.6) Creatine Kinase MB Relative Index 4.0 % (0-4) Troponin I Quantitative 1.015 ng/mL (0.000-0.055) DC-Rdf-F-Type Natriuretic Peptide 8604 pg/mL (0-449) H Total Protein 5.8 g/dL (6.4-8.2) L Albumin 2.8 g/dL (3.4-5.0) L Albumin/Globulin Ratio 0.9 (1.0-1.7) L Laboratory Tests 12/06/16 10:25 Laboratory Tests 12/06/16 10:25 EKG EKG 12-lead EKG read by me. Sinus rhythm. Heart rate 94. There are no acute ST or T wave changes indicative of ischemia or infarction. No STEMI. 0937 [] Radiology/Procedures Radiology/Procedures One view portable chest x-ray read by the radiologist. Congestive heart failure. [] Course & Med Decision Making Course & Med Decision Making Pertinent Labs and Imaging studies reviewed. (See chart for details) 81-year-old male [facility] with [facility]ness of air and a decreased O2 sat. Evaluation reveals congestive heart failure. He was given a dose of IV furosemide in the ED. He remained comfortable and stable while here. D-dimer elevated. I gave him a dose of Lovenox. His creatinine is elevated so he is not a candidate for CT angiography. I discussed this with Dr. Real and we will continue him for now on therapeutic Lovenox. I don't believe that he is a candidate for a nuclear lung scan at this time because he has congestive heart failure and I doubt if it would be able to be interpreted. I discussed the case with Dr. Real, his primary care physician, she will admit him to the hospital. I wrote bridge orders. [] Dragon Disclaimer Dragon Disclaimer This electronic medical record was generated, in whole or in part, using a voice recognition dictation system. Departure Departure Impression: Primary Impression: CHF (congestive heart failure) Additional Impression: Elevated troponin Disposition: ADMITTED INPATIENT Admitting Physician: Db Real Condition: STABLE Referrals: DB REAL MD (PCP) Problem Qualifiers DEANNA CARRILLO MD Dec 06, 2016 11:38
[2016-12-06] MEDS ORDERED: FUROSEMIDE 40 MG/4 ML VIAL. IVP ONE ×2 (11:45→18:00)
[2016-12-06] MEDS ORDERED: HYDROcodone/APAP 5/325MG 1 TAB TABLET PO ONE (12:30)
--- NOTE | 2016-12-06 12:33 | ACF ---
Admission Forms Criteria HEART FAILURE: COMMON COMPLICATIONS (Place 'X' for any and all applicable criteria): Ongoing inpatient care may be indicated for heart failure with 1 or more of the following (1)(2)(3)(4)(5)(6)(7)(8): [ ]I. New-onset heart failure [ ]II. Acute cardiac ischemia causing or associated with failure [ ]III. Ongoing need for care for primary condition requiring frequent therapy adjustments because of changes in cardiac function (eg, drug dosage changes for drugs that are renally metabolized) [X]IV. Complications of heart failure, including 1 or more of the following: [ ]a) Hemodynamic instability [ ]b) Pericardial effusion [ ]c) Symptomatic pleural effusion [ ]d) Hypoxemia [ ]e) Tachypnea [X]f) Dyspnea [ ]g) Syncope [ ]h) Altered mental status [ ]i) Acute renal insufficiency that is severe (reduction of more than 50% in estimated glomerular filtration rate from baseline) or progressive reduction of more than 25% in estimated glomerular filtration rate from baseline, with creatinine continuing to rise) [ ]j) Debilitating anasarca (eg tissue breakdown with infection, inability to void due to edema) (E) [ ]k) Clinically significant metabolic abnormalities due to heart failure (eg, new-onset metabolic acidosis) Extended stay may be needed until ALL of the following are present (1)(3)(18)(41 )(55) [ ]a) Hemodynamic stability [ ]b) Stable and effective diuretic regimen established (or patient on stable dialysis regimen if in chronic renal failure) [ ]c) Volume status acceptable on oral medication [ ]d) Breathing comfortably at rest [ ]e) Saturation of arterial oxygen greater than 90% or at acceptable baseline [ ]f) Pulmonary edema absent or improved [ ]g) Peripheral or sacral edema absent or improved [ ]h) Renal function stable and manageable at a lower level of care [ ]i) Complications (eg, pleural effusion) resolved or manageable at a lower level of care [ ]g) Patient or caregiver has received written discharge instructions or educational material addressing activity level, diet, discharge medications, follow-up appointment, weight monitoring, and what to do if symptoms worsen.(25)(26) The original [facility] content created by [employer] has been revised. The portions of the content which have been revised are identified through the use of italic text, and [facility] has neither reviewed nor approved the modified material.All other unmodified content is copyright [facility]. Please see references footnoted in the original [facility] edition 2015 Admission Criteria Met?: Yes LUDA BERNARD Dec 06, 2016 12:33
[2016-12-06 13:19] LABS: PLT ESTIMATE ADEQUATE (ADEQUATE)
[2016-12-06 13:35] VITALS: BP 91/54
--- NOTE | 2016-12-06 14:04 | PDOC2 ---
CARDIAC CONSULT DATE OF CONSULT Date of Consult DATE: 12/06/16 TIME: 13:15 REASON FOR CONSULT Reason for Consult: CHF, elevated troponin REFERRING PHYSICIAN Referring Physician: Beltran SOURCE Source: Chart review, Patient HISTORY OF PRESENT ILLNESS HISTORY OF PRESENT ILLNESS This is a pleasant 81 yo male admitted for complains of SOA. [facility] came from [facility]. He is a poor historian and very SEL[place]IK making it difficult to obtain details of his symptoms. No family memeber available and staff was unclear of further details of his symptoms. Upon admission he has been noted with SOA and was noted with CHF and was given.lasix. HR is in the 90s. He denies any CP but currently still has some SOA. Denies any nausea or palpitations but notable for orthopnea. Verbalized pain to left leg as he also had recent fem-pop to that region. His legs are very edematous but not weepy and wound vac to left heel in place. which it is unclear what his baseline is at. No prior hx of DVT or PE. He is significant for CAD/ with 2014 CABG/AVR. PAST MEDICAL HISTORY Past Medical History Cardiovascular: CAD, CHF, HTN, [place], Hyperlipidemia, Valve insufficiency (aortic ), PAD, small infrarenal AAA CENTRAL NERVOUS SYSTEM: Peripheral neuropathy GI: GERD Hematology: anemia Hepatobiliary: Cirrhosis Musculoskeletal: Osteoarthritis Rheumatologic: Gout Infectious disease: No pertinent hx ENT: No pertinent hx Renal/: Acute renal failure, Benign prostatic enlarg., Prostate Ca. Endocrine: No pertinent hx PAST SURGICAL HISTORY Past Surgical History CABG (2013 with BHARDWAJ to LAD, SVG to RCA, and SVG to OM. ), Hernia Repair, Other (bioprosthetic aortic valve), Left leg femoral to popliteal bypass with femoral endarterectomy, bypass 7mm gortex with greater saphenous vein extension across knee joint, heel debridement 11/21/2016 FAMILY HISTORY Family History Coronary Artery Disease, Hypertension SOCIAL HISTORY Social History Smoke: No ALCOHOL: heavy (h/o- quit 06/08. ) Drugs: None Lives: nsg home CURRENT MEDICATIONS CURRENT MEDICATIONS Current Medications Medications (Trade) Dose Ordered Sig/Farhad Route PRN Reason Start Time Stop Time Status Last Admin Dose Admin Furosemide (Lasix) 40 mg 1X ONCE IVP 12/06/16 11:45 12/06/16 11:46 DC 12/06/16 11:45 Enoxaparin Sodium (Lovenox 80mg Syringe) 80 mg 1X ONCE SQ 12/06/16 12:00 12/06/16 12:01 DC 12/06/16 12:06 Acetaminophen/ Hydrocodone Bitart (Lortab 5/325) 2 tab 1X ONCE PO 12/06/16 12:30 12/06/16 12:31 DC 12/06/16 12:35 ALLERGIES ALLERGIES: Coded Allergies: I S O L A T I O N *CONTACT* (Verified Allergy, Unknown, 11/21/16) vre No Known Medication Allergies (Verified Allergy, Unknown, 11/21/16) ROS Review of System Limited SELAWIK and poor historian, see HPI PHYSICAL EXAM General: Alert, Cooperative, mild distress HEENT: Atraumatic, Mucous membr. moist/pink, Other (SELAWIK AU) Lungs: Other (bibasilar crackles) Heart: Regular rate, Normal S1, Normal S2, Other (S4; 3/6 systolic murmur to LLS border) Abdomen: Soft, No tenderness Extremities: No cyanosis, Other (4+ bilateral LE pitting edema) Skin: Other (surgical wound with wound vac to to left heel; surgical incision with rafaela to thigh and calf; generalized ecchymoses) Neuro: Normal speech, Sensation intact Psych/Mental Status: Mental status NL, Mood NL MUSCULOSKELETAL: Osteoarthritic changes both hands VITALS VITALS Vital Signs Date Time Temp Pulse Resp B/P (MAP) Pulse Ox O2 Delivery O2 Flow Rate FiO2 12/06/16 11:54 91 20 105/57 (73) 97 12/06/16 10:38 Room Air 12/06/16 09:39 98.4 2.0 98.4 LABS Lab: Laboratory Tests Test 12/06/16 10:25 White Blood Count 13.0 x10^3/uL (4.0-11.0) Red Blood Count 2.70 x10^6/uL (4.30-5.70) Hemoglobin 8.3 g/dL (13.0-17.5) Hematocrit 25.6 % (39.0-53.0) Mean Corpuscular Volume 95 fL (79-100) Mean Corpuscular Hemoglobin 31 pg (25-35) Mean Corpuscular Hemoglobin Concent 32 g/dL (31-37) Red Cell Distribution Width 17.5 % (11.5-14.5) Platelet Count 242 x10^3/uL (140-400) Neutrophils (%) (Auto) 86 % (31-73) Lymphocytes (%) (Auto) 4 % (24-48) Monocytes (%) (Auto) 9 % (0-9) Eosinophils (%) (Auto) 1 % (0-3) Basophils (%) (Auto) 1 % (0-3) Neutrophils # (Auto) 11.2 x10^3uL (1.8-7.7) Lymphocytes # (Auto) 0.6 x10^3/uL (1.0-4.8) Monocytes # (Auto) 1.1 x10^3/uL (0.0-1.1) Eosinophils # (Auto) 0.1 x10^3/uL (0.0-0.7) Basophils # (Auto) 0.1 x10^3/uL (0.0-0.2) D-Dimer (Yoanna) 3.45 ug/mlFEU (0.00-0.50) Sodium Level 142 mmol/L (136-145) Potassium Level 4.9 mmol/L (3.5-5.1) Chloride Level 105 mmol/L (98-107) Carbon Dioxide Level 28 mmol/L (21-32) Anion Gap 9 (6-14) Blood Urea Nitrogen 56 mg/dL (8-26) Creatinine 2.2 mg/dL (0.7-1.3) Estimated GFR (Cockcroft-Gault) 28.9 BUN/Creatinine Ratio 25 (6-20) Glucose Level 149 mg/dL (70-99) Calcium Level 8.3 mg/dL (8.5-10.1) Total Bilirubin 0.8 mg/dL (0.2-1.0) Aspartate Amino Transf (AST/SGOT) 23 U/L (15-37) Alanine Aminotransferase (ALT/SGPT) 21 U/L (16-63) Alkaline Phosphatase 111 U/L (46-116) Creatine Kinase 81 U/L (39-308) Creatine Kinase MB (Mass) 3.2 ng/mL (0.0-3.6) Creatine Kinase MB Relative Index 4.0 % (0-4) Troponin I Quantitative 1.015 ng/mL (0.000-0.055) HG-Snd-E-Type Natriuretic Peptide 8604 pg/mL (0-449) Total Protein 5.8 g/dL (6.4-8.2) Albumin 2.8 g/dL (3.4-5.0) Albumin/Globulin Ratio 0.9 (1.0-1.7) ECHOCARDIOGRAM ECHOCARDIOGRAM <Conclusion> Left ventricle systolic function is low normal. The Ejection Fraction is 40-45%. Septal motion consistent with post-operative state/conduction defect. Limited echo only. No significant change in EF compared to prior echo. DATE: 11/22/16 1237 <Conclusion> Left ventricle systolic function is mildly impaired. The Ejection Fraction is 40 -45%. The septal motion is consistent with postoperative state. Mild global hypokinesis. Doppler and Color Flow revealed mild aortic regurgitation. The mitral valve is thickened and calcified and displays mild decreased opening. Mitral annular calcification is moderate to severe. Doppler and Color Flow revealed mild mitral regurgitation. Doppler and Color Flow revealed mild tricuspid regurgitation. There is mild- moderate pulmonary hypertension. The PA pressure was estimated at 41 mmHg. DATE: 07/06/16 1100 ASSESSMENT/PLAN ASSESSMENT/PLAN 1. Acute on chronic systolic/diastolic CHF 2. NSTEMI: initial at 1.015, No CP. EKG SR without acute changes. DDIMER 3.45. Will rule out PE and DVT 3. ICM: recent EF at 40-45%, unchanged by comparison. 4. CAD: CABG x3 with AVR in 2013. 3. S/P s/p fem pop LLE related to nonhealing left heel ulcer and severe PAD. , presently with wound vac to left heel. 4. 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 Prior NSVT: in the setting of anemia and low Mg. Lifevest recommended at that time till his outpt appt. but likely unable to due to SNU placement which does not monitor device. Currently no signs of arrhythmias Recommendations 1. Diurese and maintain K and Mg adequacy 2. Good tolerance with recent vascular surgery but recurrent CHF and elevated troponin, will consider for ischemic workup pending V/Q result. Will discuss with primary new vehicle sales consultant 3. Continue to trend troponin. Initiate V/Q scan. 4. Continue with Toprol, DAPT. Statin, no ACEi/ARB due to renal insufficiency 5. Venous doppler bilateral LE 6. Vascular f/u, defer to PCP Problems: GALIMBA,JHUNNE M CAD DRAFTSMAN Dec 06, 2016 14:04
[2016-12-06 15:00] VITALS: BP 102/55
--- NOTE | 2016-12-06 17:08 | RAD ---
Lung scan 12/06/2016 Clinical history: Shortness of breath. Recent leg surgery. Technique: After the administration of 18.3 mCi of xenon-133 gas, ventilation images of both lungs were obtained using the gamma camera. After the intravenous administration of 6.0 mCi technetium 99m MAA, perfusion images of both lungs were obtained using the gamma camera. Findings: Comparison is made to a portable chest radiograph performed earlier today. This demonstrates mild to moderate cardiomegaly with congestive changes involving both lungs. Heterogeneous ventilation perfusion of both lungs is seen. No unmatched perfusion defect is noted. These findings are consistent with a low probability study for pulmonary embolism. Impression: Low probability study for pulmonary embolism.
[2016-12-06 18:23] VITALS: BP 113/54
[2016-12-06] MEDS ORDERED: ENOXAPARIN 30 MG/0.3 ML SYRINGE. SQ SCH (21:00)
[2016-12-06] MEDS: ATORVASTATIN CALCIUM 20 MG TABLET PO SCH (21:31)
[2016-12-06] MEDS: TAMSULOSIN 0.4 MG CAP.ER.24H. PO SCH (21:31)
[2016-12-06] MEDS: METOPROLOL TART IMMED RELEASE 25 MG TABLET. PO SCH (21:32)
[2016-12-06] MEDS: GABAPENTIN 300 MG CAPSULE. PO SCH (21:33)
[2016-12-06 23:15] VITALS: BP 126/58
[2016-12-07] VITALS (15 sets, daily range): BP systolic 86–148; BP diastolic 50–65
[2016-12-07] MEDS: HYDROcodone/APAP 5/325MG 1 TAB TABLET PO PRN ×4 (02:53→17:18)
[2016-12-07 06:09] LABS: CREATININE 2.2 mg/dL (0.7-1.3); GFR 28.9; MAGNESIUM 2.4 mg/dL (1.8-2.4); POTASSIUM 4.1 mmol/L (3.5-5.1)
[2016-12-07] MEDS: GABAPENTIN 300 MG CAPSULE. PO SCH (07:28)
[2016-12-07] MEDS: ASPIRIN ENTERIC COATED 81 MG TABLET.DR. PO SCH (07:29)
[2016-12-07] MEDS: METOPROLOL TART IMMED RELEASE 25 MG TABLET. PO SCH ×2 (07:33→21:06)
[2016-12-07] MEDS: CLOPIDOGREL BISULFATE 75 MG TABLET PO SCH (07:33)
[2016-12-07] MEDS ORDERED: FUROSEMIDE 40 MG/4 ML VIAL. IVP SCH (09:00)
[2016-12-07] MEDS: TAMSULOSIN 0.4 MG CAP.ER.24H. PO SCH ×2 (10:00→21:05)
[2016-12-07] MEDS: ALLOPURINOL 300 MG TABLET. PO SCH (11:19)
[2016-12-07] MEDS: COLCHICINE 0.6 MG TABLET PO SCH (11:21)
[2016-12-07] MEDS: FOLIC ACID 1 MG TABLET. PO SCH (11:21)
[2016-12-07] MEDS: FINASTERIDE 5 MG TABLET. PO SCH (11:22)
--- NOTE | 2016-12-07 11:51 | PDOC ---
CARDIO Progress Notes Date and Time Date of Service 12/07/2016 Time of Evaluation 0930 Subjective Subjective: No Chest Pain, No shortness of breath, No Palpitations Vitals Vitals Vital Signs Date Time Temp Pulse Resp B/P (MAP) Pulse Ox O2 Delivery O2 Flow Rate FiO2 12/07/16 11:21 18 96 Nasal Cannula 1.0 12/07/16 11:05 98.1 63 86/50 (62) 98.1 Weight Weight [ ] Input and Output Intake and Output Intake and Output 12/07/16 07:00 Intake Total 240 ml Output Total 2050 ml Balance -1810 ml Intake Oral 240 ml Output Urine Total 2050 ml Laboratory Labs Laboratory Tests Test 12/06/16 14:00 12/06/16 17:40 12/07/16 00:05 12/07/16 05:00 Nasal Screen MRSA (PCR) Negative (Negative) Troponin I Quantitative 1.745 ng/mL (0.000-0.055) 1.371 ng/mL (0.000-0.055) Sodium Level 143 mmol/L (136-145) Potassium Level 4.1 mmol/L (3.5-5.1) Chloride Level 107 mmol/L (98-107) Carbon Dioxide Level 25 mmol/L (21-32) Anion Gap 11 (6-14) Blood Urea Nitrogen 57 mg/dL (8-26) Creatinine 2.2 mg/dL (0.7-1.3) Estimated GFR (Cockcroft-Gault) 28.9 Glucose Level 85 mg/dL (70-99) Calcium Level 8.0 mg/dL (8.5-10.1) Magnesium Level 2.4 mg/dL (1.8-2.4) Physical Exam HEENT: Neck Supple W Full Motion Chest: Symmetric LUNGS: Other (bibasilar crackles) Heart: S1S2, RRR (SR) Abdomen: Soft N/T Extremities: No Calf Tenderness, Other (3+ bilateral LE pitting edema) Neurology: alert, oriented, follow commands, other (KLAWOCK) Assessment Assessment 1. Acute on chronic systolic/diastolic CHF: improving. Noted with inadequate diuretic therapy at SNU which may have contributed to acute episode. 2. NSTEMI: Peaked at 1.7, No CP. EKG SR without acute changes. Low prob for PE. Good cardiac tolerance from recent vascular surgery, likely type 2 from hypoxia/ CHF with underlying CKD 3. ICM: recent EF at 40-45%, unchanged by comparison 4. CAD: CABG x3 with AVR in 2013. 3. S/P s/p fem pop LLE related to nonhealing left heel ulcer and severe PAD. 4. 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 Prior NSVT: No further recurrence of the latter but noted with likely brief x2 PAFIB occurrence which is new. Recommendations 1. PCXR, po lasix starting tomorrow per BP tolerance. 2. DDIMER elevated with leg swelling, awaiting venous doppler. 3. Remains to not have cardiac symptoms, continue with medical management. 4. Continue with metoprolol, DAPT. Statin, no ACEi/ARB due to renal insufficiency 5. Would recommend discussion with family and pt in regards to moving forward with plans of treatment and aggressiveness of therapy as well as code status. Will defer to PCP. 6. With age, fall predisposition, and occasional confusion, risks outweighs benefits of OAC/NOAC unless DVT is noted. ASA for stroke prevention, continue with secondary prevention. PASTOR JALLOH TIMBER SELECTOR Dec 07, 2016 11:51
[2016-12-07] MEDS ORDERED: ENOXAPARIN 30 MG/0.3 ML SYRINGE. SQ SCH (12:00)
--- NOTE | 2016-12-07 12:58 | RAD ---
APPROVED REPORT Bilateral Lower Extremity Venous Study for DVT Patient Location: IN-PATIENT Indications Lower Extremity Edema: Bilateral Findings Faulkner scale images of the bilateral lower extremity deep venous structures were performed to evaluate for thrombus. The right common femoral vein is clearly compressible. The right superficial and popliteal veins appe ar to be grossly compressible but are not well visualized. Spectral waveforms and color Doppler did n ot demonstrate any hindrance to flow. The below-knee vessels are not well visualized but spectral wav eform and color Dopplers appears to suggest spontaneous flow. On the left the common femoral vein is compressible. The superficial femoral, popliteal and below-kne e veins were not well visualized. Critical Notification Critical Value: No <Conclusion> 1. Technically very difficult study 2. No gross evidence of deep vein thrombosis on the right lower extremity on limited imaging. 3. Extremely limited imaging of the left lower extremity with no clear evidence of deep venous thromb osis in the proximal aspect of the deep venous system. 4. If there is high suspicion for deep venous thrombosis consider alternative assessment.
[2016-12-07 14:05] LABS: BASO # 0.1 x10^3/uL (0.0-0.2); BASO % 1 % (0-3); EOS % 2 % (0-3); HEMATOCRIT 21.6 % (39.0-53.0); LYMPH # 0.9 x10^3/uL (1.0-4.8); LYMPH % 8 % (24-48); MEAN CORPUSCULAR HEMOGLOBIN 30 pg (25-35); MEAN CORPUSCULAR HGB CONC 31 g/dL (31-37); MEAN CORPUSCULAR VOLUME 97 fL (79-100); MONO % 8 % (0-9); NEUT % 82 % (31-73); PLATELET COUNT 219 x10^3/uL (140-400); RED BLOOD COUNT 2.23 x10^6/uL (4.30-5.70); RED CELL DISTRIBUTION WIDTH 17.8 % (11.5-14.5); WHITE BLOOD COUNT 11.5 x10^3/uL (4.0-11.0)
[2016-12-07 14:11] LABS: HEMOGLOBIN 6.7 g/dL (13.0-17.5)
--- NOTE | 2016-12-07 14:25 | RAD ---
Portable chest, 12/07/2016: History: Congestive heart failure Comparison is made to yesterday's study. The patient is slightly rotated to the right on today's exam. The depth of inspiration is not as good as on yesterday's study. This produces accentuation of the pulmonary infiltrates. The underlying pulmonary vascularity is poorly defined. No definite pleural fluid is seen. IMPRESSION: Worsening of the pulmonary infiltrates compatible with pulmonary edema due to congestive heart failure. A lesser depth of inspiration is contributing to this apparent change.
[2016-12-07] MEDS ORDERED: FUROSEMIDE 20 MG/2 ML VIAL. IV PRN (14:30)
--- NOTE | 2016-12-07 14:49 | PDOC ---
OBJECTIVE Vital Signs Vital Signs Date Time Temp Pulse Resp B/P (MAP) Pulse Ox O2 Delivery O2 Flow Rate FiO2 12/07/16 12:25 18 94 Nasal Cannula 1.0 12/07/16 11:21 18 96 Nasal Cannula 1.0 12/07/16 11:05 98.1 63 16 86/50 (62) 94 Nasal Cannula 2.0 98.1 12/07/16 08:00 Nasal Cannula 2.0 12/07/16 07:42 97.8 90 18 121/56 (77) 97 Nasal Cannula 1.0 97.8 12/07/16 07:33 85 121/56 12/07/16 07:30 20 100 Nasal Cannula 2.0 12/07/16 03:15 98.3 89 18 101/59 (73) 100 Nasal Cannula 2.0 98.3 12/07/16 02:53 Nasal Cannula 3.0 12/06/16 23:15 97.6 81 18 126/58 (80) 96 Nasal Cannula 2.0 97.6 12/06/16 22:07 Nasal Cannula 2.0 12/06/16 21:32 87 113/54 12/06/16 18:23 87 18 113/54 (73) 96 Nasal Cannula 2.0 12/06/16 15:00 97.9 89 18 102/55 (71) 83 Nasal Cannula 97.9 I & O Intake and Output 12/07/16 07:00 Intake Total 240 ml Output Total 2050 ml Balance -1810 ml Intake Oral 240 ml Output Urine Total 2050 ml ASSESSMENT/PLAN Assessment/Plan [id number] H&P dictated Problems: COMMENT Lab Laboratory Tests Test 12/06/16 17:40 12/07/16 00:05 12/07/16 05:00 Troponin I Quantitative 1.745 ng/mL (0.000-0.055) 1.371 ng/mL (0.000-0.055) White Blood Count 11.5 x10^3/uL (4.0-11.0) Red Blood Count 2.23 x10^6/uL (4.30-5.70) Hemoglobin 6.7 g/dL (13.0-17.5) Hematocrit 21.6 % (39.0-53.0) Mean Corpuscular Volume 97 fL (79-100) Mean Corpuscular Hemoglobin 30 pg (25-35) Mean Corpuscular Hemoglobin Concent 31 g/dL (31-37) Red Cell Distribution Width 17.8 % (11.5-14.5) Platelet Count 219 x10^3/uL (140-400) Neutrophils (%) (Auto) 82 % (31-73) Lymphocytes (%) (Auto) 8 % (24-48) Monocytes (%) (Auto) 8 % (0-9) Eosinophils (%) (Auto) 2 % (0-3) Basophils (%) (Auto) 1 % (0-3) Neutrophils # (Auto) 9.4 x10^3uL (1.8-7.7) Lymphocytes # (Auto) 0.9 x10^3/uL (1.0-4.8) Monocytes # (Auto) 0.9 x10^3/uL (0.0-1.1) Eosinophils # (Auto) 0.2 x10^3/uL (0.0-0.7) Basophils # (Auto) 0.1 x10^3/uL (0.0-0.2) Sodium Level 143 mmol/L (136-145) Potassium Level 4.1 mmol/L (3.5-5.1) Chloride Level 107 mmol/L (98-107) Carbon Dioxide Level 25 mmol/L (21-32) Anion Gap 11 (6-14) Blood Urea Nitrogen 57 mg/dL (8-26) Creatinine 2.2 mg/dL (0.7-1.3) Estimated GFR (Cockcroft-Gault) 28.9 Glucose Level 85 mg/dL (70-99) Calcium Level 8.0 mg/dL (8.5-10.1) Magnesium Level 2.4 mg/dL (1.8-2.4) DB REAL MD Dec 07, 2016 14:49
--- NOTE | 2016-12-07 15:25 | PREOP HP ---
DATE OF SERVICE: 12/06/2016 HISTORY OF PRESENT ILLNESS: The patient is admitted to room 256. He is an 81-year-old gentleman who has been at [facility] after recovery from a femoropopliteal bypass surgery and is under treatment for a left heel ulcer. He was brought to the Emergency Room due to increasing shortness of breath. He was brought by EMS. His oximetry upon their arrival to his home was 87% on room air. He has been feeling fatigued, more short of breath, not feeling good in general. He does have mild cough but not producing much sputum. He had some chest pain the night before, but was not severe, but started complaining of shortness of breath on the next morning. PAST MEDICAL HISTORY: Significant for coronary artery disease and previous history of coronary artery bypass graft, valve replacement, coronary stents, peripheral vascular disease, recent femoropopliteal bypass, and revascularization due to left heel ulcer. This was about 2 weeks ago. He does have also history of peripheral neuropathy, severe gout with recurrent attacks, on chronic treatment. He has a history of cardiomyopathy, hyperlipidemia, and hypertension. He has also had suffered from hypotension on several occasions. He does have chronic kidney disease, stage 3-4; previous history of pneumonia, gastroesophageal reflux disease, prostate cancer, status post radiation; and history of inguinal hernia. He does have a history of problems with urinary retention and has required frequent Lake catheter. Osteoarthritis. SOCIAL HISTORY: He is used to use alcohol all the time. 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 He does smoke. Denies use of other drugs. He does have vaccinations for flu and pneumonia. 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 FAMILY HISTORY: Positive for hypertension, coronary artery disease, and cancer. REVIEW OF SYSTEMS: CONSTITUTIONAL: He does have fatigue. Denies fever or chills. EYES: Denies visual changes. HEENT: Denies nasal congestion or sore throat. RESPIRATORY: He is more short of breath than usual. Has mild cough. CARDIOVASCULAR: He had minimal chest pain the night before presentation. GASTROINTESTINAL: Denies abdominal pain, nausea, or vomiting. GENITOURINARY: Denies dysuria. MUSCULOSKELETAL: He does have arthritis and back pain. He did have gouty arthritis in the past. NEUROLOGIC: Denies focal weakness or sensory changes. PHYSICAL EXAMINATION: GENERAL: He is alert, arousable, and slightly sleepy at the time I saw him. HEENT: His tympanic membranes are clear. Pharynx clear. Eyes with normal conjunctivae. NECK: Supple. HEART: Regular rate and rhythm. LUNGS: With decreased breath sounds in the bases. ABDOMEN: Soft, nontender, no organomegaly, no masses, no bruits, no ascites. SKIN: He does have on his skin bruises across his abdominal wall and also on his upper extremities and hematoma in his left upper thigh. EXTREMITIES: He does have +1 edema in the lower extremities. He does have an ulcer on his left heel that is very deep with bone exposed to about 1-1/2 inch deep x 2 inches diameter. NEUROLOGY: He does not have any focal deficit. IMPRESSION: 1. Acute on chronic congestive heart failure. 2. Elevated troponin, rule out recent myocardial injury. 3. Chronic kidney disease stage 3-4. 4. Acute anemia probably due to hematoma in his thigh and lower abdomen. We will transfuse and continue to monitor. 5. Left ulcer in the heel. We will ask Infectious Disease and Wound Care to continue following and local care. We will ask also Physical Therapy to continue following. DB REAL MD DR: JUAN/miguel JOB#: [id number] / [id number]
[2016-12-07] MEDS: POLYETHYLENE GLYCOL 3350 17 GM PACKET. PO SCH (18:45)
[2016-12-07] MEDS: ATORVASTATIN CALCIUM 20 MG TABLET PO SCH (21:05)
[2016-12-08] MEDS: MORPHINE SULFATE 2 MG/ML DISP.SYRIN. IV PRN ×2 (01:20→22:32)
[2016-12-08 02:54] VITALS: BP 119/61
[2016-12-08 05:54] LABS: ALBUMIN 2.4 g/dL (3.4-5.0); ALBUMIN/GLOBULIN RATIO 0.7 (1.0-1.7); CALCIUM 8.6 mg/dL (8.5-10.1); GFR 32.2; TOTAL BILIRUBIN 1.2 mg/dL (0.2-1.0); TOTAL PROTEIN 5.8 g/dL (6.4-8.2)
[2016-12-08 06:35] LABS: BASO # 0.1 x10^3/uL (0.0-0.2); BASO % 1 % (0-3); EOS % 1 % (0-3); HEMATOCRIT 27.1 % (39.0-53.0); HEMOGLOBIN 9.2 g/dL (13.0-17.5); LYMPH # 0.8 x10^3/uL (1.0-4.8); LYMPH % 6 % (24-48); MEAN CORPUSCULAR HEMOGLOBIN 31 pg (25-35); MEAN CORPUSCULAR HGB CONC 34 g/dL (31-37); MEAN CORPUSCULAR VOLUME 93 fL (79-100); MONO % 7 % (0-9); NEUT % 85 % (31-73); PLATELET COUNT 215 x10^3/uL (140-400); RED BLOOD COUNT 2.93 x10^6/uL (4.30-5.70); RED CELL DISTRIBUTION WIDTH 17.6 % (11.5-14.5); WHITE BLOOD COUNT 12.4 x10^3/uL (4.0-11.0)
[2016-12-08 07:00] VITALS: BP 123/53
[2016-12-08] MEDS: ASPIRIN ENTERIC COATED 81 MG TABLET.DR. PO SCH (08:00)
[2016-12-08] MEDS: CLOPIDOGREL BISULFATE 75 MG TABLET PO SCH (08:00)
[2016-12-08] MEDS: GABAPENTIN 300 MG CAPSULE. PO SCH (09:00)
[2016-12-08] MEDS: FINASTERIDE 5 MG TABLET. PO SCH (09:00)
[2016-12-08] MEDS: POLYETHYLENE GLYCOL 3350 17 GM PACKET. PO SCH (09:00)
[2016-12-08] MEDS: COLCHICINE 0.6 MG TABLET PO SCH (09:00)
[2016-12-08] MEDS: FOLIC ACID 1 MG TABLET. PO SCH (09:00)
[2016-12-08] MEDS: ALLOPURINOL 300 MG TABLET. PO SCH (09:00)
[2016-12-08] MEDS ORDERED: FUROSEMIDE 40 MG TABLET. PO SCH (09:00)
[2016-12-08] MEDS: METOPROLOL TART IMMED RELEASE 25 MG TABLET. PO SCH (09:00)
[2016-12-08] MEDS: TAMSULOSIN 0.4 MG CAP.ER.24H. PO SCH ×2 (09:00→21:00)
--- NOTE | 2016-12-08 09:20 | PDOC ---
PASTOR JALLOH FREIGHT TALLIER 12/08/16 0920: CARDIO Progress Notes Date and Time Date of Service 12/08/2016 Time of Evaluation 0900 Subjective Subjective: Other (recently sedated with ativan due to agitation, not in distress, nods no for any discomfort) Vitals Vitals Vital Signs Date Time Temp Pulse Resp B/P (MAP) Pulse Ox O2 Delivery O2 Flow Rate FiO2 12/08/16 07:00 99.0 93 24 123/53 (76) 2 Nasal Cannula 99.0 12/08/16 02:54 2.0 Weight Weight [ ] Input and Output Intake and Output Intake and Output 12/08/16 07:00 Intake Total 990 ml Output Total 1950 ml Balance -960 ml Intake Oral 850 ml Blood Product IV Normal Saline Flush 140 ml Output Urine Total 1950 ml # Bowel Movements 1 Laboratory Labs Laboratory Tests Test 12/08/16 05:00 White Blood Count 12.4 x10^3/uL (4.0-11.0) Red Blood Count 2.93 x10^6/uL (4.30-5.70) Hemoglobin 9.2 g/dL (13.0-17.5) Hematocrit 27.1 % (39.0-53.0) Mean Corpuscular Volume 93 fL (79-100) Mean Corpuscular Hemoglobin 31 pg (25-35) Mean Corpuscular Hemoglobin Concent 34 g/dL (31-37) Red Cell Distribution Width 17.6 % (11.5-14.5) Platelet Count 215 x10^3/uL (140-400) Neutrophils (%) (Auto) 85 % (31-73) Lymphocytes (%) (Auto) 6 % (24-48) Monocytes (%) (Auto) 7 % (0-9) Eosinophils (%) (Auto) 1 % (0-3) Basophils (%) (Auto) 1 % (0-3) Neutrophils # (Auto) 10.6 x10^3uL (1.8-7.7) Lymphocytes # (Auto) 0.8 x10^3/uL (1.0-4.8) Monocytes # (Auto) 0.9 x10^3/uL (0.0-1.1) Eosinophils # (Auto) 0.2 x10^3/uL (0.0-0.7) Basophils # (Auto) 0.1 x10^3/uL (0.0-0.2) Sodium Level 141 mmol/L (136-145) Potassium Level 4.0 mmol/L (3.5-5.1) Chloride Level 106 mmol/L (98-107) Carbon Dioxide Level 24 mmol/L (21-32) Anion Gap 11 (6-14) Blood Urea Nitrogen 56 mg/dL (8-26) Creatinine 2.0 mg/dL (0.7-1.3) Estimated GFR (Cockcroft-Gault) 32.2 BUN/Creatinine Ratio 28 (6-20) Glucose Level 103 mg/dL (70-99) Calcium Level 8.6 mg/dL (8.5-10.1) Total Bilirubin 1.2 mg/dL (0.2-1.0) Aspartate Amino Transf (AST/SGOT) 20 U/L (15-37) Alanine Aminotransferase (ALT/SGPT) 13 U/L (16-63) Alkaline Phosphatase 93 U/L (46-116) Total Protein 5.8 g/dL (6.4-8.2) Albumin 2.4 g/dL (3.4-5.0) Albumin/Globulin Ratio 0.7 (1.0-1.7) Physical Exam HEENT: Neck Supple W Full Motion Chest: Symmetric LUNGS: Other (bibasilar crackles) Heart: S1S2, RRR (SR, no significant ectopies overnight), murmurs (3/6 systolic murmur to LLS border) Abdomen: Soft N/T Extremities: No Calf Tenderness, Other (2+ bilateral LE pitting edema) Neurology: other ([place]; drowsy) Assessment Assessment 1. Acute on chronic systolic/diastolic CHF: worsening yesterday likely due to significant anemia 2. NSTEMI: Peaked at 1.7, No CP. EKG SR without acute changes. Neg for VTE per V /Q/venous doppler. Good cardiac tolerance from recent vascular surgery, likely type 2 from hypoxia/CHF with underlying CKD 3. ICM: recent EF at 40-45%, unchanged by comparison 4. CAD: CABG x3 with AVR in 2013. 5. S/P s/p fem pop LLE related to nonhealing left heel ulcer and severe PAD. 6. 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 Prior NSVT: No further recurrence of the latter but noted with likely brief x2 PAFIB lone occurence yesterday, none further overnight 8. Anemia of chronic disease: Hgb from 6.7 to 9.2 post 2 U PRBC. defer to PCP 9. Metabolic encephalopathy: slightly agitate and more confuse overnight Recommendations 1. Continue IV lasix therapy, discussed with cardiology will repeat TTE tomorrow and reeval bioprosthetic AV. 2. Continue with metoprolol, DAPT. Statin, no ACEi/ARB due to renal insufficiency 3. Would recommend discussion with family and pt in regards to moving forward with plans of treatment and aggressiveness of therapy as well as code status. Will defer to PCP. 4. With age, fall predisposition, and occasional confusion, risks outweighs benefits of OAC/NOAC unless DVT is noted. ASA for stroke prevention, continue with secondary prevention. ERIC DOLL MD 12/08/16 1613: CARDIO Progress Notes Assessment Assessment Patient seen and examined. Agree with PERCHER's assessment and plan. Continue diuresis for acute on chronic systolic heart failure. Repeat 2-D echo showed LVEF 40-45%. Bioprosthetic AVR well seated and functioning normally. Non-STEMI most probably type II. CAD status appears stable overall. Continue current medical regimen. PASTOR JALLOH APRN Dec 08, 2016 09:20 ERIC DOLL MD Dec 08, 2016 16:13
[2016-12-08] MEDS: FUROSEMIDE 40 MG/4 ML VIAL. IVP SCH ×2 (09:48→15:57)
--- NOTE | 2016-12-08 10:30 | CARD ---
APPROVED REPORT EXAM: Two-dimensional and M-mode echocardiogram with Doppler and color Doppler. Other Information Quality : Good INDICATION Aortic Valve Replacement 2D DIMENSIONS RVDd3.2 (2.9-3.5cm)Left Atrium(2D)4.8 (1.6-4.0cm) IVSd1.0 (0.7-1.1cm)Aortic Root(2D)2.5 (2.0-3.7cm) LVDd4.7 (3.9-5.9cm)LVOT Diameter2.1 (1.8-2.4cm) PWd1.0 (0.7-1.1cm)LVDs3.5 (2.5-4.0cm) FS (%) 20.0 %SV53.4 ml LVEF(%)40.0 (>50%) Aortic Valve AoV Peak Samir.221.0cm/sAoV VTI35.5cm AO Peak GR.19.5mmHgLVOT VTI 17.76cm AO Mean GR.10mmHgAVA (VTI)1.80cm2 Mitral Valve MV E Hwkahudg847.8cm/sMV DECEL YBST614ip MV A Pdtwsxiz117.8cm/sE/A Ratio1.2 TDI Lateral E' P. V13.97cm/sMedial E' P. V4.70cm/s E/Lateral E'10.4E/Medial E'30.8 Tricuspid Valve TR P. Dztdnrbw544tf/sRAP XIKMEHUL7esJq TR Peak Gr.52lrZmLQOJ18vtRw Pulmonary Vein S1 Ngjgmhdr29.7cm/sS2 Xlueseft99.35cm/s D2 Jmrscarl12.4cm/s LEFT VENTRICLE The left ventricle is normal size. There is normal left ventricular wall thickness. The Ejection Frac tion is 40-45%. Abnormal septal motion probably from post-op state. RIGHT VENTRICLE The right ventricle is normal size. The right ventricular systolic function is normal. ATRIA The left atrium is mildly dilated. The right atrium size is normal. The interatrial septum is intact with no evidence for an atrial septal defect or patent foramen ovale as noted on 2-D or Doppler imagi ng. AORTIC VALVE Doppler and Color Flow revealed no significant aortic regurgitation. There is no significant aortic v alvular stenosis. The prosthetic aortic valve appears normal. MITRAL VALVE The mitral valve is calcified but opens well. Posterior mitral annular calcification is mild to moder ate. There is no evidence of mitral valve prolapse. There is no mitral valve stenosis. Doppler and Co ilda-flow revealed mild to moderate mitral regurgitation. TRICUSPID VALVE The tricuspid valve is normal in structure and function. Doppler and Color Flow revealed mild tricusp id regurgitation. There is moderate pulmonary hypertension. The PA pressure was estimated at 48 mmHg. There is no tricuspid valve stenosis. PULMONIC VALVE The pulmonary valve is normal in structure and function. Doppler and Color Flow revealed mild pulmoni c valvular regurgitation. There is no pulmonic valvular stenosis. GREAT VESSELS The aortic root is normal in size. The ascending aorta is normal in size. The IVC was not visualized. PERICARDIAL EFFUSION There is no evidence of significant pericardial effusion. Critical Notification Critical Value: No <Conclusion> Abnormal septal motion probably from post-op state. The Ejection Fraction is 40-45%. The left atrium is mildly dilated. The bioprosthetic aortic valve appears well seated and functioning well. Mild to moderate mitral regurgitation. Mild tricuspid regurgitation. There is moderate pulmonary hypertension. The PA pressure was estimated at 48 mmHg. There is no evidence of significant pericardial effusion.
[2016-12-08 11:00] VITALS: BP 108/58
--- NOTE | 2016-12-08 12:01 | PDOC ---
Infectious Disease Note Vital Sign Vital Signs Vital Signs Date Time Temp Pulse Resp B/P (MAP) Pulse Ox O2 Delivery O2 Flow Rate FiO2 12/08/16 11:00 98.3 100 24 108/58 (75) 98 Nasal Cannula 2.0 98.3 Labs Lab Laboratory Tests Test 12/08/16 05:00 White Blood Count 12.4 x10^3/uL (4.0-11.0) Red Blood Count 2.93 x10^6/uL (4.30-5.70) Hemoglobin 9.2 g/dL (13.0-17.5) Hematocrit 27.1 % (39.0-53.0) Mean Corpuscular Volume 93 fL (79-100) Mean Corpuscular Hemoglobin 31 pg (25-35) Mean Corpuscular Hemoglobin Concent 34 g/dL (31-37) Red Cell Distribution Width 17.6 % (11.5-14.5) Platelet Count 215 x10^3/uL (140-400) Neutrophils (%) (Auto) 85 % (31-73) Lymphocytes (%) (Auto) 6 % (24-48) Monocytes (%) (Auto) 7 % (0-9) Eosinophils (%) (Auto) 1 % (0-3) Basophils (%) (Auto) 1 % (0-3) Neutrophils # (Auto) 10.6 x10^3uL (1.8-7.7) Lymphocytes # (Auto) 0.8 x10^3/uL (1.0-4.8) Monocytes # (Auto) 0.9 x10^3/uL (0.0-1.1) Eosinophils # (Auto) 0.2 x10^3/uL (0.0-0.7) Basophils # (Auto) 0.1 x10^3/uL (0.0-0.2) Sodium Level 141 mmol/L (136-145) Potassium Level 4.0 mmol/L (3.5-5.1) Chloride Level 106 mmol/L (98-107) Carbon Dioxide Level 24 mmol/L (21-32) Anion Gap 11 (6-14) Blood Urea Nitrogen 56 mg/dL (8-26) Creatinine 2.0 mg/dL (0.7-1.3) Estimated GFR (Cockcroft-Gault) 32.2 BUN/Creatinine Ratio 28 (6-20) Glucose Level 103 mg/dL (70-99) Calcium Level 8.6 mg/dL (8.5-10.1) Total Bilirubin 1.2 mg/dL (0.2-1.0) Aspartate Amino Transf (AST/SGOT) 20 U/L (15-37) Alanine Aminotransferase (ALT/SGPT) 13 U/L (16-63) Alkaline Phosphatase 93 U/L (46-116) Total Protein 5.8 g/dL (6.4-8.2) Albumin 2.4 g/dL (3.4-5.0) Albumin/Globulin Ratio 0.7 (1.0-1.7) Objective Assessment Osteomyelitis of left heel s/p debridement, 10/31 & 11/21. h/o E.coli, Prevotella and VRE. 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 Acute on chronic CHF NSTEMI CKD Plan Plan of Care [facility] notes are not available, but in reviewing previous [facility] records and discussion with [facility] nurse, it doesn't appear that patient has been on any long-term antibiotics. D/w Dr. Chasitty Chairez Thank you Attending Co-Sign The patient was seen and interviewed as well as examined at the bedside. The chart was reviewed. The case was discussed. Agree with the plan of care. SORIN THAPA APRN Dec 08, 2016 12:01 JANINE ALTMAN MD Dec 08, 2016 17:53
--- NOTE | 2016-12-08 13:15 | PDOC ---
SUBJECTIVE Subjective confused and agitated overnight, sedated now, OBJECTIVE Vital Signs Vital Signs Date Time Temp Pulse Resp B/P (MAP) Pulse Ox O2 Delivery O2 Flow Rate FiO2 12/08/16 11:00 98.3 100 24 108/58 (75) 98 Nasal Cannula 2.0 98.3 12/08/16 07:23 Nasal Cannula 2.0 12/08/16 07:00 99.0 93 24 123/53 (76) 2 Nasal Cannula 99.0 12/08/16 02:54 98.4 89 18 119/61 (80) 97 Nasal Cannula 2.0 98.4 12/08/16 01:50 18 96 Nasal Cannula 2.0 12/08/16 01:20 18 94 Nasal Cannula 2.0 12/07/16 23:05 98.2 82 18 148/65 (92) 98 Nasal Cannula 2.0 98.2 12/07/16 22:01 98.4 75 18 121/59 98.4 12/07/16 21:06 87 136/64 12/07/16 21:03 97.4 87 18 136/64 97.4 12/07/16 20:10 Nasal Cannula 2.0 12/07/16 20:01 98.1 94 20 140/63 98.1 12/07/16 19:36 98.5 95 18 123/60 (81) 100 Nasal Cannula 2.0 98.5 12/07/16 19:35 98.5 92 18 123/60 98.5 12/07/16 19:24 99.1 99.1 12/07/16 19:23 99.1 91 18 117/61 99.1 12/07/16 19:10 88 20 117/61 12/07/16 18:20 18 100 2.0 12/07/16 17:55 97.5 95 18 121/57 97.5 12/07/16 17:18 18 99 Nasal Cannula 2.0 12/07/16 16:59 88 18 109/59 12/07/16 16:59 98.2 90 18 109/59 98.2 12/07/16 16:42 98.1 84 18 106/62 98.1 12/07/16 15:05 98.1 84 16 102/62 (75) 99 Nasal Cannula 2.0 98.1 I & O Intake and Output 12/08/16 07:00 Intake Total 990 ml Output Total 1950 ml Balance -960 ml Intake Oral 850 ml Blood Product IV Normal Saline Flush 140 ml Output Urine Total 1950 ml # Bowel Movements 1 PHYSICAL EXAM Physical Exam lungs decrease BS several bruises upper ext and hematoma lower abd wall and left thigh abd soft minimal tenderness ext milsd edema. ulcer left heeel poor healing ASSESSMENT/PLAN Assessment/Plan 1. Acute on chronic congestive heart failure. 2. Elevated troponin, rule out recent myocardial injury. 3. Chronic kidney disease stage 3-4. 4. Acute anemia probably due to hematoma in his thigh and lower abdomen. Hb better after transfusion 5. Left ulcer in the heel. Problems: COMMENT Lab Laboratory Tests Test 12/08/16 05:00 White Blood Count 12.4 x10^3/uL (4.0-11.0) Red Blood Count 2.93 x10^6/uL (4.30-5.70) Hemoglobin 9.2 g/dL (13.0-17.5) Hematocrit 27.1 % (39.0-53.0) Mean Corpuscular Volume 93 fL (79-100) Mean Corpuscular Hemoglobin 31 pg (25-35) Mean Corpuscular Hemoglobin Concent 34 g/dL (31-37) Red Cell Distribution Width 17.6 % (11.5-14.5) Platelet Count 215 x10^3/uL (140-400) Neutrophils (%) (Auto) 85 % (31-73) Lymphocytes (%) (Auto) 6 % (24-48) Monocytes (%) (Auto) 7 % (0-9) Eosinophils (%) (Auto) 1 % (0-3) Basophils (%) (Auto) 1 % (0-3) Neutrophils # (Auto) 10.6 x10^3uL (1.8-7.7) Lymphocytes # (Auto) 0.8 x10^3/uL (1.0-4.8) Monocytes # (Auto) 0.9 x10^3/uL (0.0-1.1) Eosinophils # (Auto) 0.2 x10^3/uL (0.0-0.7) Basophils # (Auto) 0.1 x10^3/uL (0.0-0.2) Sodium Level 141 mmol/L (136-145) Potassium Level 4.0 mmol/L (3.5-5.1) Chloride Level 106 mmol/L (98-107) Carbon Dioxide Level 24 mmol/L (21-32) Anion Gap 11 (6-14) Blood Urea Nitrogen 56 mg/dL (8-26) Creatinine 2.0 mg/dL (0.7-1.3) Estimated GFR (Cockcroft-Gault) 32.2 BUN/Creatinine Ratio 28 (6-20) Glucose Level 103 mg/dL (70-99) Calcium Level 8.6 mg/dL (8.5-10.1) Total Bilirubin 1.2 mg/dL (0.2-1.0) Aspartate Amino Transf (AST/SGOT) 20 U/L (15-37) Alanine Aminotransferase (ALT/SGPT) 13 U/L (16-63) Alkaline Phosphatase 93 U/L (46-116) Total Protein 5.8 g/dL (6.4-8.2) Albumin 2.4 g/dL (3.4-5.0) Albumin/Globulin Ratio 0.7 (1.0-1.7) DB REAL MD Dec 08, 2016 13:15
[2016-12-08 15:00] VITALS: BP 136/65
[2016-12-08] MEDS: METOPROLOL TARTRATE 5 MG/5 ML VIAL. IVP SCH ×2 (16:33→20:12)
[2016-12-08] MEDS: PIPERACILLIN/TAZOBACTAM 2.25 GM in IV NORMAL SALINE 50ML 50 ML IV SCH (18:28)
[2016-12-08 19:20] VITALS: BP 152/72
[2016-12-08] MEDS: ATORVASTATIN CALCIUM 20 MG TABLET PO SCH (21:00)
[2016-12-08 23:18] VITALS: BP 165/99
[2016-12-09 03:24] VITALS: BP 137/60
[2016-12-09 04:39] LABS: CREATININE 1.9 mg/dL (0.7-1.3); GFR 34.2; MAGNESIUM 2.3 mg/dL (1.8-2.4); POTASSIUM 3.5 mmol/L (3.5-5.1)
[2016-12-09] MEDS: METOPROLOL TARTRATE 5 MG/5 ML VIAL. IVP SCH ×3 (05:42→22:01)
[2016-12-09] MEDS: PIPERACILLIN/TAZOBACTAM 2.25 GM in IV NORMAL SALINE 50ML 50 ML IV SCH ×6 (05:42→22:02)
[2016-12-09 07:00] VITALS: BP 154/66
[2016-12-09] MEDS: ASPIRIN ENTERIC COATED 81 MG TABLET.DR. PO SCH (08:00)
[2016-12-09] MEDS: CLOPIDOGREL BISULFATE 75 MG TABLET PO SCH (08:00)
[2016-12-09] MEDS: COLCHICINE 0.6 MG TABLET PO SCH (08:17)
[2016-12-09] MEDS: FOLIC ACID 1 MG TABLET. PO SCH (08:36)
[2016-12-09] MEDS: TAMSULOSIN 0.4 MG CAP.ER.24H. PO SCH ×2 (08:36→21:00)
[2016-12-09] MEDS: POLYETHYLENE GLYCOL 3350 17 GM PACKET. PO SCH (08:36)
[2016-12-09] MEDS: ALLOPURINOL 300 MG TABLET. PO SCH (08:37)
[2016-12-09] MEDS: GABAPENTIN 300 MG CAPSULE. PO SCH (08:37)
[2016-12-09] MEDS: FINASTERIDE 5 MG TABLET. PO SCH (08:37)
[2016-12-09] MEDS: MORPHINE SULFATE 2 MG/ML DISP.SYRIN. IV PRN ×3 (09:45→21:16)
--- NOTE | 2016-12-09 09:47 | PDOC ---
Infectious Disease Note Subjective Subjective " help help" Not feeling well, hurts all over Wants to go home Periods of confusion and restlessness No fever, vomiting or diarrhea reported Vital Sign Vital Signs Vital Signs Date Time Temp Pulse Resp B/P (MAP) Pulse Ox O2 Delivery O2 Flow Rate FiO2 12/09/16 07:00 111 22 154/66 (95) Nasal Cannula 2.0 12/09/16 03:24 99.4 99 99.4 Physical Exam PHYSICAL EXAM GENERAL: looks uncomfortable, calm, mittens HEENT: Oral cavity dry LUNGS: Clear HEART: S1S2, no gallop, no murmur ABD: Soft, NT, BS active : [place] EXT: No edema, left foot wound vac in place. LLE incisions well approx, some rafaela remain intact, no redness or drainage IMPORT/EXPORT CLERK: Alert, answers simple questions appropriately, [place] SKIN: No rash IV: ok Labs Lab Laboratory Tests Test 12/09/16 03:30 Sodium Level 146 mmol/L (136-145) Potassium Level 3.5 mmol/L (3.5-5.1) Chloride Level 107 mmol/L (98-107) Carbon Dioxide Level 29 mmol/L (21-32) Anion Gap 10 (6-14) Blood Urea Nitrogen 55 mg/dL (8-26) Creatinine 1.9 mg/dL (0.7-1.3) Estimated GFR (Cockcroft-Gault) 34.2 Glucose Level 95 mg/dL (70-99) Calcium Level 9.0 mg/dL (8.5-10.1) Magnesium Level 2.3 mg/dL (1.8-2.4) Objective Assessment Osteomyelitis of left heel s/p debridement, 10/31 & 11/21. h/o E.coli, Prevotella and VRE. 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 Acute on chronic CHF NSTEMI CKD Plan Plan of Care [facility] notes are not available, but in reviewing previous [facility] records and discussion with [facility] nurse, it doesn't appear that patient has been on any long-term antibiotics. Continue Zosyn (started 12/08) Labs in am D/w RN and RN Attending Co-Sign The patient was seen and interviewed as well as examined at the bedside. The chart was reviewed. The case was discussed. Agree with the plan of care. SORIN THAPA APRN Dec 09, 2016 09:47 JANINE ALTMAN MD Dec 09, 2016 12:22
[2016-12-09] MEDS: FUROSEMIDE 40 MG/4 ML VIAL. IVP SCH (09:48)
[2016-12-09 11:00] VITALS: BP 106/43
--- NOTE | 2016-12-09 12:39 | PDOC ---
SUBJECTIVE Subjective more alert today, at bed side , wants to go home OBJECTIVE Vital Signs Vital Signs Date Time Temp Pulse Resp B/P (MAP) Pulse Ox O2 Delivery O2 Flow Rate FiO2 12/09/16 11:27 95 Nasal Cannula 2.0 12/09/16 11:00 98.3 106 22 106/43 (64) 95 Nasal Cannula 2.0 98.3 12/09/16 09:45 99 Nasal Cannula 2.0 12/09/16 07:00 111 22 154/66 (95) Nasal Cannula 2.0 12/09/16 05:42 95 137/60 12/09/16 03:24 99.4 95 24 137/60 (85) 99 Nasal Cannula 2.0 99.4 12/08/16 23:18 99.3 115 28 165/99 (121) 95 Nasal Cannula 2.0 99.3 12/08/16 21:39 Nasal Cannula 2.0 12/08/16 21:15 Nasal Cannula 2.0 12/08/16 21:00 Nasal Cannula 2.0 12/08/16 20:12 115 152/72 12/08/16 19:20 99.3 115 24 152/72 (98) 94 Nasal Cannula 2.0 99.3 12/08/16 16:33 114 119/59 12/08/16 15:00 99.1 112 28 136/65 (88) 100 Nasal Cannula 2.0 99.1 I & O Intake and Output 12/09/16 07:00 Intake Total 50 ml Output Total 6100 ml Balance -6050 ml Intake Oral 50 ml Output Urine Total 6100 ml # Bowel Movements 1 PHYSICAL EXAM Physical Exam lungs clear heart mild tachy abd soft and nonetender ext no edema ASSESSMENT/PLAN Assessment/Plan 1. Acute on chronic congestive heart failure. 2. Elevated troponin, rule out recent myocardial injury. NSTEMI 3. Chronic kidney disease stage 3-4. 4. Acute anemia probably due to hematoma in his thigh and lower abdomen. Hb better after transfusion 5. Left ulcer in the heel. 6. encephalopathy he wants to go home, discussed with hospice option , if not improving in the next few days consider hospice Problems: COMMENT Lab Laboratory Tests Test 12/09/16 03:30 Sodium Level 146 mmol/L (136-145) Potassium Level 3.5 mmol/L (3.5-5.1) Chloride Level 107 mmol/L (98-107) Carbon Dioxide Level 29 mmol/L (21-32) Anion Gap 10 (6-14) Blood Urea Nitrogen 55 mg/dL (8-26) Creatinine 1.9 mg/dL (0.7-1.3) Estimated GFR (Cockcroft-Gault) 34.2 Glucose Level 95 mg/dL (70-99) Calcium Level 9.0 mg/dL (8.5-10.1) Magnesium Level 2.3 mg/dL (1.8-2.4) DB REAL MD Dec 09, 2016 12:39
[2016-12-09] MEDS ORDERED: FUROSEMIDE 40 MG/4 ML VIAL. IVP SCH (13:00)
[2016-12-09] MEDS: MAGNESIUM OXIDE 400 MG TABLET PO SCH (13:00)
--- NOTE | 2016-12-09 13:47 | CONS ---
DATE OF CONSULTATION: 12/07/2016 This is Pillo Landers, nurse practitioner, dictating for Dr. Nawaf Quach, Infectious Disease. REFERRING PHYSICIAN: Dr. Haywood. REASON FOR CONSULTATION: Heel ulcer. HISTORY OF PRESENT ILLNESS: The patient is an 81-year-old male who was seen from [facility] for shortness of air and hypoxia requiring supplemental oxygen as well as elevated BNP and troponin level. He is followed by Cardiology for acute congestive heart failure and known ST elevated PR. The patient has multiple wounds including a stage IV pressure wound with bone exposure of the left heel. He had undergone previous debridements of necrotic subcutaneous tissue, fascia and bone in October as well as a left below the knee popliteal bypass using Braithwaite-Adam graft and left external iliac and profunda femoral endarterectomy. The patient is followed by [facility]. ID has been asked to consult for antibiotic treatment. According to the RN, the patient was confused and combative earlier. He is now resting quietly after given a sedative. Prior wound cultures grew E. coli, Prevotella and VRE. PAST MEDICAL HISTORY: Coronary artery disease, aortic stenosis, prostate cancer status post radiation, cirrhosis, chronic kidney disease, peripheral neuropathy and severe gout with recurrent attacks on chronic treatment, cardiomyopathy, hyperlipidemia, hypertension, gastroesophageal reflux disease, inguinal hernia, urinary retention requiring frequent [place] catheter, osteoarthritis, peripheral vascular disease, history of VRE and congestive heart failure. PAST SURGICAL HISTORY: Coronary artery bypass graft. Aortic valve replacement with bioprosthetic valve in 12/16/2013. Left below the knee popliteal bypass using Braithwaite-Adam graft, left external iliac and profunda femoral endarterectomy in 10/2016, left heel debridements of necrotic subcutaneous tissue, fascia and bone of left heel in 10/2016. FAMILY HISTORY: Positive for stroke, hypertension, coronary artery disease and cancer. SOCIAL HISTORY: longterm resident. ALLERGIES: No known drug allergies. MEDICATIONS: Reviewed on the AUG. He is currently not on any antibiotics. REVIEW OF SYSTEMS: Unobtainable, as the patient is resting quietly after given a sedative. PHYSICAL EXAMINATION: GENERAL: male resting quietly in no apparent distress. VITAL SIGNS: Temperature is 98.3, blood pressure 108/58, heart rate 100, respiratory rate 24, pulse oximetry is 98% on 2 liters nasal cannula. Weight is 235.03 pounds. HEENT: Pupils are small. Normal conjunctivae, oral mucosa is dry. LUNGS: Clear to auscultation anteriorly. HEART: Normal S1 and S2. ABDOMEN: Nondistended. Bowel sounds are present, soft. No grimace or guarding to palpation. EXTREMITIES: No gross edema or cyanosis. He has a wound VAC to left heel. Left lower extremity incisions well approximated with rafaela intact. No redness or drainage noted. SKIN: Without rash. Warm to touch. NEUROLOGIC: He briefly arouses to gentle stimuli. He has ____ on. LABORATORY DATA: Today's WBC 12.4, hemoglobin 9.2 from 6.7, platelet count 215,000, creatinine 2.0, BUN 56. Electrolytes are unremarkable. Total bilirubin 1.2, AST 20, ALT 13. Troponin 1.371 from 1.745, albumin 2.4. BNP 8604. MRSA screen negative. Chest x-ray shows worsening pulmonary infiltrates compatible with pulmonary edema. Lower extremity ultrasound shows no evidence of deep vein thrombosis of right lower extremity; extremely limited of the left lower extremity with no clear evidence of DVT in the proximal aspect of the deep venous system. V/Q scan shows low probability study for pulmonary embolism. Prior x-ray in September of left foot showed no acute bony abnormality. Also a prior bone scan in 08/2016 showed findings compatible with soft tissue infection with a component of early or mild osteomyelitis, not excluded along the posterior lateral margin of the left heel compared to the right. IMPRESSION: 1. Osteomyelitis of left heel, status debridement on 10/31/2016 and 11/21/2016. History of E. coli, Prevotella and VRE. 2. Stage 4 pressure wound with bone exposure of left heel. 3. Severe peripheral vascular disease, status post left below the knee popliteal bypass using Braithwaite-Adam graft and left external iliac and profunda femoral endarterectomy on 11/21/2016. 4. Leukocytosis. 5. Encephalopathy. 6. Acute anemia, status post blood transfusion. 7. Acute on chronic congestive heart failure. 8. Non-ST elevated myocardial infarction. 9. Chronic kidney disease. PLAN: Currently [facility] notes are not available. In reviewing previous [facility] records as well as speaking with the [facility] nurse, it does not appear that the patient has been on any long-term antibiotics. We will initiate Zosyn. Given his prior cultures including VRE sensitive to penicillin, we will initiate Zosyn. Monitor laboratory values. Local wound care. Thank you, Dr. Haywood for asking us to participate in this patient's care. Should you have further questions or concerns, please call. The patient was seen, examined and plan of care implemented by Dr. Nawaf Quach. NAWAF QUACH MD DR: ANGELINA/miguel JOB#: [id number] / [id number]
[2016-12-09 14:53] VITALS: BP 128/69
[2016-12-09 19:35] VITALS: BP 106/42
[2016-12-09] MEDS: ATORVASTATIN CALCIUM 20 MG TABLET PO SCH (21:00)
[2016-12-09 23:05] VITALS: BP 112/59
[2016-12-10] MEDS: MORPHINE SULFATE 4 MG/ML DISP.SYRIN. IV PRN ×4 (00:56→13:39)
[2016-12-10 03:00] VITALS: BP 117/60
[2016-12-10 04:19] LABS: CALCIUM 9.2 mg/dL (8.5-10.1); GFR 32.2; POTASSIUM 3.4 mmol/L (3.5-5.1)
[2016-12-10 04:29] LABS: BASO # 0.1 x10^3/uL (0.0-0.2); BASO % 1 % (0-3); EOS % 1 % (0-3); HEMATOCRIT 32.2 % (39.0-53.0); HEMOGLOBIN 10.5 g/dL (13.0-17.5); LYMPH # 0.7 x10^3/uL (1.0-4.8); LYMPH % 6 % (24-48); MEAN CORPUSCULAR HEMOGLOBIN 31 pg (25-35); MEAN CORPUSCULAR HGB CONC 33 g/dL (31-37); MEAN CORPUSCULAR VOLUME 94 fL (79-100); MONO % 8 % (0-9); NEUT % 84 % (31-73); PLATELET COUNT 247 x10^3/uL (140-400); RED BLOOD COUNT 3.44 x10^6/uL (4.30-5.70); RED CELL DISTRIBUTION WIDTH 16.1 % (11.5-14.5)
[2016-12-10] MEDS: PIPERACILLIN/TAZOBACTAM 2.25 GM in IV NORMAL SALINE 50ML 50 ML IV SCH ×4 (05:07→23:54)
[2016-12-10] MEDS: METOPROLOL TARTRATE 5 MG/5 ML VIAL. IVP SCH ×3 (05:07→21:35)
[2016-12-10 07:20] VITALS: BP 108/56
[2016-12-10] MEDS: ASPIRIN ENTERIC COATED 81 MG TABLET.DR. PO SCH (08:00)
[2016-12-10] MEDS: CLOPIDOGREL BISULFATE 75 MG TABLET PO SCH (08:00)
--- NOTE | 2016-12-10 08:45 | PDOC ---
Infectious Disease Note Subjective Subjective sleepy/lethargic ROS ROS unable to do Vital Sign Vital Signs Vital Signs Date Time Temp Pulse Resp B/P (MAP) Pulse Ox O2 Delivery O2 Flow Rate FiO2 12/10/16 07:20 97.5 67 18 108/56 (73) 95 Nasal Cannula 2.0 97.5 Physical Exam PHYSICAL EXAM GENERAL: NAD, Alert HEENT: PERRL, OC/OP NECK: Supple, no JVD, no LN LUNGS: Clear HEART: S1S2, no gallop, no murmur ABD: Soft, NT, no organomegaly, no rebound EXT: No edema, no cyanosis,, wounds TOWER CLEANER: lethargic SKIN: No rash IV: ok Labs Lab Laboratory Tests Test 12/10/16 03:30 White Blood Count 12.0 x10^3/uL (4.0-11.0) Red Blood Count 3.44 x10^6/uL (4.30-5.70) Hemoglobin 10.5 g/dL (13.0-17.5) Hematocrit 32.2 % (39.0-53.0) Mean Corpuscular Volume 94 fL (79-100) Mean Corpuscular Hemoglobin 31 pg (25-35) Mean Corpuscular Hemoglobin Concent 33 g/dL (31-37) Red Cell Distribution Width 16.1 % (11.5-14.5) Platelet Count 247 x10^3/uL (140-400) Neutrophils (%) (Auto) 84 % (31-73) Lymphocytes (%) (Auto) 6 % (24-48) Monocytes (%) (Auto) 8 % (0-9) Eosinophils (%) (Auto) 1 % (0-3) Basophils (%) (Auto) 1 % (0-3) Neutrophils # (Auto) 10.1 x10^3uL (1.8-7.7) Lymphocytes # (Auto) 0.7 x10^3/uL (1.0-4.8) Monocytes # (Auto) 0.9 x10^3/uL (0.0-1.1) Eosinophils # (Auto) 0.2 x10^3/uL (0.0-0.7) Basophils # (Auto) 0.1 x10^3/uL (0.0-0.2) Sodium Level 148 mmol/L (136-145) Potassium Level 3.4 mmol/L (3.5-5.1) Chloride Level 109 mmol/L (98-107) Carbon Dioxide Level 32 mmol/L (21-32) Anion Gap 7 (6-14) Blood Urea Nitrogen 49 mg/dL (8-26) Creatinine 2.0 mg/dL (0.7-1.3) Estimated GFR (Cockcroft-Gault) 32.2 Glucose Level 107 mg/dL (70-99) Calcium Level 9.2 mg/dL (8.5-10.1) Objective Assessment Osteomyelitis of left heel s/p debridement, 10/31 & 11/21. h/o E.coli, Prevotella and VRE. 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 Acute on chronic CHF NSTEMI CKD Plan Plan of Care [facility] notes are not available, but in reviewing previous [facility] records and discussion with [facility] nurse, it doesn't appear that patient has been on any long-term antibiotics. Continue Zosyn (started 12/08) Labs in am D/w RN and RN pt is known to us from office, he had refused all the treatment that was recommended and still is, hence family is going for hospice JANINE ALTMAN MD Dec 10, 2016 08:45
[2016-12-10] MEDS: TAMSULOSIN 0.4 MG CAP.ER.24H. PO SCH ×2 (09:00→21:00)
[2016-12-10] MEDS: POLYETHYLENE GLYCOL 3350 17 GM PACKET. PO SCH (09:00)
[2016-12-10] MEDS: FOLIC ACID 1 MG TABLET. PO SCH (09:00)
[2016-12-10] MEDS: ALLOPURINOL 300 MG TABLET. PO SCH (09:00)
[2016-12-10] MEDS: MAGNESIUM OXIDE 400 MG TABLET PO SCH (09:00)
[2016-12-10] MEDS: COLCHICINE 0.6 MG TABLET PO SCH (09:00)
[2016-12-10] MEDS: GABAPENTIN 300 MG CAPSULE. PO SCH (09:00)
[2016-12-10] MEDS ORDERED: FUROSEMIDE 40 MG/4 ML VIAL. IVP SCH (09:00)
[2016-12-10] MEDS: FINASTERIDE 5 MG TABLET. PO SCH (09:00)
[2016-12-10 11:15] VITALS: BP 121/67
[2016-12-10] MEDS ORDERED: POTASSIUM CHLORIDE 10 MEQ TABLET.ER. PO ONE (12:15)
--- NOTE | 2016-12-10 12:57 | PDOC ---
CARDIO Progress Notes Date and Time Date of Service 12/10/2016 Time of Evaluation 1015 Subjective Subjective: Other (restless with period of agitation, not in distress) Vitals Vitals Vital Signs Date Time Temp Pulse Resp B/P (MAP) Pulse Ox O2 Delivery O2 Flow Rate FiO2 12/10/16 11:15 97.5 97 22 121/67 (85) 91 Nasal Cannula 2.0 97.5 Weight Weight [ ] Input and Output Intake and Output Intake and Output 12/10/16 07:00 Intake Total 250 ml Output Total 3050 ml Balance -2800 ml Intake Oral 150 ml IV Total 100 ml Output Urine Total 3050 ml Laboratory Labs Laboratory Tests Test 12/10/16 03:30 White Blood Count 12.0 x10^3/uL (4.0-11.0) Red Blood Count 3.44 x10^6/uL (4.30-5.70) Hemoglobin 10.5 g/dL (13.0-17.5) Hematocrit 32.2 % (39.0-53.0) Mean Corpuscular Volume 94 fL (79-100) Mean Corpuscular Hemoglobin 31 pg (25-35) Mean Corpuscular Hemoglobin Concent 33 g/dL (31-37) Red Cell Distribution Width 16.1 % (11.5-14.5) Platelet Count 247 x10^3/uL (140-400) Neutrophils (%) (Auto) 84 % (31-73) Lymphocytes (%) (Auto) 6 % (24-48) Monocytes (%) (Auto) 8 % (0-9) Eosinophils (%) (Auto) 1 % (0-3) Basophils (%) (Auto) 1 % (0-3) Neutrophils # (Auto) 10.1 x10^3uL (1.8-7.7) Lymphocytes # (Auto) 0.7 x10^3/uL (1.0-4.8) Monocytes # (Auto) 0.9 x10^3/uL (0.0-1.1) Eosinophils # (Auto) 0.2 x10^3/uL (0.0-0.7) Basophils # (Auto) 0.1 x10^3/uL (0.0-0.2) Sodium Level 148 mmol/L (136-145) Potassium Level 3.4 mmol/L (3.5-5.1) Chloride Level 109 mmol/L (98-107) Carbon Dioxide Level 32 mmol/L (21-32) Anion Gap 7 (6-14) Blood Urea Nitrogen 49 mg/dL (8-26) Creatinine 2.0 mg/dL (0.7-1.3) Estimated GFR (Cockcroft-Gault) 32.2 Glucose Level 107 mg/dL (70-99) Calcium Level 9.2 mg/dL (8.5-10.1) Physical Exam HEENT: Neck Supple W Full Motion Chest: Symmetric LUNGS: Other (bibasilar crackles) Heart: S1S2, RRR (SR), murmurs (3/6 systolic murmur to LLS border) Abdomen: Soft N/T Extremities: No Calf Tenderness, Other (2+ bilateral LE pitting edema; generalized ecchymoses; wound vac to left heel in place) Neurology: other (AKIAK; drowsy) Assessment Assessment 1. Acute on chronic systolic/diastolic CHF: excellent diurese. appears better 2. NSTEMI: Peaked at 1.7, No CP. Likely type 2 with enumerated contributing factors. 3. ICM: repeat TTE with EF at 40-45%, unchanged by comparison 4. CAD: CABG x3 with AVR (well seated per recent TTE) in 2013. 5. S/P s/p fem pop LLE related to nonhealing left heel ulcer and severe PAD. 6. 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 Tachyarrhythmias: prior admission NSVT (no further occurrence). Tis admission to episodes of PAFIB with no further episodes. HR 90-100 8. Anemia of chronic disease: recent transfusion 9. Metabolic encephalopathy: remains to have consfuse with agitated episode. So far staff unable to provide PO meds. Recommendations 1. Family leaning towards possible hospice/comfort care. Palliative consult pending. 2. Pt has not been able to take his PO meds so far. Will reeval after palliative meeting today. 3. Lasix as warranted. Continue medical treatment as tolerated for now till decision finalized by family. PASTOR JALLOH BUSINESS OFFICE REPRESENTATIVE Dec 10, 2016 12:57
--- NOTE | 2016-12-10 13:02 | PDOC ---
OBJECTIVE Vital Signs Vital Signs Date Time Temp Pulse Resp B/P (MAP) Pulse Ox O2 Delivery O2 Flow Rate FiO2 12/10/16 11:15 97.5 97 22 121/67 (85) 91 Nasal Cannula 2.0 97.5 12/10/16 10:42 95 Nasal Cannula 2.0 12/10/16 07:20 97.5 67 18 108/56 (73) 95 Nasal Cannula 2.0 97.5 12/10/16 05:44 22 Nasal Cannula 2.0 12/10/16 05:14 22 Nasal Cannula 2.0 12/10/16 05:07 95 117/60 12/10/16 03:00 98.7 95 18 117/60 (79) 95 Nasal Cannula 2.0 98.7 12/10/16 00:56 22 Nasal Cannula 2.0 12/09/16 23:05 97.9 93 20 112/59 (76) 96 Nasal Cannula 2.0 97.9 12/09/16 22:01 111 106/42 12/09/16 21:58 99.0 99.0 12/09/16 21:46 Nasal Cannula 2.0 12/09/16 21:16 18 Room Air 12/09/16 19:35 99.6 111 18 106/42 (63) 91 Nasal Cannula 2.0 99.6 12/09/16 19:34 Nasal Cannula 2.0 12/09/16 14:53 98.7 119 22 128/69 (88) Nasal Cannula 2.0 98.7 12/09/16 13:57 130 124/64 12/09/16 13:47 95 12/09/16 13:08 95 Nasal Cannula 2.0 I & O Intake and Output 12/10/16 07:00 Intake Total 250 ml Output Total 3050 ml Balance -2800 ml Intake Oral 150 ml IV Total 100 ml Output Urine Total 3050 ml ASSESSMENT/PLAN Assessment/Plan 1. Acute on chronic congestive heart failure. 2. Elevated troponin, rule out recent myocardial injury. NSTEMI 3. Chronic kidney disease stage 3-4. 4. Acute anemia probably due to hematoma in his thigh and lower abdomen. Hb better after transfusion 5. Left ulcer in the heel WITH OSTEOMYLITIS , CONTINUE ANTIBIOTICS 6. encephalopathy requiring sedation, 7. malnutrition not taking P.O family in agreement with hospice due to quality of life but not comfortable with stopping medication, discussed PEG placement , continue meds when tube in place and nutrition then home with hospice Problems: COMMENT Lab Laboratory Tests Test 12/10/16 03:30 White Blood Count 12.0 x10^3/uL (4.0-11.0) Red Blood Count 3.44 x10^6/uL (4.30-5.70) Hemoglobin 10.5 g/dL (13.0-17.5) Hematocrit 32.2 % (39.0-53.0) Mean Corpuscular Volume 94 fL (79-100) Mean Corpuscular Hemoglobin 31 pg (25-35) Mean Corpuscular Hemoglobin Concent 33 g/dL (31-37) Red Cell Distribution Width 16.1 % (11.5-14.5) Platelet Count 247 x10^3/uL (140-400) Neutrophils (%) (Auto) 84 % (31-73) Lymphocytes (%) (Auto) 6 % (24-48) Monocytes (%) (Auto) 8 % (0-9) Eosinophils (%) (Auto) 1 % (0-3) Basophils (%) (Auto) 1 % (0-3) Neutrophils # (Auto) 10.1 x10^3uL (1.8-7.7) Lymphocytes # (Auto) 0.7 x10^3/uL (1.0-4.8) Monocytes # (Auto) 0.9 x10^3/uL (0.0-1.1) Eosinophils # (Auto) 0.2 x10^3/uL (0.0-0.7) Basophils # (Auto) 0.1 x10^3/uL (0.0-0.2) Sodium Level 148 mmol/L (136-145) Potassium Level 3.4 mmol/L (3.5-5.1) Chloride Level 109 mmol/L (98-107) Carbon Dioxide Level 32 mmol/L (21-32) Anion Gap 7 (6-14) Blood Urea Nitrogen 49 mg/dL (8-26) Creatinine 2.0 mg/dL (0.7-1.3) Estimated GFR (Cockcroft-Gault) 32.2 Glucose Level 107 mg/dL (70-99) Calcium Level 9.2 mg/dL (8.5-10.1) DB REAL MD Dec 10, 2016 13:02
--- NOTE | 2016-12-10 14:23 | RAD ---
Indication difficulty breathing. History of asthma and emphysema. A single view of the chest was obtained. Comparison is made to a study 3 days earlier. There has been some interval improvement. Findings likely reflect improvement in congestive heart failure seen previously some residual infiltrates persisting.. There are probable small pleural effusions. A new finding is not seen. IMPRESSION: Interval improvement
[2016-12-10 15:00] VITALS: BP 127/68
--- NOTE | 2016-12-10 15:39 | PDOC2 ---
PALLIATIVE CARE Palliative Care Note Palliative Care Consult requested by Dr. Haywood to address goals of care Diagnosis: CHF; NSTMI; chronic kidney disease stage 3,4, left heel ulcer- osteomyelitis; malnutrition; gout, cirrhosis of liver. Patient agitated with mitts in place. Family at bedside. Met with ; Vandana and daughters Lore and Merry Reviewed above medical condition with family. They are aware of the seriousness of his illness. Discussed options for care; comfort/hospice care with focus on relief of suffering and allow patient to naturally and peacefully; vs continued aggressive care vs limitation of aggressive care. Family is concerned about patient starving. They have considered PEG tube. Patient has stopped eating. Discussed risks and benefits. Concern that patient may pull out PEG tube, could become infected and does not eliminate concern for aspiration. Discussed concern for patient being hungry. Patient likely is not hungry and would have little benefit from insertion of PEG tube. Family declines consult for PEG tube. Discussed code status; family requests DNR/DNI. Understand without this attempt patient likely would . They wish for patient to have peace and comfort and with dignity. Outside the hospital DNR/DNI form signed by . 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 Consumed large amounts of ETOH for many years-- has cirrhosis of liver per family. Patient is Hindu. Family requests patient to have [facility] Discussed Hospice. They have no preference of hospice agency. They would like to take patient home with hospice tomorrow. DME: hospital bed, oxygen 2L NC Yanique RIBEIRO will assist family with decision of hospice agency and discharge arrangement. Will continue to monitor and treat symptoms of pain and agitation. (request order for SL medication) Family reports patient has been talking to family members who are . Discussed prognosis per request of family. days to week unless patient has sudden cardiac event. Daylin NAJERA will request order for DNR/DNI; Hospice eval and treat. D/C GI consult GHAZALA COBURN Dec 10, 2016 15:39
[2016-12-10] MEDS: MORPHINE SULFATE 20 MG/ML CONC SOLUTION. SL PRN ×3 (17:10→21:46)
[2016-12-10] MEDS: MORPHINE SULFATE 2 MG/ML DISP.SYRIN. IV PRN (17:47)
[2016-12-10 19:25] VITALS: BP 134/58
[2016-12-10] MEDS: ATORVASTATIN CALCIUM 20 MG TABLET PO SCH (21:00)
[2016-12-10] MEDS: LORazepam INTENSOL 2 MG/ML ORAL.CONC SL PRN (21:45)
[2016-12-10 23:12] VITALS: BP 147/67
[2016-12-11] MEDS: MORPHINE SULFATE 20 MG/ML CONC SOLUTION. SL PRN ×6 (00:11→15:07)
[2016-12-11 02:37] VITALS: BP 144/76
[2016-12-11] MEDS: LORazepam INTENSOL 2 MG/ML ORAL.CONC SL PRN ×2 (05:15→15:08)
[2016-12-11] MEDS: PIPERACILLIN/TAZOBACTAM 2.25 GM in IV NORMAL SALINE 50ML 50 ML IV SCH ×2 (05:17→11:59)
[2016-12-11] MEDS: METOPROLOL TARTRATE 5 MG/5 ML VIAL. IVP SCH ×2 (05:17→14:00)
[2016-12-11 07:00] VITALS: BP 117/55
[2016-12-11] MEDS: ASPIRIN ENTERIC COATED 81 MG TABLET.DR. PO SCH (07:48)
[2016-12-11] MEDS: CLOPIDOGREL BISULFATE 75 MG TABLET PO SCH (07:48)
[2016-12-11] MEDS: POLYETHYLENE GLYCOL 3350 17 GM PACKET. PO SCH (07:49)
[2016-12-11] MEDS: TAMSULOSIN 0.4 MG CAP.ER.24H. PO SCH (07:49)
[2016-12-11] MEDS: MAGNESIUM OXIDE 400 MG TABLET PO SCH (07:49)
[2016-12-11] MEDS: FOLIC ACID 1 MG TABLET. PO SCH (07:49)
[2016-12-11] MEDS: GABAPENTIN 300 MG CAPSULE. PO SCH (07:49)
[2016-12-11] MEDS: COLCHICINE 0.6 MG TABLET PO SCH (07:49)
[2016-12-11] MEDS: FINASTERIDE 5 MG TABLET. PO SCH (07:49)
[2016-12-11] MEDS: ALLOPURINOL 300 MG TABLET. PO SCH (07:50)
--- NOTE | 2016-12-11 08:59 | PDOC ---
Infectious Disease Note Subjective Subjective sleepy/lethargic ROS ROS unable to do Vital Sign Vital Signs Vital Signs Date Time Temp Pulse Resp B/P (MAP) Pulse Ox O2 Delivery O2 Flow Rate FiO2 12/11/16 08:48 16 Nasal Cannula 2.0 12/11/16 06:16 94 12/11/16 05:17 129 144/76 12/11/16 02:37 97.8 97.8 Physical Exam PHYSICAL EXAM unresponsive Objective Assessment Osteomyelitis of left heel s/p debridement, 10/31 & 11/21. h/o E.coli, Prevotella and VRE. 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 Acute on chronic CHF NSTEMI CKD Plan Plan of Care family decided on hospice will s/o , call if questions JANINE ALTMAN MD Dec 11, 2016 08:59
[2016-12-11] MEDS ORDERED: LORA2ORA7 SL (11:58)
[2016-12-11] MEDS ORDERED: MORP100S3 SL (11:58)
--- NOTE | 2016-12-11 12:03 | PDOC3 ---
Discharge Summary* Date of Admission: Dec 06, 2016 Date of Discharge: Dec 11, 2016 Admitting Diagnosis Problems Medical Problems: (1) CHF (congestive heart failure) Status: Acute (2) Elevated troponin Status: Acute Final Diagnosis 1. Acute on chronic congestive heart failure. 2. NSTEMI 3. Chronic kidney disease stage 3-4. 4. Acute anemia due to hematoma in his thigh and lower abdomen. Hb better after transfusion 5. Left ulcer in the heel WITH OSTEOMYLITIS 6. encephalopathy 7. malnutrition 8. PAD Problems Medical Problems: (1) CHF (congestive heart failure) Status: Acute (2) Elevated troponin Status: Acute CONSULTS Cardiology, palliative care, Infectious disease Procedures CXR, Venous doppler US, V/Q scan, blood transfusion Brief Hospital Course Mr. Mercado is a 81 old [sex] who presented with [ ] Disposition/Orders: D/C to Home w/ Hospice CONDITION AT DISCHARGE: Improved, Comment (poor prognosis) Diet: other (as tolerated) Scheduled Allopurinol (Allopurinol), 1 TAB PO DAILY, (Reported) Aspirin (Aspirin Ec), 1 TAB PO DAILY, (Reported) Atorvastatin Calcium (Atorvastatin Calcium), 20 MG PO QHS Clopidogrel Bisulfate (Clopidogrel), 75 MG PO DAILYWBKFT Colchicine (Colchicine), 0.6 MG PO DAILY, (Reported) Finasteride (Finasteride), 1 TAB PO DAILY, (Reported) Folic Acid (Folic Acid), 1 TAB PO DAILY, (Reported) Furosemide (Furosemide), 1 TAB PO TWICE WEEKLY Gabapentin (Gabapentin), 900 MG PO TID, (Reported) Magnesium Oxide (Mag-Oxide), 400 MG PO BID Metoprolol Tartrate (Metoprolol Tartrate), 25 MG PO BID Tamsulosin Hcl (Flomax), 0.4 MG PO BID, (Reported) Scheduled PRN Hydrocodone Bit/Acetaminophen (Hydrocodone-Apap 5-325 ), 1 TAB PO PRN Q4HRS PRN for PAIN Lorazepam (Lorazepam Intensol), 0.5 MG SL PRN Q6HRS PRN for ANXIETY / AGITATION Morphine Sulfate (Morphine Sulfate), 4 MG SL PRN Q2HR PRN for PAIN Discontinued Medications Famotidine (Pepcid), 20 MG PO BID, (Reported) FOLLOW UP APPOINTMENT: as needed Time Spent Total time spent with patient [] minutes for coordination of care, counseling, and education. MOUSSA,HALLA S MD Dec 11, 2016 12:03
--- NOTE | 2016-12-11 12:03 | PDOC ---
SUBJECTIVE Subjective LOOKS COMFORTABLE OBJECTIVE Vital Signs Vital Signs Date Time Temp Pulse Resp B/P (MAP) Pulse Ox O2 Delivery O2 Flow Rate FiO2 12/11/16 11:30 16 Nasal Cannula 2.0 12/11/16 10:47 91 16 100 Nasal Cannula 2.0 12/11/16 09:48 16 Room Air 12/11/16 08:48 16 Nasal Cannula 2.0 12/11/16 08:00 Nasal Cannula 2.0 12/11/16 07:00 97.9 92 17 117/55 (75) 84 Nasal Cannula 2.0 97.9 12/11/16 06:16 94 2.0 12/11/16 05:17 129 144/76 12/11/16 05:16 18 86 Room Air 12/11/16 02:41 18 86 Room Air 12/11/16 02:37 97.8 124 20 144/76 (98) 86 Room Air 97.8 12/11/16 00:11 18 89 Room Air 12/10/16 23:12 98.0 122 18 147/67 (93) 88 Room Air 98.0 12/10/16 21:46 18 88 Room Air 12/10/16 19:32 20 88 Room Air 12/10/16 19:25 98.0 117 20 134/58 (83) 88 Room Air 98.0 12/10/16 19:25 Nasal Cannula 2.0 12/10/16 18:44 95 Nasal Cannula 2.0 12/10/16 18:42 95 Nasal Cannula 2.0 12/10/16 17:47 95 Nasal Cannula 2.0 12/10/16 17:10 95 Nasal Cannula 2.0 12/10/16 15:00 97.8 100 22 127/68 (87) 95 Nasal Cannula 2.0 97.8 12/10/16 13:39 91 Nasal Cannula 2.0 I & O Intake and Output 12/11/16 07:00 Intake Total 0 ml Output Total 950 ml Balance -950 ml Intake Oral 0 ml Output Urine Total 950 ml PHYSICAL EXAM Physical Exam SEDATED LUNGS CLEAERER HEARTrrr ABD SOFT EXT NO EDEMA ASSESSMENT/PLAN Assessment/Plan family decided no PEG after meeting with palliative care, desire home with hospice and comfort measures Problems: DB REAL MD Dec 11, 2016 12:03
== END 2016-12-11 16:02 | disposition hospice, home (50) | DRG 539 ==
LOC: ER 09:38 → 2 SOUTH 11:35
PROVIDERS: ADMIT Internal Medicine; ATTEND Internal Medicine
PROC: 30233N1 Transfusion of Nonautologous Red Blood Cells into Peripheral Vein, Percutaneous Approach (ICD-10-PCS; principal; 2016-12-07)
DX: M86.8X7 Other osteomyelitis, ankle and foot (principal); I21.4 Non-ST elevation (NSTEMI) myocardial infarction; G93.41 Metabolic encephalopathy; I50.43 Acute on chronic combined systolic (congestive) and diastolic (congestive) heart failure; L89.624 Pressure ulcer of left heel, stage 4; I13.0 Hypertensive heart and chronic kidney disease with heart failure and stage 1 through stage 4 chronic kidney disease, or unspecified chronic kidney disease; E46 Unspecified protein-calorie malnutrition; L97.429 Non-pressure chronic ulcer of left heel and midfoot with unspecified severity; N18.4 Chronic kidney disease, stage 4 (severe); E78.00 Pure hypercholesterolemia, unspecified; E78.5 Hyperlipidemia, unspecified; Z51.5 Encounter for palliative care; F17.200 Nicotine dependence, unspecified, uncomplicated; I25.5 Ischemic cardiomyopathy; I25.10 Atherosclerotic heart disease of native coronary artery without angina pectoris; D63.8 Anemia in other chronic diseases classified elsewhere; M10.9 Gout, unspecified; K74.60 Unspecified cirrhosis of liver; K59.00 Constipation, unspecified; M19.90 Unspecified osteoarthritis, unspecified site; D72.829 Elevated white blood cell count, unspecified; K21.9 Gastro-esophageal reflux disease without esophagitis; F41.9 Anxiety disorder, unspecified; R09.02 Hypoxemia; Z82.3 Family history of stroke; Z82.49 Family history of ischemic heart disease and other diseases of the circulatory system; Z85.46 Personal history of malignant neoplasm of prostate; Z87.01 Personal history of pneumonia (recurrent); Z92.3 Personal history of irradiation; Z95.1 Presence of aortocoronary bypass graft; Z95.2 Presence of prosthetic heart valve; Z95.3 Presence of xenogenic heart valve; Z95.5 Presence of coronary angioplasty implant and graft; Z23 Encounter for immunization; Z68.39 Body mass index [BMI] 39.0-39.9, adult; S30.1XXA Contusion of abdominal wall, initial encounter
CPT/HCPCS: 36415; 71010; 78582; 80048; 80053; 82553; 83735; 83880; 84484; 85007; 85027; 85379; 86850; 86900; 86901; 86920; 87641; 93005; 93306; 93970; 96372; 96374; A9540; A9558; J1650; J1940; J2060; J2270; J2543; J3490; P9016; 99285-25